=== PATIENT | male | born 1940 | race Hispanic/Latino ===

== ENCOUNTER 2016-12-28 10:52 | Day surgery (SDC) | payer MEDICARE ==
[2016-12-28 10:52] VITALS: BMI 27.6
[2016-12-28] MEDS ORDERED: Sodium Chloride 0.45% 1,000 ML IV ONE (11:17)
--- NOTE | 2016-12-28 11:21 | ED PDOC ---
Arrival/HPI - General Chief Complaint: Lower Extremity Problem/Injury Time Seen by Provider: 12/28/16 11:07 Historian: Patient - History of Present Illness Narrative History of Present Illness (Text): 12/28/16 11:17 76 year old male with healing right lower extremity ulcer sent by PMD to admit for procedure. Patient states he has no acute complaints. Past Medical History - Provider Review Nursing Documentation Reviewed: Yes - Infectious Disease Hx of Infectious Diseases: None - Tetanus Immunization Tetanus Immunization: Unknown - Cardiac Hx Cardiac Disorders: Yes Hx Hypertension: Yes - Pulmonary Hx Respiratory Disorders: No (SMOKED CIGARETTES 3 PPD QUIT) - Neurological Hx Neurological Disorder: No - HEENT Hx HEENT Disorder: No - Renal Hx Renal Disorder: No - Endocrine/Metabolic Hx Diabetes Mellitus Type 1: No (pt denies) Hx Diabetes Mellitus Type 2: No (pt denies) - Hematological/Oncological Hx Blood Transfusions: No Hx Blood Transfusion Reaction: No - Integumentary Hx Dermatological Disorder: Yes Other/Comment: left great toe ischemic ulcer, unable to assess at present dressing was done by dr aguirre today, xray done 3 weeks ago as per pt and small piece of metal found in left great toe,pt can't feel anything due to neuropathy denies stepping on anything, hx of hyperbaric treatments to r 4th toe above from prior admission, 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, dsd intact left foot osteomylitis left great toe pt does not want dressing removed at present time - Musculoskeletal/Rheumatological Hx Arthritis: Yes (hands and feet) - Gastrointestinal Hx Gastrointestinal Disorders: No - Genitourinary/Gynecological Hx Genitourinary Disorders: No - Psychiatric Hx Psychophysiologic Disorder: No (SMOKED CIGARETTES H/O 3 PPD.QUIT) Hx Emotional Abuse: No Hx Physical Abuse: No Hx Substance Use: No - Surgical History Hx Appendectomy: Yes Hx Coronary Stent: (denies) Other/Comment: right arm midline cath in and out - Anesthesia Hx Anesthesia Reactions: No Hx Malignant Hyperthermia: No - Suicidal Assessment Feels Threatened In Home Enviroment: No Family/Social History - Physician Review Nursing Documentation Reviewed: Yes Family/Social History: Unknown Family HX Smoking Status: Former Smoker Hx Alcohol Use: No Hx Substance Use: No Hx Substance Use Treatment: No Allergies/Home Meds Allergies/Adverse Reactions: Allergies No Known Allergies Allergy (Verified 10/19/16 12:01) Home Medications: Home Meds Medication Instructions Recorded Confirmed Lisinopril/Hydrochlorothiazide 1 tab PO DAILY 01/19/14 12/28/16 [Lisinopril-Hctz 10-12.5 mg Tab] Diclofenac Sodium [Voltaren] 75 mg PO BID 01/05/16 12/28/16 Cephalexin [Keflex] 500 mg PO TID 10/19/16 12/28/16 Review of Systems - Physician Review All systems were reviewed & negative as marked: Yes Physical Exam - Physical Exam Narrative Physical Exam (Text): - Review of Systems Constitutional: Normal. absent: Fatigue, Weight Change, Fevers Eyes: Normal ENT: Normal Respiratory: Normal absent: SOB, Cough, Sputum Cardiovascular: Normal absent: Chest pain, Palpitations, Syncope Gastrointestinal: Normal absent: Abdominal pain, Diarrhea, Nausea, Vomiting Genitourinary: Normal. absent: Dysuria, Frequency, Hematuria Musculoskeletal: Normal. absent: Arthralgias, Back Pain, Neck Pain Skin: Healing RLE ulcer Neurological: Normal absent: Focal Weakness Endocrine: Normal Hemo/Lymphatic: Normal Psychiatric: Normal - Physical exam Patient appears age appropriate, speaking full sentences without difficulty - Systems Exam Head: Present: Atraumatic, Normocephalic Pupils: Present: PERRL Extraocular Muscles: Present: EOMI Conjunctiva: Present: Normal Mouth: Present: Moist Mucous Membranes Neck: Present: Normal Range of Motion. No: MIDLINE TENDERNESS, Paraspinal Tenderness Respiratory/Chest: Present: Clear to Auscultation, Good Air Exchange. No: Respiratory Distress, Accessory Muscle Use, Tachypneic Cardiovascular: Present: Regular Rate and Rhythm, Normal S1, S2, Peripheral Pulses Present. No: Murmurs Abdomen: Present: Normal Bowel Sounds, No: Tenderness, Peritoneal Signs, Rebound, Guarding, Distention Back: Present: Normal Inspection. No: Midline Tenderness, Paraspinal Tenderness Upper Extremity: Present: Normal Inspection. No: Cyanosis, Edema Lower Extremity: Present: Clean dressing on right lower extremity, prefers not to be examined. Neurological: Present: GCS=15, Speech Normal, cranial nerves II through XII fully intact with no cerebellar abnormality, neuro-sensory fully intact. No focal neurological deficits. Skin: Present: Warm, Dry, Normal Color. No: Rashes Lymphatic: Present: OX3, NI, NC Psychiatric: Present: Alert, Oriented x 3, Normal Insight, Normal Concentration. Vital Signs Reviewed: Yes Vital Signs Temp Pulse Resp BP Pulse Ox 12/28/16 12:21 98.5 F 65 18 149/75 98 12/28/16 11:02 98.5 F 65 16 149/75 98 Temperature: Afebrile Blood Pressure: Normal Pulse: Regular Respiratory Rate: Normal Appearance: Positive for: Well-Appearing, Non-Toxic, Comfortable Pain Distress: None Mental Status: Positive for: Alert and Oriented X 3 Medical Decision Making ED Course and Treatment: Impression: 76 year old male with healing right lower extremity ulcer sent by PMD for procedure. On physical exam, patient has clean dressing on right lower extremity, prefers not to be examined. Plan: -- Labs -- IV fluids -- Admission Progress Notes: 12/28/16 11:[address] Schwartz who states to admit to his service for procedure. states to start 1/2NS @100, preop labs pt in no distress, aware of and agrees with plan - Lab Interpretations Lab Results: 12/28/16 11:25 12/28/16 11:25 Lab Results 12/28/16 11:30: Blood Type Pending, Antibody Screen Pending, BBK History Checked Patient has bt 12/28/16 11:25: Sodium 137, Potassium 4.3, Chloride 104, Carbon Dioxide 22, Anion Gap 15, BUN 39 H, Creatinine 1.3, Est GFR ( Amer) > 60, Est GFR ( Non-Af Amer) 54, Random Glucose 93, Calcium 9.4, Total Bilirubin 1.5 H, AST 33, ALT 46, Alkaline Phosphatase 80, Total Protein 8.1, Albumin 4.3, Globulin 3.7, Albumin/Globulin Ratio 1.2 12/28/16 11:25: PT 10.7, INR 0.99, APTT 27.6 12/28/16 11:25: WBC 10.0, RBC 4.97, Hgb 16.0, Hct 45.2, MCV 90.9, MCH 32.2, MCHC 35.4, RDW 13.2, Plt Count 247, MPV 9.5, Gran % 69.6 H, Lymph % (Auto) 17.7 L, King % (Auto) 9.2 H, Eos % (Auto) 3.0, Baso % (Auto) 0.5, Gran # 6.95 H, Lymph # 1.8, King # 0.9 H, Eos # 0.3, Baso # 0.05 - RAD Interpretation Radiology Orders: 12/28/16 12:10 CAR PERIPHERAL VASCULAR ORDER [VASCULAR] Stat - Medication Orders Current Medication Orders: Sodium Chloride (Sodium Chloride 0.45%) 1,000 mls @ 100 mls/hr IV .Q10H ONE Stop: 12/28/16 21:16 Discontinued Medications Fentanyl (Fentanyl) Confirm Administered Dose 100 mcg .ROUTE .STK-MED ONE Stop: 12/28/16 12:13 Fentanyl (Fentanyl) Confirm Administered Dose 100 mcg .ROUTE .STK-MED ONE Stop: 12/28/16 13:22 Fentanyl (Fentanyl) Confirm Administered Dose 100 mcg .ROUTE .STK-MED ONE Stop: 12/28/16 14:35 Heparin Sodium (Porcine) (Heparin) Confirm Administered Dose 10,000 units .ROUTE .STK-MED ONE Stop: 12/28/16 12:12 Heparin Sodium (Porcine) (Heparin 1000 Units/500 Ml Ns) Confirm Administered Dose 1,500 mls @ ud IV .STK-MED ONE Stop: 12/28/16 12:13 Nitroglycerin/Dextrose (Nitroglycerin 50 Mg/250 Ml D5w) Confirm Administered Dose 50 mg in 250 mls @ ud IV .STK-MED ONE Stop: 12/28/16 12:14 Heparin Sodium (Porcine) (Heparin 1000 Units/500 Ml Ns) Confirm Administered Dose 500 mls @ ud IV .STK-MED ONE Stop: 12/28/16 14:08 Iodixanol (Visipaque 320 Mg/Ml 100 Ml) Confirm Administered Dose 100 ml IV .STK- MED ONE Stop: 12/28/16 12:13 Iodixanol (Visipaque 320 Mg/Ml 200 Ml) Confirm Administered Dose 200 ml IV .STK- MED ONE Stop: 12/28/16 12:13 Iodixanol (Visipaque 320 Mg/Ml 100 Ml) Confirm Administered Dose 100 ml IV .STK- MED ONE Stop: 12/28/16 14:33 Iohexol (Omnipaque 350mg/Ml 50 Ml) Confirm Administered Dose 50 ml .ROUTE .STK- MED ONE Stop: 12/28/16 12:13 Lidocaine HCl (Lidocaine 2% 20ml Vial) Confirm Administered Dose 20 ml .ROUTE .STK-MED ONE Stop: 12/28/16 12:12 Lidocaine HCl (Lidocaine 2% 20ml Vial) Confirm Administered Dose 20 ml .ROUTE .STK-MED ONE Stop: 12/28/16 14:04 Midazolam HCl (Versed Inj) Confirm Administered Dose 2 mg .ROUTE .STK-MED ONE Stop: 12/28/16 12:13 Midazolam HCl (Versed Inj) Confirm Administered Dose 2 mg .ROUTE .STK-MED ONE Stop: 12/28/16 13:22 Midazolam HCl (Versed Inj) Confirm Administered Dose 2 mg .ROUTE .STK-MED ONE Stop: 12/28/16 14:35 Verapamil HCl (Verapamil Inj) Confirm Administered Dose 5 mg IVP .STK-MED ONE Stop: 12/28/16 13:29 Verapamil HCl (Verapamil Inj) Confirm Administered Dose 5 mg IVP .STK-MED ONE Stop: 12/28/16 14:41 - Scribe Statement The provider has reviewed the documentation as recorded by the Chirag Brooks Provider Scribe Attestation: All medical record entries made by the Chirag were at my direction and personally dictated by me. I have reviewed the chart and agree that the record accurately reflects my personal performance of the history, physical exam, medical decision making, and the department course for this patient. I have also personally directed, reviewed, and agree with the discharge instructions and disposition. Disposition/Present on Arrival - Present on Arrival Any Indicators Present on Arrival: No History of DVT/PE: No History of Uncontrolled Diabetes: No Urinary Catheter: No History of Decub. Ulcer: No History Surgical Site Infection Following: None - Disposition Have Diagnosis and Disposition been Completed?: Yes Diagnosis: Foot pain Disposition: HOSPITALIZED Disposition Time: :17 Patient Plan: Admission Patient Problems: Current Active Problems Problem Status Onset Foot pain Acute Condition: STABLE
[2016-12-28 11:40] LABS: ADD MANUAL DIFF? NO
[2016-12-28 11:42] LABS: BASO # 0.05 K/mm3 (0.0-2.0); BASO % 0.5 % (0.0-3.0); EOS # 0.3 (0.0-0.7); GRAN # 6.95 (1.4-6.5); GRAN % 69.6 % (50.0-68.0); HEMATOCRIT 45.2 % (42.0-52.0); LYMPH # 1.8 (1.2-3.4); LYMPH % 17.7 % (22.0-35.0); MEAN CELL VOLUME 90.9 fL (80.0-105.0); MEAN CORPUSCULAR HEMOGLOBIN 32.2 pg (25.0-35.0); MEAN CORPUSCULAR HGB CONC 35.4 g/dl (31.0-37.0); MEAN PLATELET VOLUME 9.5 fl (7.0-11.0); MONO # 0.9 (0.1-0.6); MONO % 9.2 % (1.0-6.0); PLATELET COUNT 247 10^3/uL (120.0-450.0); RED CELL DISTRIBUTION WIDTH 13.2 % (11.5-14.5)
[2016-12-28 11:53] LABS: ALB/GLOB RATIO 1.2 (1.1-1.8); ALKALINE PHOSPHATASE 80 U/L (38-133); ALT/SGPT 46 U/L (7-56); AST/SGOT 33 U/L (15-59); BILIRUBIN,TOTAL 1.5 mg/dL (0.2-1.3); BLOOD UREA NITROGEN 39 mg/dL (7-21); CALCIUM 9.4 mg/dL (8.4-10.5); CARBON DIOXIDE 22 mmol/L (21-33); CHLORIDE 104 mmol/L (98-107); GFR AFRICAN-AMERICAN > 60; GLUCOSE,RANDOM 93 mg/dL (70-110); POTASSIUM 4.3 mmol/L (3.6-5.0); SODIUM 137 mmol/L (132-148); TOTAL PROTEIN 8.1 g/dL (5.8-8.3)
[2016-12-28 11:57] LABS: INR 0.99 (0.93-1.08); PARTIAL THROMBOPLASTIN TIME 27.6 Seconds (23.7-30.8)
[2016-12-28] MEDS ORDERED: Lidocaine 2% Inj (20ml) ONE ×2 (12:11→14:03)
[2016-12-28] MEDS ORDERED: Iohexol 350mgl/ml 50 ML ONE (12:12)
[2016-12-28] MEDS ORDERED: Iodixanol 320 MG/ML 100 ML BOTTLE IV ONE ×2 (12:12→14:32)
[2016-12-28] MEDS ORDERED: Midazolam 2 MG/2 ML VIAL ONE ×3 (12:12→14:34)
[2016-12-28] MEDS ORDERED: Iodixanol 320 MG/ML 200 ML BOTTLE IV ONE (12:12)
[2016-12-28] MEDS ORDERED: Nitroglycerin 50mg in D5W 50 MG/250 ML BOTTLE IV ONE (12:13)
[2016-12-28] MEDS ORDERED: Oxycodone/Acetaminophen 5/325 mg Tab PO PRN (15:02)
[2016-12-28 16:19] VITALS: TEMP 97.8
[2016-12-28 17:39] VITALS: O2SAT 96
[2016-12-28 17:40] VITALS: BP 123/64; PULSE 58; RESP 18
--- NOTE | 2016-12-28 19:20 | VASCULAR ---
PROCEDURE: Abdominal aortogram and bilateral lower extremity runoff with bilateral punctures HISTORY: Peripheral vascular disease. Previous right femoral - popliteal bypass. Ischemic ulceration right 2nd toe. PHYSICIAN(S): Lang Schwartz MD. TECHNIQUE: The relative risks and indications of the procedure were explained to the patient and consent obtained. The patient was hydrated prior to the procedure and the appropriate labs drawn. The patient was placed supine on the arteriogram table and the left groin prepped and draped in the usual sterile fashion. Conscious sedation and monitoring were provided throughout the procedure by a nurse. Via a left common femoral artery approach, a 5 Nauruan sheath was placed in the left groin. Through the sheath and over a guidewire, a 5 Nauruan flush catheter was placed in the abdominal aorta at the level of the renal arteries and a PA DSA abdominal aortogram performed. The catheter was pulled down to the aortic bifurcation and bilateral oblique DSA pelvic arteriograms performed. Overlapping bilateral lower extremity DSA arteriograms were obtained from the inguinal ligaments to the ankles. A 6 Nauruan 90 cm sheath was placed in the right popliteal artery. Attempts at cannulating the occluded right anterior tibial artery origin or right peroneal artery were unsuccessful despite numerous 0.014 and 0.035 guidewires. Subsequently the right ankle was prepped and draped usual sterile fashion. Under ultrasound guidance the distal right anterior tibial artery was punctured with a micropuncture set in a retrograde direction. Various 4 and 5 Nauruan catheters were advanced to the occluded stent in the proximal right anterior tibial artery. The occluded stent could not be crossed in a retrograde direction. The sheath and catheter were removed and hemostasis obtained. The patient tolerated the procedure well. FINDINGS: There are single renal arteries bilaterally which are widely patent and normal in appearance. The nephrograms are symmetric in appearance. The infrarenal abdominal aorta is tortuous and widely patent.. The aortic bifurcation is widely patent. The common and external iliac arteries are normal in appearance without a significant stenosis. The internal iliac arteries are patent bilaterally. Right lower extremity: The right common femoral artery is patent. The right profunda femoral artery is patent. The patient's right femoral- above knee popliteal graft is patent. The stent in the proximal graft is patent. The distal anastomosis is patent. The right popliteal artery is patent. There is severe right trifurcation and tibial occlusive disease. All 3 tibial vessels are occluded proximally. There is a a occluded stent in the proximal right anterior tibial artery. The right tibioperoneal trunk is occluded. There is reconstitution of the proximal right anterior tibial artery below the stent. There is reconstitution of the mid right peroneal artery. The right posterior tibial artery is occluded proximally. Left lower extremity: Left common femoral artery is patent. The left profunda femoral artery is patent. The left superficial femoral artery is patent and continuous with diffuse calcified disease. Are radiographically significant stenosis is not appreciated. The left popliteal artery is patent and continuous. The left trifurcation demonstrates an occluded left posterior tibial artery. The left anterior tibial artery is atretic. The predominant supply left foot is the left peroneal artery.. IMPRESSION: 1. Severe right trifurcation and tibial occlusive disease. The occluded proximal right anterior tibial artery stent could not be crossed in an antegrade or retrograde direction. If the patient's ischemic lesion progresses, he can be evaluated for right popliteal - anterior tibial bypass. 2. Patent right femoral bypass graft. 3. Severe left tibial occlusive disease. There is 1 vessel runoff via the left peroneal artery
== END 2016-12-28 19:00 | disposition home or self-care (01) ==
LOC: ED 10:52 → SDSVAS 13:06
PROVIDERS: ATTEND Radiology Vascular & Interventional Radiology
DX: I70.235 Atherosclerosis of native arteries of right leg with ulceration of other part of foot (principal); L97.919 Non-pressure chronic ulcer of unspecified part of right lower leg with unspecified severity
CPT/HCPCS: 36140; 36247; 75625; 75716; 80053; 85025; 85610; 85730; 86850; 86900; 99152; 99153; 99283; C1725 ×4; C1760 ×2; C1769 ×4; C1887 ×2; C1894; J1644 ×2; J2250; J2405; J3010; Q9967

== ENCOUNTER 2017-02-02 07:06 | Day surgery (SDC) | payer MEDICARE ==
[2017-01-31 08:53] VITALS: BMI 26.6
[2017-02-02 07:34] LABS: ADD MANUAL DIFF? NO
[2017-02-02 07:37] LABS: BASO # 0.06 K/mm3 (0.0-2.0); BASO % 0.9 % (0.0-3.0); EOS # 0.4 (0.0-0.7); GRAN % 61.1 % (50.0-68.0); HEMATOCRIT 44.3 % (42.0-52.0); LYMPH # 1.4 (1.2-3.4); LYMPH % 21.3 % (22.0-35.0); MEAN CELL VOLUME 91.9 fL (80.0-105.0); MEAN CORPUSCULAR HEMOGLOBIN 31.7 pg (25.0-35.0); MEAN CORPUSCULAR HGB CONC 34.5 g/dl (31.0-37.0); MEAN PLATELET VOLUME 9.6 fl (7.0-11.0); MONO # 0.7 (0.1-0.6); MONO % 10.7 % (1.0-6.0); PLATELET COUNT 190 10^3/uL (120.0-450.0); RED CELL DISTRIBUTION WIDTH 12.8 % (11.5-14.5); WHITE BLOOD COUNT 6.4 10^3/ul (4.5-11.0)
[2017-02-02 07:44] LABS: CALCIUM 9.3 mg/dL (8.4-10.5); CARBON DIOXIDE 25 mmol/L (21-33); CHLORIDE 105 mmol/L (95-110); GFR AFRICAN-AMERICAN > 60; GLUCOSE,RANDOM 93 mg/dL (70-110); POTASSIUM 4.3 mmol/L (3.6-5.0); SODIUM 138 mmol/L (132-148)
[2017-02-02 07:50] LABS: INR 0.97 (0.93-1.08); PARTIAL THROMBOPLASTIN TIME 27.5 Seconds (23.7-30.8)
[2017-02-02 08:10] LABS: BLOOD UREA NITROGEN 29 mg/dL (7-21)
[2017-02-02] MEDS ORDERED: Lidocaine 2% Inj (20ml) ONE (08:11)
[2017-02-02] MEDS ORDERED: Iodixanol 320 MG/ML 200 ML BOTTLE IV ONE (08:12)
[2017-02-02] MEDS ORDERED: Midazolam 2 MG/2 ML VIAL ONE ×2 (08:36→09:16)
[2017-02-02] MEDS ORDERED: Adenosine 90 mg/30mL IV ONE (09:32)
[2017-02-02] MEDS ORDERED: Sodium Chloride 0.9% 1,000 ML IV SCH (10:30)
--- NOTE | 2017-02-02 11:47 | CARDCATH ---
PROCEDURE DATE: 02/02/2017 HISTORY OF PRESENT ILLNESS: The patient is a 76-year-old male who presented with an abnormal stress test as part of preop testing for peripheral vascular surgery. The patient's risk factors include a history of COPD, a long history of smoking, hypertension, and do cumented peripheral vascular disease. Because of this, cardiac catheterization was recommended. PROCEDURE: Left heart catheterization with coronary angiography, left ventriculogram, FFR, PTCA and stent of an LAD and circumflex artery. The left femoral artery was cannulated with a 6-Danish sheath which was then exchanged for a 7-Danish sheath. There were no complications. The findings on catheterization revealed a left ventricle that contracted normally. Estimated ejecti on fraction is 60%. His coronary anatomy revealed diffuse calcification and diffuse atherosclerosis. The RCA was a codominant vessel and found to have a long 80% stenosis in the ostium to the mid portio n of the RCA followed by a 95% stenosis in the mid portion. The left main artery revealed diffuse atherosclerosis without critical lesions. The LAD revealed a 60% stenosis in the proximal portion of the LAD with diffuse atherosclerosis throu ghout its course. The circumflex artery was a tortuous vessel and found to have an 80-90% stenosis in its proximal port ion. An FFR was performed in the LAD in which, after 45 seconds, the FFR was 0.82. The patient was started on intravenous Angiomax. Under fluoroscopic guide, the guiding catheter was placed in the ostium of the left main artery. A 3 .5 x 15 mm drug-eluting stent was placed and deployed in the proximal LAD at 14 atmospheres of pressu re. Repeat coronary angiography revealed an excellent result with no residual stenosis and FROY 3 fl ow. The wire was then brought back into the circumflex artery. A second wire was placed in the circumfle x artery for better support. Balloon angioplasty was done with a 2.5 followed by a 3.0 balloon. A 3.0 x 15 mm drug-eluting stent was placed and deployed in the proximal circumflex artery at 14 atmo spheres of pressure. Repeat coronary angiography revealed an excellent result with no residual steno sis and FROY 3 flow. The patient tolerated the procedure well. Angio-Seal was used to close the femoral artery site. SUMMARY: 1. The procedure was successful percutaneous transluminal coronary angioplasty and stent of a proxim al left anterior descending with a drug-eluting stent. 2. Percutaneous transluminal coronary angioplasty and stent of a proximal circumflex with a drug-elu ting stent. 3. Triple-vessel coronary artery disease. 4. Normal left ventricular function . 5. Severe peripheral vascular disease. Given these findings, the patient will need to remain on aspirin indefinitely and Plavix for at least 1 year. We will bring him back in 1 week for PTCA and stent of a complex RCA vessel. Lang Birmingham MD cc: [phone] TT: 02/02/2017 11:47:40 tn
--- NOTE | 2017-02-02 13:55 | CARD ---
APPROVED REPORT EKG Measurement Heart [id number] <Conclusion> Sinus rhythm with 1st degree AV block STTW changes c/w ischemia
--- NOTE | 2017-02-02 15:10 | CARD ---
APPROVED REPORT EKG Measurement Heart [id number] <Conclusion> Marked sinus bradycardia with 1st degree AV block STW changes c/w ischemia
[2017-02-03 05:51] VITALS: TEMP 97.6
[2017-02-03 05:52] VITALS: BP 126/75; PULSE 57; RESP 19; O2SAT 99
[2017-02-03 08:21] LABS: ADD MANUAL DIFF? NO
[2017-02-03 08:24] LABS: BASO # 0.03 K/mm3 (0.0-2.0); BASO % 0.3 % (0.0-3.0); EOS # 0.4 (0.0-0.7); EOS % 5.1 % (1.5-5.0); GRAN % 67.4 % (50.0-68.0); HEMATOCRIT 46.2 % (42.0-52.0); LYMPH # 1.5 (1.2-3.4); LYMPH % 17.7 % (22.0-35.0); MEAN CELL VOLUME 92.2 fL (80.0-105.0); MEAN CORPUSCULAR HEMOGLOBIN 31.9 pg (25.0-35.0); MEAN CORPUSCULAR HGB CONC 34.6 g/dl (31.0-37.0); MEAN PLATELET VOLUME 9.6 fl (7.0-11.0); MONO # 0.8 (0.1-0.6); MONO % 9.5 % (1.0-6.0); PLATELET COUNT 190 10^3/uL (120.0-450.0); RED CELL DISTRIBUTION WIDTH 12.9 % (11.5-14.5); WHITE BLOOD COUNT 8.6 10^3/ul (4.5-11.0)
[2017-02-03 08:55] LABS: BLOOD UREA NITROGEN 23 mg/dL (7-21); CALCIUM 9.1 mg/dL (8.4-10.5); CARBON DIOXIDE 26 mmol/L (21-33); CHLORIDE 102 mmol/L (95-110); GFR AFRICAN-AMERICAN > 60; GLUCOSE,RANDOM 91 mg/dL (70-110); POTASSIUM 4.6 mmol/L (3.6-5.0); SODIUM 137 mmol/L (132-148)
--- NOTE | 2017-02-03 10:16 | PN ---
DATE: 02/03/2017 SUBJECTIVE: The patient is asymptomatic, chest pain free. PHYSICAL EXAMINATION: VITAL SIGNS: Blood pressure 126/75, heart rate is in the 60s, normal sinus rhythm. NECK: Negative JVD. LUNGS: Without rales. HEART: With S1, S2. EXTREMITIES: Without edema. LABORATORIES: Reveal hemoglobin of 16. Chemistries: BUN and creatinine are unremarkable. EKG is unremarkable. IMPRESSION: 1. Stable post percutaneous transluminal coronary angioplasty and stent of 2 vessels. 2. Cardiac catheterization revealed triple vessel coronary artery disease. 3. Normal left ventricular function. 4. Hypercholesterolemia. 5. Hypertension. PLAN: Given these findings, the patient is stable for discharge. Instructions and follow up have be en discussed with the patient in detail. His medications have been ordered. The patient will return in 1 week for PTCA and stent of a diffusely diseased RCA. Lang Birmingham MD cc: [phone] TT: 02/03/2017 10:15:21 Confirmation # [id number] Dictation # [id number]
--- NOTE | 2017-02-03 10:19 | HP ---
HISTORY OF PRESENT ILLNESS: The patient is a 76-year-old man with a past medical history of hyperten mary, peripheral vascular disease, status post IR revascularization of the proximal left anterior tib ial artery with chronic nonhealing ulceration to his left toe who is followed closely by Dr. Nunez of podiatry and with prior admissions for cellulitis and abscess with MSSA bacteremia who has pending vascular surgery with Dr. Ge and as part of his preoperative workup underwent a nuclear stress lucas t which was abnormal and as such was admitted for an elective cardiac catheterization. The patient w as taken successfully to the cardiac catheterization lab with Dr. Birmingham with findings demonstrating tr iple vessel CAD. The patient underwent successful PCI with drug-eluting stent placement to the proxi mal circumflex artery and placement of drug-eluting stent to the proximal left anterior descending ar sukhjinder. The patient tolerated the procedure well and no post-procedure complications were noted. Arra ngements will be made for the patient to return to attempt to revascularize the remaining lesions to the RCA vessel. This morning, the patient states he feels well and offers no complaints. PAST MEDICAL HISTORY: As per HPI. Also, a history of osteoarthritis and neuropathy. PAST SURGICAL HISTORY: As per HPI. Also, appendectomy, right lower extremity bypass vascular surger y and amputation of the right foot 4th digit. MEDICATIONS: Zestoretic 10/12.5 mg p.o. daily, aspirin 81 mg p.o. daily. ALLERGIES: No known drug allergies. FAMILY HISTORY: Significant for hypertension, diabetes and coronary artery disease. SOCIAL HISTORY: The patient reports a former [id number] smoking history, but quit approximately 14 years ago. He reports social alcohol use and denies illicit drug abuse. REVIEW OF SYSTEMS: Negative for fevers, chills, rigors, malaise, lower extremity edema, chest pain, palpitations, orthopnea or exertional dyspnea. PHYSICAL EXAMINATION: VITAL SIGNS: Temperature 97.6, pulse 57, blood pressure 126/75, respiratory rate 20, oxygen saturati on 99% on room air. GENERAL: No apparent distress. HEENT: PERRL, EOMI, no scleral icterus, no conjunctival pallor. NECK: Supple with full range of motion, no JVD, no bruits. LUNGS: Clear to auscultation. CARDIOVASCULAR: Regular rate and rhythm, normal S1 and S2, no murmurs. ABDOMEN: Normoactive bowel sounds, soft, nontender, nondistended. EXTREMITIES: No edema. NEUROLOGIC: Awake, alert and oriented x 3. No focal motor deficits. LABORATORY DATA: CBC reviewed and unremarkable. CMP reviewed and unremarkable. ASSESSMENT: The patient is a 76-year-old man with multiple medical comorbidities including hypertens ion and peripheral vascular disease with chronic nonhealing left foot wound, who presented for cardia c catheterization after undergoing an abnormal nuclear stress test as part of his preoperative workup for planned vascular surgery. PLAN: 1. Triple vessel CAD status post PCI with drug-eluting stent placement to the proximal LAD and proxi mal circumflex lesions. Continue with post-cardiac catheterization care as per Dr. Birmingham. The patien t will need to be on aspirin indefinitely and Plavix for at least 1 year. The patient to return for attempted revascularization of his complex RCA vessel. Continue with Lipitor 40 mg p.o. daily. 2. Hypertension. Blood pressure controlled. Continue with lisinopril 10 mg p.o. daily. 3. Peripheral vascular disease status post IR vascularization. Continue with aspirin 81 mg p.o. sima ly. The patient has been restarted on Lipitor 40 mg p.o. daily, although in the past he did have iss ues with myopathy. However, given his new findings of triple vessel CAD, he was strongly encouraged to continue statin therapy. 4. Prophylaxis. GI prophylaxis not indicated as the patient is eating. DVT prophylaxis not indicat ed as patient is ambulatory. 5. Disposition. The patient for discharge to home today. CODE STATUS: Full code. Amari Gonzalez MD cc: [phone] TT: 02/03/2017 10:18:51 emil
== END 2017-02-03 09:58 | disposition home or self-care (01) ==
LOC: CATH 07:06 → 2RSO 10:36 → CATH 02-03 09:58
PROVIDERS: ATTEND Student in an Organized Health Care Education/Training Program
DX: I25.10 Atherosclerotic heart disease of native coronary artery without angina pectoris (principal); I10 Essential (primary) hypertension; I73.9 Peripheral vascular disease, unspecified; G72.9 Myopathy, unspecified; J44.9 Chronic obstructive pulmonary disease, unspecified; E78.00 Pure hypercholesterolemia, unspecified; Z87.891 Personal history of nicotine dependence
CPT/HCPCS: 36415 ×2; 80048 ×2; 85025 ×2; 85610; 85730; 86850; 86900; 93005; 93458; 93571; 99152; 99153; C1725 ×2; C1760; C1769 ×3; C1874 ×2; C1887; C1894; C2629; C9600; C9601; J0153; J0583; J1644; J2250; J3010; J7030; J7040

== ENCOUNTER 2017-02-07 07:49 | Day surgery (SDC) | payer MEDICARE ==
[2017-02-06 07:57] VITALS: BMI 27.0
[2017-02-07 08:38] LABS: ADD MANUAL DIFF? NO
[2017-02-07 08:51] LABS: BASO # 0.04 K/mm3 (0.0-2.0); BASO % 0.5 % (0.0-3.0); EOS # 0.4 (0.0-0.7); EOS % 5.7 % (1.5-5.0); GRAN # 5.09 (1.4-6.5); GRAN % 65.6 % (50.0-68.0); LYMPH # 1.4 (1.2-3.4); LYMPH % 18.3 % (22.0-35.0); MEAN CELL VOLUME 92.2 fL (80.0-105.0); MEAN CORPUSCULAR HEMOGLOBIN 32.1 pg (25.0-35.0); MEAN CORPUSCULAR HGB CONC 34.8 g/dl (31.0-37.0); MEAN PLATELET VOLUME 9.8 fl (7.0-11.0); MONO # 0.8 (0.1-0.6); MONO % 9.9 % (1.0-6.0); PLATELET COUNT 193 10^3/uL (120.0-450.0); RED CELL DISTRIBUTION WIDTH 12.7 % (11.5-14.5); WHITE BLOOD COUNT 7.8 10^3/ul (4.5-11.0)
[2017-02-07 08:56] LABS: CALCIUM 9.4 mg/dL (8.4-10.5); POTASSIUM 4.6 mmol/L (3.6-5.0)
[2017-02-07] MEDS ORDERED: Lidocaine 2% Inj (20ml) ONE (08:57)
[2017-02-07] MEDS ORDERED: Iohexol 350mgl/ml 50 ML ONE (08:58)
[2017-02-07] MEDS ORDERED: Iodixanol 320 MG/ML 200 ML BOTTLE IV ONE (08:58)
[2017-02-07 09:01] LABS: INR 0.97 (0.93-1.08); PARTIAL THROMBOPLASTIN TIME 28.9 Seconds (23.7-30.8)
[2017-02-07] MEDS ORDERED: Midazolam 2 MG/2 ML VIAL ONE ×2 (09:35→10:16)
[2017-02-07] MEDS ORDERED: Sodium Chloride 0.9% 1,000 ML IV SCH (11:30)
--- NOTE | 2017-02-07 11:32 | CARDCATH ---
PROCEDURE DATE: 02/07/2017 HISTORY: The patient is a 76-year-old male who presents with unstable angina. 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 The patient underwent successful PTCA and stent of an LAD and circumflex artery last week and present s for PTCA and stent of the diffusely diseased RCA. PROCEDURE: Coronary angiography followed by PTCA and stent of an RCA. The right femoral artery was cannulated with a 6-Djiboutian sheath. There were no complications. Findings on catheterization revealed patent stents in the left anterior descending and circumflex art kedar placed last week. The patient has a right dominant circulation. The RCA revealed an 80% stenosis in the proximal portion and 90% stenosis in the mid portion as well as 80% stenosis in the distal RCA with a diffusely diseased RCA. The patient was started on intravenous Angiomax. Under fluoroscopic guide, the guiding catheter was placed in the ostium of the RCA. An 0.014 ATW wire was used to cross the multiple lesions. 2.0 ball oon was utilized to predilate the lesion followed by a 2.5 balloon that was utilized to dilate the le sions. A 2.25 x 12 mm drug-eluting stent was placed and deployed in the distal lesion. A 26 mm x 2.5 drug-e luting stent was placed and deployed in the mid lesion extending into the proximal RCA lesion followe d by a 2.75 mm x 12 mm drug-eluting stent that was placed in the proximal RCA. Repeat coronary angiography revealed an excellent result with no residual stenosis and FROY 3 flow. Angio-Seal was used to close the femoral artery site. The patient tolerated the procedure well. In addition, a PRU was measured and found that the patient was therapeutic on Plavix. SUMMARY: The procedure was successful for PTCA and stent of the diffusely diseased RCA with 3 drug-e luting stents. Coronary angiography revealed a patent stent in the left anterior descending and circumflex artery. Given these findings, the patient will need to remain on aspirin indefinitely and Plavix for at least 1 year and undergo a strict cardiac risk reduction program. Lang Birmingham MD cc: [id number] TT: 02/07/2017 11:31:15 rn
--- NOTE | 2017-02-07 19:12 | HP ---
HISTORY OF PRESENT ILLNESS: The patient is a 76-year-old man with past medical history of hypertensi on, peripheral vascular disease, status post IR revascularization of the proximal left anterior tibia l artery with chronic nonhealing ulceration to his left toe and triple vessel CAD status post percuta neous coronary intervention with drug-eluting stent placement to the proximal LAD and proximal circum flex artery, who returned to [facility] for electively scheduled cardiac catheterization which was the result of an abnormal nuclear stress test which was performed as part of the patient's preoperative workup prior to vascular surgery. The patient was successfully taken to the cardiac cat heterization lab with Dr. Birmingham and underwent successful PCI with placement of 3 drug-eluting stents t o the diffusely diseased RCA. The patient tolerated the procedure well and no post-procedure complic ations were immediately noted and he was subsequently transferred to the telemetry claudio for continued post-catheterization care. PAST MEDICAL HISTORY: As per HPI. Also, history of MSSA bacteremia, osteoarthritis, and neuropathy. PAST SURGICAL HISTORY: As per HPI. Also, appendectomy, right lower extremity bypass vascular surger y and amputation of the right foot fourth digit. ALLERGIES: No known drug allergies. MEDICATIONS: Zestoretic 10/12.5 mg p.o. daily, aspirin 81 mg p.o. daily, Plavix 75 mg p.o. daily and Lipitor 40 mg p.o. daily. FAMILY HISTORY: Significant for hypertension, diabetes and coronary artery disease. SOCIAL HISTORY: The patient reports a former [id number] smoking history, but quit approximately 14 years ago. He reports social alcohol use and denies illicit drug abuse. REVIEW OF SYSTEMS: Negative for fevers, chills, rigors, malaise, lower extremity edema, chest pain, palpitations, orthopnea or exertional dyspnea. PHYSICAL EXAMINATION: VITAL SIGNS: Temperature 98.2, pulse 59, blood pressure 124/74, respiratory rate 17, oxygen saturati on 98% on room air. GENERAL: No apparent distress. HEENT: PERRL. EOMI. No scleral icterus, no conjunctival pallor. NECK: Supple, full range of motion, no JVD, no bruits. LUNGS: Clear to auscultation. CARDIOVASCULAR: Regular rate and rhythm. Normal S1 and S2. ABDOMEN: Normoactive bowel sounds, soft, nontender, nondistended. EXTREMITIES: No edema. Cardiac catheterization site appears clean, dry and intact with no bruit or hematoma. NEUROLOGIC: Awake, alert and oriented x 3. No focal motor deficits. LABORATORY DATA: CBC reviewed and unremarkable. Sodium 139, potassium 4.6, chloride 104, bicarb 24, BUN 41, creatinine 1.5, glucose 89. ASSESSMENT: The patient is a 76-year-old man with multiple medical comorbidities including hypertens ion and peripheral vascular disease with chronic nonhealing left foot wound, who returned to [facility] for electively scheduled cardiac catheterization due to an abnormal nuclear stress lucas t which was performed as part of his preoperative workup for planned vascular surgery. PLAN: 1. Triple vessel CAD status post percutaneous coronary intervention with drug-eluting stent placemen t to proximal LAD and proximal circumflex lesions, now status post placement of 3 drug-eluting stents to the diffusely diseased RCA. Continue with post-catheterization care as per Dr. Birmingham and the card iology team. Continue with aspirin 81 mg p.o. daily, Plavix 75 mg p.o. daily and Lipitor 40 mg p.o. daily. 2. Hypertension. Blood pressure controlled. We will continue to monitor hemodynamics and resume Ze storetic 10/12.5 mg p.o. daily as needed. 3. Peripheral vascular disease, status post IR revascularization. Continue with aspirin 81 mg p.o. daily and Lipitor 40 mg p.o. daily. The patient is pending vascular surgery with Dr. Ge. 4. Prophylaxis. GI prophylaxis not indicated as the patient is eating. DVT prophylaxis not indicat ed as the patient is ambulatory. CODE STATUS: Full code. Amari Gonzaelz MD cc: [id number] TT: 02/07/2017 19:11:04 melonie
[2017-02-08 06:55] VITALS: BP 147/74; RESP 18; TEMP 97.5; O2SAT 99
[2017-02-08 07:30] LABS: ADD MANUAL DIFF? NO
[2017-02-08 07:36] LABS: BASO # 0.03 K/mm3 (0.0-2.0); BASO % 0.5 % (0.0-3.0); EOS # 0.5 (0.0-0.7); GRAN # 4.26 (1.4-6.5); GRAN % 65.1 % (50.0-68.0); HEMATOCRIT 43.4 % (42.0-52.0); LYMPH # 1.2 (1.2-3.4); LYMPH % 18.5 % (22.0-35.0); MEAN CELL VOLUME 91.9 fL (80.0-105.0); MEAN CORPUSCULAR HEMOGLOBIN 31.6 pg (25.0-35.0); MEAN CORPUSCULAR HGB CONC 34.3 g/dl (31.0-37.0); MEAN PLATELET VOLUME 9.4 fl (7.0-11.0); MONO # 0.6 (0.1-0.6); MONO % 8.9 % (1.0-6.0); PLATELET COUNT 187 10^3/uL (120.0-450.0); RED CELL DISTRIBUTION WIDTH 12.7 % (11.5-14.5); WHITE BLOOD COUNT 6.5 10^3/ul (4.5-11.0)
[2017-02-08 07:48] LABS: BLOOD UREA NITROGEN 36 mg/dL (7-21); CARBON DIOXIDE 25 mmol/L (21-33); CHLORIDE 104 mmol/L (98-107); GFR AFRICAN-AMERICAN > 60; GLUCOSE,RANDOM 92 mg/dL (70-110); POTASSIUM 4.9 mmol/L (3.6-5.0); SODIUM 138 mmol/L (132-148)
--- NOTE | 2017-02-08 09:38 | PN ---
DATE: 02/08/2017 SUBJECTIVE: The patient is seen and examined at bedside on the telemetry claudio. No acute events over night. He remains afebrile, hemodynamically stable, and chest pain free, status post his cardiac cat heterization. This morning, he states he feels great and is looking forward to going home. OBJECTIVE: VITAL SIGNS: Temperature 97.5, pulse 52, blood pressure 147/74, respiratory rate 18, oxygen saturati on 99% on room air. GENERAL: No apparent distress. HEENT: PERRL. EOMI. No scleral icterus. No conjunctival pallor. NECK: Supple with full range of motion. No JVD, no bruits. LUNGS: Clear to auscultation. CARDIOVASCULAR: Regular rate and rhythm. Normal S1 and S2. ABDOMEN: Normoactive bowel sounds, soft, nontender, nondistended. EXTREMITIES: No edema, no femoral hematoma, no bruit. NEUROLOGIC: Awake, alert, and oriented x 3. No focal motor deficits. LABORATORY DATA: CBC reviewed and unremarkable. BMP reviewed and unremarkable. ASSESSMENT: The patient is a 76-year-old man with multiple medical comorbidities including hypertens ion and peripheral vascular disease with chronic nonhealing left foot wound, who returned to [facility] for electively scheduled cardiac catheterization due to abnormal nuclear stress test, which was performed as part of his preoperative workup for planned vascular surgery. PLAN: 1. Triple-vessel CAD status post PCI with drug-eluting stent placement x 3 to the diffusely diseased RCA. Continue with aspirin 81 mg p.o. daily, Plavix 75 mg p.o. daily and Lipitor 40 mg p.o. daily. Continue with post-catheterization care, as per Dr. Birmingham. 2. Hypertension. Blood pressure controlled. Continue with current medications. 3. Peripheral vascular disease status post IR revascularization. Continue with aspirin 81 mg p.o. d aily and Lipitor 40 mg p.o. daily. 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 4. Prophylaxis. GI prophylaxis is not indicated, as the patient is eating. DVT prophylaxis is not indicated, as the patient is ambulatory. 5. Disposition: The patient is for discharge to home today. CODE STATUS: Full code. Amari Gonzalez MD cc: [id number] TT: 02/08/2017 09:37:45 Confirmation # [id number] Dictation # [id number] jn
--- NOTE | 2017-02-08 10:24 | PN ---
DATE: 02/08/2017 The patient is asymptomatic. PHYSICAL EXAMINATION: VITAL SIGNS: Blood pressure is 147/74. The heart rate is in the 50s, normal sinus rhythm. NECK: Negative JVD. LUNGS: Without rales. HEART: S1, S2. EXTREMITIES: Without edema. LABORATORIES: Includes a creatinine that is improved from ____ to 1.2 today. Hemoglobin is 14.9. IMPRESSION: 1. Status post percutaneous transluminal coronary angioplasty and stent of 3 vessels with drug-eluti ng stents. 2. Coronary artery disease. 3. Status post unstable angina. 4. History of hypercholesterolemia. Given these findings, the patient is stable post PTCA and stent. Followup and instructions have been given to the patient. We will refer him to cardiac rehab. Lang Birmingham MD cc: [id number] TT: 02/08/2017 09:52:18 Confirmation # [id number] Dictation # [id number] mn
[2017-02-08 10:56] VITALS: PULSE 51
== END 2017-02-08 11:27 | disposition home or self-care (01) ==
LOC: CATH 07:49 → 2RSO 11:07 → CATH 02-08 11:27
PROVIDERS: ATTEND Student in an Organized Health Care Education/Training Program
DX: I25.110 Atherosclerotic heart disease of native coronary artery with unstable angina pectoris (principal); I10 Essential (primary) hypertension; I73.9 Peripheral vascular disease, unspecified; L97.529 Non-pressure chronic ulcer of other part of left foot with unspecified severity; M19.90 Unspecified osteoarthritis, unspecified site; G62.9 Polyneuropathy, unspecified; Z86.19 Personal history of other infectious and parasitic diseases; Z90.49 Acquired absence of other specified parts of digestive tract; Z98.62 Peripheral vascular angioplasty status; Z89.421 Acquired absence of other right toe(s); Z87.891 Personal history of nicotine dependence; E78.00 Pure hypercholesterolemia, unspecified
CPT/HCPCS: 36415 ×2; 80048 ×2; 85025 ×2; 85576; 85610; 85730; 86850; 86900; 93454; 99152; 99153; C1725 ×2; C1760; C1769 ×2; C1874 ×3; C1887; C2629; C9600; J0583; J1644; J2250; J3010; J7030; J7040; Q9967

== ENCOUNTER 2017-04-05 06:02 | Day surgery (SDC) | payer MEDICARE ==
[2017-04-05 06:56] VITALS: BMI 27.0
[2017-04-05] MEDS ORDERED: Lidocaine 2% Inj (20ml) ONE (07:27)
[2017-04-05] MEDS ORDERED: Propofol 10 mg/ml Inj (20 ML) ONE (07:48)
[2017-04-05] MEDS ORDERED: Midazolam 2 MG/2 ML VIAL ONE (07:48)
[2017-04-05] MEDS ORDERED: Lactated Ringer's 1,000 ML IV SCH (08:09)
[2017-04-05] MEDS ORDERED: Bupivacaine 0.5% Inj(30mL) ONE (08:11)
--- NOTE | 2017-04-05 08:35 | PCM.SURG1 ---
Surgeon's Initial Post Op Note - Surgeon's Notes Surgeon: Dr. Rosie Nunez, DPM Operating Room Nurse: Dr. Kishore Sharp, PGY1 Type of Anesthesia: IV Sedation, Local Anesthesia Administered By: Dr. 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 I- 13 cc 1% lidocaine plain, 5 cc 0.5% marcaine plain. M- 3-0 vicryl, 3-0 nylon Post-Operative Diagnosis: same Operation Performed: Right second digit amputation Specimen/Specimens Removed: Right second digit Estimated Blood Loss: EBL {In ML}: 5 Blood Products Given: N/A Drains Used: No Drains Post-Op Condition: Good Date of Surgery/Procedure: 04/05/17 Time of Surgery/Procedure: 08:36
[2017-04-05 09:31] VITALS: TEMP 98
[2017-04-05 10:02] VITALS: BP 120/64; PULSE 67; RESP 18; O2SAT 96
--- NOTE | 2017-04-06 01:55 | OP ---
PROCEDURE DATE: 04/05/2017 SURGEON: Rosie Nunez DPM YOGA COORDINATOR: Kishore Sharp DPM, PGY1 ANESTHESIOLOGIST: Dr. Kolb ANESTHESIA: IV sedation with local. PREOPERATIVE DIAGNOSIS: Chronic nonhealing ulcer of right second digit with underlying osteomyelitis. POSTOPERATIVE DIAGNOSIS: Chronic nonhealing ulcer of right second digit with underlying osteomyelitis. NAME OF PROCEDURE: Partial right second digit amputation. INDICATION: The patient is a 76-year-old male with the above diagnosis. The patient has exhausted all conservative treatment at this time and now requires surgical intervention. The patient signed the consent after careful explanation of risks, benefits, complications, and alternatives for surgical procedure. No guarantees were given nor implied and n.p.o. status was confirmed prior to taking the patient to the OR. PREPARATION: The patient was brought into the operating room and placed on the operating room table in a supine position. Time-out was performed for identification of the correct patient and procedure. After induction of IV sedation, the patient received a total of 13 mL of 1% lidocaine plain in a local block type fashion to the right foot. The right foot was then prepped and draped in normal sterile manner and the procedure began. No tourniquet was used during the procedure. DESCRIPTION OF PROCEDURE: Our attention was then drawn to the dorsal aspect of the right second digit where a circumferential incision was made at the level of the proximal interphalangeal joint using a #15 blade. The incision was then extended through the subcutaneous layers down to the level of the bone. Using a bone clamp to stabilize the toe, the second digit was then disarticulated from the foot at the level of the proximal interphalangeal joint. Using a bone cutter, the head of the proximal phalanx was then resected and passed from the operative field. Using a fresh #15 blade, all necrotic and nonviable tissue was then excisionally debrided from the surgical site. The wound was then copiously flushed with sterile saline using a bulb syringe and 5 mL of Marcaine plain was injected into the soft tissue directly surrounding the surgical site. The surgical site was then sutured closed using 3-0 Vicryl deep sutures and 3-0 nylon superficial sutures. The wound was then dressed with Xeroform, 4 x 4 gauze, and Kerlix. POSTOPERATIVE CONDITION: The patient tolerated the anesthesia and procedure well and was escorted to the recovery room with vital signs stable and neurovascular status intact to the right foot. The patient is to remain partial weightbearing to right lower extremity as tolerated using a surgical shoe. The patient is to be discharged home with prescriptions for Augmentin 875 mg and Percocet 5/325 and will follow up with Dr. Nunez in her clinic. Kishore Sharp DPM ROSS
== END 2017-04-05 10:45 | disposition home or self-care (01) ==
LOC: SDS 06:02
PROVIDERS: ATTEND Podiatrist
DX: M86.171 Other acute osteomyelitis, right ankle and foot (principal); L97.519 Non-pressure chronic ulcer of other part of right foot with unspecified severity; A49.01 Methicillin susceptible Staphylococcus aureus infection, unspecified site
CPT/HCPCS: 28825; 87070; 87075; 87181; 88305; 88311; J0690; J2001; J2250; J2704; J3010; J7120 ×2

== ENCOUNTER 2017-05-23 11:14 | Inpatient (IN) | payer MEDICARE ==
--- NOTE | 2017-05-23 12:17 | ED PDOC ---
Arrival/HPI - General Historian: Patient - History of Present Illness Time/Duration: < week Symptom Onset: Gradual Symptom Course: Intermittent Quality: Aching, Cramping Severity Level: 4 Activities at Onset: Rest Context: Walking <LEANN QUINTANA - Last Filed: 05/23/17 12:01> <Chela Mcclain - Last Filed: 05/23/17 13:56> - General Chief Complaint: Lower Extremity Problem/Injury Time Seen by Provider: 05/23/17 11:17 - History of Present Illness Narrative History of Present Illness (Text): 05/23/17 12:01 Mr. Quigley is a 76 year old male with a past medical history of CAD s/p 5 stents placed in 04/12, PAD with stents in both LE's and RLE osteomyelitis who presents to the [facility] ED per Dr. Lang Schwartz and Dr. Ge to have imaging of his right lower and upper extremities with a possible procedure, per patient. Patient reports that he was seen by Dr. Nunez in her office on Sunday for continuing treatment of RLE osteomyelitis. Patient reports that, based on his complaints of RLE pain in her office, she then called Dr. Schwartz. Dr. Schwartz called patient on Sunday to follow up complaints of RLE pain and recommended that he come to [facility] today at 1100 for "imaging and a possible procedure". Patient was told that Dr. Schwartz and Dr. Ge called ahead to the ED to inform the ED staff of his arrival. Patient currently complains of only chronic RLE extremity numbness and tingling. He denies fever, chills, headache, changes in his vision, chest pain, palpitations, SOB, cough, abdominal pain, N/V, diarrhea , burning with urination or any new rashes. (LEANN QUINTANA) Past Medical History - Provider Review Nursing Documentation Reviewed: Yes - Travel History Have you recently traveled outside [place] w/in the past 3 mons?: No - Infectious Disease Hx of Infectious Diseases: None - Tetanus Immunization Tetanus Immunization: Unknown - Cardiac Hx Cardiac Disorders: Yes Hx Hypertension: Yes Hx Pacemaker: No Other/Comment: stents in heart - Pulmonary Hx Respiratory Disorders: No (SMOKED CIGARETTES 3 PPD QUIT) - Neurological Hx Neurological Disorder: No Hx Paralysis: No - HEENT Hx HEENT Disorder: No - Renal Hx Renal Disorder: No - Endocrine/Metabolic Hx Endocrine Disorders: No Hx Diabetes Mellitus Type 1: No (pt denies) Hx Diabetes Mellitus Type 2: No (pt denies) - Hematological/Oncological Hx Blood Disorders: No Hx Blood Transfusions: No - Integumentary Hx Dermatological Disorder: Yes Other/Comment: Pt has open wound on R second toe, being treated my MD Nunez ( 04/2017) - Musculoskeletal/Rheumatological Hx Musculoskeletal Disorders: Yes - Gastrointestinal Hx Gastrointestinal Disorders: No - Genitourinary/Gynecological Hx Genitourinary Disorders: No - Psychiatric Hx Emotional Abuse: No Hx Physical Abuse: No Hx Substance Use: No - Surgical History Hx Cardiac Catheterization: Yes Hx Coronary Stent: Yes (x5) Other/Comment: stent in L leg and 2 in R leg. Bypass hx - Anesthesia Hx Anesthesia: Yes Hx Anesthesia Reactions: No Hx Malignant Hyperthermia: No - Suicidal Assessment Feels Threatened In Home Enviroment: No <LEANN QUINTANA - Last Filed: 05/23/17 12:01> Family/Social History - Physician Review Nursing Documentation Reviewed: Yes Family/Social History: Unknown Family HX Smoking Status: Former Smoker Hx Alcohol Use: No Hx Substance Use: No Hx Substance Use Treatment: No <LEANN QUINTANA - Last Filed: 05/23/17 12:01> Allergies/Home Meds <LEANN QUINTANA - Last Filed: 05/23/17 12:01> <Chela Mcclain - Last Filed: 05/23/17 13:56> Allergies/Adverse Reactions: Allergies No Known Allergies Allergy (Verified 05/23/17 11:22) Home Medications: Home Meds Medication Instructions Recorded Confirmed Lisinopril/Hydrochlorothiazide 1 tab PO DAILY 01/19/14 05/23/17 [Lisinopril-Hctz 10-12.5 mg Tab] Clopidogrel [Plavix] 75 mg PO DAILY 02/06/17 05/23/17 Review of Systems - Review of Systems Constitutional: Normal. absent: Fevers, Night Sweats Eyes: Normal. absent: Vision Changes ENT: Normal. absent: Sore Throat Respiratory: Normal. absent: SOB, Cough, Wheezing Cardiovascular: Normal. absent: Chest Pain, Palpitations, Calf Pain Gastrointestinal: Normal. absent: Abdominal Pain, Diarrhea, Nausea, Vomiting Musculoskeletal: Myalgias. absent: Normal Neurological: Other (Parasthesia of RLE) Psychiatric: Normal <LEANN QUINTANA - Last Filed: 05/23/17 12:01> Physical Exam Temperature: Afebrile Blood Pressure: Normal Pulse: Regular Respiratory Rate: Normal Appearance: Positive for: Well-Appearing, Non-Toxic, Comfortable Pain Distress: None Mental Status: Positive for: Alert and Oriented X 3 - Systems Exam Head: Present: Atraumatic, Normocephalic Pupils: Present: PERRL Extroacular Muscles: Present: EOMI Conjunctiva: Present: Normal Mouth: Present: Moist Mucous Membranes Neck: Present: Normal Range of Motion Respiratory/Chest: Present: Clear to Auscultation, Good Air Exchange. No: Respiratory Distress, Accessory Muscle Use, Wheezes, Rales, Rhonchi, Tachypneic Cardiovascular: Present: Regular Rate and Rhythm, Normal S1, S2. No: Murmurs, Tachycardic Abdomen: Present: Normal Bowel Sounds. No: Tenderness, Distention, Peritoneal Signs Upper Extremity: Present: Normal Inspection, Capillary Refill < 2s. No: Cyanosis, Edema Lower Extremity: Present: Capillary Refill < 2 s, Other (amputated second digit of RLE with wound dressing clean, dry and intact). No: Edema, CALF TENDERNESS, NORMAL PULSES Neurological: Present: GCS=15, Speech Normal Skin: Present: Warm, Dry Psychiatric: Present: Alert, Oriented x 3, Normal Insight, Normal Concentration <LEANN QUINTANA - Last Filed: 05/23/17 12:01> Vital Signs Temp Pulse Resp BP Pulse Ox 05/23/17 11:27 97.9 F 54 L 17 153/81 H 98 Medical Decision Making - Lab Interpretations I have reviewed the lab results: Yes <LEANN QUINTANA - Last Filed: 05/23/17 12:01> <Chela Mcclain - Last Filed: 05/23/17 13:56> ED Course and Treatment: 05/23/17 12:21 Impression: 76 year old male with a past medical history of CAD s/p 5 stents placed in 04/12, PAD with stents in both LE's and RLE osteomyelitis who presents to the [facility] ED per Dr. Lang Schwartz and Dr. Ge to have imaging of his right lower and upper extremities with a possible procedure Plan: -Contact Dr. Schwartz -CBC, CMP, Coagulation Studies -EKG --Reassess Prior Visits: Notes and results from previous visits were reviewed. (LEANN QUINTANA) 05/23/17 13:53 Patient seen and examined with PVD and foot infection. Spoke with Dr. Schwartz - he will be getting an angio today and plan for a fem-pop bypass tomorrow. Will start hydration - case discussed with Dr. Gonzalez for admission on his service. (Chela Mcclain) - Lab Interpretations Lab Results: 05/23/17 12:23 05/23/17 12:23 Lab Results 05/23/17 12:23: Sodium 141, Potassium 5.0, Chloride 104, Carbon Dioxide 24, Anion Gap 18, BUN 34 H, Creatinine 1.4, Est GFR ( Amer) 59, Est GFR (Non- Af Amer) 49, Random Glucose 89, Calcium 8.9, Total Bilirubin 1.2, AST 33, ALT 39 , Alkaline Phosphatase 85, Total Protein 7.0, Albumin 3.9, Globulin 3.1, Albumin /Globulin Ratio 1.3 05/23/17 12:23: PT 10.3, INR 0.95, APTT 24.7 05/23/17 12:23: WBC 8.4, RBC 4.46, Hgb 14.5, Hct 40.7 L, MCV 91.3, MCH 32.5, MCHC 35.6, RDW 13.0, Plt Count 220, MPV 9.2, Gran % 66.1, Lymph % (Auto) 19.1 L , Ida % (Auto) 9.0 H, Eos % (Auto) 5.3 H, Baso % (Auto) 0.5, Gran # 5.53, Lymph # 1.6, Ida # 0.8 H, Eos # 0.4, Baso # 0.04 - RAD Interpretation Radiology Orders: 05/23/17 12:19 CAR PERIPHERAL VASCULAR ORDER [VASCULAR] Stat - Medication Orders Current Medication Orders: Atorvastatin Calcium (Lipitor) 40 mg PO DAILY AKIKO Hydrochlorothiazide (Microzide) 12.5 mg PO DAILY AKIKO Sodium Chloride (Sodium Chloride 0.9%) 1,000 mls @ 100 mls/hr IV .Q10H STA Stop: 05/23/17 23:30 Lisinopril (Zestril) 10 mg PO DAILY AKIKO - 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 /DO has examined the patient and agrees with the treatment plan. <Chela Mcclain - Last Filed: 05/23/17 13:56> Disposition/Present on Arrival - Present on Arrival History of DVT/PE: No History of Uncontrolled Diabetes: No Urinary Catheter: No History of Decub. Ulcer: No History Surgical Site Infection Following: None <LEANN QUINTANA - Last Filed: 05/23/17 12:01> - Present on Arrival Any Indicators Present on Arrival: No - Disposition Have Diagnosis and Disposition been Completed?: Yes Disposition Time: 13:30 Patient Plan: Admission <Chela Mcclain - Last Filed: 05/23/17 13:56> - Disposition Diagnosis: Peripheral vascular disease Disposition: HOSPITALIZED Condition: FAIR
[2017-05-23] MEDS ORDERED: Lidocaine 2% Inj (20ml) ONE (12:27)
[2017-05-23] MEDS ORDERED: Iodixanol 320 MG/ML 100 ML BOTTLE IV ONE (12:28)
[2017-05-23] MEDS ORDERED: Midazolam 2 MG/2 ML VIAL ONE ×2 (12:28→14:20)
[2017-05-23] MEDS ORDERED: Iodixanol 320 MG/ML 200 ML BOTTLE IV ONE (12:29)
[2017-05-23] MEDS ORDERED: Nitroglycerin 50mg in D5W 50 MG/250 ML BOTTLE IV ONE (12:29)
[2017-05-23 12:32] LABS: BASO # 0.04 K/mm3 (0.0-2.0); BASO % 0.5 % (0.0-3.0); EOS # 0.4 (0.0-0.7); EOS % 5.3 % (1.5-5.0); GRAN # 5.53 (1.4-6.5); GRAN % 66.1 % (50.0-68.0); HEMATOCRIT 40.7 % (42.0-52.0); LYMPH # 1.6 (1.2-3.4); LYMPH % 19.1 % (22.0-35.0); MEAN CELL VOLUME 91.3 fl (80.0-105.0); MEAN CORPUSCULAR HEMOGLOBIN 32.5 pg (25.0-35.0); MEAN CORPUSCULAR HGB CONC 35.6 g/dl (31.0-37.0); MEAN PLATELET VOLUME 9.2 fl (7.0-11.0); MONO # 0.8 (0.1-0.6); WHITE BLOOD COUNT 8.4 10^3/ul (4.5-11.0)
[2017-05-23 12:39] LABS: ALB/GLOB RATIO 1.3 (1.1-1.8); BILIRUBIN,TOTAL 1.2 mg/dL (0.2-1.3); CALCIUM 8.9 mg/dL (8.4-10.5)
[2017-05-23 12:45] LABS: INR 0.95 (0.93-1.08); PARTIAL THROMBOPLASTIN TIME 24.7 Seconds (23.7-30.8)
[2017-05-23] MEDS ORDERED: Sodium Chloride 0.9% 1,000 ML IV STA (13:31)
[2017-05-23] MEDS: Sodium Chloride 0.45% 1,000 ML IV SCH (17:05)
--- NOTE | 2017-05-23 18:46 | VASCULAR ---
PROCEDURE: 1. Abdominal aortogram and bilateral lower extremity runoff with right selective views. HISTORY: Severe peripheral vascular disease. Gangrene and osteomyelitis right foot. Preop anatomy for right popliteal - anterior tibial bypass. PHYSICIAN(S): Lang Schwartz M.D. TECHNIQUE: The relative risks and indications of the procedure were explained to the patient and consent obtained. The patient was hydrated prior to the procedure and the appropriate labs drawn. The patient was placed supine on the arteriogram table and the left groin prepped and draped in the usual sterile fashion. Conscious sedation and monitoring were provided throughout the procedure by a nurse. Via a left common femoral artery approach, a 5 Indian sheath was placed in the left groin. Through the sheath and over a guidewire, a 5 Indian flush catheter was placed in the abdominal aorta at the level of the renal arteries and a PA DSA abdominal aortogram performed. The catheter was pulled down to the aortic bifurcation and bilateral oblique DSA pelvic arteriograms performed. Overlapping bilateral lower extremity DSA arteriograms were obtained from the inguinal ligaments to the ankles 0.035 glidewire was advanced over the bifurcation and placed in the right femoral- prosthetic graft. Magnification images of the tibial runoff and lateral foot were obtained. The sheath was removed and hemostasis obtained with a Mynx device. The patient tolerated the procedure well. FINDINGS: There are single renal arteries bilaterally which are widely patent and normal in appearance. The nephrograms are symmetric in appearance. The infrarenal abdominal aorta is widely patent without a radiographically significant stenosis. The aortic bifurcation is widely patent. The common and external iliac arteries are normal in appearance without a significant stenosis. The internal iliac arteries are patent bilaterally renal arteries are patent. The nephrograms are symmetric. The infrarenal abdominal aorta is smoothly calcified and tortuous. The aortic bifurcation is patent. The common and external iliac arteries are tortuous and patent. The internal iliac arteries are patent bilaterally. . Right lower extremity: The right common femoral artery is patent. The right profunda femoral artery is hypertrophied.. The right superficial femoral artery is occluded. There is a patent right femoral - above knee popliteal prosthetic graft. A stent is noted in the proximal graft. The graft is patent. The distal anastomosis is patent. The right popliteal artery is patent. The right trifurcation is occluded. There is reconstitution of the right anterior tibial artery proximally. Reconstitution of the right peroneal and right posterior tibial artery are noted in the mid segments. All 3 distal tibial arteries are patent. There is severe pedal occlusive disease. The dorsalis pedis artery and plantar arch are severely diseased and atretic.. Left lower extremity: Left common femoral artery is patent. The left profunda femoral artery is patent. The left superficial femoral artery is patent and continuous without a radiographically significant stenosis. The left popliteal artery is patent and continuous. There is severe left trifurcation and tibial occlusive disease. There is 2 vessel runoff via the left peroneal artery and atretic left anterior tibial artery. Posterior tibial artery is occluded IMPRESSION: 1.Severe bilateral tibial and pedal occlusive disease. On the right, the proximal right anterior tibial artery reconstitutes along with the mid right peroneal and posterior tibial arteries. 2. Severe right pedal occlusive disease. 3. Patent right femoral - Popliteal prosthetic graft
[2017-05-23 19:49] VITALS: BMI 26.4
[2017-05-23] MEDS ORDERED: Pneumococcal 23-Valent Vaccine IM ONE (19:50)
[2017-05-24 06:25] LABS: HEMATOCRIT 40.9 % (42.0-52.0); MEAN CELL VOLUME 91.3 fl (80.0-105.0); MEAN CORPUSCULAR HEMOGLOBIN 31.5 pg (25.0-35.0); MEAN CORPUSCULAR HGB CONC 34.5 g/dl (31.0-37.0); MEAN PLATELET VOLUME 9.4 fl (7.0-11.0); RED CELL DISTRIBUTION WIDTH 13.2 % (11.5-14.5); WHITE BLOOD COUNT 7.3 10^3/ul (4.5-11.0)
[2017-05-24 08:06] LABS: BASO # 0.04 K/mm3 (0.0-2.0); BASO % 0.5 % (0.0-3.0); EOS # 0.5 (0.0-0.7); EOS % 5.7 % (1.5-5.0); GRAN # 5.71 (1.4-6.5); GRAN % 69.2 % (50.0-68.0); HEMATOCRIT 42.9 % (42.0-52.0); LYMPH # 1.4 (1.2-3.4); LYMPH % 16.4 % (22.0-35.0); MEAN CELL VOLUME 91.3 fl (80.0-105.0); MEAN CORPUSCULAR HEMOGLOBIN 31.9 pg (25.0-35.0); MEAN PLATELET VOLUME 9.3 fl (7.0-11.0); MONO # 0.7 (0.1-0.6); MONO % 8.2 % (1.0-6.0); WHITE BLOOD COUNT 8.3 10^3/ul (4.5-11.0)
[2017-05-24 08:14] LABS: ALB/GLOB RATIO 1.4 (1.1-1.8); ALKALINE PHOSPHATASE 86 U/L (38-126); ALT/SGPT 30 U/L (7-56); AST/SGOT 34 U/L (17-59); BILIRUBIN,TOTAL 1.4 mg/dL (0.2-1.3); BLOOD UREA NITROGEN 27 mg/dL (7-21); CALCIUM 9.1 mg/dL (8.4-10.5); CARBON DIOXIDE 24 mmol/L (21-33); CHLORIDE 105 mmol/L (98-107); GFR AFRICAN-AMERICAN > 60; GLUCOSE,RANDOM 92 mg/dL (70-110); POTASSIUM 5.1 mmol/L (3.6-5.0); SODIUM 139 mmol/L (132-148); TOTAL PROTEIN 7.1 g/dL (5.8-8.3)
--- NOTE | 2017-05-24 08:21 | CARD ---
APPROVED REPORT EKG Measurement Heart [id number] <Conclusion> Sinus bradycardia with 1st degree AV block LVH by voltage No change
--- NOTE | 2017-05-24 08:48 | RAD ---
PROCEDURE: CHEST RADIOGRAPH, 1 VIEW HISTORY: phemoral bypass clearance COMPARISON: 10/19/2016 FINDINGS: LUNGS: Clear. PLEURA: No pneumothorax or pleural fluid seen. CARDIOVASCULAR: Normal. OSSEOUS STRUCTURES: Os ossific densities overlying right upper scapula, uncertain significance. These are evident on multiple prior examinations. Significance uncertain. Possible loose intracapsular osseous bodies. VISUALIZED UPPER ABDOMEN: Normal. OTHER FINDINGS: None. IMPRESSION: No active disease.
[2017-05-24] MEDS ORDERED: Protamine 50mg/5mL Inj IV ONE ×2 (10:02→17:27)
[2017-05-24] MEDS ORDERED: Heparin 10,000 Units/ml ONE (10:03)
[2017-05-24] MEDS ORDERED: Propofol 10 mg/ml Inj (20 ML) ONE ×3 (10:27→18:44)
[2017-05-24] MEDS ORDERED: Midazolam 2 MG/2 ML VIAL ONE (10:27)
[2017-05-24] MEDS ORDERED: Rocuronium 10 mg/ml (5 ml) ONE ×4 (10:28→15:22)
[2017-05-24] MEDS ORDERED: Phenylephrine 10 mg/ml Inj ONE (10:30)
[2017-05-24] MEDS ORDERED: ePHEDrine 50 mg/ml Inj ONE (10:30)
--- NOTE | 2017-05-24 12:46 | PN ---
DATE: 05/24/2017 SUBJECTIVE: This is a 76-year-old male well known to me seen for osteomyelitis of the third toe on his right foot. The patient was evaluated yesterday by Dr. Ge. The patient needs bypass surgery. He has failed amputation of the third toe. He has an osteomyelitis in the toe also. He has finished course of 4 weeks of Levaquin. Awaiting for bypass treatment. He had to have cardiac catheterization before any bypass could be done. The patient is seen at bedside. He is alert and oriented. He denies any fever or chills. He has dressing to his foot. It is clean, dry and intact. PHYSICAL EXAMINATION: VITAL SIGNS: His vital signs were reviewed. His temperature is 97.6, blood pressure is 131/76 and respirations are 18. LABORATORY DATA: Show white blood cell count of 8.3 with CBC was grossly within normal. He had a slightly elevated granulocytes and low lymphocytes. The patient's chemistry was also reviewed. His potassium was 5.1, BUN 27, creatinine is 1.2 and his glucose is 92. The patient's microbiology, last culture was done on 05/14. At that time, he was found to have E. coli in the wound and he was then placed on Augmentin for that bacteria. The patient's wound is relatively stable. There is no ascending cellulitis; however, the proximal phalanx is exposed in the wound bed.. ASSESSMENT: Severe peripheral vascular disease with critical limb ischemia to the right lower extremity,osteomyelitis to the third toe on the right foot. PLAN OF TREATMENT: Once the patient is revascularized, we will take the patient to the OR and remove the remnants of that third toe, and hopefully the patient should go onto heal from there. The patient will be seen in followup. Rosie Nunez DPM
[2017-05-24] MEDS: Iohexol 240 (50 ml) ONE ×2 (13:00→16:00)
[2017-05-24] MEDS ORDERED: HYDROmorphone 0.5 mg/0.5 ml ISec IVP PRN (14:13)
[2017-05-24] MEDS ORDERED: Lactated Ringer's 1,000 ML IV SCH (14:15)
--- NOTE | 2017-05-24 15:05 | US ---
PROCEDURE: Left upper extremity venous ultrasound HISTORY: Evaluate superficial venous system for lower extremity bypass. PHYSICIAN(S): Lang Schwartz MD. FINDINGS: The left cephalic vein near the wrist is small, measuring 1-2 mm. The left cephalic vein in the proximal forearm measures 3-4 millimeters. There is a large and patent left median antecubital vein. The left basilic vein above the elbow is duplicated measuring 3 mm each. In the mid upper arm the left basilic vein is patent and large, measuring 5 mm. IMPRESSION: 1. Patent left cephalic vein in the proximal forearm with a large median antecubital vein supplying large duplicated basilic veins above the elbow 2. No evidence of thrombus.
[2017-05-24] MEDS ORDERED: Morphine 1 mg/ml preservative-free Inj(Duramorph) ONE (17:00)
[2017-05-24] MEDS ORDERED: Glycopyrrolate 0.2 mg/ml (2ml vial) ONE (17:04)
[2017-05-24] MEDS ORDERED: Neostigmine Methylsulfate 3mg/3ml Syringe IV ONE (17:31)
[2017-05-24] MEDS: Sodium Chloride 0.45% 1,000 ML IV SCH (17:37)
[2017-05-24] MEDS ORDERED: Iohexol 240 (50 ml) ONE (18:29)
[2017-05-24] MEDS ORDERED: HYDROmorphone 0.5 mg/0.5 ml ISec ONE ×2 (20:15→20:41)
--- NOTE | 2017-05-24 20:17 | HP ---
HISTORY OF PRESENT ILLNESS: The patient is a 76-year-old man with a past medical history of triple vessel CAD s/p PCI with ANAMIKA placement x 3, PVD s/p IR revascularization of the proximal left anterior tibial artery with chronic non- healing ulceration to his left toe who presented to [facility] for evaluation by Dr. Ge of vascular surgery for a fem-pop bypass due to chronic non-healing lower extremity ulceration to his foot. PAST MEDICAL HISTORY: As per HPI. Also history of MSSA bacteremia and osteoarthritis. PAST SURGICAL HISTORY: As per HPI. Also appendectomy, right lower extremity bypass vascular surgery and amputation of the right fourth digit. ALLERGIES: NO KNOWN DRUG ALLERGIES. MEDICATIONS: Zestoretic 10/12.5 mg p.o. daily, aspirin 81 mg p.o. daily, Plavix 75 mg p.o. daily and Lipitor 40 mg p.o. daily. FAMILY HISTORY: Significant for hypertension, diabetes, and coronary artery disease. SOCIAL HISTORY: The patient reports a former 70-pack year smoking history, but quit approximately 15 years ago. He reports social alcohol use and denies illicit drug abuse. REVIEW OF SYSTEMS: Negative for fevers, chills, rigors, malaise, lower extremity edema, chest pain, palpitations, orthopnea, exertional dyspnea, or paroxysmal nocturnal dyspnea. PHYSICAL EXAMINATION: VITAL SIGNS: Temperature 97.6, pulse 57, blood pressure 131/76, respiratory rate 18 and oxygen saturation 96% on room air. GENERAL: No apparent distress. HEENT: PERRL. EOMI. No scleral icterus. No conjunctival pallor. NECK: Supple with full range of motion. No JVD. No bruits. LUNGS: Clear to auscultation. CARDIOVASCULAR: Regular rate and rhythm. Normal S1 and S2. ABDOMEN: Normoactive bowel sounds. Soft, nontender and nondistended. EXTREMITIES: No edema. NEUROLOGIC: Awake, alert, and oriented x3. No focal motor deficits. LABORATORY DATA: CBC reviewed and unremarkable. CMP reviewed and largely unremarkable. ASSESSMENT: The patient is a 76-year-old man with multiple medical comorbidities including hypertension, triple vessel coronary artery disease, status post percutaneous coronary intervention with stent placement and peripheral vascular disease with chronic non-healing ulcerations to the lower extremities who presents to the [facility] to undergo fem-pop bypass with Dr. Ge of vascular surgery. PLAN: 1. Severe peripheral vascular disease. The patient is status post abdominal aortogram with Dr. Lang Schwartz with findings as demonstrated above. The patient is scheduled for fem-pop bypass with Dr. Ge of vascular surgery. 2. Triple vessel CAD status post PCI with drug-eluting stent placement to the proximal LAD and proximal circumflex lesions. The patient is on aspirin 81 mg p.o. daily, Plavix 75 mg p.o. daily, and Lipitor 40 mg p.o. daily at home. The patient's aspirin and Plavix has been held in anticipation of vascular surgery. We will resume antiplatelet therapy when okay as per vascular surgery. Continue Lipitor 40 mg p.o. daily. 3. Hypertension. Blood pressure controlled. Continue with lisinopril 10 mg p.o. daily and hydrochlorothiazide 12.5 mg p.o. daily. 4. Prophylaxis. GI prophylaxis not indicated as the patient is eating. DVT prophylaxis is not indicated as the patient is ambulatory. CODE STATUS: Full code. Amari Gonzalez MD MTDD
--- NOTE | 2017-05-24 20:28 | PCM.SURG1 ---
Surgeon's Initial Post Op Note - Surgeon's Notes Surgeon: MD Joo Air Brush Operator: MD Nick. Bright, PGY2. [place], MS1. Pre-Operative Diagnosis: Right leg PAD, right Osteomyelitis Operative Findings: basillic vein, left arm. anterior tibial artery, right. poptileal artery, right. Post-Operative Diagnosis: same Operation Performed: Popliteal - anterior tibial bypassed by using reserved left arm basillic vein Specimen/Specimens Removed: n/a Estimated Blood Loss: EBL {In ML}: 500 Date of Surgery/Procedure: 05/24/17 Time of Surgery/Procedure: 11:00
[2017-05-24 20:58] LABS: BASO # 0.02 K/mm3 (0.0-2.0); BASO % 0.1 % (0.0-3.0); EOS % 0.1 % (1.5-5.0); GRAN # 14.7 (1.4-6.5); GRAN % 83.1 % (50.0-68.0); HEMATOCRIT 35.5 % (42.0-52.0); LYMPH # 0.9 (1.2-3.4); LYMPH % 5.1 % (22.0-35.0); MEAN CORPUSCULAR HEMOGLOBIN 31.8 pg (25.0-35.0); MEAN CORPUSCULAR HGB CONC 34.9 g/dl (31.0-37.0); MONO # 2.1 (0.1-0.6); MONO % 11.6 % (1.0-6.0); RED CELL DISTRIBUTION WIDTH 13.4 % (11.5-14.5); WHITE BLOOD COUNT 17.7 10^3/ul (4.5-11.0)
[2017-05-24] MEDS ORDERED: Sodium Chloride 0.9% 1,000 ML IV SCH (21:45)
[2017-05-24] MEDS: Sodium Chloride 0.9% 1,000 ML IV SCH (22:14)
--- NOTE | 2017-05-25 00:21 | CP.PCM.CON ---
<Laith Charels - Last Filed: 05/25/17 00:21> History of Present Illness - History of Present Illness History of Present Illness: HPI Patient Is a 76 year year old male with a past medical history of triple vessel CAD s/p PCI with drug-eluting stent placement x3, HTN, PVD s/p IR revascularization of proximal left anterior tibial artery with non-healing osteomyelitis of right phalanx. Patient was evaluated for possible right popliteal-anterior tibial bypass by IR where abdominal aortogram and bilateral lower extremity runoff was performed. Patient was found to have severe bilateral tibial and pedal occlusive disease with patent right femoral- popliteal prosthetic graft. Revascularization of right third phalanx was performed 05/24 by vascular surgery with intention of later removal of remnants of right third phalanx by podiatry. Patient was seen at bedside in post-op room and examined. Patient is alert and oriented x1 in no acute distress with stable vitals. Patient is admitted to ICU for careful monitoring s/p revascularization procedure. Review of Systems - Review of Systems Systems not reviewed;Unavailable: Acuity of Condition Review of Systems: Not obtained due to patient's ability to communicate being compromised due to post anesthesia and pain medication Past Patient History - Infectious Disease Hx of Infectious Diseases: None - Tetanus Immunizations Tetanus Immunization: Unknown - Past Social History Smoking Status: Former Smoker - CARDIAC Hx Pacemaker: No - PULMONARY Hx Respiratory Disorders: No (SMOKED CIGARETTES 3 PPD QUIT) - NEUROLOGICAL Hx Paralysis: No - HEENT Hx HEENT Problems: No - RENAL Hx Chronic Kidney Disease: No - ENDOCRINE/METABOLIC Hx Endocrine Disorders: No Hx Diabetes Mellitus Type 1: No (pt denies) Hx Diabetes Mellitus Type 2: No (pt denies) - HEMATOLOGICAL/ONCOLOGICAL Hx Blood Transfusions: No Hx Blood Transfusion Reaction: No - INTEGUMENTARY Hx Dermatological Problems: Yes Other/Comment: Pt has open wound on R second toe, being treated my MD Nunez ( 04/2017) , toenail fell off left ft 2nd toe, 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 - MUSCULOSKELETAL/RHEUMATOLOGICAL Hx Musculoskeletal Disorders: Yes - GASTROINTESTINAL Hx Gastrointestinal Disorders: No - GENITOURINARY/GYNECOLOGICAL Hx Genitourinary Disorders: No - PSYCHIATRIC Hx Emotional Abuse: No Hx Physical Abuse: No Hx Substance Use: No - SURGICAL HISTORY Hx Surgeries: Yes - ANESTHESIA Hx Anesthesia Reactions: Yes Hx Malignant Hyperthermia: No Meds Allergies/Adverse Reactions: Allergies Allergy/AdvReac Type Severity Reaction Status Date / Time No Known Allergies Allergy Verified 05/23/17 11:22 - Medications Medications: Current Medications Acetaminophen (Tylenol 325mg Tab) 325 mg PO Q4H PRN PRN Reason: Pain, Mild (1-3) Atorvastatin Calcium (Lipitor) 40 mg PO DAILY [facility] Last Admin: 05/24/17 17:36 Dose: Not Given Clopidogrel Bisulfate (Plavix) 75 mg PO 0600 [facility] Hydrochlorothiazide (Microzide) 12.5 mg PO DAILY [facility] Last Admin: 05/24/17 17:36 Dose: Not Given Sodium Chloride (Sodium Chloride 0.9%) 1,000 mls @ 100 mls/hr IV .Q10H [facility] Last Admin: 05/24/17 22:14 Dose: 100 mls/hr Lisinopril (Zestril) 10 mg PO DAILY [facility] Last Admin: 05/24/17 08:05 Dose: 10 mg Ondansetron HCl (Zofran Inj) 4 mg IVP ONCE PRN PRN Reason: Nausea/Vomiting Oxycodone/Acetaminophen (Percocet 5/325 Mg Tab) 1 tab PO Q6H PRN PRN Reason: Pain, moderate (4-7) Stop: 05/26/17 14:47 Zolpidem Tartrate (Ambien) 5 mg PO HS PRN; Protocol PRN Reason: Sleep Physical Exam - Constitutional Appears: No Acute Distress - Head Exam Head Exam: ATRAUMATIC, NORMAL INSPECTION, NORMOCEPHALIC - Eye Exam Eye Exam: Normal appearance - ENT Exam ENT Exam: Mucous Membranes Dry - Neck Exam Neck exam: Positive for: Normal Inspection - Respiratory Exam Respiratory Exam: Clear to Auscultation Bilateral, NORMAL BREATHING PATTERN - Cardiovascular Exam Cardiovascular Exam: REGULAR RHYTHM, RRR, +S1, +S2. absent: Diastolic murmur, Gallop, Irregular Rhythm - GI/Abdominal Exam GI & Abdominal Exam: Hypoactive Bowel Sounds. absent: Distended, Rebound - Extremities Exam Additional comments: Left hallux amputation, Right foot bandaded due to revascularization of third phalanx - Neurological Exam Neurological exam: Alert (and oriented x 1 due to anesthesia and pain medication s/p procedure) Results - Vital Signs Recent Vital Signs: Last Vital Signs Temp 98.3 F 05/24/17 21:12 Pulse 96 H 05/24/17 21:12 Resp 14 05/24/17 21:12 BP 113/53 L 05/24/17 21:12 Pulse Ox 97 05/24/17 21:12 - Labs Result Diagrams: 05/24/17 20:56 05/24/17 07:45 Labs: Laboratory Results - last 24 hr 05/23/17 05/24/17 05/24/17 21:06 06:00 07:45 WBC 7.3 8.3 RBC 4.48 4.70 Hgb 14.1 15.0 Hct 40.9 L 42.9 MCV 91.3 91.3 MCH 31.5 31.9 MCHC 34.5 35.0 RDW 13.2 13.0 Plt Count 213 229 MPV 9.4 9.3 Gran % 69.2 H Lymph % (Auto) 16.4 L [place] % (Auto) 8.2 H Eos % (Auto) 5.7 H Baso % (Auto) 0.5 Gran # 5.71 Lymph # 1.4 [place] # 0.7 H Eos # 0.5 Baso # 0.04 Sodium Potassium Chloride Carbon Dioxide Anion Gap BUN Creatinine Est GFR ( Amer) Est GFR (Non-Af Amer) Random Glucose Hemoglobin A1c Calcium Total Bilirubin AST ALT Alkaline Phosphatase Total Protein Albumin Globulin Albumin/Globulin Ratio Blood Type A POSITIVE Antibody Screen Negative Crossmatch See Detail BBK History Checked Patient has bt 05/24/17 05/24/17 05/24/17 07:45 07:45 20:56 WBC 17.7 H D RBC 3.90 Hgb 12.4 L D Hct 35.5 L MCV 91.0 MCH 31.8 MCHC 34.9 RDW 13.4 Plt Count 190 MPV 9.0 Gran % 83.1 H Lymph % (Auto) 5.1 L [place] % (Auto) 11.6 H Eos % (Auto) 0.1 L Baso % (Auto) 0.1 Gran # 14.70 H Lymph # 0.9 L [place] # 2.1 H Eos # 0.0 Baso # 0.02 Sodium 139 Potassium 5.1 H Chloride 105 Carbon Dioxide 24 Anion Gap 15 BUN 27 H Creatinine 1.2 Est GFR ( Amer) > 60 Est GFR (Non-Af Amer) 59 Random Glucose 92 Hemoglobin A1c 5.7 Calcium 9.1 Total Bilirubin 1.4 H AST 34 ALT 30 Alkaline Phosphatase 86 Total Protein 7.1 Albumin 4.2 Globulin 2.9 Albumin/Globulin Ratio 1.4 Blood Type Antibody Screen Crossmatch BBK History Checked Assessment & Plan - Assessment and Plan (Free Text) Assessment: Assessment 76 year old male for close monitoring s/p revascularization of right third phalanx Plan: Plan Neurologic Patient was seen post revascularization alert and oriented x1. Patient is on Dilaudid for pain control. Cardiovascular S1 and S2 present, RRR, no murmurs or gallops appreciated. Pedal pulses +4 bilaterally, skin normal color and temp. HR 96, BP 113/53. Continue to monitor Respiratory CTA B/L, no wheezing or rhonchi appreciated. RR 14, 98% room air on NC 3 L. Continue to monitor Renal Urine output 150 cc, NS@100 mls/hr, BUN 27, Cr 1.2, Sodium 139, Potassium 5.1, Chloride 105, bicarb 24, calcium 9.1, continue to monitor renal function and I& Os. GI Normal bowel sounds present, non tender, non distended. AST 34, ALT 30, AP 86, Albumin 4.2, continue to monitor values Endocrine Glucose 92, calcium 9.1, sodium 139, potassium 5.1, continue to monitor lab values Hematologic H&H 12.4&35.5, Plt ct 190, WBC 17.7, PT 10.3, PTT 24.7, continue to monitor lab values. <Ania CARABALLO,[facility] - Last Filed: 05/25/17 12:33> Meds - Medications Medications: Current Medications Acetaminophen (Tylenol 325mg Tab) 325 mg PO Q4H PRN PRN Reason: Pain, Mild (1-3) Atorvastatin Calcium (Lipitor) 40 mg PO DAILY [facility] Last Admin: 05/25/17 10:46 Dose: Not Given Clopidogrel Bisulfate (Plavix) 75 mg PO 0600 [facility] Last Admin: 05/25/17 11:39 Dose: 75 mg Hydrochlorothiazide (Microzide) 12.5 mg PO DAILY [facility] Last Admin: 05/25/17 09:39 Dose: 12.5 mg Sodium Chloride (Sodium Chloride 0.9%) 1,000 mls @ 100 mls/hr IV .Q10H [facility] Last Admin: 05/25/17 09:28 Dose: 100 mls/hr Lisinopril (Zestril) 10 mg PO DAILY [facility] Last Admin: 05/25/17 09:37 Dose: 10 mg Ondansetron HCl (Zofran Inj) 4 mg IVP ONCE PRN PRN Reason: Nausea/Vomiting Oxycodone/Acetaminophen (Percocet 5/325 Mg Tab) 1 tab PO Q6H PRN PRN Reason: Pain, moderate (4-7) Stop: 05/26/17 14:47 Last Admin: 05/25/17 08:41 Dose: 1 tab Pantoprazole Sodium (Protonix Ec Tab) 40 mg PO 0600 [facility] Zolpidem Tartrate (Ambien) 5 mg PO HS PRN; Protocol PRN Reason: Sleep Results - Vital Signs Recent Vital Signs: Last Vital Signs Temp 97.9 F 05/25/17 12:00 Pulse 109 H 05/25/17 12:10 Resp 26 H 05/25/17 12:10 BP 112/48 L 05/25/17 12:00 Pulse Ox 95 05/25/17 12:10 - Labs Result Diagrams: 05/25/17 06:10 05/25/17 05:00 Labs: Laboratory Results - last 24 hr 05/23/17 05/24/17 05/25/17 21:06 20:56 00:45 WBC 17.7 H D 13.3 H D RBC 3.90 3.63 Hgb 12.4 L D 11.2 L Hct 35.5 L 33.3 L MCV 91.0 91.7 MCH 31.8 30.9 MCHC 34.9 33.6 RDW 13.4 13.6 Plt Count 190 176 MPV 9.0 9.1 Gran % 83.1 H Lymph % (Auto) 5.1 L [place] % (Auto) 11.6 H Eos % (Auto) 0.1 L Baso % (Auto) 0.1 Gran # 14.70 H Lymph # 0.9 L [place] # 2.1 H Eos # 0.0 Baso # 0.02 Sodium Potassium Chloride Carbon Dioxide Anion Gap BUN Creatinine Est GFR ( Amer) Est GFR (Non-Af Amer) Random Glucose Calcium Total Bilirubin AST ALT Alkaline Phosphatase Total Protein Albumin Globulin Albumin/Globulin Ratio Blood Type A POSITIVE Antibody Screen Negative Crossmatch See Detail BBK History Checked Patient has bt 05/25/17 05/25/17 05:00 06:10 WBC 9.4 D RBC 3.92 Hgb 12.1 L Hct 36.1 L MCV 92.1 MCH 30.9 MCHC 33.5 RDW 14.0 Plt Count 200 MPV 8.9 Gran % Lymph % (Auto) [place] % (Auto) Eos % (Auto) Baso % (Auto) Gran # Lymph # [place] # Eos # Baso # Sodium 136 Potassium 5.3 H Chloride 105 Carbon Dioxide 21 Anion Gap 15 BUN 27 H Creatinine 1.6 H Est GFR ( Amer) 51 Est GFR (Non-Af Amer) 42 Random Glucose 132 H Calcium 7.3 L Total Bilirubin 1.1 AST 48 ALT 32 Alkaline Phosphatase 46 Total Protein 5.2 L Albumin 2.7 L Globulin 2.5 Albumin/Globulin Ratio 1.1 Blood Type Antibody Screen Crossmatch BBK History Checked Attending/Attestation - Attestation I have personally seen and examined this patient.: Yes I have fully participated in the care of the patient.: Yes I have reviewed all pertinent clinical information: Yes Notes (Text): -I agree with the above ICU consult note completed by the resident physician with the following additions and/or changes: The patient is a 76 year old man with a history of CAD (s/p ANAMIKA x 3), HTN, PVD ( s/p IR revascularization of proximal left anterior tibial artery with non- healing osteomyelitis of right phalanx). He is s/p popliteal-anterior tibial bypass (with LUE basilic vein), POD#0 and will be monitored in the ICU overnight. The procedure did not have any complications (per report from surgeon ). Patient is currently stable and will be placed on maintenance NS IV @100cc/ hr. We will closely monitor UOP overnight. He will be continued on most all of his home meds.
[2017-05-25 01:16] LABS: HEMATOCRIT 33.3 % (42.0-52.0); MEAN CELL VOLUME 91.7 fl (80.0-105.0); MEAN CORPUSCULAR HEMOGLOBIN 30.9 pg (25.0-35.0); MEAN CORPUSCULAR HGB CONC 33.6 g/dl (31.0-37.0); MEAN PLATELET VOLUME 9.1 fl (7.0-11.0); RED CELL DISTRIBUTION WIDTH 13.6 % (11.5-14.5); WHITE BLOOD COUNT 13.3 10^3/ul (4.5-11.0)
[2017-05-25] MEDS: Oxycodone/Acetaminophen 5/325 mg Tab PO PRN ×3 (03:08→15:06)
[2017-05-25 06:41] LABS: HEMATOCRIT 36.1 % (42.0-52.0); MEAN CELL VOLUME 92.1 fl (80.0-105.0); MEAN CORPUSCULAR HEMOGLOBIN 30.9 pg (25.0-35.0); MEAN CORPUSCULAR HGB CONC 33.5 g/dl (31.0-37.0); MEAN PLATELET VOLUME 8.9 fl (7.0-11.0); WHITE BLOOD COUNT 9.4 10^3/ul (4.5-11.0)
[2017-05-25 09:28] LABS: ALB/GLOB RATIO 1.1 (1.1-1.8); BILIRUBIN,TOTAL 1.1 mg/dL (0.2-1.3); CALCIUM 7.3 mg/dL (8.4-10.5); POTASSIUM 5.3 mmol/L (3.6-5.0); TOTAL PROTEIN 5.2 g/dL (5.8-8.3)
[2017-05-25] MEDS: Sodium Chloride 0.9% 1,000 ML IV SCH ×2 (09:28→20:30)
[2017-05-25] MEDS ORDERED: Sod Polystyrene Sulf 15 gm/60 ml Oral Susp PO ONE (09:32)
--- NOTE | 2017-05-25 10:01 | PN ---
SUBJECTIVE: The patient was seen and examined at bedside in the ICU. He is doing well status post his right popliteal anterior tibial artery bypass using reserved left arm basilic vein secondary to chronic nonhealing right lower extremity ulceration. This morning he is lying comfortably in bed, appears to be in good spirits and offers no complaints. OBJECTIVE: VITAL SIGNS: Temperature 98.2, pulse 89, blood pressure 122/76, respiratory rate 20 and oxygen saturation 98% on room air. GENERAL: No apparent distress. HEENT: PERRL. EOMI. No scleral icterus. No conjunctival pallor. NECK: Supple with full range of motion. No JVD. No bruits. LUNGS: Clear to auscultation. CARDIOVASCULAR: Regular rate and rhythm. Normal S1 and S2. ABDOMEN: Normoactive bowel sounds. Soft, nontender and nondistended. EXTREMITIES: No edema. Right foot is warm with good capillary refill. Surgical dressing remains in place. NEUROLOGIC: Awake, alert, and oriented x3. No focal motor deficits. LABORATORY DATA: WBC is 9.4, hemiglobin 12, hematocrit 36, platelets 200, chemistry pending. ASSESSMENT: The patient is a 76-year-old man with multiple medical comorbidities including hypertension, triple-vessel coronary artery disease, status post percutaneous coronary intervention with stent placement and peripheral vascular disease s/p IR revascularization with chronic nonhealing ulcerations who presented to [facility] to undergo right lower extremity vascular bypass surgery secondary to chronic nonhealing ulcerations. PLAN: 1. Severe PVD, status post right lower extremity popliteal/anterior tibial bypass with reserved left arm basilic vein. Continue with postoperative care as per Dr. Ge in the vascular surgery team. 2. Triple-vessel CAD, status post PCI with drug-eluting stent placement to the proximal LAD and proximal circumflex regions. Continue with Lipitor 40 mg p.o. daily and Plavix 75 mg p.o. daily. We will resume aspirin 81 mg p.o. daily when okay as per vascular surgery. 3. Hypertension, continue with lisinopril 10 mg p.o. daily and hydrochlorothiazide 12.5 mg p.o. daily. 4. Prophylaxis: GI prophylaxis not indicated as the patient is eating. We will defer DVT prophylaxis to vascular surgery team. CODE STATUS: Full code. Amari Gonzalez MD ROSS
--- NOTE | 2017-05-25 10:32 | CP.PCM.PN ---
<Arden Novoa - Last Filed: 05/25/17 10:33> Subjective - Date & Time of Evaluation Date of Evaluation: 05/25/17 Time of Evaluation: 10:28 - Subjective Subjective: SURGERY NOTE FOR DR. NEGRO 76M seen and examined at bedside. Nothing acute overnight. Patient states states pain only incisional. Denies numbness and tingling of the lower extremities. Denies pain in the left arm. Objective - Vital Signs/Intake and Output Vital Signs (last 24 hours): Temp Pulse Resp BP Pulse Ox 98.1 F 87 17 117/44 L 94 L 05/25/17 08:00 05/25/17 10:00 05/25/17 10:00 05/25/17 09:37 05/25/17 10:00 Intake and Output: 05/25/17 05/25/17 06:59 18:59 Intake Total 75 Balance 75 - Medications Medications: Current Medications Acetaminophen (Tylenol 325mg Tab) 325 mg PO Q4H PRN PRN Reason: Pain, Mild (1-3) Atorvastatin Calcium (Lipitor) 40 mg PO DAILY COUNTS INCLUDE 234 BEDS AT THE [facility] Last Admin: 05/25/17 09:37 Dose: 40 mg Clopidogrel Bisulfate (Plavix) 75 mg PO 0600 COUNTS INCLUDE 234 BEDS AT THE [facility] Hydrochlorothiazide (Microzide) 12.5 mg PO DAILY COUNTS INCLUDE 234 BEDS AT THE [facility] Last Admin: 05/25/17 09:39 Dose: 12.5 mg Sodium Chloride (Sodium Chloride 0.9%) 1,000 mls @ 100 mls/hr IV .Q10H COUNTS INCLUDE 234 BEDS AT THE [facility] Last Admin: 05/25/17 09:28 Dose: 100 mls/hr Lisinopril (Zestril) 10 mg PO DAILY COUNTS INCLUDE 234 BEDS AT THE [facility] Last Admin: 05/25/17 09:37 Dose: 10 mg Ondansetron HCl (Zofran Inj) 4 mg IVP ONCE PRN PRN Reason: Nausea/Vomiting Oxycodone/Acetaminophen (Percocet 5/325 Mg Tab) 1 tab PO Q6H PRN PRN Reason: Pain, moderate (4-7) Stop: 05/26/17 14:47 Last Admin: 05/25/17 08:41 Dose: 1 tab Zolpidem Tartrate (Ambien) 5 mg PO HS PRN; Protocol PRN Reason: Sleep - Labs Labs: 05/25/17 06:10 05/25/17 05:00 PT 10.3 Seconds (9.9-11.8) 05/23/17 12:23 INR 0.95 (0.93-1.08) 05/23/17 12:23 APTT 24.7 Seconds (23.7-30.8) 05/23/17 12:23 - Constitutional Appears: Non-toxic, No Acute Distress - Respiratory Exam Respiratory Exam: Clear to Ausculation Bilateral, NORMAL BREATHING PATTERN - Cardiovascular Exam Cardiovascular Exam: REGULAR RHYTHM, +S1, +S2 - Extremities Exam Extremities Exam: absent: Pedal Edema, Tenderness Additional comments: Palpable DP on both legs. Palpable PT on the left leg. Dopper-able PT on right leg. No edema in left hand. dressing in right leg and left arm clean dry intact. - Neurological Exam Neurological Exam: Alert, Awake Assessment and Plan - Assessment and Plan (Free Text) Assessment: 76M s/p popliteal-anterior tibial POD#1 Plan: - monitor vitals - Maintain BP below 150 - continue Plavix, CBC q6 for 24hrs after operation - Monitor lower extremity pulses - Monitor dressings lower extremity/left arm Further recs discuss with Dr. Joo Novoa, PGY2 <Elisa Negro - Last Filed: 05/25/17 13:50> Objective - Vital Signs/Intake and Output Vital Signs (last 24 hours): Temp Pulse Resp BP Pulse Ox 97.9 F 109 H 26 H 112/48 L 95 05/25/17 12:00 05/25/17 12:10 05/25/17 12:10 05/25/17 12:00 05/25/17 12:10 Intake and Output: 05/25/17 05/25/17 06:59 18:59 Intake Total 75 Balance 75 - Medications Medications: Current Medications Acetaminophen (Tylenol 325mg Tab) 325 mg PO Q4H PRN PRN Reason: Pain, Mild (1-3) Aspirin (Aspirin Chewable) 81 mg PO DAILY COUNTS INCLUDE 234 BEDS AT THE [facility] Last Admin: 05/25/17 13:24 Dose: 81 mg Atorvastatin Calcium (Lipitor) 40 mg PO DAILY COUNTS INCLUDE 234 BEDS AT THE [facility] Last Admin: 05/25/17 10:46 Dose: Not Given Clopidogrel Bisulfate (Plavix) 75 mg PO 0600 COUNTS INCLUDE 234 BEDS AT THE [facility] Last Admin: 05/25/17 11:39 Dose: 75 mg Hydrochlorothiazide (Microzide) 12.5 mg PO DAILY COUNTS INCLUDE 234 BEDS AT THE [facility] Last Admin: 05/25/17 09:39 Dose: 12.5 mg Sodium Chloride (Sodium Chloride 0.9%) 1,000 mls @ 100 mls/hr IV .Q10H COUNTS INCLUDE 234 BEDS AT THE [facility] Last Admin: 05/25/17 09:28 Dose: 100 mls/hr Lisinopril (Zestril) 10 mg PO DAILY COUNTS INCLUDE 234 BEDS AT THE [facility] Last Admin: 05/25/17 09:37 Dose: 10 mg Ondansetron HCl (Zofran Inj) 4 mg IVP ONCE PRN PRN Reason: Nausea/Vomiting Oxycodone/Acetaminophen (Percocet 5/325 Mg Tab) 1 tab PO Q6H PRN PRN Reason: Pain, moderate (4-7) Stop: 05/26/17 14:47 Last Admin: 05/25/17 08:41 Dose: 1 tab Pantoprazole Sodium (Protonix Ec Tab) 40 mg PO 0600 COUNTS INCLUDE 234 BEDS AT THE [facility] Zolpidem Tartrate (Ambien) 5 mg PO HS PRN; Protocol PRN Reason: Sleep - Labs Labs: 05/25/17 12:44 05/25/17 05:00 PT 10.3 Seconds (9.9-11.8) 05/23/17 12:23 INR 0.95 (0.93-1.08) 05/23/17 12:23 APTT 24.7 Seconds (23.7-30.8) 05/23/17 12:23
[2017-05-25] MEDS ORDERED: Pantoprazole 40 mg EC Tab PO ONE (11:27)
--- NOTE | 2017-05-25 11:30 | CP.CCUPN ---
<Carmen Conklin - Last Filed: 05/25/17 11:31> CCU Subjective - Physician Review Events Since Last Encounter (Free Text): 05/25/17 11:28 stable overnight Subjective (Free Text): 05/25/17 11:31 Critical care progress note for Dr. Renata Conklin, PGY-1 Pt S & E at bedside. Pt reports not remembering anything since surgery, assumes he slept overnight, pain well controlled, only required 1 percocet overnight, no other complaints. Denies N/V/F/C, ab pain, CP, extremity pain. Critical Care Time Spent (in minutes): 35 CCU Objective - Vital Signs / Intake & Output Vital Signs (Last 4 hours): Vital Signs Temp Pulse Resp BP Pulse Ox 05/25/17 10:00 87 17 94 L 05/25/17 09:50 89 12 92 L 05/25/17 09:40 88 18 95 05/25/17 09:37 97 H 117/44 L 05/25/17 09:30 90 13 94 L 05/25/17 09:20 96 H 12 93 L 05/25/17 09:10 98 H 18 91 L 05/25/17 09:00 108 H 31 H 95 05/25/17 08:56 99 H 24 05/25/17 08:50 107 H 20 94 L 05/25/17 08:40 116 H 18 91 L 05/25/17 08:37 112 H 21 05/25/17 08:30 110 H 91 L 05/25/17 08:20 100 H 10 L 98 05/25/17 08:10 91 H 16 98 05/25/17 08:00 98.1 F 90 13 96 05/25/17 07:50 94 H 12 97 05/25/17 07:40 99 H 31 H 96 05/25/17 07:30 94 H 19 97 Intake and Output (Last 8hrs): Intake & Output 05/24/17 05/25/17 05/25/17 22:59 06:59 14:59 Intake Total 75 Balance 75 Weight 95.889 kg Intake: IV 75 - Physical Exam Head: Positive for: Atraumatic, Normocephalic Pupils: Positive for: PERRL Extroacular Muscles: Positive for: EOMI Conjunctiva: Positive for: Normal Mouth: Positive for: Moist Mucous Membranes Nose (External): Positive for: Atraumatic Neck: Positive for: Other (Left EJ in place- positional, so pt keeps head turned to right) Respiratory/Chest: Positive for: Clear to Auscultation, Good Air Exchange. Negative for: Respiratory Distress, Accessory Muscle Use, Wheezes, Rales, Rhonchi, Tachypneic Cardiovascular: Positive for: Regular Rate and Rhythm, Normal S1, S2. Negative for: Murmurs, Tachycardic Abdomen: Positive for: Normal Bowel Sounds. Negative for: Tenderness, Distention, Peritoneal Signs Upper Extremity: Positive for: Capillary Refill < 2s. 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 Audible PT and DP B/L w/dopplers). Negative for: Normal Inspection (Right LE with dressing in place- C/D/I, non tender), Edema, CALF TENDERNESS Neurological: Positive for: GCS=15, CN II-XII Intact, Speech Normal Skin: Positive for: Warm, Dry, Normal Color. Negative for: Rashes Psychiatric: Positive for: Alert, Oriented x 3, Normal Insight, Normal Concentration - Medications Active Medications: Active Medications Generic Name Dose Route Start Last Admin Trade Name Freq PRN Reason Stop Dose Admin Acetaminophen 325 mg 05/23/17 14:45 Tylenol 325mg Tab PO Q4H PRN Pain, Mild (1-3) Atorvastatin Calcium 40 mg 05/24/17 10:00 05/25/17 10:46 Lipitor PO Not Given DAILY AKIKO Clopidogrel Bisulfate 75 mg 05/24/17 06:00 Plavix PO 0600 AKIKO Hydrochlorothiazide 12.5 mg 05/24/17 10:00 05/25/17 09:39 Microzide PO 12.5 mg DAILY AKIKO Administration Sodium Chloride 1,000 mls @ 100 mls/hr 05/24/17 22:00 05/25/17 09:28 Sodium Chloride 0.9% IV 100 mls/hr .Q10H AKIKO Administration Lisinopril 10 mg 05/24/17 10:00 05/25/17 09:37 Zestril PO 10 mg DAILY AKIKO Administration Ondansetron HCl 4 mg 05/24/17 14:13 Zofran Inj IVP ONCE PRN Nausea/Vomiting Oxycodone/Acetaminophen 1 tab 05/23/17 14:46 05/25/17 08:41 Percocet 5/325 Mg Tab PO 05/26/17 14:47 1 tab Q6H PRN Administration Pain, moderate (4-7) Pantoprazole Sodium 40 mg 05/26/17 06:00 Protonix Ec Tab PO 0600 AKIKO Pantoprazole Sodium 40 mg 05/25/17 11:27 Protonix Ec Tab PO 05/25/17 11:28 ONCE ONE Zolpidem Tartrate 5 mg 05/23/17 15:13 Ambien PO HS PRN Sleep Protocol - Patient Studies Lab Studies: Lab Studies 05/25/17 05/25/17 05/25/17 Range/Units 06:10 05:00 00:45 WBC 9.4 D 13.3 H D (4.5-11.0) 10^3/ul RBC 3.92 3.63 (3.5-6.1) 10^6/uL Hgb 12.1 L 11.2 L (14.0-18.0) g/dL Hct 36.1 L 33.3 L (42.0-52.0) % MCV 92.1 91.7 (80.0-105.0) fl MCH 30.9 30.9 (25.0-35.0) pg MCHC 33.5 33.6 (31.0-37.0) g/dl RDW 14.0 13.6 (11.5-14.5) % Plt Count 200 176 (120.0-450.0) 10^3/uL MPV 8.9 9.1 (7.0-11.0) fl Gran % (50.0-68.0) % Lymph % (Auto) (22.0-35.0) % [place] % (Auto) (1.0-6.0) % Eos % (Auto) (1.5-5.0) % Baso % (Auto) (0.0-3.0) % Gran # (1.4-6.5) Lymph # (1.2-3.4) [place] # (0.1-0.6) Eos # (0.0-0.7) Baso # (0.0-2.0) K/mm3 Sodium 136 (132-148) mmol/L Potassium 5.3 H (3.6-5.0) mmol/L Chloride 105 (98-107) mmol/L Carbon Dioxide 21 (21-33) mmol/L Anion Gap 15 (10-20) BUN 27 H (7-21) mg/dL Creatinine 1.6 H (0.5-1.4) mg/dL Est GFR ( Amer) 51 Est GFR (Non-Af Amer) 42 Random Glucose 132 H (70-110) mg/dL Hemoglobin A1c (4.2-6.5) % Calcium 7.3 L (8.4-10.5) mg/dL Total Bilirubin 1.1 (0.2-1.3) mg/dL AST 48 (17-59) U/L ALT 32 (7-56) U/L Alkaline Phosphatase 46 (38-126) U/L Total Protein 5.2 L (5.8-8.3) g/dL Albumin 2.7 L (3.0-4.8) g/dL Globulin 2.5 gm/dL Albumin/Globulin Ratio 1.1 (1.1-1.8) Blood Type Antibody Screen Crossmatch BBK History Checked 05/24/17 05/24/17 05/23/17 Range/Units 20:56 07:45 21:06 WBC 17.7 H D (4.5-11.0) 10^3/ul RBC 3.90 (3.5-6.1) 10^6/uL Hgb 12.4 L D (14.0-18.0) g/dL Hct 35.5 L (42.0-52.0) % MCV 91.0 (80.0-105.0) fl MCH 31.8 (25.0-35.0) pg MCHC 34.9 (31.0-37.0) g/dl RDW 13.4 (11.5-14.5) % Plt Count 190 (120.0-450.0) 10^3/uL MPV 9.0 (7.0-11.0) fl Gran % 83.1 H (50.0-68.0) % Lymph % (Auto) 5.1 L (22.0-35.0) % [place] % (Auto) 11.6 H (1.0-6.0) % Eos % (Auto) 0.1 L (1.5-5.0) % Baso % (Auto) 0.1 (0.0-3.0) % Gran # 14.70 H (1.4-6.5) Lymph # 0.9 L (1.2-3.4) [place] # 2.1 H (0.1-0.6) Eos # 0.0 (0.0-0.7) Baso # 0.02 (0.0-2.0) K/mm3 Sodium (132-148) mmol/L Potassium (3.6-5.0) mmol/L Chloride (98-107) mmol/L Carbon Dioxide (21-33) mmol/L Anion Gap (10-20) BUN (7-21) mg/dL Creatinine (0.5-1.4) mg/dL Est GFR ( Amer) Est GFR (Non-Af Amer) Random Glucose (70-110) mg/dL Hemoglobin A1c 5.7 (4.2-6.5) % Calcium (8.4-10.5) mg/dL Total Bilirubin (0.2-1.3) mg/dL AST (17-59) U/L ALT (7-56) U/L Alkaline Phosphatase (38-126) U/L Total Protein (5.8-8.3) g/dL Albumin (3.0-4.8) g/dL Globulin gm/dL Albumin/Globulin Ratio (1.1-1.8) Blood Type A POSITIVE Antibody Screen Negative Crossmatch See Detail BBK History Checked Patient has bt Laboratory Results - last 24 hr 05/23/17 05/24/17 05/24/17 21:06 07:45 20:56 WBC 17.7 H D RBC 3.90 Hgb 12.4 L D Hct 35.5 L MCV 91.0 MCH 31.8 MCHC 34.9 RDW 13.4 Plt Count 190 MPV 9.0 Gran % 83.1 H Lymph % (Auto) 5.1 L [place] % (Auto) 11.6 H Eos % (Auto) 0.1 L Baso % (Auto) 0.1 Gran # 14.70 H Lymph # 0.9 L [place] # 2.1 H Eos # 0.0 Baso # 0.02 Sodium Potassium Chloride Carbon Dioxide Anion Gap BUN Creatinine Est GFR ( Amer) Est GFR (Non-Af Amer) Random Glucose Hemoglobin A1c 5.7 Calcium Total Bilirubin AST ALT Alkaline Phosphatase Total Protein Albumin Globulin Albumin/Globulin Ratio Blood Type A POSITIVE Antibody Screen Negative Crossmatch See Detail BBK History Checked Patient has bt 05/25/17 05/25/17 05/25/17 00:45 05:00 06:10 WBC 13.3 H D 9.4 D RBC 3.63 3.92 Hgb 11.2 L 12.1 L Hct 33.3 L 36.1 L MCV 91.7 92.1 MCH 30.9 30.9 MCHC 33.6 33.5 RDW 13.6 14.0 Plt Count 176 200 MPV 9.1 8.9 Gran % Lymph % (Auto) [place] % (Auto) Eos % (Auto) Baso % (Auto) Gran # Lymph # [place] # Eos # Baso # Sodium 136 Potassium 5.3 H Chloride 105 Carbon Dioxide 21 Anion Gap 15 BUN 27 H Creatinine 1.6 H Est GFR ( Amer) 51 Est GFR (Non-Af Amer) 42 Random Glucose 132 H Hemoglobin A1c Calcium 7.3 L Total Bilirubin 1.1 AST 48 ALT 32 Alkaline Phosphatase 46 Total Protein 5.2 L Albumin 2.7 L Globulin 2.5 Albumin/Globulin Ratio 1.1 Blood Type Antibody Screen Crossmatch BBK History Checked EKG/Cardiology Studies: Cardiology / EKG Studies 05/25/17 ELECTROCARDIOGRAM Urgent Comment: Reason For Exam: hyperkalemia Review of Systems - Review of Systems All systems: reviewed and no additional remarkable complaints except - Constitutional Constitutional: absent: Fever, Chills - EENT Eyes: UNREMARKABLE - Cardiovascular Cardiovascular: UNREMARKABLE. absent: Chest Pain - Respiratory Respiratory: UNREMARKABLE. absent: Cough - Gastrointestinal Gastrointestinal: UNREMARKABLE. absent: Nausea, Vomiting - Musculoskeletal Musculoskeletal: absent: Numbness, Tingling - Integumentary Integumentary: Non-Healing Lesions (chronic) - Neurological Neurological: UNREMARKABLE. absent: Headaches Critical Care Progress Note - Extremities/Vascular Does the Patient have a Central Venous Catheter?: No Does the Patient need a Central Venous Catheter?: No Does the Patient have a Stephen Catheter?: Yes Does the Patient need a Stephen Catheter?: Yes Catheter Insertion Criteria: Need for accurate measurement of output in critically ill patient - Prophylaxis GI Prophylaxis GI: PPI - Prophylaxis DVT Prophylaxis DVT: Not Indicated - Nutrition Nutrition: Nutrition Category Date Time Status Heart Healthy Diet [DIET] Diets 05/23/17 Lunch Ordered Assessment/Plan - Assessment and Plan (Free Text) Assessment: 76M admitted to ICU s/p popliteal-anterior tibial bypass w/LUE basilic vein POD# 1, stable overnight, pain well controlled. Plan: Neuro AOx3 Ambien HS Stable CVS CAD s/p CABG, s/p stents Some tachycardia Some hypotension-resolved Plavix Lipitor Monitor Pulm IS Sao2 98% on Target SaO2>94% Stable Nephro JAQUELIN BUN 27 from 27 Cr 1.6 from 1.2 Holding Lisinopril, HTCZ NS@100 Hyperkalemia K 5.3 EKG w/o peaked T waves Kayexelate 15 gm x 1 Monitor GI HHD Zofran PRN Stephen in place UOP 2000cc/12H Now with 125cc Clear UOP in stephen Heme Hgb 12.1 from 11.2 Hct 36.1 from 33.36 Stable, no signs of bleeding MSK/vascular s/p popliteal-anterior tibial bypass POD#1 Tylenol PRN Percocet OOBTC PT FU Duplex U/S of B/L LE Podiatory following Vascular surgery following ID Afebrile Leukocytosis resolved Monitor GI/DVT ppx Protonix Contraindication to VTE therapy- post op Dispo Cont ICU care for now DW attending Katerin, PGY-1 - Date & Time Date: 05/25/17 Time: 07:45 <Kennedi CARABALLO,Marcelaconstantine H - Last Filed: 05/25/17 13:21> CCU Objective - Vital Signs / Intake & Output Vital Signs (Last 4 hours): Vital Signs Temp Pulse Resp BP Pulse Ox 05/25/17 12:10 109 H 26 H 95 05/25/17 12:00 97.9 F 120 H 22 112/48 L 96 05/25/17 11:55 122/54 L 05/25/17 11:50 90 17 95 05/25/17 11:40 96 H 18 85 L 05/25/17 11:30 81 13 93 L 05/25/17 11:20 84 11 L 93 L 05/25/17 11:10 85 13 93 L 05/25/17 11:00 86 14 92 L 05/25/17 10:50 85 16 93 L 05/25/17 10:40 85 12 94 L 05/25/17 10:30 85 14 94 L 05/25/17 10:20 86 13 93 L 05/25/17 10:10 86 13 92 L 05/25/17 10:00 87 17 94 L 05/25/17 09:50 89 12 92 L 05/25/17 09:40 88 18 95 05/25/17 09:37 97 H 117/44 L 05/25/17 09:30 90 13 94 L 05/25/17 09:20 96 H 12 93 L Intake and Output (Last 8hrs): Intake & Output 05/24/17 05/25/17 05/25/17 22:59 06:59 14:59 Intake Total 75 Balance 75 Weight 211 lb 6.4 oz Intake: IV 75 - Medications Active Medications: Active Medications Generic Name Dose Route Start Last Admin Trade Name Freq PRN Reason Stop Dose Admin Acetaminophen 325 mg 05/23/17 14:45 Tylenol 325mg Tab PO Q4H PRN Pain, Mild (1-3) Aspirin 81 mg 05/25/17 12:45 Aspirin Chewable PO DAILY [facility] Atorvastatin Calcium 40 mg 05/24/17 10:00 05/25/17 10:46 Lipitor PO Not Given DAILY AKIKO Clopidogrel Bisulfate 75 mg 05/24/17 06:00 05/25/17 11:39 Plavix PO 75 mg 0600 AKIKO Administration Hydrochlorothiazide 12.5 mg 05/24/17 10:00 05/25/17 09:39 Microzide PO 12.5 mg DAILY AKIKO Administration Sodium Chloride 1,000 mls @ 100 mls/hr 05/24/17 22:00 05/25/17 09:28 Sodium Chloride 0.9% IV 100 mls/hr .Q10H AKIKO Administration Lisinopril 10 mg 05/24/17 10:00 05/25/17 09:37 Zestril PO 10 mg DAILY AKIKO Administration Ondansetron HCl 4 mg 05/24/17 14:13 Zofran Inj IVP ONCE PRN Nausea/Vomiting Oxycodone/Acetaminophen 1 tab 05/23/17 14:46 09/29/17 08:41 Percocet 5/325 Mg Tab PO 05/26/17 14:47 1 tab Q6H PRN Administration Pain, moderate (4-7) Pantoprazole Sodium 40 mg 05/26/17 06:00 Protonix Ec Tab PO 0600 AKIKO Zolpidem Tartrate 5 mg 05/23/17 15:13 Ambien PO HS PRN Sleep Protocol - Patient Studies Lab Studies: Lab Studies 05/25/17 05/25/17 05/25/17 Range/Units 12:44 06:10 05:00 WBC 10.3 9.4 D (4.5-11.0) 10^3/ul RBC 3.76 3.92 (3.5-6.1) 10^6/uL Hgb 12.0 L 12.1 L (14.0-18.0) g/dL Hct 35.3 L 36.1 L (42.0-52.0) % MCV 93.9 92.1 (80.0-105.0) fl MCH 31.9 30.9 (25.0-35.0) pg MCHC 34.0 33.5 (31.0-37.0) g/dl RDW 14.1 14.0 (11.5-14.5) % Plt Count 206 200 (120.0-450.0) 10^3/uL MPV 9.4 8.9 (7.0-11.0) fl Gran % (50.0-68.0) % Lymph % (Auto) (22.0-35.0) % [place] % (Auto) (1.0-6.0) % Eos % (Auto) (1.5-5.0) % Baso % (Auto) (0.0-3.0) % Gran # (1.4-6.5) Lymph # (1.2-3.4) [place] # (0.1-0.6) Eos # (0.0-0.7) Baso # (0.0-2.0) K/mm3 Sodium 136 (132-148) mmol/L Potassium 5.3 H (3.6-5.0) mmol/L Chloride 105 (98-107) mmol/L Carbon Dioxide 21 (21-33) mmol/L Anion Gap 15 (10-20) BUN 27 H (7-21) mg/dL Creatinine 1.6 H (0.5-1.4) mg/dL Est GFR ( Amer) 51 Est GFR (Non-Af Amer) 42 Random Glucose 132 H (70-110) mg/dL Calcium 7.3 L (8.4-10.5) mg/dL Total Bilirubin 1.1 (0.2-1.3) mg/dL AST 48 (17-59) U/L ALT 32 (7-56) U/L Alkaline Phosphatase 46 (38-126) U/L Total Protein 5.2 L (5.8-8.3) g/dL Albumin 2.7 L (3.0-4.8) g/dL Globulin 2.5 gm/dL Albumin/Globulin Ratio 1.1 (1.1-1.8) Blood Type Antibody Screen Crossmatch BBK History Checked 05/25/17 05/24/17 05/23/17 Range/Units 00:45 20:56 21:06 WBC 13.3 H D 17.7 H D (4.5-11.0) 10^3/ul RBC 3.63 3.90 (3.5-6.1) 10^6/uL Hgb 11.2 L 12.4 L D (14.0-18.0) g/dL Hct 33.3 L 35.5 L (42.0-52.0) % MCV 91.7 91.0 (80.0-105.0) fl MCH 30.9 31.8 (25.0-35.0) pg MCHC 33.6 34.9 (31.0-37.0) g/dl RDW 13.6 13.4 (11.5-14.5) % Plt Count 176 190 (120.0-450.0) 10^3/uL MPV 9.1 9.0 (7.0-11.0) fl Gran % 83.1 H (50.0-68.0) % Lymph % (Auto) 5.1 L (22.0-35.0) % [place] % (Auto) 11.6 H (1.0-6.0) % Eos % (Auto) 0.1 L (1.5-5.0) % Baso % (Auto) 0.1 (0.0-3.0) % Gran # 14.70 H (1.4-6.5) Lymph # 0.9 L (1.2-3.4) [place] # 2.1 H (0.1-0.6) Eos # 0.0 (0.0-0.7) Baso # 0.02 (0.0-2.0) K/mm3 Sodium (132-148) mmol/L Potassium (3.6-5.0) mmol/L Chloride (98-107) mmol/L Carbon Dioxide (21-33) mmol/L Anion Gap (10-20) BUN (7-21) mg/dL Creatinine (0.5-1.4) mg/dL Est GFR ( Amer) Est GFR (Non-Af Amer) Random Glucose (70-110) mg/dL Calcium (8.4-10.5) mg/dL Total Bilirubin (0.2-1.3) mg/dL AST (17-59) U/L ALT (7-56) U/L Alkaline Phosphatase (38-126) U/L Total Protein (5.8-8.3) g/dL Albumin (3.0-4.8) g/dL Globulin gm/dL Albumin/Globulin Ratio (1.1-1.8) Blood Type A POSITIVE Antibody Screen Negative Crossmatch See Detail BBK History Checked Patient has bt Laboratory Results - last 24 hr 05/23/17 05/24/17 05/25/17 21:06 20:56 00:45 WBC 17.7 H D 13.3 H D RBC 3.90 3.63 Hgb 12.4 L D 11.2 L Hct 35.5 L 33.3 L MCV 91.0 91.7 MCH 31.8 30.9 MCHC 34.9 33.6 RDW 13.4 13.6 Plt Count 190 176 MPV 9.0 9.1 Gran % 83.1 H Lymph % (Auto) 5.1 L [place] % (Auto) 11.6 H Eos % (Auto) 0.1 L Baso % (Auto) 0.1 Gran # 14.70 H Lymph # 0.9 L [place] # 2.1 H Eos # 0.0 Baso # 0.02 Sodium Potassium Chloride Carbon Dioxide Anion Gap BUN Creatinine Est GFR ( Amer) Est GFR (Non-Af Amer) Random Glucose Calcium Total Bilirubin AST ALT Alkaline Phosphatase Total Protein Albumin Globulin Albumin/Globulin Ratio Blood Type A POSITIVE Antibody Screen Negative Crossmatch See Detail BBK History Checked Patient has bt 05/25/17 05/25/17 05/25/17 05:00 06:10 12:44 WBC 9.4 D 10.3 RBC 3.92 3.76 Hgb 12.1 L 12.0 L Hct 36.1 L 35.3 L MCV 92.1 93.9 MCH 30.9 31.9 MCHC 33.5 34.0 RDW 14.0 14.1 Plt Count 200 206 MPV 8.9 9.4 Gran % Lymph % (Auto) [place] % (Auto) Eos % (Auto) Baso % (Auto) Gran # Lymph # [place] # Eos # Baso # Sodium 136 Potassium 5.3 H Chloride 105 Carbon Dioxide 21 Anion Gap 15 BUN 27 H Creatinine 1.6 H Est GFR ( Amer) 51 Est GFR (Non-Af Amer) 42 Random Glucose 132 H Calcium 7.3 L Total Bilirubin 1.1 AST 48 ALT 32 Alkaline Phosphatase 46 Total Protein 5.2 L Albumin 2.7 L Globulin 2.5 Albumin/Globulin Ratio 1.1 Blood Type Antibody Screen Crossmatch BBK History Checked EKG/Cardiology Studies: Cardiology / EKG Studies 05/25/17 ELECTROCARDIOGRAM Urgent Comment: Reason For Exam: hyperkalemia Critical Care Progress Note - Nutrition Nutrition: Nutrition Category Date Time Status Heart Healthy Diet [DIET] Diets 05/23/17 Lunch Ordered Attending/Attestation - Attestation I have personally seen and examined this patient.: Yes I have fully participated in the care of the patient.: Yes I have reviewed all pertinent clinical information: Yes Notes (Text): 05/25/17 13:19 76 y/o M s/p Fem-pop Bypass No complications noted. No complaints overnight. Vitals are WNL. Pain controlled. Pulses and wound check by RN and surgical staff. JAQUELIN noted post cath/ dye. Hydration w/ NS. Repeat BMP this afternoon. PT/OT needed. Awaiting surgical disposition . Recent CAD w/ Stent placement. PVD/ CAD on Asprin and Plavix. dvt p cc time 55 min
[2017-05-25 12:47] LABS: HEMATOCRIT 35.3 % (42.0-52.0); MEAN CELL VOLUME 93.9 fl (80.0-105.0); MEAN CORPUSCULAR HEMOGLOBIN 31.9 pg (25.0-35.0); WHITE BLOOD COUNT 10.3 10^3/ul (4.5-11.0)
[2017-05-25 12:48] LABS: MEAN PLATELET VOLUME 9.4 fl (7.0-11.0); RED CELL DISTRIBUTION WIDTH 14.1 % (11.5-14.5)
[2017-05-25] MEDS ORDERED: Morphine 4 mg/ml ISec IVP ONE (17:05)
--- NOTE | 2017-05-25 17:20 | OP ---
PROCEDURE DATE: 05/25/2017 PREOPERATIVE DIAGNOSES: Right toe osteomyelitis due to severe peripheral vascular disease status post right femoropopliteal bypass with [place], right distal popliteal occlusion with reconstitution of the anterior tibial artery. POSTOPERATIVE DIAGNOSIS: PROCEDURE: Right popliteal to anterior tibial bypass using multiple pieces of left forearm and arm vein, on-table angiogram. SURGEON: Elisa Ge MD BRAND AMBASSADOR: . TYPE OF ANESTHESIA: General. DESCRIPTION OF PROCEDURE: The patient was brought to the OR and placed supine on the OR table. After adequate general anesthesia had been accomplished, the entire left upper extremity and right lower extremity were prepped with ChloraPrep and draped out as a sterile field. The patient had prior unsuccessful femoropopliteal bypass with vein, so his greater saphenous vein was gone. A medial incision was made distal to the knee. The incision was extended down to the subcutaneous tissue and fascia. The gastrocnemius muscle was identified and retracted posteriorly. The popliteal artery was dissected out. The distal portion of that was thick with atherosclerosis and does not seem to have a lumen. The dissection was extended proximally to the knee level and that area was relatively soft and appeared to have a lumen, 1 inch segment of that was dissected out and loop out using vasaloops. Next, an incision was made on the lateral side of that leg over the anterior compartment. The incision was extended down through subcutaneous tissue and fascia. The muscle was identified. The tibialis anterior and the extensor hallucis longus muscles were retracted and the anterior tibial artery at mid calf was identified with minimal atherosclerosis and 1 inch segment of that was exposed. A trans-intraosseous tunnel was created connecting the popliteal artery to the anterior tibial artery that were dissected out. Attention was then turned to the left arm. The cephalic vein was dissected out in its entirety up to the antecubital fossa with crossover to the basilic vein. So the cephalic and basilic veins were both dissected out. Its branches ligated with 3-0 silk. The vein was reversed and gently dilated with heparinized saline. It is very thin wall, but has good caliber, measured at least 4 mm in diameter. The patient was then systemically heparinized. Using the pneumatic tourniquet, he popliteal artery was occluded at the level of the thigh, popliteal arteriotomy was made. The reverse cephalic, basilic vein was then anastomosed in end-to-side fashion to the popliteal artery. Next, the vein was passed through the previously created trans-intraosseous tunnel through the anterior tibia artery. The end-to-side anterior tibial vein to anterior tibial artery anastomosis was performed using 6-0 Prolene, continuous suture. After that, the pneumatic tourniquet was let down. A palpable pulse was noted in the graft, but not the artery. On-table angiogram showed no flow to the foot. So we elected and took an additional piece of basilic vein, jumped from the vein graft to more a distal portion of the anterior tibial artery. That was performed in end-to-side fashion using 6-0 Prolene continuous suture. At this time, completion angiogram showed flow to the anterior tibial artery all the way to the foot and there is a palpable dorsalis pedis pulse in the right foot. The left arm and forearm vein harvest incision was closed in 2 layers using 3-0 Prolene interrupted suture to approximate the skin flaps and subcuticular suture for skin. The lateral calf incision was closed in one layer using skin chrissy. The medial calf incision was closed in multiple layers. The gastrocnemius muscle was approximated to the fascia using interrupted 2-0 Monocryl suture to provide muscle coverage for the bypass. The subcutaneous tissue was approximated using the 3-0 nylon interrupted sutures and the skin was closed with skin chrissy. The patient tolerated the procedure. Sterile dressing was applied. The patient tolerated the procedure. Prior to leaving the operating room, he was extubated. He had a palpable right foot pulse. The estimated blood loss is around 1200 mL. He was replaced with 2 units of packed cells. Elisa Ge MD ROSS
[2017-05-25 18:24] LABS: CALCIUM 7.2 mg/dL (8.4-10.5)
[2017-05-25 18:56] LABS: POTASSIUM 4.6 mmol/L (3.6-5.0)
--- NOTE | 2017-05-25 20:25 | CP.PCM.PN ---
<Mary Chung - Last Filed: 05/25/17 20:21> Subjective - Date & Time of Evaluation Date of Evaluation: 05/25/17 Time of Evaluation: 15:35 - Subjective Subjective: Podiatry Progress Note - Dr. Alcantar 76 year old male patient seen at bedside in ICU for right 3rd digit failed amputation + osteomyelitis. Patient seen resting comfortably, AAOx3 and NAD. Patient states he had his bypass yesterday, admits to mild pain in right leg. Patient denies any pain in his right foot. Patient aware he is scheduled to have his right 3rd digit amputated. Patient denies N/V/F/D/C/SOB. Offers no other pedal complaints at this time. Objective - Vital Signs/Intake and Output Vital Signs (last 24 hours): Temp Pulse Resp BP Pulse Ox 97.9 F 109 H 26 H 115/59 L 98 05/25/17 12:00 05/25/17 18:10 05/25/17 18:10 05/25/17 16:35 05/25/17 18:10 Intake and Output: 05/25/17 05/26/17 18:59 06:59 Intake Total 1800 Output Total 300 Balance 1500 - Medications Medications: Current Medications Acetaminophen (Tylenol 325mg Tab) 325 mg PO Q4H PRN PRN Reason: Pain, Mild (1-3) Aspirin (Aspirin Chewable) 81 mg PO DAILY [facility] Last Admin: 05/25/17 13:24 Dose: 81 mg Atorvastatin Calcium (Lipitor) 40 mg PO DAILY [facility] Last Admin: 05/25/17 10:46 Dose: Not Given Clopidogrel Bisulfate (Plavix) 75 mg PO 0600 [facility] Last Admin: 05/25/17 11:39 Dose: 75 mg Hydrochlorothiazide (Microzide) 12.5 mg PO DAILY [facility] Last Admin: 05/25/17 09:39 Dose: 12.5 mg Sodium Chloride (Sodium Chloride 0.9%) 1,000 mls @ 100 mls/hr IV .Q10H [facility] Last Admin: 05/25/17 09:28 Dose: 100 mls/hr Lisinopril (Zestril) 10 mg PO DAILY [facility] Last Admin: 05/25/17 09:37 Dose: 10 mg Ondansetron HCl (Zofran Inj) 4 mg IVP ONCE PRN PRN Reason: Nausea/Vomiting Oxycodone/Acetaminophen (Percocet 5/325 Mg Tab) 1 tab PO Q6H PRN PRN Reason: Pain, moderate (4-7) Stop: 05/26/17 14:47 Last Admin: 05/25/17 15:06 Dose: 1 tab Pantoprazole Sodium (Protonix Ec Tab) 40 mg PO 0600 [facility] Zolpidem Tartrate (Ambien) 5 mg PO HS PRN; Protocol PRN Reason: Sleep - Labs Labs: 05/25/17 12:44 05/25/17 18:12 PT 10.3 Seconds (9.9-11.8) 05/23/17 12:23 INR 0.95 (0.93-1.08) 05/23/17 12:23 APTT 24.7 Seconds (23.7-30.8) 05/23/17 12:23 - Constitutional Appears: Well, Non-toxic, No Acute Distress - Extremities Exam Additional comments: Dressing to right foot appears clean/dry/intact with no strikethrough noted. VASC: DP and PT pulses nonpalpable b/l. TG RLE obscured with right leg dressing from bypass. No pedal edema noted. CFT wnl b/l. NEURO: Gross sensation diminished bilaterally. DERM: Exposed proximal phalanx of right 3rd digit with no ascending cellulitis noted. ORTHO: Previous amputation sites b/l. - Neurological Exam Neurological Exam: Alert, Awake, Oriented x3 - Psychiatric Exam Psychiatric exam: Normal Affect, Normal Mood Assessment and Plan - Assessment and Plan (Free Text) Assessment: 76 year old male patient with severe PVD with critical limb ischemia to RLE and osteomyelitis of right 3rd digit Plan: Patient seen and evaluated at bedside in ICU Discussed with attending Dr. Alcantar Chart, vitals, labs reviewed = WBC wnl 10.3 Continue local wound care: xeroform, DSD S/p bypass sx, plan to take patient to OR for right 3rd digit amputation Podiatry will continue to follow patient while in house <Chauncey Alcantar - Last Filed: 05/26/17 07:31> Objective - Vital Signs/Intake and Output Vital Signs (last 24 hours): Temp Pulse Resp BP Pulse Ox 98.3 F 120 H 22 159/88 H 98 05/26/17 04:00 05/26/17 06:40 05/26/17 06:40 05/26/17 06:00 05/26/17 06:40 Intake and Output: 05/26/17 05/26/17 06:59 18:59 Intake Total 1320 Output Total 925 Balance 395 - Medications Medications: Current Medications Acetaminophen (Tylenol 325mg Tab) 325 mg PO Q4H PRN PRN Reason: Pain, Mild (1-3) Aspirin (Aspirin Chewable) 81 mg PO DAILY [facility] Last Admin: 05/25/17 13:24 Dose: 81 mg Atorvastatin Calcium (Lipitor) 40 mg PO DAILY [facility] Last Admin: 05/25/17 10:46 Dose: Not Given Clopidogrel Bisulfate (Plavix) 75 mg PO 0600 [facility] Last Admin: 05/26/17 05:50 Dose: 75 mg Hydrochlorothiazide (Microzide) 12.5 mg PO DAILY [facility] Last Admin: 05/25/17 09:39 Dose: 12.5 mg Sodium Chloride (Sodium Chloride 0.9%) 1,000 mls @ 100 mls/hr IV .Q10H [facility] Last Admin: 05/25/17 20:30 Dose: 100 mls/hr Lisinopril (Zestril) 10 mg PO DAILY [facility] Last Admin: 05/25/17 09:37 Dose: 10 mg Morphine Sulfate (Morphine) 2 mg IVP Q4H PRN PRN Reason: moderate pain Last Admin: 05/25/17 23:05 Dose: 2 mg Ondansetron HCl (Zofran Inj) 4 mg IVP ONCE PRN PRN Reason: Nausea/Vomiting Oxycodone/Acetaminophen (Percocet 5/325 Mg Tab) 1 tab PO Q6H PRN PRN Reason: Pain, moderate (4-7) Stop: 05/26/17 14:47 Last Admin: 05/25/17 15:06 Dose: 1 tab Pantoprazole Sodium (Protonix Ec Tab) 40 mg PO 0600 [facility] Last Admin: 05/26/17 05:50 Dose: 40 mg Zolpidem Tartrate (Ambien) 5 mg PO HS PRN; Protocol PRN Reason: Sleep - Labs Labs: 05/26/17 00:15 05/25/17 18:12 PT 10.3 Seconds (9.9-11.8) 05/23/17 12:23 INR 0.95 (0.93-1.08) 05/23/17 12:23 APTT 24.7 Seconds (23.7-30.8) 05/23/17 12:23 Attending/Attestation - Attestation I have personally seen and examined this patient.: Yes I have fully participated in the care of the patient.: Yes I have reviewed all pertinent clinical information, including history, physical exam and plan: Yes
[2017-05-25] MEDS ORDERED: Morphine 2 mg/ml ISec IVP PRN (22:51)
[2017-05-26 01:10] LABS: HEMATOCRIT 32.1 % (42.0-52.0); MEAN CELL VOLUME 92.2 fl (80.0-105.0); MEAN CORPUSCULAR HGB CONC 33.6 g/dl (31.0-37.0); MEAN PLATELET VOLUME 9.3 fl (7.0-11.0); RED CELL DISTRIBUTION WIDTH 13.9 % (11.5-14.5); WHITE BLOOD COUNT 10.4 10^3/ul (4.5-11.0)
[2017-05-26] MEDS: Pantoprazole 40 mg EC Tab PO SCH (05:50)
--- NOTE | 2017-05-26 08:26 | CARD ---
APPROVED REPORT EKG Measurement Heart [id number] <Conclusion> Normal sinus rhythm Nonspecific T wave abnormality
--- NOTE | 2017-05-26 08:36 | CP.PCM.PN ---
Subjective - Date & Time of Evaluation Date of Evaluation: 05/26/17 Time of Evaluation: 08:15 - Subjective Subjective: Surgery Note for Dr. Ge 76M seen and examined at bedside. Patient complains of pain in the right lower extremity on the medial and lateral incision. Complains of right lower extremity swelling and left upper arm swelling. Denies numbness and tingling in the foot. Objective - Vital Signs/Intake and Output Vital Signs (last 24 hours): Temp Pulse Resp BP Pulse Ox 98.3 F 120 H 22 159/88 H 98 05/26/17 04:00 05/26/17 06:40 05/26/17 06:40 05/26/17 06:00 05/26/17 06:40 Intake and Output: 05/26/17 05/26/17 06:59 18:59 Intake Total 1320 Output Total 925 Balance 395 - Medications Medications: Current Medications Acetaminophen (Tylenol 325mg Tab) 325 mg PO Q4H PRN PRN Reason: Pain, Mild (1-3) Aspirin (Aspirin Chewable) 81 mg PO DAILY [facility] Last Admin: 05/25/17 13:24 Dose: 81 mg Atorvastatin Calcium (Lipitor) 40 mg PO DAILY [facility] Last Admin: 05/25/17 10:46 Dose: Not Given Clopidogrel Bisulfate (Plavix) 75 mg PO 0600 [facility] Last Admin: 05/26/17 05:50 Dose: 75 mg Hydrochlorothiazide (Microzide) 12.5 mg PO DAILY [facility] Last Admin: 05/25/17 09:39 Dose: 12.5 mg Sodium Chloride (Sodium Chloride 0.9%) 1,000 mls @ 100 mls/hr IV .Q10H [facility] Last Admin: 05/25/17 20:30 Dose: 100 mls/hr Lisinopril (Zestril) 10 mg PO DAILY [facility] Last Admin: 05/25/17 09:37 Dose: 10 mg Morphine Sulfate (Morphine) 2 mg IVP Q4H PRN PRN Reason: moderate pain Last Admin: 05/25/17 23:05 Dose: 2 mg Ondansetron HCl (Zofran Inj) 4 mg IVP ONCE PRN PRN Reason: Nausea/Vomiting Oxycodone/Acetaminophen (Percocet 5/325 Mg Tab) 1 tab PO Q6H PRN PRN Reason: Pain, moderate (4-7) Stop: 05/26/17 14:47 Last Admin: 05/25/17 15:06 Dose: 1 tab Pantoprazole Sodium (Protonix Ec Tab) 40 mg PO 0600 [facility] Last Admin: 05/26/17 05:50 Dose: 40 mg Zolpidem Tartrate (Ambien) 5 mg PO HS PRN; Protocol PRN Reason: Sleep - Labs Labs: 05/26/17 00:15 05/25/17 18:12 PT 10.3 Seconds (9.9-11.8) 05/23/17 12:23 INR 0.95 (0.93-1.08) 05/23/17 12:23 APTT 24.7 Seconds (23.7-30.8) 05/23/17 12:23 - Constitutional Appears: Non-toxic, No Acute Distress - Respiratory Exam Respiratory Exam: Clear to Ausculation Bilateral, NORMAL BREATHING PATTERN - Cardiovascular Exam Cardiovascular Exam: REGULAR RHYTHM, +S1, +S2 - GI/Abdominal Exam GI & Abdominal Exam: Soft. absent: Distended, Firm, Guarding, Rigid, Tenderness , Rebound - Extremities Exam Additional comments: Palpable DP on both legs. Palpable PT on the left leg. Dopper-able PT on right leg. Left arm swelling, incision CDI. Right leg swelling, incision CDI All dressings changed. - Neurological Exam Neurological Exam: Alert, Awake - Skin Skin Exam: Dry, Intact, Normal Color, Warm Assessment and Plan - Assessment and Plan (Free Text) Assessment: 76M s/p popliteal-anterior tibial with left basillic vein reservation POD#2 Plan: - monitor vitals - Maintain BP below 150 - continue Plavix, f/u morning labs - Monitor lower extremity pulses - Monitor dressings lower extremity/left arm - Elevation of right leg and left arm - Encourage Ambulation - DVT ppx Further recs discuss with Dr. Joo Novoa, PGY2
[2017-05-26 10:12] LABS: BASO # 0.01 K/mm3 (0.0-2.0); BASO % 0.1 % (0.0-3.0); EOS % 0.4 % (1.5-5.0); GRAN # 8.95 (1.4-6.5); GRAN % 78.8 % (50.0-68.0); HEMATOCRIT 32.3 % (42.0-52.0); LYMPH % 8.5 % (22.0-35.0); MEAN CORPUSCULAR HEMOGLOBIN 31.3 pg (25.0-35.0); MEAN CORPUSCULAR HGB CONC 34.1 g/dl (31.0-37.0); MONO # 1.4 (0.1-0.6); MONO % 12.2 % (1.0-6.0); RED CELL DISTRIBUTION WIDTH 13.8 % (11.5-14.5); WHITE BLOOD COUNT 11.4 10^3/ul (4.5-11.0)
[2017-05-26 10:37] LABS: ALB/GLOB RATIO 1.2 (1.1-1.8); BILIRUBIN,TOTAL 1.3 mg/dL (0.2-1.3); CALCIUM 8.1 mg/dL (8.4-10.5); POTASSIUM 4.2 mmol/L (3.6-5.0); TOTAL PROTEIN 5.8 g/dL (5.8-8.3)
--- NOTE | 2017-05-26 10:42 | PN ---
DAILY PROGRESS NOTE DATE: SUBJECTIVE: The patient seen and examined at bedside in the ICU. No acute events overnight. He remains afebrile and hemodynamically stable. Status post his right lower extremity popliteal anterior tibial bypass, this morning states he feels okay and denies any complaints. OBJECTIVE: VITAL SIGNS: Temperature 98.7, pulse 120, blood pressure 159/88, respiratory rate 20 and oxygen saturation 98% on room air. GENERAL: No apparent distress. HEENT: PERRL. EOMI. No scleral icterus. No conjunctival pallor. NECK: Supple with full range of motion. No JVD. No bruits. LUNGS: Clear to auscultation. CARDIOVASCULAR: Regular rate and rhythm. Normal S1 and S2. ABDOMEN: Normoactive bowel sounds. Soft, nontender and nondistended. EXTREMITIES: No edema. Right foot was surgical dressing in place. NEUROLOGIC: Awake, alert, and oriented x3. No focal motor deficits. LABORATORY DATA: WBC is 10.4, hemiglobin 11, hematocrit 32, and platelets 180. Chemistry pending. ASSESSMENT: The patient is a 76-year-old man with multiple medical comorbidities including hypertension, triple-vessel coronary artery disease status post percutaneous coronary intervention with stent placement and peripheral vascular disease, status post IR revascularization with chronic nonhealing ulcerations, who presented to [facility] to undergo right lower extremity vascular bypass surgery secondary to chronic nonhealing ulcers who is now status post right lower extremity popliteal anterior tibial bypass with reserved left arm basilic vein postop day number 2. PLAN: 1. Severe PVD, status post right lower extremity popliteal/anterior tibial bypass with reserved left arm basilic vein. Continue with postoperative care as per Dr. Ge in the vascular surgery team. 2. Chronic nonhealing right lower extremity ulcerations. Input from Dr. Alcantar of podiatry noted and appreciated. Continue care as per the podiatric team. 3. Triple-vessel CAD, status post PCI with drug-eluting stent placement. Continue with Lipitor 40 mg p.o. daily, Plavix 75 mg p.o. daily and aspirin 81 mg p.o. daily. 4. Acute kidney injury, etiology likely secondary to IV contrast. Morning labs are pending. However, the patient is noted to have good urinary output. We will continue to monitor renal function daily. Continue with IV fluid hydration. The patient's antihypertensives has been put on hold given his worsening renal dysfunction. 5. Hypertension. Blood pressure slightly elevated. We will continue to hold lisinopril 10 mg p.o. daily and hydrochlorothiazide 12.5 mg p.o. daily and monitor hemodynamics and add antihypertensives as needed. 6. Prophylaxis. GI prophylaxis not indicated as the patient is eating. DVT prophylaxis as per the vascular surgery team. CODE STATUS: Full code. Amari Gonzalez MD
--- NOTE | 2017-05-26 14:19 | PN ---
DATE: SUBJECTIVE: A 76-year-old male seen at bedside with his present for continued evaluation and management of osteomyelitis of his right third digit with accompanying osteomyelitis. The patient status post two days right popliteal to anterior tibial bypass. The patient states that his arm and leg are sore, but he is feeling much better. The patient denies nausea, fever, chills, shortness of breath. PHYSICAL EXAMINATION: VITAL SIGNS: Reveal temperature of 98.6, pulse rate of 122, blood pressure of 159/88, respiratory rate of 20. EXTREMITIES: There is noted to be +1 nonpitting lower extremity edema. There are no palpable pedal pulses bilaterally. The right lower leg extremity is obscured due to surgical dressing from his bypass surgery. There is noted to be minimal pedal edema. The tactile sensation is grossly diminished bilaterally. Right third digit presents partially amputated with exposed proximal foot phalangeal bone. There is a full thickness ulceration at that location. There is no purulence. There is no abscess formation noted. The area is avoided any cellulolytic activity. LABORATORY FINDINGS: Reveal white count of 10.4, hemoglobin of 10.8, hematocrit of 32.1, platelet count of 180. ASSESSMENT: A 76-year-old male with severe peripheral vascular disease, status post right popliteal anterior tibial bypass, seen for osteomyelitis of the right third digit. PLAN: The patient was seen, wound was cleansed with normal sterile saline and application of Xeroform and dry sterile dressing was applied. I spoke with the patient and his at length under need for amputation of his right third digit. I will speak to the Dr. Ge as to whether she feels there is adequate blood flow to the lower extremity to attempt digital amputation. We will plan on digital amputation in the coming week, pending vascular clearance. The patient will be seen and follow daily. Chauncey Alcantar DPM
[2017-05-26] MEDS: Sodium Chloride 0.9% 1,000 ML IV SCH (21:16)
[2017-05-27] MEDS: Sodium Chloride 0.9% 1,000 ML IV SCH ×2 (04:58→07:30)
[2017-05-27] MEDS: Pantoprazole 40 mg EC Tab PO SCH (05:10)
[2017-05-27 06:41] LABS: BASO # 0.02 K/mm3 (0.0-2.0); BASO % 0.2 % (0.0-3.0); EOS # 0.2 (0.0-0.7); EOS % 2.7 % (1.5-5.0); GRAN # 6.22 (1.4-6.5); GRAN % 72.5 % (50.0-68.0); HEMATOCRIT 27.3 % (42.0-52.0); LYMPH % 11.3 % (22.0-35.0); MEAN CORPUSCULAR HEMOGLOBIN 31.3 pg (25.0-35.0); MEAN CORPUSCULAR HGB CONC 34.4 g/dl (31.0-37.0); MEAN PLATELET VOLUME 9.2 fl (7.0-11.0); MONO # 1.1 (0.1-0.6); MONO % 13.3 % (1.0-6.0); RED CELL DISTRIBUTION WIDTH 13.7 % (11.5-14.5); WHITE BLOOD COUNT 8.6 10^3/ul (4.5-11.0)
[2017-05-27 06:44] LABS: ALKALINE PHOSPHATASE 53 U/L (38-126); ALT/SGPT 38 U/L (7-56); AST/SGOT 49 U/L (17-59); BLOOD UREA NITROGEN 20 mg/dL (7-21); CARBON DIOXIDE 23 mmol/L (21-33); CHLORIDE 105 mmol/L (98-107); GFR AFRICAN-AMERICAN > 60; GLUCOSE,RANDOM 98 mg/dL (70-110); POTASSIUM 3.6 mmol/L (3.6-5.0); SODIUM 136 mmol/L (132-148); TOTAL PROTEIN 5.5 g/dL (5.8-8.3)
--- NOTE | 2017-05-27 10:12 | PN ---
DATE: DAILY PROGRESS NOTE SUBJECTIVE: The patient seen and examined at bedside on the telemetry claudio. He is status post transfer out of the ICU after undergoing right lower extremity popliteal/anterior tibial bypass. The patient is doing well postoperatively and offers no complaints. PHYSICAL EXAMINATION VITAL SIGNS: Temperature 97.8, pulse 80, blood pressure 169/89, respiratory rate 20, and oxygen saturation 97% on room air. GENERAL: No apparent distress. HEENT: PERRL. EOMI. No scleral icterus. No conjunctival pallor. NECK: No JVD. No bruits. LUNGS: Clear to auscultation. CARDIOVASCULAR: Regular rate and rhythm. Normal S1 and S2. ABDOMEN: Normoactive bowel sounds. Soft, nontender. Nondistended. EXTREMITIES: No edema. Right foot with surgical dressing in place. NEUROLOGIC: Awake, alert and oriented x3. No focal motor deficits. LABORATORY DATA: WBC 8.6 with 73% neutrophils, hemoglobin 9.4, hematocrit 27, and platelets 170. Chemistry reviewed and unremarkable. BUN 20, creatinine 1.3. ASSESSMENT: The patient is a [id number]-male with multiple medical comorbidities including hypertension, triple vessel coronary artery disease, status post percutaneous coronary intervention with stent placement and peripheral vascular disease, status post IR re-vascularization with chronic nonhealing ulceration to the right foot, who is now status post right lower extremity popliteal/anterior tibial bypass with reserved right arm basilic vein, postoperative day #3. PLAN: 1. Severe PVD, status post right lower extremity popliteal/anterior tibial bypass with reserved left arm basilic vein, postop day #3. Continue with postoperative care as per Dr. Ge in the vascular surgery team. 2. Chronic, nonhealing, right foot ulceration. Input from Dr. Alcantar of podiatry noted and appreciated. Continue with cares as per the podiatric team. 3. Triple vessel CAD, status post PCI with drug-eluding stent placement. Continue Lipitor 40 mg p.o. daily, Plavix 75 mg p.o. daily, and aspirin 81 mg p.o. daily. 4. Acute kidney injury, etiology likely secondary to IV contrast, resolving. The patient's lab demonstrates creatinine of 1.3 down from 1.7. We will discontinue IV fluids today. We will encourage p.o. intake. 5. Hypertension. Blood pressure is slightly elevated and this may be secondary to IV fluids. We will discontinue IV fluids as above. Continue with lisinopril 10 mg p.o. daily and hydrochlorothiazide 12.5 mg p.o. daily, both of which are on hold secondary to acute kidney injury. 6. Prophylaxis. GI prophylaxis is not indicated, this patient is eating. Continue with heparin for DVT prophylaxis. Code status is full code. Amari Gonzalez MD
--- NOTE | 2017-05-27 12:28 | CP.PCM.PN ---
<Ramiro Acosta - Last Filed: 05/27/17 12:22> Subjective - Date & Time of Evaluation Date of Evaluation: 05/27/17 Time of Evaluation: 11:00 - Subjective Subjective: Podiatry Progress Note - Dr. Alcantar 76 year old male patient seen at bedside with his present for right 3rd digit digit amputation and + osteomyelitis. Patient seen resting comfortably, AAOx3 and NAD. Patient reports decreased pain at the surgical site to his right leg. Patient denies any pain in his right foot and reports being able to move the foot more easily today. Patient is aware he is scheduled to have his right 3rd digit amputated pending vascular clearance next week and is agreeable. Patient denies N/V/F/D/C/SOB. Patient reports right heel pain today from resting in bed. Objective - Vital Signs/Intake and Output Vital Signs (last 24 hours): Temp Pulse Resp BP Pulse Ox 97.8 F 91 H 20 145/85 97 05/27/17 06:00 05/27/17 10:00 05/27/17 06:00 05/27/17 09:57 05/27/17 06:00 Intake and Output: 05/27/17 05/27/17 06:59 18:59 Intake Total 1720 Output Total 1600 Balance 120 - Medications Medications: Current Medications Acetaminophen (Tylenol 325mg Tab) 325 mg PO Q4H PRN PRN Reason: Pain, Mild (1-3) Aspirin (Aspirin Chewable) 81 mg PO DAILY [facility] Last Admin: 05/27/17 09:58 Dose: 81 mg Atorvastatin Calcium (Lipitor) 40 mg PO DAILY [facility] Last Admin: 05/27/17 10:02 Dose: Not Given Clopidogrel Bisulfate (Plavix) 75 mg PO 0600 [facility] Last Admin: 05/27/17 05:10 Dose: 75 mg Heparin Sodium (Porcine) (Heparin) 5,000 units SC Q12 [facility] PRN Reason: Protocol Last Admin: 05/27/17 09:58 Dose: Not Given Hydrochlorothiazide (Microzide) 12.5 mg PO DAILY [facility] Last Admin: 05/27/17 09:58 Dose: 12.5 mg Lisinopril (Zestril) 10 mg PO DAILY [facility] Last Admin: 05/27/17 09:57 Dose: 10 mg Morphine Sulfate (Morphine) 2 mg IVP Q4H PRN PRN Reason: moderate pain Last Admin: 05/25/17 23:05 Dose: 2 mg Ondansetron HCl (Zofran Inj) 4 mg IVP ONCE PRN PRN Reason: Nausea/Vomiting Pantoprazole Sodium (Protonix Ec Tab) 40 mg PO 0600 [facility] Last Admin: 05/27/17 05:10 Dose: 40 mg Zolpidem Tartrate (Ambien) 5 mg PO HS PRN; Protocol PRN Reason: Sleep - Labs Labs: 05/27/17 06:00 05/27/17 06:00 PT 10.3 Seconds (9.9-11.8) 05/23/17 12:23 INR 0.95 (0.93-1.08) 05/23/17 12:23 APTT 24.7 Seconds (23.7-30.8) 05/23/17 12:23 - Constitutional Appears: Well, Non-toxic, No Acute Distress - Extremities Exam Additional comments: Dressing to right foot appears clean/dry/intact with no strikethrough noted. VASC: DP and PT pulses nonpalpable b/l. TG RLE obscured with right leg dressing from bypass. No pedal edema noted. CFT wnl b/l. NEURO: Gross sensation diminished bilaterally. DERM: Full thickness ulceration with exposed proximal phalanx of right 3rd digit with no ascending cellulitis noted. No purulence, no drainage, no streaking, no increase warmth, no abscess noted. Right heel no lesions noted, no erythema, skin WNL, no deep tissue injury noted ORTHO: Previous amputation sites b/l. - Neurological Exam Neurological Exam: Alert, Awake, Oriented x3 - Psychiatric Exam Psychiatric exam: Normal Affect, Normal Mood Assessment and Plan - Assessment and Plan (Free Text) Assessment: 76 y.o male with severe PVD and critical limb ischemia to RLE s/p right popliteal anterior tibial bypass seen for osteomyelitis of right 3rd digit Plan: Patient seen and evaluated at bedside Discussed with attending Dr. Alcantar Chart, vitals, labs reviewed = WBC 8.6 WNL Continue local wound care: xeroform, DSD, and kerlix S/p bypass sx, plan to take patient to OR for right 3rd digit amputation in the next few days following vascular clearance Applied optifoam to right heel today, ordered multipodus boots, to be worn at all times while in bed to offload heels bilaterally Podiatry will continue to follow patient while in house <Chauncey Alcantar - Last Filed: 05/28/17 08:17> Objective - Vital Signs/Intake and Output Vital Signs (last 24 hours): Temp Pulse Resp BP Pulse Ox 98.1 F 70 20 143/74 95 05/28/17 05:35 05/28/17 05:35 05/28/17 05:35 05/28/17 05:35 05/28/17 05:35 Intake and Output: 05/28/17 05/28/17 06:59 18:59 Intake Total 200 Output Total 1000 Balance -800 - Medications Medications: Current Medications Acetaminophen (Tylenol 325mg Tab) 325 mg PO Q4H PRN PRN Reason: Pain, Mild (1-3) Aspirin (Aspirin Chewable) 81 mg PO DAILY [facility] Last Admin: 05/27/17 09:58 Dose: 81 mg Atorvastatin Calcium (Lipitor) 40 mg PO DAILY [facility] Last Admin: 05/27/17 10:02 Dose: Not Given Clopidogrel Bisulfate (Plavix) 75 mg PO 0600 [facility] Last Admin: 05/28/17 05:24 Dose: 75 mg Heparin Sodium (Porcine) (Heparin) 5,000 units SC Q12 [facility] PRN Reason: Protocol Last Admin: 05/27/17 21:58 Dose: 5,000 units Hydrochlorothiazide (Microzide) 12.5 mg PO DAILY [facility] Last Admin: 05/27/17 09:58 Dose: 12.5 mg Lisinopril (Zestril) 10 mg PO DAILY [facility] Last Admin: 05/27/17 09:57 Dose: 10 mg Morphine Sulfate (Morphine) 2 mg IVP Q4H PRN PRN Reason: moderate pain Last Admin: 05/25/17 23:05 Dose: 2 mg Ondansetron HCl (Zofran Inj) 4 mg IVP ONCE PRN PRN Reason: Nausea/Vomiting Pantoprazole Sodium (Protonix Ec Tab) 40 mg PO 0600 [facility] Last Admin: 05/28/17 05:24 Dose: 40 mg Zolpidem Tartrate (Ambien) 5 mg PO HS PRN; Protocol PRN Reason: Sleep - Labs Labs: 05/28/17 06:40 05/28/17 06:40 PT 10.3 Seconds (9.9-11.8) 05/23/17 12:23 INR 0.95 (0.93-1.08) 05/23/17 12:23 APTT 24.7 Seconds (23.7-30.8) 05/23/17 12:23 Attending/Attestation - Attestation I have personally seen and examined this patient.: Yes I have fully participated in the care of the patient.: Yes I have reviewed all pertinent clinical information, including history, physical exam and plan: Yes
[2017-05-28] MEDS: Pantoprazole 40 mg EC Tab PO SCH (05:24)
[2017-05-28 06:50] LABS: BASO # 0.03 K/mm3 (0.0-2.0); BASO % 0.4 % (0.0-3.0); EOS # 0.5 (0.0-0.7); EOS % 5.7 % (1.5-5.0); GRAN # 5.91 (1.4-6.5); HEMATOCRIT 27.9 % (42.0-52.0); LYMPH # 1.1 (1.2-3.4); MEAN CELL VOLUME 91.8 fl (80.0-105.0); MEAN CORPUSCULAR HEMOGLOBIN 30.9 pg (25.0-35.0); MEAN CORPUSCULAR HGB CONC 33.7 g/dl (31.0-37.0); MEAN PLATELET VOLUME 9.3 fl (7.0-11.0); MONO % 11.9 % (1.0-6.0); RED CELL DISTRIBUTION WIDTH 13.5 % (11.5-14.5); WHITE BLOOD COUNT 8.6 10^3/ul (4.5-11.0)
[2017-05-28 07:08] LABS: ALB/GLOB RATIO 1.1 (1.1-1.8); ALKALINE PHOSPHATASE 54 U/L (38-126); ALT/SGPT 34 U/L (7-56); AST/SGOT 43 U/L (17-59); BILIRUBIN,TOTAL 0.8 mg/dL (0.2-1.3); BLOOD UREA NITROGEN 23 mg/dL (7-21); CALCIUM 8.4 mg/dL (8.4-10.5); CARBON DIOXIDE 26 mmol/L (21-33); CHLORIDE 103 mmol/L (98-107); GFR AFRICAN-AMERICAN > 60; GLUCOSE,RANDOM 98 mg/dL (70-110); SODIUM 139 mmol/L (132-148); TOTAL PROTEIN 5.7 g/dL (5.8-8.3)
--- NOTE | 2017-05-28 08:20 | CP.PCM.PN ---
Subjective - Date & Time of Evaluation Date of Evaluation: 05/28/17 Time of Evaluation: 07:15 - Subjective Subjective: Surgery note for Dr Ge 76M seen and examined at bedside. Patient has minimal pain on incision site. Denies numbness tingling of foot. No hand pain. Objective - Vital Signs/Intake and Output Vital Signs (last 24 hours): Temp Pulse Resp BP Pulse Ox 98.1 F 70 20 143/74 95 05/28/17 05:35 05/28/17 05:35 05/28/17 05:35 05/28/17 05:35 05/28/17 05:35 Intake and Output: 05/28/17 05/28/17 06:59 18:59 Intake Total 200 Output Total 1000 Balance -800 - Medications Medications: Current Medications Acetaminophen (Tylenol 325mg Tab) 325 mg PO Q4H PRN PRN Reason: Pain, Mild (1-3) Aspirin (Aspirin Chewable) 81 mg PO DAILY [facility] Last Admin: 05/27/17 09:58 Dose: 81 mg Atorvastatin Calcium (Lipitor) 40 mg PO DAILY [facility] Last Admin: 05/27/17 10:02 Dose: Not Given Clopidogrel Bisulfate (Plavix) 75 mg PO 0600 [facility] Last Admin: 05/28/17 05:24 Dose: 75 mg Heparin Sodium (Porcine) (Heparin) 5,000 units SC Q12 [facility] PRN Reason: Protocol Last Admin: 05/27/17 21:58 Dose: 5,000 units Hydrochlorothiazide (Microzide) 12.5 mg PO DAILY [facility] Last Admin: 05/27/17 09:58 Dose: 12.5 mg Lisinopril (Zestril) 10 mg PO DAILY [facility] Last Admin: 05/27/17 09:57 Dose: 10 mg Morphine Sulfate (Morphine) 2 mg IVP Q4H PRN PRN Reason: moderate pain Last Admin: 05/25/17 23:05 Dose: 2 mg Ondansetron HCl (Zofran Inj) 4 mg IVP ONCE PRN PRN Reason: Nausea/Vomiting Pantoprazole Sodium (Protonix Ec Tab) 40 mg PO 0600 [facility] Last Admin: 05/28/17 05:24 Dose: 40 mg Zolpidem Tartrate (Ambien) 5 mg PO HS PRN; Protocol PRN Reason: Sleep - Labs Labs: 05/28/17 06:40 05/28/17 06:40 PT 10.3 Seconds (9.9-11.8) 05/23/17 12:23 INR 0.95 (0.93-1.08) 05/23/17 12:23 APTT 24.7 Seconds (23.7-30.8) 05/23/17 12:23 - Constitutional Appears: Non-toxic, No Acute Distress - Respiratory Exam Respiratory Exam: Clear to Ausculation Bilateral, NORMAL BREATHING PATTERN - Cardiovascular Exam Cardiovascular Exam: REGULAR RHYTHM, +S1, +S2 - GI/Abdominal Exam GI & Abdominal Exam: Soft. absent: Distended, Firm, Guarding, Rigid, Tenderness , Rebound - Extremities Exam Additional comments: Dopperable signals in DP/PT on both legs. Left arm swelling significantly decreased, incision CDI. Right leg swelling significantly decreased, incision CDI All dressings changed. All dressings changed - Neurological Exam Neurological Exam: Alert, Awake - Skin Skin Exam: Dry, Intact, Normal Color, Warm Assessment and Plan - Assessment and Plan (Free Text) Assessment: 76M s/p popliteal-anterior tibial with reversed left basillic vein POD#3 Plan: - monitor vitals - Monitor lower extremity pulses - Monitor dressings lower extremity/left arm - Elevation of right leg and left arm - Encourage Ambulation - Incentive spirometer - DVT ppx Further recs discuss with Dr. Joo Novoa, PGY2
--- NOTE | 2017-05-28 11:00 | RAD ---
PROCEDURE: Intraoperative fluoroscopy HISTORY: Ischemic ulceration right foot. Right tibial bypass P PHYSICIAN(S): Lang Schwartz MD. TECHNIQUE: FINDINGS: The distal anastomosis of a vein graft is seen with the mid anterior tibial artery. The distal anastomosis is widely patent. There is mild spasm of the right anterior tibial artery 4 cm from the anastomosis. The distal right anterior tibial artery and dorsalis pedis artery patent with collateral filling of the plantar arch IMPRESSION: Widely patent distal anastomosis- right tibial bypass.
--- NOTE | 2017-05-28 11:03 | PN ---
SUBJECTIVE: The patient was seen and examined at bedside on telemetry claudio. No acute events overnight. He remains afebrile and hemodynamically stable. This morning he feels well and his sole concern is that of being able to get out of bed and to begin ambulating. Otherwise he feels well and offers no complaints. OBJECTIVE: VITAL SIGNS: Temperature 98.1, pulse 69, blood pressure 143/74, respiratory rate 20, oxygen saturation 95% on room air. GENERAL: No apparent distress. HEENT: PERRL. EOMI. No scleral icterus. No conjunctival pallor. NECK: No JVD. No bruits. LUNGS: Clear to auscultation. CARDIOVASCULAR: Regular rate and rhythm. Normal S1 and S2. ABDOMEN: Normoactive bowel sounds. Soft, nontender, nondistended. EXTREMITIES: No edema. Right foot with surgical dressing in place. NEUROLOGIC: Awake, alert and oriented x3. No focal motor deficits. LABORATORY DATA: WBC 8.6 with 69% neutrophils, hemoglobin 9.4, hematocrit 28, platelets 209. Chemistry reviewed and unremarkable. ASSESSMENT: The patient is a 76-year-old man with multiple medical comorbidities including hypertension, triple vessel CAD s/p PCI with stent placement and PVD s/p IR revascularization with chronic nonhealing ulcerations to the right foot who is now s/p RLE popliteal/anterior tibial bypass with reserved left arm basilic vein POD #4. PLAN: 1. Severe PVD s/p RLE popliteal/anterior tibial bypass with reserved left arm basilic vein POD #4. Continue postoperative care as per Dr. Ge and the vascular surgery team. We will consult physical therapy for evaluation. Out of bed to chair as tolerated. 2. Chronic nonhealing right foot ulceration. Input from Dr. Alcantar of podiatry noted and appreciated. Continue care as per the podiatric team. 3. Triple vessel CAD s/p PCI with ANAMIKA. Continue Lipitor 40 mg p.o. daily, Plavix 75 mg p.o. daily and Aspirin 81 mg p.o. daily. 4. JAQUELIN, etiology likely secondary to IV contrast, resolving. Continue to encourage p.o. intake. 5. Hypertension, blood pressure controlled. Continue with Lisinopril 10 mg p.o. daily and Hydrochlorothiazide 12.5 mg p.o. daily. 6. Prophylaxis. GI prophylaxis not indicated, this patient is eating. Continue with heparin for DVT prophylaxis. CODE STATUS: FULL CODE. Amari Gonzalez MD MTDC[facility]
--- NOTE | 2017-05-28 12:10 | PN ---
DATE: SUBJECTIVE: A 76-year-old male well known to the [facility]. Wound care team seen at bedside for continued evaluation and management of a right foot ulceration with osteomyelitis. The patient is resting comfortably, however, he feels that he is very tired. He had scheduled him to have his right third toe amputated Sunday, however, the patient states politely and adamantly that he is tired and does not want any surgical intervention on his toe for at least for the next two weeks. I explained to him that he is in the hospital now and his vesicles have been opened from his vascular surgery and it is the most optimal time to have the surgery, however, the patient is still refusing. I had stopped his heparin and aspirin in preparation for his surgery, which we will resume today. We will plan on discharging the patient and he will followup in the wound care center with plans to amputate his toe within the next few weeks. PHYSICAL EXAMINATION: VITAL SIGNS: Revealed temperature of 98.1, pulse rate of 70, blood pressure 143/74, and respiratory rate of 20. EXTREMITIES: Nonpalpable pedal pulses noted bilaterally, however, the foot is quite warm. There is still noted to be lower extremity edema on his right leg and foot secondary to vascular intervention. Right third digit is partially amputated and presents with a full thickness ulceration that probes to proximal phalangeal bone. There is no purulence that suggest underlying abscess formation and the area is not edematous and erythematous to suggest cellulolytic activity. LABORATORY FINDINGS: Reveal white count of 8.6, hemoglobin of 9.4, hematocrit of 27.9, and platelet count of 209. ASSESSMENT: Right third toe ulceration with osteomyelitis and exposed phalangeal bone. PLAN: Once again, explained to Mr. Quigley that since he was revascularized now it is the optimal time to have his toe removed as his blood is flowing and this increases the likelihood of healing. However, the patient states he is tired and does not want anymore surgery for another week or so. In the meantime, I stopped his heparin and aspirin in preparation for his scheduled surgery for Sunday, which will now be canceled. I told him that he will follow-up at the wound center and we will monitor his wound and plan for surgical amputation of the right third digit as the same day surgery within the next few weeks. We will cleanse the wound daily with normal sterile saline apply and dry sterile dressing. The patient will be seen and follow while he is in-house. Chauncey Alcantar DPM ROSS
[2017-05-29 05:49] LABS: BASO # 0.05 K/mm3 (0.0-2.0); BASO % 0.5 % (0.0-3.0); EOS # 0.7 (0.0-0.7); EOS % 7.2 % (1.5-5.0); GRAN # 6.13 (1.4-6.5); GRAN % 61.7 % (50.0-68.0); HEMATOCRIT 30.4 % (42.0-52.0); LYMPH # 1.7 (1.2-3.4); LYMPH % 17.5 % (22.0-35.0); MEAN CELL VOLUME 91.8 fl (80.0-105.0); MEAN CORPUSCULAR HEMOGLOBIN 30.8 pg (25.0-35.0); MEAN CORPUSCULAR HGB CONC 33.6 g/dl (31.0-37.0); MEAN PLATELET VOLUME 8.9 fl (7.0-11.0); MONO # 1.3 (0.1-0.6); MONO % 13.1 % (1.0-6.0); RED CELL DISTRIBUTION WIDTH 13.3 % (11.5-14.5); WHITE BLOOD COUNT 9.9 10^3/ul (4.5-11.0)
[2017-05-29] MEDS: Pantoprazole 40 mg EC Tab PO SCH (05:49)
[2017-05-29 07:58] LABS: ALB/GLOB RATIO 1.1 (1.1-1.8); ALKALINE PHOSPHATASE 62 U/L (38-126); ALT/SGPT 30 U/L (7-56); AST/SGOT 50 U/L (17-59); BILIRUBIN,TOTAL 1.1 mg/dL (0.2-1.3); BLOOD UREA NITROGEN 26 mg/dL (7-21); CALCIUM 8.9 mg/dL (8.4-10.5); CARBON DIOXIDE 26 mmol/L (21-33); CHLORIDE 102 mmol/L (98-107); GFR AFRICAN-AMERICAN > 60; GLUCOSE,RANDOM 105 mg/dL (70-110); POTASSIUM 4.1 mmol/L (3.6-5.0); SODIUM 138 mmol/L (132-148); TOTAL PROTEIN 6.5 g/dL (5.8-8.3)
--- NOTE | 2017-05-29 08:00 | CP.PCM.PN ---
Subjective - Date & Time of Evaluation Date of Evaluation: 05/29/17 Time of Evaluation: 07:15 - Subjective Subjective: SURGERY NOTE FOR DR. NEGRO 76M seen and examined at bedside. Patient doing well, denies pain. Denies tingling in the feet. Patient seen ambulating. Objective - Vital Signs/Intake and Output Vital Signs (last 24 hours): Temp Pulse Resp BP Pulse Ox 97.9 F 71 20 145/75 99 05/29/17 06:00 05/29/17 06:00 05/29/17 06:00 05/29/17 06:00 05/29/17 06:00 Intake and Output: 05/29/17 05/29/17 06:59 18:59 Intake Total 100 Output Total 800 Balance -700 - Medications Medications: Current Medications Atorvastatin Calcium (Lipitor) 40 mg PO DAILY [facility] Last Admin: 05/28/17 09:00 Dose: 40 mg Clopidogrel Bisulfate (Plavix) 75 mg PO 0600 [facility] Last Admin: 05/29/17 05:49 Dose: 75 mg Hydrochlorothiazide (Microzide) 12.5 mg PO DAILY [facility] Last Admin: 05/28/17 09:01 Dose: 12.5 mg Lisinopril (Zestril) 10 mg PO DAILY [facility] Last Admin: 05/28/17 09:00 Dose: 10 mg Morphine Sulfate (Morphine) 2 mg IVP Q4H PRN PRN Reason: moderate pain Last Admin: 05/25/17 23:05 Dose: 2 mg Ondansetron HCl (Zofran Inj) 4 mg IVP ONCE PRN PRN Reason: Nausea/Vomiting Pantoprazole Sodium (Protonix Ec Tab) 40 mg PO 0600 [facility] Last Admin: 05/29/17 05:49 Dose: 40 mg Zolpidem Tartrate (Ambien) 5 mg PO HS PRN; Protocol PRN Reason: Sleep - Labs Labs: 05/29/17 05:10 05/28/17 06:40 PT 10.3 Seconds (9.9-11.8) 05/23/17 12:23 INR 0.95 (0.93-1.08) 05/23/17 12:23 APTT 24.7 Seconds (23.7-30.8) 05/23/17 12:23 - Constitutional Appears: Non-toxic, No Acute Distress - Respiratory Exam Respiratory Exam: Clear to Ausculation Bilateral, NORMAL BREATHING PATTERN - Cardiovascular Exam Cardiovascular Exam: REGULAR RHYTHM, +S1, +S2 - GI/Abdominal Exam GI & Abdominal Exam: Soft. absent: Distended, Firm, Guarding, Rigid, Tenderness , Rebound - Extremities Exam Additional comments: Dopperable signals in DP/PT on both legs. Left arm swelling significantly decreased, incision CDI. Right leg swelling significantly decreased, incision CDI All dressings changed. All dressings changed - Neurological Exam Neurological Exam: Alert, Awake Assessment and Plan - Assessment and Plan (Free Text) Assessment: 76M s/p popliteal-anterior tibial with reversed left basillic vein POD#4 Plan: - Monitor lower extremity pulses - Monitor dressings lower extremity/left arm - Elevation of right leg and left arm - Encourage Ambulation - Incentive spirometer - DVT ppx - Scheduled for operation with podiatry this week Further recs discuss with Dr. Joo Novoa, PGY2
--- NOTE | 2017-05-29 11:31 | PN ---
SUBJECTIVE: The patient was seen and examined at bedside on the telemetry claudio. No acute events overnight. He remains afebrile and hemodynamically stable and is doing well postoperatively after undergoing a RLE popliteal/ anterior tibial bypass secondary to severe PVD with chronic nonhealing ulceration of the right toe. The patient is pending podiatric surgery with possible amputation of the RLE first digit and is tentatively scheduled for the operating room tomorrow (05/30/2017). OBJECTIVE: VITAL SIGNS: Temperature 97.9, pulse 71, blood pressure 145/75, respiratory rate 20, oxygen saturation 99% on room air. GENERAL: No apparent distress. HEENT: PERRL. EOMI. No scleral icterus. No conjunctival pallor. NECK: No JVD. No bruits. LUNGS: Clear to auscultation. CARDIOVASCULAR: Regular rate and rhythm. Normal S1 and S2. ABDOMEN: Normoactive bowel sounds, soft, nontender, nondistended. EXTREMITIES: No edema. Right toe with surgical dressing in place. Left upper extremity with surgical dressing in place. NEUROLOGIC: Awake, alert, and oriented x3. No focal motor deficits. LABORATORY DATA: CBC reviewed and largely unremarkable. CMP reviewed and largely unremarkable. ASSESSMENT: The patient is a 76-year-old man with multiple medical comorbidities including hypertension, triple vessel coronary artery disease s/p PCI with ANAMIKA placement, and PVD s/p IR revascularization with chronic nonhealing ulcerations to the right foot who is now s/p RLE popliteal/anterior tibial bypass with reserved left arm basilic vein POD #5, who is pending podiatric surgery with possible amputation of the right foot first digit. PLAN: 1. Severe PVD s/p RLE popliteal/anterior tibial bypass with reserved left arm basilic vein POD #5. Continue with postoperative care as per Dr. Ge in the vascular surgery team. Continue with physical therapy. 2. Chronic nonhealing right foot ulceration. Input from Dr. Alcantar of podiatry noted and appreciated. The patient is scheduled for OR tomorrow. 3. Triple-vessel CAD, status post PCI with ANAMIKA. Continue Lipitor 40 mg p.o. daily, Plavix 75 mg p.o. daily and aspirin 81 mg p.o. daily. 4. Hypertension, blood pressure controlled. Continue lisinopril 10 mg p.o. daily and hydrochlorothiazide 12.5 mg p.o. daily. 5. JAQUELIN, etiology likely secondary to IV contrast, resolving. Continue to encourage p.o. intake. 6. Prophylaxis. GI prophylaxis not indicated as the patient is eating. Continue with heparin for DVT prophylaxis. CODE STATUS: FULL CODE. Amari Gonzalez MD MTDD
--- NOTE | 2017-05-29 11:36 | CP.PCM.PN ---
<Ramiro Acosta - Last Filed: 05/29/17 11:32> Subjective - Date & Time of Evaluation Date of Evaluation: 05/29/17 Time of Evaluation: 11:33 - Subjective Subjective: Podiatry Progress Note - Dr. Alcantar 76 year old male patient seen at bedside with friend present for right 3rd digit amputation and + osteomyelitis. Patient seen resting comfortably out of bed in a chair, AAOx3 and NAD. Patient's dressing is c/d/i with some sangious strikethrough noted. Patient reports understanding that surgery is tomorrow and reports understanding nothing to eat or drink after midnight. Patient denies N/V /F/D/C/SOB. Objective - Vital Signs/Intake and Output Vital Signs (last 24 hours): Temp Pulse Resp BP Pulse Ox 97.9 F 71 20 132/71 99 05/29/17 06:00 05/29/17 10:00 05/29/17 06:00 05/29/17 09:21 05/29/17 06:00 Intake and Output: 05/29/17 05/29/17 06:59 18:59 Intake Total 100 Output Total 800 Balance -700 - Medications Medications: Current Medications Atorvastatin Calcium (Lipitor) 40 mg PO DAILY [facility] Last Admin: 05/29/17 09:29 Dose: 40 mg Clopidogrel Bisulfate (Plavix) 75 mg PO 0600 [facility] Last Admin: 05/29/17 05:49 Dose: 75 mg Hydrochlorothiazide (Microzide) 12.5 mg PO DAILY [facility] Last Admin: 05/29/17 09:29 Dose: 12.5 mg Lisinopril (Zestril) 10 mg PO DAILY [facility] Last Admin: 05/29/17 09:21 Dose: 10 mg Morphine Sulfate (Morphine) 2 mg IVP Q4H PRN PRN Reason: moderate pain Last Admin: 05/25/17 23:05 Dose: 2 mg Ondansetron HCl (Zofran Inj) 4 mg IVP ONCE PRN PRN Reason: Nausea/Vomiting Pantoprazole Sodium (Protonix Ec Tab) 40 mg PO 0600 [facility] Last Admin: 05/29/17 05:49 Dose: 40 mg Zolpidem Tartrate (Ambien) 5 mg PO HS PRN; Protocol PRN Reason: Sleep - Labs Labs: 05/29/17 05:10 05/29/17 05:10 PT 10.3 Seconds (9.9-11.8) 05/23/17 12:23 INR 0.95 (0.93-1.08) 05/23/17 12:23 APTT 24.7 Seconds (23.7-30.8) 05/23/17 12:23 - Constitutional Appears: Well, Non-toxic, No Acute Distress - Extremities Exam Additional comments: Dressing is clean, dry, and intact with mild sangious strikethrough noted. - Neurological Exam Neurological Exam: Alert, Awake, Oriented x3 - Psychiatric Exam Psychiatric exam: Normal Affect, Normal Mood Assessment and Plan - Assessment and Plan (Free Text) Assessment: 76 y.o male with severe PVD and critical limb ischemia to RLE s/p right popliteal anterior tibial bypass seen for osteomyelitis of right 3rd digit Plan: Patient seen and evaluated at bedside with attending Dr. Alcantar Chart, vitals, labs reviewed = afebrile, absent leukocytosis Patient will go to OR in the AM for right digit amputation. Discussed with patient the benefits, risks, complications, and alternatives. Pt opts for surgical intervention. Pt understands and is aware he will go to the OR in the AM for right digit amputation. Patient will be NPO after midnight today. Aspirin and lovenox stopped. Podiatry will continue to follow patient while in house <Chauncey Alcantar - Last Filed: 05/30/17 07:37> Objective - Vital Signs/Intake and Output Vital Signs (last 24 hours): Temp Pulse Resp BP Pulse Ox 99.6 F 67 20 132/60 99 05/30/17 06:00 05/30/17 06:00 05/30/17 06:00 05/30/17 06:00 05/30/17 06:00 Intake and Output: 05/30/17 05/30/17 06:59 18:59 Intake Total 140 Output Total 1100 Balance -960 - Medications Medications: Current Medications Atorvastatin Calcium (Lipitor) 40 mg PO DAILY [facility] Last Admin: 05/29/17 09:29 Dose: 40 mg Clopidogrel Bisulfate (Plavix) 75 mg PO 0600 [facility] Last Admin: 05/30/17 05:12 Dose: Not Given Hydrochlorothiazide (Microzide) 12.5 mg PO DAILY [facility] Last Admin: 05/29/17 09:29 Dose: 12.5 mg Lisinopril (Zestril) 10 mg PO DAILY [facility] Last Admin: 05/29/17 09:21 Dose: 10 mg Ondansetron HCl (Zofran Inj) 4 mg IVP ONCE PRN PRN Reason: Nausea/Vomiting Pantoprazole Sodium (Protonix Ec Tab) 40 mg PO 0600 [facility] Last Admin: 05/30/17 05:13 Dose: Not Given Zolpidem Tartrate (Ambien) 5 mg PO HS PRN; Protocol PRN Reason: Sleep - Labs Labs: 05/30/17 06:15 05/30/17 06:15 PT 10.3 Seconds (9.9-11.8) 05/23/17 12:23 INR 0.95 (0.93-1.08) 05/23/17 12:23 APTT 24.7 Seconds (23.7-30.8) 05/23/17 12:23 Attending/Attestation - Attestation I have personally seen and examined this patient.: Yes I have fully participated in the care of the patient.: Yes I have reviewed all pertinent clinical information, including history, physical exam and plan: Yes
[2017-05-30] MEDS: Pantoprazole 40 mg EC Tab PO SCH (05:13)
[2017-05-30 06:41] LABS: ALB/GLOB RATIO 1.1 (1.1-1.8); ALKALINE PHOSPHATASE 51 U/L (38-126); ALT/SGPT 45 U/L (7-56); AST/SGOT 44 U/L (17-59); BASO # 0.03 K/mm3 (0.0-2.0); BASO % 0.4 % (0.0-3.0); BILIRUBIN,TOTAL 1.2 mg/dL (0.2-1.3); BLOOD UREA NITROGEN 30 mg/dL (7-21); CALCIUM 8.8 mg/dL (8.4-10.5); CARBON DIOXIDE 26 mmol/L (21-33); CHLORIDE 102 mmol/L (95-110); EOS # 0.5 (0.0-0.7); EOS % 6.8 % (1.5-5.0); GFR AFRICAN-AMERICAN > 60; GLUCOSE,RANDOM 100 mg/dL (70-110); GRAN # 5.09 (1.4-6.5); GRAN % 64.5 % (50.0-68.0); HEMATOCRIT 28.2 % (42.0-52.0); LYMPH # 1.4 (1.2-3.4); LYMPH % 17.1 % (22.0-35.0); MEAN CELL VOLUME 91.6 fl (80.0-105.0); MEAN CORPUSCULAR HEMOGLOBIN 30.8 pg (25.0-35.0); MEAN CORPUSCULAR HGB CONC 33.7 g/dl (31.0-37.0); MEAN PLATELET VOLUME 9.1 fl (7.0-11.0); MONO # 0.9 (0.1-0.6); MONO % 11.2 % (1.0-6.0); POTASSIUM 3.9 mmol/L (3.6-5.0); RED CELL DISTRIBUTION WIDTH 13.2 % (11.5-14.5); SODIUM 138 mmol/L (132-148); WHITE BLOOD COUNT 7.9 10^3/ul (4.5-11.0)
--- NOTE | 2017-05-30 07:13 | CP.PCM.PN ---
<Ramiro Acosta - Last Filed: 05/30/17 10:24> Subjective - Date & Time of Evaluation Date of Evaluation: 05/30/17 Time of Evaluation: 07:10 - Subjective Subjective: Podiatry Progress Note - Dr. Alcantar 76 year old male patient seen this morning for 2nd digit amputation and + osteomyelitis. Patient seen resting comfortably in bed, AAOx3 and NAD. Patient' s dressing is c/d/i with some sangious strikethrough noted. Patient reports nothing to eat or drink since 8pm yesterday. Patient reports understanding that he will be going to the OR today for amputation of the 2nd digit secondary to osteomyelitis this morning. Patient denies N/V/F/D/C/SOB. Denies any other pedal complaints at this time. Objective - Vital Signs/Intake and Output Vital Signs (last 24 hours): Temp Pulse Resp BP Pulse Ox 99.6 F 67 20 132/60 99 05/30/17 06:00 05/30/17 06:00 05/30/17 06:00 05/30/17 06:00 05/30/17 06:00 Intake and Output: 05/30/17 05/30/17 06:59 18:59 Intake Total 140 Output Total 1100 Balance -960 - Medications Medications: Current Medications Atorvastatin Calcium (Lipitor) 40 mg PO DAILY [facility] Last Admin: 05/29/17 09:29 Dose: 40 mg Clopidogrel Bisulfate (Plavix) 75 mg PO 0600 [facility] Last Admin: 05/30/17 05:12 Dose: Not Given Hydrochlorothiazide (Microzide) 12.5 mg PO DAILY [facility] Last Admin: 05/29/17 09:29 Dose: 12.5 mg Lisinopril (Zestril) 10 mg PO DAILY [facility] Last Admin: 05/29/17 09:21 Dose: 10 mg Ondansetron HCl (Zofran Inj) 4 mg IVP ONCE PRN PRN Reason: Nausea/Vomiting Pantoprazole Sodium (Protonix Ec Tab) 40 mg PO 0600 [facility] Last Admin: 05/30/17 05:13 Dose: Not Given Zolpidem Tartrate (Ambien) 5 mg PO HS PRN; Protocol PRN Reason: Sleep - Labs Labs: 05/30/17 06:15 05/29/17 05:10 PT 10.3 Seconds (9.9-11.8) 05/23/17 12:23 INR 0.95 (0.93-1.08) 05/23/17 12:23 APTT 24.7 Seconds (23.7-30.8) 05/23/17 12:23 - Constitutional Appears: Well, Non-toxic, No Acute Distress - Extremities Exam Additional comments: Dressing to right foot appears clean/dry/intact with no strikethrough noted. VASC: DP and PT pulses faintly palpable. TG RLE obscured with right leg dressing from bypass. No pedal edema noted. CFT wnl b/l. NEURO: Gross sensation diminished bilaterally. DERM: Exposed proximal phalanx of right 2nd digit with no ascending cellulitis noted, fibrotic in nature, hyperkeratotic rim, serous sangious drainage, no odor to the right. Left distal 2nd digit with eschar noted; no drainage, no odor , no erythema, no cellulitis noted ORTHO: Previous amputation sites b/l. - Neurological Exam Neurological Exam: Alert, Awake, Oriented x3 - Psychiatric Exam Psychiatric exam: Normal Affect, Normal Mood Assessment and Plan - Assessment and Plan (Free Text) Assessment: 76 y.o male with severe PVD and critical limb ischemia to RLE s/p right popliteal anterior tibial bypass seen for osteomyelitis of right 2nd digit Plan: Pt was seen and examined in Holding Pt NPO status was confirmed All Pre-op testing and clearance was in the chart Pt has exhausted all conservative treatment at this time and is opting for surgical intervention Pt was explained procedure and post-operative course All pt's questions were answered to satisfaction No guarantees were made Pt understands all risks, benefits and complications of procedure Pt will follow-up with Dr. Alcantar. <Chauncey Alcantar - Last Filed: 05/31/17 08:39> Objective - Vital Signs/Intake and Output Vital Signs (last 24 hours): Temp Pulse Resp BP Pulse Ox 97.8 F 66 20 143/53 L 96 05/31/17 06:00 05/31/17 06:00 05/31/17 06:00 05/31/17 06:00 05/31/17 06:00 Intake and Output: 05/31/17 05/31/17 06:59 18:59 Intake Total 120 Output Total 800 Balance -680 - Medications Medications: Current Medications Acetaminophen (Tylenol 325mg Tab) 650 mg PO Q4 PRN PRN Reason: Fever >100.4 F Aspirin (Aspirin Chewable) 81 mg PO DAILY [facility] Atorvastatin Calcium (Lipitor) 40 mg PO DAILY [facility] Last Admin: 05/30/17 10:47 Dose: 40 mg Clopidogrel Bisulfate (Plavix) 75 mg PO 0600 [facility] Last Admin: 05/31/17 05:17 Dose: 75 mg Heparin Sodium (Porcine) (Heparin) 5,000 units SC Q12 [facility] PRN Reason: Protocol Hydrochlorothiazide (Microzide) 12.5 mg PO DAILY [facility] Last Admin: 05/30/17 10:47 Dose: 12.5 mg Lisinopril (Zestril) 10 mg PO DAILY [facility] Last Admin: 05/30/17 10:46 Dose: 10 mg Mupirocin (Bactroban Ointment) 1 gm TOP BID [facility] Last Admin: 05/30/17 17:49 Dose: Not Given Ondansetron HCl (Zofran Inj) 4 mg IVP ONCE PRN PRN Reason: Nausea/Vomiting Ondansetron HCl (Zofran Inj) 4 mg IVP ONCE PRN PRN Reason: Nausea/Vomiting Oxycodone/Acetaminophen (Percocet 5/325 Mg Tab) 2 tab PO Q4H PRN PRN Reason: Pain, severe (8-10) Stop: 06/02/17 08:54 Oxycodone/Acetaminophen (Percocet 5/325 Mg Tab) 1 tab PO Q4H PRN PRN Reason: Pain, moderate (4-7) Stop: 06/02/17 08:54 Pantoprazole Sodium (Protonix Ec Tab) 40 mg PO 0600 [facility] Last Admin: 05/31/17 05:17 Dose: 40 mg Zolpidem Tartrate (Ambien) 5 mg PO HS PRN; Protocol PRN Reason: Sleep - Labs Labs: 05/31/17 06:00 05/31/17 06:00 PT 10.3 Seconds (9.9-11.8) 05/23/17 12:23 INR 0.95 (0.93-1.08) 05/23/17 12:23 APTT 24.7 Seconds (23.7-30.8) 05/23/17 12:23 Attending/Attestation - Attestation I have personally seen and examined this patient.: Yes I have fully participated in the care of the patient.: Yes I have reviewed all pertinent clinical information, including history, physical exam and plan: Yes
[2017-05-30] MEDS ORDERED: Bupivacaine 0.5% Inj(30mL) ONE (07:20)
[2017-05-30] MEDS ORDERED: Lidocaine 2% Inj (20ml) ONE (07:20)
[2017-05-30] MEDS ORDERED: Propofol 10 mg/ml Inj (20 ML) ONE (07:57)
[2017-05-30] MEDS ORDERED: Midazolam 2 MG/2 ML VIAL ONE (07:57)
[2017-05-30] MEDS ORDERED: Lidocaine 1% Inj (20ml) ONE (08:00)
[2017-05-30] MEDS ORDERED: Oxycodone/Acetaminophen 5/325 mg Tab PO PRN ×2 (08:53)
--- NOTE | 2017-05-30 09:00 | PCM.SURG1 ---
<DaveRamiroa - Last Filed: 05/30/17 08:57> Surgeon's Initial Post Op Note - Surgeon's Notes Surgeon: Dr. Alcantar DPM Net Developer Contract: Dr. Acosta DPJeff PGY-[id number] Type of Anesthesia: IV Sedation, Local Anesthesia Administered By: Dr. Spencer Pre-Operative Diagnosis: right 2nd digit osteomyelitis Operative Findings: see dication. Materials: 3-0 vicryl, 4-0 nylon, 15 cc of 1: 1 mixture 2% lidocaine and .5% marcaine plain mixture, 5 cc of .5% marcaine plain intraoperative, chrissy Post-Operative Diagnosis: same Operation Performed: right 2nd digit amputation secondary to osteomyelitis Specimen/Specimens Removed: bone Estimated Blood Loss: EBL {In ML}: 10 Blood Products Given: N/A Drains Used: No Drains Post-Op Condition: Good Date of Surgery/Procedure: 05/30/17 Time of Surgery/Procedure: 07:30 <Chauncey Alcantar - Last Filed: 05/30/17 09:05> Attending/Attestation - Attestation I have personally seen and examined this patient.: Yes I have fully participated in the care of the patient.: Yes I have reviewed all pertinent clinical information: Yes
--- NOTE | 2017-05-30 09:12 | PN ---
SUBJECTIVE: The patient was seen and examined at bedside on the telemetry claudio. No acute events overnight. He has pending podiatric surgery this morning with possible amputation of his RLE first digit secondary to chronic nonhealing ulceration. Overall he feels well and denies any complaints. OBJECTIVE: VITAL SIGNS: Temperature 99.6, pulse 67, blood pressure 132/60, respiratory rate 20, oxygen saturation 99% on room air. GENERAL: No apparent distress. HEENT: PERRL. EOMI. No scleral icterus. No conjunctival pallor. NECK: No JVD. No bruits. LUNGS: Clear to auscultation. CARDIOVASCULAR: Regular rate and rhythm. Normal S1 and S2. ABDOMEN: Normoactive bowel sounds, soft, nontender, nondistended. EXTREMITIES: No edema. RLE with surgical dressing in place. LUE with surgical dressing in place. NEUROLOGIC: Awake, alert, and oriented x3. No focal motor deficits. LABORATORY DATA: WBC is 7.9 with 65% neutrophils; hemoglobin 9.5, hematocrit 28, platelets 280. Chemistry reviewed and unremarkable. ASSESSMENT: The patient is a 76-year-old man with multiple medical comorbidities including hypertension, triple vessel CAD s/p PCI with ANAMIKA placement and PVD s/p IR revascularization with chronic nonhealing ulcerations to the right foot who is now s/p RLE popliteal/anterior tibial bypass with reserved left arm basilic vein POD #6 and presently being taken to the OR for podiatric surgery with possible amputation of the RLE first digit. PLAN: 1. Severe PVD s/p RLE popliteal/anterior tibial bypass with reserved left arm basilic vein POD #6. Continue with postoperative care as per Dr. Ge of the vascular surgery team. 2. Chronic nonhealing right foot ulceration. Input from Dr. Alcantar of podiatry noted and appreciated and he is scheduled for podiatric surgery this morning. 3. Triple-vessel CAD s/p PCI with ANAMIKA. Continue Lipitor 40 mg p.o. daily, Plavix 75 mg p.o. daily and aspirin 81 mg p.o. daily. 4. Hypertension, blood pressure controlled. Continue lisinopril 10 mg p.o. daily and HCTZ 12.5 mg p.o. daily. 5. JAQUELIN, however, resolving. Continue to encourage p.o. intake. The patient may required gentle IV fluid hydration postoperatively. 6. Prophylaxis. GI prophylaxis not indicated as the patient is eating. Continue with heparin for DVT prophylaxis. CODE STATUS: Full code. Amari Gonzalez MD MTDD
[2017-05-30] MEDS ORDERED: Lactated Ringer's 1,000 ML IV SCH (09:15)
[2017-05-30] MEDS ORDERED: Oxycodone/Acetaminophen 5/325 mg Tab ONE (09:58)
--- NOTE | 2017-05-30 11:20 | CP.PCM.PN ---
Subjective - Date & Time of Evaluation Date of Evaluation: 05/30/17 Time of Evaluation: 10:15 - Subjective Subjective: Surgery note for Objective - Vital Signs/Intake and Output Vital Signs (last 24 hours): Temp Pulse Resp BP Pulse Ox 99.7 F H 61 14 150/68 99 05/30/17 10:10 05/30/17 10:46 05/30/17 10:10 05/30/17 10:46 05/30/17 10:10 Intake and Output: 05/30/17 05/30/17 06:59 18:59 Intake Total 140 Output Total 1100 Balance -960 - Medications Medications: Current Medications Acetaminophen (Tylenol 325mg Tab) 650 mg PO Q4 PRN PRN Reason: Fever >100.4 F Atorvastatin Calcium (Lipitor) 40 mg PO DAILY [facility] Last Admin: 05/30/17 10:47 Dose: 40 mg Clopidogrel Bisulfate (Plavix) 75 mg PO 0600 [facility] Last Admin: 05/30/17 05:12 Dose: Not Given Hydrochlorothiazide (Microzide) 12.5 mg PO DAILY [facility] Last Admin: 05/30/17 10:47 Dose: 12.5 mg Lisinopril (Zestril) 10 mg PO DAILY [facility] Last Admin: 05/30/17 10:46 Dose: 10 mg Mupirocin (Bactroban Ointment) 1 gm TOP BID [facility] Ondansetron HCl (Zofran Inj) 4 mg IVP ONCE PRN PRN Reason: Nausea/Vomiting Ondansetron HCl (Zofran Inj) 4 mg IVP ONCE PRN PRN Reason: Nausea/Vomiting Oxycodone/Acetaminophen (Percocet 5/325 Mg Tab) 2 tab PO Q4H PRN PRN Reason: Pain, severe (8-10) Stop: 06/02/17 08:54 Oxycodone/Acetaminophen (Percocet 5/325 Mg Tab) 1 tab PO Q4H PRN PRN Reason: Pain, moderate (4-7) Stop: 06/02/17 08:54 Pantoprazole Sodium (Protonix Ec Tab) 40 mg PO 0600 [facility] Last Admin: 05/30/17 05:13 Dose: Not Given Zolpidem Tartrate (Ambien) 5 mg PO HS PRN; Protocol PRN Reason: Sleep - Labs Labs: 05/30/17 06:15 05/30/17 06:15 PT 10.3 Seconds (9.9-11.8) 05/23/17 12:23 INR 0.95 (0.93-1.08) 05/23/17 12:23 APTT 24.7 Seconds (23.7-30.8) 05/23/17 12:23
--- NOTE | 2017-05-30 11:42 | CP.PCM.PN ---
Subjective - Date & Time of Evaluation Date of Evaluation: 05/30/17 Time of Evaluation: 11:39 - Subjective Subjective: Surgery note for Dr. Ge 76M seen and examined at bedside. Patient doing well, back in his room from Toe amputation. States minimal pain. Denies numbness/tingling. Objective - Vital Signs/Intake and Output Vital Signs (last 24 hours): Temp Pulse Resp BP Pulse Ox 99.7 F H 61 14 150/68 99 05/30/17 10:10 05/30/17 10:46 05/30/17 10:10 05/30/17 10:46 05/30/17 10:10 Intake and Output: 05/30/17 05/30/17 06:59 18:59 Intake Total 140 Output Total 1100 Balance -960 - Medications Medications: Current Medications Acetaminophen (Tylenol 325mg Tab) 650 mg PO Q4 PRN PRN Reason: Fever >100.4 F Atorvastatin Calcium (Lipitor) 40 mg PO DAILY [facility] Last Admin: 05/30/17 10:47 Dose: 40 mg Clopidogrel Bisulfate (Plavix) 75 mg PO 0600 [facility] Last Admin: 05/30/17 05:12 Dose: Not Given Hydrochlorothiazide (Microzide) 12.5 mg PO DAILY [facility] Last Admin: 05/30/17 10:47 Dose: 12.5 mg Lisinopril (Zestril) 10 mg PO DAILY [facility] Last Admin: 05/30/17 10:46 Dose: 10 mg Mupirocin (Bactroban Ointment) 1 gm TOP BID [facility] Ondansetron HCl (Zofran Inj) 4 mg IVP ONCE PRN PRN Reason: Nausea/Vomiting Ondansetron HCl (Zofran Inj) 4 mg IVP ONCE PRN PRN Reason: Nausea/Vomiting Oxycodone/Acetaminophen (Percocet 5/325 Mg Tab) 2 tab PO Q4H PRN PRN Reason: Pain, severe (8-10) Stop: 06/02/17 08:54 Oxycodone/Acetaminophen (Percocet 5/325 Mg Tab) 1 tab PO Q4H PRN PRN Reason: Pain, moderate (4-7) Stop: 06/02/17 08:54 Pantoprazole Sodium (Protonix Ec Tab) 40 mg PO 0600 [facility] Last Admin: 05/30/17 05:13 Dose: Not Given Zolpidem Tartrate (Ambien) 5 mg PO HS PRN; Protocol PRN Reason: Sleep - Labs Labs: 05/30/17 06:15 05/30/17 06:15 PT 10.3 Seconds (9.9-11.8) 05/23/17 12:23 INR 0.95 (0.93-1.08) 05/23/17 12:23 APTT 24.7 Seconds (23.7-30.8) 05/23/17 12:23 - Constitutional Appears: Non-toxic, No Acute Distress - Respiratory Exam Respiratory Exam: Clear to Ausculation Bilateral, NORMAL BREATHING PATTERN - Cardiovascular Exam Cardiovascular Exam: REGULAR RHYTHM, +S1, +S2 - GI/Abdominal Exam GI & Abdominal Exam: Soft. absent: Distended, Firm, Guarding, Rigid, Tenderness , Rebound - Extremities Exam Additional comments: Dopperable signals in DP/PT on both legs. Left arm, incision CDI. Right leg, incision CDI Right foot dressing CDI, s/p right 2nd toe amp All dressings changed. All dressings changed Patient able to ambulate. - Neurological Exam Neurological Exam: Alert, Awake - Skin Skin Exam: Dry, Intact, Normal Color, Warm Assessment and Plan - Assessment and Plan (Free Text) Assessment: 76M s/p popliteal-anterior tibial with reversed left basillic vein POD#5 s/p 2nd toe amp by Podiatry POD0 Plan: - Monitor lower extremity pulses - Monitor dressings lower extremity/left arm - Continue elevation of right leg and left arm - Encourage Ambulation - Incentive spirometer - DVT ppx Further recs discuss with Dr. Joo Novoa, PGY2
--- NOTE | 2017-05-30 15:35 | RAD ---
PROCEDURE: Right Foot Radiographs. HISTORY: s/p right foot surgery COMPARISON: None. FINDINGS: BONES: Recent amputation of the 2nd toe. Previous amputation deformity of the 4th digit. No complicating factor JOINTS: Normal. SOFT TISSUES: Normal. OTHER FINDINGS: None. IMPRESSION: Recent amputation of the 2nd toe. Previous amputation deformity of the 4th digit. No complicating factor
[2017-05-31] MEDS: Pantoprazole 40 mg EC Tab PO SCH (05:17)
--- NOTE | 2017-05-31 06:39 | OP ---
PROCEDURE DATE: 05/30/2017 PREOPERATIVE DIAGNOSIS: Right second digit osteomyelitis. POSTOPERATIVE DIAGNOSIS: Right second digit osteomyelitis. PROCEDURE: Right second digit amputation. SURGEON: Chauncey Alcantar DPM DAYCARE PROVIDER: Ramiro Acosta PGY1 ANESTHESIOLOGIST: Dr. Spencer. TYPE OF ANESTHESIA: IV sedation with local. INDICATIONS: The patient is a 76-year-old male with the above diagnosis. The patient has exhausted all conservative treatment at this time and now required surgical intervention. The patient signed the consent after careful explanation of risks, benefits, complications and alternatives for surgical procedure. No guarantees were given nor implied. N.p.o. status was confirmed prior to taking the patient to the OR. PREPARATION: The patient was brought in to the operating room and placed on the operating room table in a supine position. Time-out was performed for identification of the correct patient and procedure. After induction of IV sedation, the patient received a total of 15 mL of 1:1 mixture of 0.5% Marcaine plain and 2% lidocaine plain in the local block fashion around the right second digit. The right foot was then prepped and draped in a normal sterile manner and the procedure began. No tourniquet was used during the procedure. DESCRIPTION OF PROCEDURE: Attention was directed to the dorsum aspect of the right second digit where racquet type incision was made circumferentially at the level of the PIPJ using a #15 blade. The incision was then extended down to the subcutaneous layers, down to the level of the bone using a bone clamp to stabilize the bone. The second digit was then disarticulated from the foot at the level of the PIPJ using a #15 blade and [employer] scissor. The proximal phalanx was then resected and passed from the operating field and sent to the pathology lab. During this time, addition of 5 mL of 0.5% Marcaine plain was given in the local block fashion through the right second digit. Using a fresh #15 blade, all necrotic and non-viable tissue was then excisionally divided from the surgical site. The wound was copiously flushed with sterile saline. At this time, the subcutaneous tissue was reapproximate using a 3-0 Vicryl and skin edges were re-approximated and coapted using a 4-0 nylon in a horizontal mattress in simple suture technique. The skin layers were reinforced using chrissy along the surgical excision. The right foot was then dressed with Adaptic, 4x4 gauze, Kerlix, and Coban . POSTOPERATIVE CONDITION: The patient tolerated the anesthesia and procedure well and was escorted to the recovery room with the vital signs stable and neurovascular status intact to the right foot. Podiatry will continue to follow the patient while in hospital. The patient will follow up with Dr. Alcantar upon discharge. Ramiro Acosta DPM Chauncey Alcantar DPM [email or web address]
[2017-05-31 06:48] LABS: ALKALINE PHOSPHATASE 49 U/L (38-126); ALT/SGPT 40 U/L (7-56); AST/SGOT 54 U/L (17-59); BLOOD UREA NITROGEN 28 mg/dL (7-21); CALCIUM 8.3 mg/dL (8.4-10.5); CARBON DIOXIDE 28 mmol/L (21-33); CHLORIDE 101 mmol/L (98-107); GFR AFRICAN-AMERICAN > 60; GLUCOSE,RANDOM 103 mg/dL (70-110); POTASSIUM 4.1 mmol/L (3.6-5.0); SODIUM 137 mmol/L (132-148); TOTAL PROTEIN 5.7 g/dL (5.8-8.3)
[2017-05-31 07:55] LABS: BASO # 0.04 K/mm3 (0.0-2.0); BASO % 0.4 % (0.0-3.0); EOS # 0.5 (0.0-0.7); EOS % 5.1 % (1.5-5.0); GRAN # 6.15 (1.4-6.5); GRAN % 65.2 % (50.0-68.0); HEMATOCRIT 26.6 % (42.0-52.0); LYMPH # 1.7 (1.2-3.4); LYMPH % 17.8 % (22.0-35.0); MEAN CELL VOLUME 92.7 fl (80.0-105.0); MEAN CORPUSCULAR HGB CONC 33.5 g/dl (31.0-37.0); MEAN PLATELET VOLUME 9.2 fl (7.0-11.0); MONO # 1.1 (0.1-0.6); MONO % 11.5 % (1.0-6.0); RED CELL DISTRIBUTION WIDTH 13.1 % (11.5-14.5); WHITE BLOOD COUNT 9.4 10^3/ul (4.5-11.0)
--- NOTE | 2017-05-31 09:00 | PN ---
SUBJECTIVE: The patient is seen and examined at bedside on the telemetry claudio. No acute events overnight. He remains afebrile and hemodynamically stable, status post podiatric surgery with amputation of the right foot second digit. This morning, he states he was doing well postoperatively. He denies fevers, chills or pain. OBJECTIVE: VITAL SIGNS: Temperature 97.8, pulse 66, blood pressure 143/53, respiratory rate 20, oxygen saturation 96% on room air. GENERAL: No apparent distress. HEENT: PERRL. EOMI. No scleral icterus. No conjunctival pallor. NECK: No JVD. No bruits. LUNGS: Clear to auscultation. CARDIOVASCULAR: Regular rate and rhythm. Normal S1 and S2. ABDOMEN: Normoactive bowel sounds. Soft, nontender and nondistended. EXTREMITIES: No edema. Right lower extremity with surgical dressing in place. Left upper extremity with surgical dressing in place. NEUROLOGIC: Awake, alert and oriented x3. No focal motor deficits. LABORATORY DATA: WBC 9.4 with 65% neutrophils, hemoglobin 8.9, hematocrit 27, platelets 303. Chemistry reviewed and unremarkable. ASSESSMENT: The patient is a 76-year-old man with multiple medical comorbidities including hypertension; triple-vessel coronary artery disease, status post percutaneous coronary intervention with drug-eluting stent placement and peripheral vascular disease, status post IR revascularization with chronic nonhealing ulcerations to the right foot, who is now status post right lower extremity popliteal/anterior tibial bypass with reserved left arm basilic vein POD #7 and status post podiatric surgery with amputation of the right lower extremity second digit. PLAN: 1. Severe PVD, status post right lower extremity popliteal/anterior tibial bypass with reserved left arm basilic vein, POD #7. Continue postoperative care as per Dr. Ge in the vascular surgery team. 2. Chronic, nonhealing right foot ulceration, status post amputation of the right foot second digit. Continue with postoperative care as per Dr. Alcantar and the podiatric team. 3. Triple-vessel CAD, status post PCI with ANAMIKA placement. Continue Lipitor 40 mg p.o. daily, Plavix 75 mg p.o. daily and aspirin 81 mg p.o. daily. 4. Hypertension. Blood pressure controlled. Continue lisinopril 10 mg p.o. daily and HCTZ 12.5 mg p.o. daily. 5. JAQUELIN, resolved. Continue to encourage p.o. intake. 6. Prophylaxis: GI prophylaxis not indicated as the patient is eating. Continue with heparin for DVT prophylaxis. CODE STATUS: Full code. Amari Gonzalez MD
--- NOTE | 2017-05-31 11:20 | CP.PCM.PN ---
Subjective - Date & Time of Evaluation Date of Evaluation: 05/31/17 Time of Evaluation: 11:16 - Subjective Subjective: Surgery Pt s&e. Pt had toe amputation yesterday and tolerated it well. Pain controlled. Dressing changed this AM. Objective - Vital Signs/Intake and Output Vital Signs (last 24 hours): Temp Pulse Resp BP Pulse Ox 97.8 F 68 20 138/56 L 96 05/31/17 06:00 05/31/17 10:02 05/31/17 06:00 05/31/17 10:02 05/31/17 06:00 Intake and Output: 05/31/17 05/31/17 06:59 18:59 Intake Total 120 Output Total 800 Balance -680 - Medications Medications: Current Medications Acetaminophen (Tylenol 325mg Tab) 650 mg PO Q4 PRN PRN Reason: Fever >100.4 F Aspirin (Aspirin Chewable) 81 mg PO DAILY [facility] Last Admin: 05/31/17 10:01 Dose: 81 mg Atorvastatin Calcium (Lipitor) 40 mg PO DAILY [facility] Last Admin: 05/31/17 10:02 Dose: 40 mg Clopidogrel Bisulfate (Plavix) 75 mg PO 0600 [facility] Last Admin: 05/31/17 05:17 Dose: 75 mg Heparin Sodium (Porcine) (Heparin) 5,000 units SC Q12 [facility] PRN Reason: Protocol Last Admin: 05/31/17 10:01 Dose: 5,000 units Hydrochlorothiazide (Microzide) 12.5 mg PO DAILY [facility] Last Admin: 05/31/17 10:02 Dose: 12.5 mg Lisinopril (Zestril) 10 mg PO DAILY [facility] Last Admin: 05/31/17 10:02 Dose: 10 mg Mupirocin (Bactroban Ointment) 1 gm TOP BID [facility] Last Admin: 05/31/17 09:58 Dose: Not Given Ondansetron HCl (Zofran Inj) 4 mg IVP ONCE PRN PRN Reason: Nausea/Vomiting Ondansetron HCl (Zofran Inj) 4 mg IVP ONCE PRN PRN Reason: Nausea/Vomiting Oxycodone/Acetaminophen (Percocet 5/325 Mg Tab) 2 tab PO Q4H PRN PRN Reason: Pain, severe (8-10) Stop: 06/02/17 08:54 Oxycodone/Acetaminophen (Percocet 5/325 Mg Tab) 1 tab PO Q4H PRN PRN Reason: Pain, moderate (4-7) Stop: 06/02/17 08:54 Pantoprazole Sodium (Protonix Ec Tab) 40 mg PO 0600 [facility] Last Admin: 05/31/17 05:17 Dose: 40 mg Zolpidem Tartrate (Ambien) 5 mg PO HS PRN; Protocol PRN Reason: Sleep - Labs Labs: 05/31/17 06:00 05/31/17 06:00 PT 10.3 Seconds (9.9-11.8) 05/23/17 12:23 INR 0.95 (0.93-1.08) 05/23/17 12:23 APTT 24.7 Seconds (23.7-30.8) 05/23/17 12:23 - Constitutional Appears: No Acute Distress - Head Exam Head Exam: ATRAUMATIC, NORMAL INSPECTION, NORMOCEPHALIC - Eye Exam Eye Exam: EOMI, Normal appearance, PERRL Pupil Exam: NORMAL ACCOMODATION, PERRL - ENT Exam ENT Exam: Mucous Membranes Moist, Normal Exam - Neck Exam Neck Exam: Full ROM, Normal Inspection. absent: Lymphadenopathy - Respiratory Exam Respiratory Exam: Clear to Ausculation Bilateral, NORMAL BREATHING PATTERN - Cardiovascular Exam Cardiovascular Exam: REGULAR RHYTHM, +S1, +S2. absent: Murmur - GI/Abdominal Exam GI & Abdominal Exam: Soft, Normal Bowel Sounds. absent: Distended, Firm, Guarding, Rigid, Tenderness - Extremities Exam Extremities Exam: Tenderness. absent: Full ROM, Normal Inspection Additional comments: L arm dressing C/D/I. R leg dressing C/D/I dopplerable distal pulses and graft. - Back Exam Back Exam: NORMAL INSPECTION - Neurological Exam Neurological Exam: Alert, Awake, CN II-XII Intact, Normal Gait, Oriented x3 - Psychiatric Exam Psychiatric exam: Normal Affect, Normal Mood - Skin Skin Exam: Dry, Erythema, Intact, Warm Assessment and Plan - Assessment and Plan (Free Text) Assessment: 76M s/p popliteal-anterior tibial with reversed left basillic vein POD#6 s/p 2nd toe amp by Podiatry POD1 Plan: - Monitor lower extremity pulses - Monitor dressings lower extremity/left arm - Continue elevation of right leg and left arm - Encourage Ambulation - Incentive spirometer - DVT ppx -OK to DC for surgical standpoint. Educated on Dressing change. -Follow up with Dr. Ge in 1-2 weeks for suture/chrissy removal. -Keep the wound dry. Change dressing as needed. Keep leg and arm elevated. Discussed with Dr. Ge
--- NOTE | 2017-05-31 11:51 | PN ---
DATE: SUBJECTIVE: A 76-year-old male seen at bedside, postop day #1, right second digit amputation. The patient has been afebrile and is reporting no pain in the operative site. He has been compliant with non-ambulation. OBJECTIVE: VITAL SIGNS: Reveal temperature 97.8, pulse rate of 66, blood pressure 143/53, respiratory rate of 20. EXTREMITIES: Nonpalpable pedal pulses noted bilaterally. Right lower extremity did present with decreasing edema of the lower leg. The operative site at the dorsal aspect of the right second metatarsophalangeal area presents with incision site well coapted. No drainage. No dehiscence. No signs of acute cellulitis. LABORATORY DATA: Findings revealed white count of 9.4, hemoglobin of 8.9, hematocrit of 26.6, platelet count of 303. Microbiology report taken in the operative room yesterday shows no organisms and no polymorphonuclear white blood cells preliminarily. ASSESSMENT: Status post day #1 right second digit amputation. PLAN: The patient's wound was inspected and a new dry sterile dressing was applied. The patient was told to remain off of his feet. The patient was told that he can ambulate as tolerated, but keep it to a minimum as we do need him up and walking. He is to wear the surgical shoe at all times during ambulation. He was told that . Given the patient's extensive surgical procedures during the past week, would recommend keeping the patient over the weekend and discharge on Sunday. The patient will be seen in followup daily. Chauncey Alcantar DPM
[2017-06-01 06:22] LABS: BASO # 0.03 K/mm3 (0.0-2.0); BASO % 0.3 % (0.0-3.0); EOS # 0.5 (0.0-0.7); EOS % 5.1 % (1.5-5.0); GRAN # 6.06 (1.4-6.5); GRAN % 64.4 % (50.0-68.0); HEMATOCRIT 26.9 % (42.0-52.0); LYMPH # 1.8 (1.2-3.4); LYMPH % 18.8 % (22.0-35.0); MEAN CELL VOLUME 92.8 fl (80.0-105.0); MEAN CORPUSCULAR HEMOGLOBIN 31.4 pg (25.0-35.0); MEAN CORPUSCULAR HGB CONC 33.8 g/dl (31.0-37.0); MEAN PLATELET VOLUME 8.8 fl (7.0-11.0); MONO # 1.1 (0.1-0.6); MONO % 11.4 % (1.0-6.0); RED CELL DISTRIBUTION WIDTH 13.1 % (11.5-14.5); WHITE BLOOD COUNT 9.4 10^3/ul (4.5-11.0)
[2017-06-01] MEDS: Pantoprazole 40 mg EC Tab PO SCH (06:42)
[2017-06-01 06:46] LABS: ALB/GLOB RATIO 1.1 (1.1-1.8); CALCIUM 8.6 mg/dL (8.4-10.5); TOTAL PROTEIN 5.8 g/dL (5.8-8.3)
--- NOTE | 2017-06-01 08:36 | CP.PCM.PN ---
Subjective - Date & Time of Evaluation Date of Evaluation: 06/01/17 Time of Evaluation: 07:05 - Subjective Subjective: Surgery note for Dr. Ge 76M seen and examined at bedside. Patient is doing well, denies pain. He works with physical therapy and is able to ambulate. No acute events overnight. Objective - Vital Signs/Intake and Output Vital Signs (last 24 hours): Temp Pulse Resp BP Pulse Ox 98.4 F 64 20 119/67 98 06/01/17 06:00 06/01/17 06:00 06/01/17 06:00 06/01/17 06:00 06/01/17 06:00 - Medications Medications: Current Medications Acetaminophen (Tylenol 325mg Tab) 650 mg PO Q4 PRN PRN Reason: Fever >100.4 F Aspirin (Aspirin Chewable) 81 mg PO DAILY [facility] Last Admin: 05/31/17 10:01 Dose: 81 mg Atorvastatin Calcium (Lipitor) 40 mg PO DAILY [facility] Last Admin: 05/31/17 10:02 Dose: 40 mg Clopidogrel Bisulfate (Plavix) 75 mg PO 0600 [facility] Last Admin: 06/01/17 06:42 Dose: 75 mg Heparin Sodium (Porcine) (Heparin) 5,000 units SC Q12 [facility] PRN Reason: Protocol Last Admin: 05/31/17 21:44 Dose: Not Given Hydrochlorothiazide (Microzide) 12.5 mg PO DAILY [facility] Last Admin: 05/31/17 10:02 Dose: 12.5 mg Lisinopril (Zestril) 10 mg PO DAILY [facility] Last Admin: 05/31/17 10:02 Dose: 10 mg Mupirocin (Bactroban Ointment) 1 gm TOP BID [facility] Last Admin: 05/31/17 18:16 Dose: Not Given Ondansetron HCl (Zofran Inj) 4 mg IVP ONCE PRN PRN Reason: Nausea/Vomiting Ondansetron HCl (Zofran Inj) 4 mg IVP ONCE PRN PRN Reason: Nausea/Vomiting Oxycodone/Acetaminophen (Percocet 5/325 Mg Tab) 2 tab PO Q4H PRN PRN Reason: Pain, severe (8-10) Stop: 06/02/17 08:54 Oxycodone/Acetaminophen (Percocet 5/325 Mg Tab) 1 tab PO Q4H PRN PRN Reason: Pain, moderate (4-7) Stop: 06/02/17 08:54 Pantoprazole Sodium (Protonix Ec Tab) 40 mg PO 0600 [facility] Last Admin: 06/01/17 06:42 Dose: 40 mg Zolpidem Tartrate (Ambien) 5 mg PO HS PRN; Protocol PRN Reason: Sleep - Labs Labs: 06/01/17 06:15 06/01/17 06:15 PT 10.3 Seconds (9.9-11.8) 05/23/17 12:23 INR 0.95 (0.93-1.08) 05/23/17 12:23 APTT 24.7 Seconds (23.7-30.8) 05/23/17 12:23 - Constitutional Appears: Non-toxic, No Acute Distress - Respiratory Exam Respiratory Exam: Clear to Ausculation Bilateral, NORMAL BREATHING PATTERN - Cardiovascular Exam Cardiovascular Exam: REGULAR RHYTHM, +S1, +S2 - Extremities Exam Additional comments: left arm incision CDI Right leg lateral and medial incisions CDI Dopplerable signals Assessment and Plan - Assessment and Plan (Free Text) Assessment: 76M s/p popliteal-anterior tibial with reversed left basillic vein POD#8 s/p 2nd toe amp by Podiatry POD2 Plan: - Monitor lower extremity pulses - Monitor dressings lower extremity/left arm - Encourage Ambulation - Incentive spirometer - DVT ppx Further recs discuss with Dr. Joo Novoa, PGY2
[2017-06-01] MEDS ORDERED: Oxycodone/Acetaminophen 5/325 mg Tab PO PRN (10:11)
--- NOTE | 2017-06-01 10:49 | CP.PCM.PN ---
<Ramiro Acosta - Last Filed: 06/01/17 10:45> Subjective - Date & Time of Evaluation Date of Evaluation: 06/01/17 Time of Evaluation: 10:45 - Subjective Subjective: Podiatry Progress Note - Dr. Alcantar 76 year old male patient 2 days s/p right second digit amputation. Patient seen resting comfortably in bed, AAOx3 and NAD. Patient's dressing is c/d/i with no strikethrough noted. Patient reports ambulating in surgical shoe bilaterally and working with physical therapy. He reports feeling stiff to the left ankle when ambulating but reports no pain. Patient denies N/V/F/D/C/SOB. Denies any other pedal complaints at this time. Objective - Vital Signs/Intake and Output Vital Signs (last 24 hours): Temp Pulse Resp BP Pulse Ox 98.4 F 86 20 121/68 98 06/01/17 06:00 06/01/17 10:00 06/01/17 06:00 06/01/17 10:00 06/01/17 06:00 - Medications Medications: Current Medications Acetaminophen (Tylenol 325mg Tab) 650 mg PO Q4 PRN PRN Reason: Fever >100.4 F Aspirin (Aspirin Chewable) 81 mg PO DAILY [facility] Last Admin: 06/01/17 10:03 Dose: Not Given Atorvastatin Calcium (Lipitor) 40 mg PO DAILY [facility] Last Admin: 06/01/17 09:59 Dose: 40 mg Clopidogrel Bisulfate (Plavix) 75 mg PO 0600 [facility] Last Admin: 06/01/17 06:42 Dose: 75 mg Heparin Sodium (Porcine) (Heparin) 5,000 units SC Q12 [facility] PRN Reason: Protocol Last Admin: 06/01/17 10:03 Dose: Not Given Hydrochlorothiazide (Microzide) 12.5 mg PO DAILY [facility] Last Admin: 06/01/17 10:00 Dose: 12.5 mg Lisinopril (Zestril) 10 mg PO DAILY [facility] Last Admin: 06/01/17 10:00 Dose: 10 mg Mupirocin (Bactroban Ointment) 1 gm TOP BID [facility] Last Admin: 06/01/17 09:55 Dose: Not Given Ondansetron HCl (Zofran Inj) 4 mg IVP ONCE PRN PRN Reason: Nausea/Vomiting Ondansetron HCl (Zofran Inj) 4 mg IVP ONCE PRN PRN Reason: Nausea/Vomiting Oxycodone/Acetaminophen (Percocet 5/325 Mg Tab) 2 tab PO Q4H PRN PRN Reason: Pain, severe (8-10) Stop: 06/02/17 08:54 Oxycodone/Acetaminophen (Percocet 5/325 Mg Tab) 1 tab PO Q4H PRN PRN Reason: Pain, moderate (4-7) Stop: 06/02/17 08:54 Oxycodone/Acetaminophen (Percocet 5/325 Mg Tab) 2 tab PO Q4H PRN PRN Reason: Pain, moderate (4-7) Stop: 06/04/17 10:12 Pantoprazole Sodium (Protonix Ec Tab) 40 mg PO 0600 [facility] Last Admin: 06/01/17 06:42 Dose: 40 mg Zolpidem Tartrate (Ambien) 5 mg PO HS PRN; Protocol PRN Reason: Sleep - Labs Labs: 06/01/17 06:15 06/01/17 06:15 PT 10.3 Seconds (9.9-11.8) 05/23/17 12:23 INR 0.95 (0.93-1.08) 05/23/17 12:23 APTT 24.7 Seconds (23.7-30.8) 05/23/17 12:23 - Constitutional Appears: Non-toxic, No Acute Distress - Extremities Exam Additional comments: Dressing to right foot appears clean/dry/intact with no strikethrough noted. LEFT LE focused exam: VASC: DP and PT pulses faintly palpable. Temperature . No pedal edema noted. CFT wnl b/l. NEURO: Gross sensation diminished bilaterally. DERM: Left distal 2nd digit ulceration measuring approximately .5cm x .5 cm, no maceration noted, no active drainage, no odor, no erythema, no cellulitis noted, no tunneling, no undermining noted. ORTHO: Previous amputation sites b/l. - Neurological Exam Neurological Exam: Alert, Awake, Oriented x3 - Psychiatric Exam Psychiatric exam: Normal Affect, Normal Mood Assessment and Plan - Assessment and Plan (Free Text) Assessment: 76 y.o male with 2 days s/p right 2nd digit amputation 2/2 OM and s/p right popliteal anterior tibial bypass 2/2 severe PVD and critical limb ischemia to RLE Plan: Patient seen and evaluated at bedside Chart, vitals, labs reviewed = afebrile, absent leukocytosis Discussed plan in detail with attending Dr. Alcantar Right surgical dressing is c/d/i. No dressing change needed today. Left 2nd digit ulceration cleansed with saline and dressed with mupricin, 4x4, dsd, and kerlix Patient is to WBAT to the heels in surgical shoe at all times when ambulating Continue to work with PT Recommend patient remain in hospital until Sunday Podiatry will continue to follow patient while in house <Chauncey Alcantar - Last Filed: 06/03/17 11:26> Objective - Vital Signs/Intake and Output Vital Signs (last 24 hours): Temp Pulse Resp BP Pulse Ox 98.1 F 75 20 122/66 95 06/03/17 06:00 06/03/17 10:03 06/03/17 06:00 06/03/17 10:03 06/03/17 06:00 Intake and Output: 06/03/17 06/03/17 06:59 18:59 Intake Total 580 Output Total 600 Balance -20 - Medications Medications: Current Medications Acetaminophen (Tylenol 325mg Tab) 650 mg PO Q4 PRN PRN Reason: Fever >100.4 F Aspirin (Aspirin Chewable) 81 mg PO DAILY [facility] Last Admin: 06/03/17 10:04 Dose: 81 mg Atorvastatin Calcium (Lipitor) 40 mg PO DAILY [facility] Last Admin: 06/03/17 10:05 Dose: Not Given Clopidogrel Bisulfate (Plavix) 75 mg PO 0600 [facility] Last Admin: 06/03/17 05:12 Dose: 75 mg Heparin Sodium (Porcine) (Heparin) 5,000 units SC Q12 [facility] PRN Reason: Protocol Last Admin: 06/03/17 10:03 Dose: Not Given Hydrochlorothiazide (Microzide) 12.5 mg PO DAILY [facility] Last Admin: 06/03/17 10:02 Dose: 12.5 mg Lisinopril (Zestril) 10 mg PO DAILY [facility] Last Admin: 06/03/17 10:03 Dose: 10 mg Mupirocin (Bactroban Ointment) 1 gm TOP BID [facility] Last Admin: 06/03/17 10:04 Dose: Not Given Ondansetron HCl (Zofran Inj) 4 mg IVP ONCE PRN PRN Reason: Nausea/Vomiting Ondansetron HCl (Zofran Inj) 4 mg IVP ONCE PRN PRN Reason: Nausea/Vomiting Oxycodone/Acetaminophen (Percocet 5/325 Mg Tab) 2 tab PO Q4H PRN PRN Reason: Pain, moderate (4-7) Stop: 06/04/17 10:12 Pantoprazole Sodium (Protonix Ec Tab) 40 mg PO 0600 [facility] Last Admin: 06/03/17 05:13 Dose: 40 mg Zolpidem Tartrate (Ambien) 5 mg PO HS PRN; Protocol PRN Reason: Sleep - Labs Labs: 06/02/17 05:00 06/02/17 07:28 PT 10.3 Seconds (9.9-11.8) 05/23/17 12:23 INR 0.95 (0.93-1.08) 05/23/17 12:23 APTT 24.7 Seconds (23.7-30.8) 05/23/17 12:23 Attending/Attestation - Attestation I have personally seen and examined this patient.: Yes I have fully participated in the care of the patient.: Yes I have reviewed all pertinent clinical information, including history, physical exam and plan: Yes
--- NOTE | 2017-06-01 12:26 | PN ---
SUBJECTIVE: The patient seen and examined at bedside on the telemetry claudio. No acute events overnight. He remains afebrile and hemodynamically stable. This morning, he feels well and offers no complaints. OBJECTIVE: VITAL SIGNS: Temperature 98.4, pulse 64, blood pressure 119/67, respiratory rate 20, oxygen saturation 98% on room air. GENERAL: No apparent distress. HEENT: PERRL. EOMI. No scleral icterus. No conjunctival pallor. NECK: No JVD. No bruits. LUNGS: Clear to auscultation. CARDIOVASCULAR: Regular rate and rhythm. Normal S1 and S2. ABDOMEN: Normoactive bowel sounds. Soft, nontender and nondistended. EXTREMITIES: No edema. Right lower extremity with surgical dressing in place. Left upper extremity with surgical dressing in place. NEUROLOGIC: Awake, alert and oriented x3. No focal motor deficits. LABORATORY DATA: WBC 9.4 with 64% neutrophils, hemoglobin 9, hematocrit 27, platelets 329. Chemistry reviewed and unremarkable. ASSESSMENT: The patient is a 76-year-old man with multiple medical comorbidities including hypertension; triple-vessel coronary artery disease, status post percutaneous coronary intervention with drug-eluting stent placement and peripheral vascular disease, status post IR revascularization with chronic nonhealing ulcerations to the right foot, who is now status post right lower extremity popliteal/anterior tibial bypass with reserved left arm basilic vein, postop day #8 and status post podiatric surgery with amputation of the right lower extremity second digit. PLAN: 1. Severe PVD, status post right lower extremity popliteal/anterior tibial bypass with reserved left arm basilic vein, postop day #8. Continue with postoperative care as per Dr. Ge in the vascular surgery team. 2. Chronic nonhealing right foot ulceration, status post amputation of the right foot second digit. Continue with postoperative care as per Dr. Alcantar and the podiatric team. Dr. Alcantar's note is reviewed and given the patient's extensive underlying peripheral vascular disease and multiple recent surgeries, the podiatry team is recommending keeping the patient hospitalized over the weekend for continued observation and wound care. 3. Triple-vessel CAD, status post PCI with ANAMIKA placement. Continue Lipitor 40 mg p.o. daily, Plavix 75 mg p.o. daily and aspirin 81 mg p.o. daily. 4. Hypertension. Blood pressure controlled. Continue lisinopril 10 mg p.o. daily and HCTZ 12.5 mg p.o. daily. 5. Prophylaxis: GI prophylaxis not indicated as the patient is eating. Continue with heparin for DVT prophylaxis. CODE STATUS: Full code Amari Gonzalez MD MTDD
[2017-06-02] MEDS: Pantoprazole 40 mg EC Tab PO SCH (05:08)
[2017-06-02 07:35] LABS: BASO # 0.03 K/mm3 (0.0-2.0); BASO % 0.3 % (0.0-3.0); EOS # 0.6 (0.0-0.7); EOS % 5.5 % (1.5-5.0); GRAN # 6.95 (1.4-6.5); GRAN % 68.1 % (50.0-68.0); HEMATOCRIT 30.2 % (42.0-52.0); LYMPH # 1.7 (1.2-3.4); MEAN CELL VOLUME 93.5 fl (80.0-105.0); MEAN CORPUSCULAR HEMOGLOBIN 30.7 pg (25.0-35.0); MEAN CORPUSCULAR HGB CONC 32.8 g/dl (31.0-37.0); MEAN PLATELET VOLUME 8.8 fl (7.0-11.0); MONO # 0.9 (0.1-0.6); MONO % 9.1 % (1.0-6.0); WHITE BLOOD COUNT 10.2 10^3/ul (4.5-11.0)
[2017-06-02 08:03] LABS: ALB/GLOB RATIO 1.1 (1.1-1.8); ALKALINE PHOSPHATASE 62 U/L (38-126); ALT/SGPT 38 U/L (7-56); AST/SGOT 46 U/L (17-59); BLOOD UREA NITROGEN 31 mg/dL (7-21); CALCIUM 8.8 mg/dL (8.4-10.5); CARBON DIOXIDE 30 mmol/L (21-33); CHLORIDE 101 mmol/L (98-107); GFR AFRICAN-AMERICAN > 60; GLUCOSE,RANDOM 102 mg/dL (70-110); POTASSIUM 3.9 mmol/L (3.6-5.0); SODIUM 141 mmol/L (132-148); TOTAL PROTEIN 6.4 g/dL (5.8-8.3)
--- NOTE | 2017-06-02 08:16 | CP.PCM.PN ---
<Jim Callaway - Last Filed: 06/03/17 18:41> Subjective - Date & Time of Evaluation Date of Evaluation: 06/02/17 Time of Evaluation: 08:15 - Subjective Subjective: Podiatry Progress Note - Dr. Alcantar 76 year old male patient 3 days s/p right second digit amputation. Patient seen resting comfortably in bed, AAOx3 and NAD. Patient's dressing is c/d/i with no strikethrough noted. Patient reports ambulating in surgical shoe bilaterally and working with physical therapy. He reports feeling stiff to the left ankle when ambulating but reports no pain. Patient denies N/V/F/D/C/SOB. Denies any other pedal complaints at this time. Objective - Vital Signs/Intake and Output Vital Signs (last 24 hours): Temp Pulse Resp BP Pulse Ox 97.7 F 52 L 18 124/73 98 06/02/17 06:00 06/02/17 06:00 06/02/17 06:00 06/02/17 06:00 06/01/17 06:00 Intake and Output: 06/02/17 06/02/17 06:59 18:59 Intake Total 240 Output Total 300 Balance -60 - Medications Medications: Current Medications Acetaminophen (Tylenol 325mg Tab) 650 mg PO Q4 PRN PRN Reason: Fever >100.4 F Aspirin (Aspirin Chewable) 81 mg PO DAILY [facility] Last Admin: 06/01/17 10:03 Dose: Not Given Atorvastatin Calcium (Lipitor) 40 mg PO DAILY [facility] Last Admin: 06/01/17 09:59 Dose: 40 mg Clopidogrel Bisulfate (Plavix) 75 mg PO 0600 [facility] Last Admin: 06/02/17 05:09 Dose: 75 mg Heparin Sodium (Porcine) (Heparin) 5,000 units SC Q12 [facility] PRN Reason: Protocol Last Admin: 06/01/17 21:36 Dose: Not Given Hydrochlorothiazide (Microzide) 12.5 mg PO DAILY [facility] Last Admin: 06/01/17 10:00 Dose: 12.5 mg Lisinopril (Zestril) 10 mg PO DAILY [facility] Last Admin: 06/01/17 10:00 Dose: 10 mg Mupirocin (Bactroban Ointment) 1 gm TOP BID [facility] Last Admin: 06/01/17 17:21 Dose: Not Given Ondansetron HCl (Zofran Inj) 4 mg IVP ONCE PRN PRN Reason: Nausea/Vomiting Ondansetron HCl (Zofran Inj) 4 mg IVP ONCE PRN PRN Reason: Nausea/Vomiting Oxycodone/Acetaminophen (Percocet 5/325 Mg Tab) 2 tab PO Q4H PRN PRN Reason: Pain, severe (8-10) Stop: 06/02/17 08:54 Oxycodone/Acetaminophen (Percocet 5/325 Mg Tab) 1 tab PO Q4H PRN PRN Reason: Pain, moderate (4-7) Stop: 06/02/17 08:54 Oxycodone/Acetaminophen (Percocet 5/325 Mg Tab) 2 tab PO Q4H PRN PRN Reason: Pain, moderate (4-7) Stop: 06/04/17 10:12 Pantoprazole Sodium (Protonix Ec Tab) 40 mg PO 0600 [facility] Last Admin: 06/02/17 05:08 Dose: 40 mg Zolpidem Tartrate (Ambien) 5 mg PO HS PRN; Protocol PRN Reason: Sleep - Labs Labs: 06/02/17 05:00 06/02/17 07:28 PT 10.3 Seconds (9.9-11.8) 05/23/17 12:23 INR 0.95 (0.93-1.08) 05/23/17 12:23 APTT 24.7 Seconds (23.7-30.8) 05/23/17 12:23 - Constitutional Appears: Well, Non-toxic, No Acute Distress - Extremities Exam Additional comments: Dressing to right foot appears clean/dry/intact with no strikethrough noted. LEFT LE focused exam: VASC: DP and PT pulses faintly palpable. Temperature . No pedal edema noted. CFT wnl b/l. NEURO: Gross sensation diminished bilaterally. DERM: Left distal 2nd digit ulceration measuring approximately .5cm x .5 cm, no maceration noted, no active drainage, no odor, no erythema, no cellulitis noted, no tunneling, no undermining noted. ORTHO: Previous amputation sites b/l. Assessment and Plan - Assessment and Plan (Free Text) Assessment: 76 y.o male with 3 days s/p right 2nd digit amputation 2/2 OM and s/p right popliteal anterior tibial bypass 2/2 severe PVD and critical limb ischemia to RLE Plan: Patient seen and evaluated at bedside Chart, vitals, labs reviewed = afebrile, absent leukocytosis Discussed plan in detail with attending Dr. Alcantar Right surgical dressing is c/d/i. No dressing change needed today. Left 2nd digit ulceration cleansed with saline and dressed with mupricin, 4x4, dsd, and kerlix Patient is to WBAT to the heels in surgical shoe at all times when ambulating Continue to work with PT Recommend patient remain in hospital until Sunday Podiatry will continue to follow patient while in house <Chauncey Alcantar - Last Filed: 06/04/17 09:34> Objective - Vital Signs/Intake and Output Vital Signs (last 24 hours): Temp Pulse Resp BP Pulse Ox 97.8 F 70 21 137/73 100 06/04/17 06:00 06/04/17 06:00 06/04/17 06:00 06/04/17 06:00 06/04/17 06:00 Intake and Output: 06/04/17 06/04/17 06:59 18:59 Intake Total 360 Output Total 1001 Balance -641 - Medications Medications: Current Medications Acetaminophen (Tylenol 325mg Tab) 650 mg PO Q4 PRN PRN Reason: Fever >100.4 F Aspirin (Aspirin Chewable) 81 mg PO DAILY [facility] Last Admin: 06/03/17 10:04 Dose: 81 mg Atorvastatin Calcium (Lipitor) 40 mg PO DAILY [facility] Last Admin: 06/03/17 10:05 Dose: Not Given Clopidogrel Bisulfate (Plavix) 75 mg PO 0600 [facility] Last Admin: 06/04/17 06:58 Dose: 75 mg Heparin Sodium (Porcine) (Heparin) 5,000 units SC Q12 [facility] PRN Reason: Protocol Last Admin: 06/03/17 22:09 Dose: Not Given Hydrochlorothiazide (Microzide) 12.5 mg PO DAILY [facility] Last Admin: 06/03/17 10:02 Dose: 12.5 mg Lisinopril (Zestril) 10 mg PO DAILY [facility] Last Admin: 06/03/17 10:03 Dose: 10 mg Mupirocin (Bactroban Ointment) 1 gm TOP BID [facility] Last Admin: 06/03/17 17:42 Dose: Not Given Ondansetron HCl (Zofran Inj) 4 mg IVP ONCE PRN PRN Reason: Nausea/Vomiting Ondansetron HCl (Zofran Inj) 4 mg IVP ONCE PRN PRN Reason: Nausea/Vomiting Oxycodone/Acetaminophen (Percocet 5/325 Mg Tab) 2 tab PO Q4H PRN PRN Reason: Pain, moderate (4-7) Stop: 06/04/17 10:12 Pantoprazole Sodium (Protonix Ec Tab) 40 mg PO 0600 [facility] Last Admin: 06/04/17 06:58 Dose: Not Given Zolpidem Tartrate (Ambien) 5 mg PO HS PRN; Protocol PRN Reason: Sleep - Labs Labs: 06/02/17 05:00 06/02/17 07:28 PT 10.3 Seconds (9.9-11.8) 05/23/17 12:23 INR 0.95 (0.93-1.08) 05/23/17 12:23 APTT 24.7 Seconds (23.7-30.8) 05/23/17 12:23 Attending/Attestation - Attestation I have personally seen and examined this patient.: Yes I have fully participated in the care of the patient.: Yes I have reviewed all pertinent clinical information, including history, physical exam and plan: Yes
--- NOTE | 2017-06-02 09:05 | PN ---
DAILY PROGRESS NOTE DATE: SUBJECTIVE: The patient seen and examined at bedside on the telemetry claudio. No acute events overnight. He remains afebrile and hemodynamically stable. This morning he feels well and offers no complaints. He is undergoing continued daily wound care to his right foot status post amputation of his right foot second digit secondary to chronic nonhealing ulcerations as well as right lower extremity vascular surgery. OBJECTIVE: VITAL SIGNS: Temperature 97.7, pulse 52, blood pressure 124/73, respiratory rate 18, and oxygen saturation 96% on room air. GENERAL: No apparent distress. HEENT: PERRL. EOMI. No scleral icterus. No conjunctival pallor. NECK: No JVD. No bruits. LUNGS: Clear to auscultation. CARDIOVASCULAR: Regular rate and rhythm. Normal S1 and S2. ABDOMEN: Normoactive bowel sounds. Soft, nontender, and nondistended. EXTREMITIES: No edema. Right lower extremity with surgical dressing in place. Left upper extremity with surgical dressing in place. NEUROLOGIC: Awake, alert, and oriented x3. No focal motor deficits. LABORATORY DATA: WBC 10.2 with 68% neutrophils, hemoglobin 9.9, hematocrit 30, and platelets 406. Chemistry reviewed and unremarkable. ASSESSMENT: The patient is a 76-year-old man with multiple medical comorbidities including hypertension; triple-vessel coronary artery disease, status post percutaneous coronary intervention with drug-eluting stent placement and peripheral vascular disease, status post incomplete revascularization with chronic nonhealing ulcerations to the right foot, who is now status post right lower extremity popliteal/anterior tibial bypass with reserved left arm basilic vein, postoperative day #9 and status post podiatric surgery with amputation of the right lower extremity second digit. PLAN: 1. Severe PVD, status post right lower extremity popliteal/anterior tibial bypass with reserved left arm basilic vein. POD #9. Continue with postoperative care as per Dr. Ge and the vascular surgery team. 2. Chronic nonhealing right foot ulceration, status post amputation of the right foot second digit. Continue with postoperative care as per Dr. Alcantar and the podiatric team. 3. Triple-vessel CAD, status post PCI with drug-eluting stent placement. Continue with Lipitor 40 mg p.o. daily, Plavix 75 mg p.o. daily, and aspirin 81 mg p.o. daily. 4. Hypertension,blood pressure controlled. Continue lisinopril 10 mg p.o. daily and hydrochlorothiazide 12.5 mg p.o. daily. 5. Prophylaxis: GI prophylaxis not indicated as the patient is eating. Continue with heparin 5000 units subcutaneous q. 12 hours for DVT prophylaxis. CODE STATUS: Full code. Amari Gonzalez MD
--- NOTE | 2017-06-02 10:19 | CP.PCM.PN ---
Subjective - Date & Time of Evaluation Date of Evaluation: 06/02/17 Time of Evaluation: 10:15 - Subjective Subjective: Surgery progress note for Dr. Ge Patient seen and examined at bedside. Patient resting comfortably in bed with no new complaints at this time. No acute events overnight. Patient says he has been ambulating with physical therapy and is tolerating his diet. He denies fever, chills, CP/SOB, AP/N/V/D/C. Objective - Vital Signs/Intake and Output Vital Signs (last 24 hours): Temp Pulse Resp BP Pulse Ox 97.7 F 85 18 148/69 98 06/02/17 06:00 06/02/17 09:30 06/02/17 06:00 06/02/17 09:30 06/01/17 06:00 Intake and Output: 06/02/17 06/02/17 06:59 18:59 Intake Total 240 Output Total 300 Balance -60 - Medications Medications: Current Medications Acetaminophen (Tylenol 325mg Tab) 650 mg PO Q4 PRN PRN Reason: Fever >100.4 F Aspirin (Aspirin Chewable) 81 mg PO DAILY [facility] Last Admin: 06/02/17 09:30 Dose: 81 mg Atorvastatin Calcium (Lipitor) 40 mg PO DAILY [facility] Last Admin: 06/02/17 09:30 Dose: 40 mg Clopidogrel Bisulfate (Plavix) 75 mg PO 0600 [facility] Last Admin: 06/02/17 05:09 Dose: 75 mg Heparin Sodium (Porcine) (Heparin) 5,000 units SC Q12 [facility] PRN Reason: Protocol Last Admin: 06/02/17 09:25 Dose: Not Given Hydrochlorothiazide (Microzide) 12.5 mg PO DAILY [facility] Last Admin: 06/02/17 09:30 Dose: 12.5 mg Lisinopril (Zestril) 10 mg PO DAILY [facility] Last Admin: 06/02/17 09:30 Dose: 10 mg Mupirocin (Bactroban Ointment) 1 gm TOP BID [facility] Last Admin: 06/02/17 09:31 Dose: Not Given Ondansetron HCl (Zofran Inj) 4 mg IVP ONCE PRN PRN Reason: Nausea/Vomiting Ondansetron HCl (Zofran Inj) 4 mg IVP ONCE PRN PRN Reason: Nausea/Vomiting Oxycodone/Acetaminophen (Percocet 5/325 Mg Tab) 2 tab PO Q4H PRN PRN Reason: Pain, moderate (4-7) Stop: 06/04/17 10:12 Pantoprazole Sodium (Protonix Ec Tab) 40 mg PO 0600 [facility] Last Admin: 06/02/17 05:08 Dose: 40 mg Zolpidem Tartrate (Ambien) 5 mg PO HS PRN; Protocol PRN Reason: Sleep - Labs Labs: 06/02/17 05:00 06/02/17 07:28 PT 10.3 Seconds (9.9-11.8) 05/23/17 12:23 INR 0.95 (0.93-1.08) 05/23/17 12:23 APTT 24.7 Seconds (23.7-30.8) 05/23/17 12:23 - Constitutional Appears: Non-toxic, No Acute Distress - Head Exam Head Exam: NORMAL INSPECTION - Eye Exam Eye Exam: EOMI - ENT Exam ENT Exam: Mucous Membranes Moist - Respiratory Exam Respiratory Exam: NORMAL BREATHING PATTERN. absent: Accessory Muscle Use, Respiratory Distress - Cardiovascular Exam Cardiovascular Exam: REGULAR RHYTHM. absent: Bradycardia, Tachycardia - Extremities Exam Additional comments: Incision of left medial arm clean, dry, and intact with sutures in place. Dressings changed. Incision of medial and lateral RLE clean, dry and intact with chrissy in place. Dressings changed. Bandages on b/l feet C/D/I. - Neurological Exam Neurological Exam: Alert, Awake - Psychiatric Exam Psychiatric exam: Normal Affect, Normal Mood - Skin Skin Exam: Dry, Normal Color, Warm Assessment and Plan - Assessment and Plan (Free Text) Assessment: 76M s/p popliteal-anterior tibial with reversed left basillic vein POD#9; s/p 2nd toe amp by Podiatry POD#3 Plan: - Monitor lower extremity pulses - Daily dressing changes of right lower extremity & left arm - Encouraged Ambulation and use of incentive spirometer - DVT ppx - Further recs per Dr. Joo Calvin, PGY1
[2017-06-03] MEDS: Pantoprazole 40 mg EC Tab PO SCH (05:13)
--- NOTE | 2017-06-03 08:53 | CP.PCM.PN ---
Subjective - Date & Time of Evaluation Date of Evaluation: 06/03/17 Time of Evaluation: 07:50 - Subjective Subjective: Surgery Note For Dr. Ge 76M seen and examined at bedside. Patient doing well, working with physical therapy. No complaints. Objective - Vital Signs/Intake and Output Vital Signs (last 24 hours): Temp Pulse Resp BP Pulse Ox 98.1 F 66 20 132/72 95 06/03/17 06:00 06/03/17 06:00 06/03/17 06:00 06/03/17 06:00 06/03/17 06:00 Intake and Output: 06/03/17 06/03/17 06:59 18:59 Intake Total 580 Output Total 600 Balance -20 - Medications Medications: Current Medications Acetaminophen (Tylenol 325mg Tab) 650 mg PO Q4 PRN PRN Reason: Fever >100.4 F Aspirin (Aspirin Chewable) 81 mg PO DAILY [facility] Last Admin: 06/02/17 09:30 Dose: 81 mg Atorvastatin Calcium (Lipitor) 40 mg PO DAILY [facility] Last Admin: 06/02/17 09:30 Dose: 40 mg Clopidogrel Bisulfate (Plavix) 75 mg PO 0600 [facility] Last Admin: 06/03/17 05:12 Dose: 75 mg Heparin Sodium (Porcine) (Heparin) 5,000 units SC Q12 [facility] PRN Reason: Protocol Last Admin: 06/02/17 21:27 Dose: Not Given Hydrochlorothiazide (Microzide) 12.5 mg PO DAILY [facility] Last Admin: 06/02/17 09:30 Dose: 12.5 mg Lisinopril (Zestril) 10 mg PO DAILY [facility] Last Admin: 06/02/17 09:30 Dose: 10 mg Mupirocin (Bactroban Ointment) 1 gm TOP BID [facility] Last Admin: 06/02/17 17:50 Dose: Not Given Ondansetron HCl (Zofran Inj) 4 mg IVP ONCE PRN PRN Reason: Nausea/Vomiting Ondansetron HCl (Zofran Inj) 4 mg IVP ONCE PRN PRN Reason: Nausea/Vomiting Oxycodone/Acetaminophen (Percocet 5/325 Mg Tab) 2 tab PO Q4H PRN PRN Reason: Pain, moderate (4-7) Stop: 06/04/17 10:12 Pantoprazole Sodium (Protonix Ec Tab) 40 mg PO 0600 [facility] Last Admin: 06/03/17 05:13 Dose: 40 mg Zolpidem Tartrate (Ambien) 5 mg PO HS PRN; Protocol PRN Reason: Sleep - Labs Labs: 06/02/17 05:00 06/02/17 07:28 PT 10.3 Seconds (9.9-11.8) 05/23/17 12:23 INR 0.95 (0.93-1.08) 05/23/17 12:23 APTT 24.7 Seconds (23.7-30.8) 05/23/17 12:23 - Constitutional Appears: Non-toxic, No Acute Distress - Respiratory Exam Respiratory Exam: Clear to Ausculation Bilateral, NORMAL BREATHING PATTERN - Cardiovascular Exam Cardiovascular Exam: REGULAR RHYTHM, +S1, +S2 - GI/Abdominal Exam GI & Abdominal Exam: Soft. absent: Distended, Firm, Guarding, Rigid, Tenderness , Rebound - Extremities Exam Additional comments: left arm incision CDI Right leg lateral and medial incisions CDI Dopplerable signals Dressing changed - Neurological Exam Neurological Exam: Alert, Awake - Skin Skin Exam: Dry, Intact, Normal Color, Warm Assessment and Plan - Assessment and Plan (Free Text) Assessment: 76M s/p popliteal-anterior tibial with reversed left basillic vein POD#10 s/p 2nd toe amp by Podiatry POD#4 Plan: - Monitor lower extremity pulses - Monitor dressings lower extremity/left arm - Encourage Ambulation - Incentive spirometer - DVT ppx Further recs discuss with Dr. Joo Novoa, PGY2
--- NOTE | 2017-06-03 18:48 | CP.PCM.PN ---
<Jim Callaway - Last Filed: 06/03/17 18:43> Subjective - Date & Time of Evaluation Date of Evaluation: 06/03/17 Time of Evaluation: 10:40 - Subjective Subjective: Podiatry Progress Note - Dr. Alcantar 76 year old male patient 4 days s/p right second digit amputation. Patient seen resting comfortably in bed, AAOx3 and NAD. Patient's dressing is c/d/i with no strikethrough noted. Patient reports ambulating in surgical shoe bilaterally and working with physical therapy. He reports he has no major restrictions while ambuating in post-op shoes. He reprts some pain in the right lower leg at the site of the vascular procedure, whiich he says is well controlled by pain medications. Patient denies N/V/F/D/C/SOB. Denies any other pedal complaints at this time. Objective - Vital Signs/Intake and Output Vital Signs (last 24 hours): Temp Pulse Resp BP Pulse Ox 98.6 F 76 20 142/57 L 95 06/03/17 16:41 06/03/17 18:00 06/03/17 16:41 06/03/17 16:41 06/03/17 06:00 Intake and Output: 06/03/17 06/03/17 06:59 18:59 Intake Total 580 Output Total 600 Balance -20 - Medications Medications: Current Medications Acetaminophen (Tylenol 325mg Tab) 650 mg PO Q4 PRN PRN Reason: Fever >100.4 F Aspirin (Aspirin Chewable) 81 mg PO DAILY [facility] Last Admin: 06/03/17 10:04 Dose: 81 mg Atorvastatin Calcium (Lipitor) 40 mg PO DAILY [facility] Last Admin: 06/03/17 10:05 Dose: Not Given Clopidogrel Bisulfate (Plavix) 75 mg PO 0600 [facility] Last Admin: 06/03/17 05:12 Dose: 75 mg Heparin Sodium (Porcine) (Heparin) 5,000 units SC Q12 [facility] PRN Reason: Protocol Last Admin: 06/03/17 10:03 Dose: Not Given Hydrochlorothiazide (Microzide) 12.5 mg PO DAILY [facility] Last Admin: 06/03/17 10:02 Dose: 12.5 mg Lisinopril (Zestril) 10 mg PO DAILY [facility] Last Admin: 06/03/17 10:03 Dose: 10 mg Mupirocin (Bactroban Ointment) 1 gm TOP BID [facility] Last Admin: 06/03/17 17:42 Dose: Not Given Ondansetron HCl (Zofran Inj) 4 mg IVP ONCE PRN PRN Reason: Nausea/Vomiting Ondansetron HCl (Zofran Inj) 4 mg IVP ONCE PRN PRN Reason: Nausea/Vomiting Oxycodone/Acetaminophen (Percocet 5/325 Mg Tab) 2 tab PO Q4H PRN PRN Reason: Pain, moderate (4-7) Stop: 06/04/17 10:12 Pantoprazole Sodium (Protonix Ec Tab) 40 mg PO 0600 [facility] Last Admin: 06/03/17 05:13 Dose: 40 mg Zolpidem Tartrate (Ambien) 5 mg PO HS PRN; Protocol PRN Reason: Sleep - Labs Labs: 06/02/17 05:00 06/02/17 07:28 PT 10.3 Seconds (9.9-11.8) 05/23/17 12:23 INR 0.95 (0.93-1.08) 05/23/17 12:23 APTT 24.7 Seconds (23.7-30.8) 05/23/17 12:23 - Constitutional Appears: Well, Non-toxic, No Acute Distress - Extremities Exam Additional comments: Dressing to right foot appears clean/dry/intact with no strikethrough noted. LEFT LE focused exam: VASC: DP and PT pulses faintly palpable. Temperature . No pedal edema noted. CFT wnl b/l. NEURO: Gross sensation diminished bilaterally. DERM: Left distal 2nd digit ulceration measuring approximately .5cm x .5 cm, no maceration noted, no active drainage, no odor, no erythema, no cellulitis noted, no tunneling, no undermining noted. Amputation site is warm to touch, absent vascular compromise not cyanosis. ORTHO: Previous amputation sites b/l. Assessment and Plan - Assessment and Plan (Free Text) Assessment: 76 y.o male with 2 days s/p right 2nd digit amputation 2/2 OM and s/p right popliteal anterior tibial bypass 2/2 severe PVD and critical limb ischemia to RLE Plan: Patient seen and evaluated at bedside with attending, Dr. Alcantar, present Chart, vitals, labs reviewed = afebrile, absent leukocytosis Cleansed surgical site with saline. Redressed with betadine, adaptic, and DSD> Left 2nd digit ulceration cleansed with saline and dressed with mupricin, 4x4, dsd, and kerlix Patient is to WBAT to the heels in surgical shoe at all times when ambulating Continue to work with PT Recommend patient remain in hospital until tomorrow, upon discharge, patient can follow up in [facility] with Dr. Alcantar. . Podiatry will continue to follow patient while in house <Chauncey Alcantar - Last Filed: 06/04/17 09:34> Objective - Vital Signs/Intake and Output Vital Signs (last 24 hours): Temp Pulse Resp BP Pulse Ox 97.8 F 70 21 137/73 100 06/04/17 06:00 06/04/17 06:00 06/04/17 06:00 06/04/17 06:00 06/04/17 06:00 Intake and Output: 06/04/17 06/04/17 06:59 18:59 Intake Total 360 Output Total 1001 Balance -641 - Medications Medications: Current Medications Acetaminophen (Tylenol 325mg Tab) 650 mg PO Q4 PRN PRN Reason: Fever >100.4 F Aspirin (Aspirin Chewable) 81 mg PO DAILY [facility] Last Admin: 06/03/17 10:04 Dose: 81 mg Atorvastatin Calcium (Lipitor) 40 mg PO DAILY [facility] Last Admin: 06/03/17 10:05 Dose: Not Given Clopidogrel Bisulfate (Plavix) 75 mg PO 0600 [facility] Last Admin: 06/04/17 06:58 Dose: 75 mg Heparin Sodium (Porcine) (Heparin) 5,000 units SC Q12 [facility] PRN Reason: Protocol Last Admin: 06/03/17 22:09 Dose: Not Given Hydrochlorothiazide (Microzide) 12.5 mg PO DAILY [facility] Last Admin: 06/03/17 10:02 Dose: 12.5 mg Lisinopril (Zestril) 10 mg PO DAILY [facility] Last Admin: 06/03/17 10:03 Dose: 10 mg Mupirocin (Bactroban Ointment) 1 gm TOP BID [facility] Last Admin: 06/03/17 17:42 Dose: Not Given Ondansetron HCl (Zofran Inj) 4 mg IVP ONCE PRN PRN Reason: Nausea/Vomiting Ondansetron HCl (Zofran Inj) 4 mg IVP ONCE PRN PRN Reason: Nausea/Vomiting Oxycodone/Acetaminophen (Percocet 5/325 Mg Tab) 2 tab PO Q4H PRN PRN Reason: Pain, moderate (4-7) Stop: 06/04/17 10:12 Pantoprazole Sodium (Protonix Ec Tab) 40 mg PO 0600 [facility] Last Admin: 06/04/17 06:58 Dose: Not Given Zolpidem Tartrate (Ambien) 5 mg PO HS PRN; Protocol PRN Reason: Sleep - Labs Labs: 06/02/17 05:00 06/02/17 07:28 PT 10.3 Seconds (9.9-11.8) 05/23/17 12:23 INR 0.95 (0.93-1.08) 05/23/17 12:23 APTT 24.7 Seconds (23.7-30.8) 05/23/17 12:23 Attending/Attestation - Attestation I have personally seen and examined this patient.: Yes I have fully participated in the care of the patient.: Yes I have reviewed all pertinent clinical information, including history, physical exam and plan: Yes
[2017-06-04] MEDS: Pantoprazole 40 mg EC Tab PO SCH (06:58)
[2017-06-04 07:42] VITALS: BP 137/73; RESP 21; TEMP 97.8; O2SAT 100
--- NOTE | 2017-06-04 09:14 | CP.PCM.PN ---
Subjective - Date & Time of Evaluation Date of Evaluation: 06/04/17 Time of Evaluation: 07:20 - Subjective Subjective: General Surgery Note For Dr. Ge Patient seen and examined at bedside. No acute events overnight. Patient states he is being discharged today by primary team. He continues to work with physical therapy. Patient has no complaints today. He states that he has outpatient follow up with Dr. Ge on 06/06. Objective - Vital Signs/Intake and Output Vital Signs (last 24 hours): Temp Pulse Resp BP Pulse Ox 97.8 F 70 21 137/73 100 06/04/17 06:00 06/04/17 06:00 06/04/17 06:00 06/04/17 06:00 06/04/17 06:00 Intake and Output: 06/04/17 06/04/17 06:59 18:59 Intake Total 360 Output Total 1001 Balance -641 - Medications Medications: Current Medications Acetaminophen (Tylenol 325mg Tab) 650 mg PO Q4 PRN PRN Reason: Fever >100.4 F Aspirin (Aspirin Chewable) 81 mg PO DAILY [facility] Last Admin: 06/03/17 10:04 Dose: 81 mg Atorvastatin Calcium (Lipitor) 40 mg PO DAILY [facility] Last Admin: 06/03/17 10:05 Dose: Not Given Clopidogrel Bisulfate (Plavix) 75 mg PO 0600 [facility] Last Admin: 06/04/17 06:58 Dose: 75 mg Heparin Sodium (Porcine) (Heparin) 5,000 units SC Q12 [facility] PRN Reason: Protocol Last Admin: 06/03/17 22:09 Dose: Not Given Hydrochlorothiazide (Microzide) 12.5 mg PO DAILY [facility] Last Admin: 06/03/17 10:02 Dose: 12.5 mg Lisinopril (Zestril) 10 mg PO DAILY [facility] Last Admin: 06/03/17 10:03 Dose: 10 mg Mupirocin (Bactroban Ointment) 1 gm TOP BID [facility] Last Admin: 06/03/17 17:42 Dose: Not Given Ondansetron HCl (Zofran Inj) 4 mg IVP ONCE PRN PRN Reason: Nausea/Vomiting Ondansetron HCl (Zofran Inj) 4 mg IVP ONCE PRN PRN Reason: Nausea/Vomiting Oxycodone/Acetaminophen (Percocet 5/325 Mg Tab) 2 tab PO Q4H PRN PRN Reason: Pain, moderate (4-7) Stop: 06/04/17 10:12 Pantoprazole Sodium (Protonix Ec Tab) 40 mg PO 0600 [facility] Last Admin: 06/04/17 06:58 Dose: Not Given Zolpidem Tartrate (Ambien) 5 mg PO HS PRN; Protocol PRN Reason: Sleep - Labs Labs: 06/02/17 05:00 06/02/17 07:28 PT 10.3 Seconds (9.9-11.8) 05/23/17 12:23 INR 0.95 (0.93-1.08) 05/23/17 12:23 APTT 24.7 Seconds (23.7-30.8) 05/23/17 12:23 - Constitutional Appears: Non-toxic, No Acute Distress - Head Exam Head Exam: ATRAUMATIC, NORMOCEPHALIC - Eye Exam Eye Exam: Normal appearance - ENT Exam ENT Exam: Mucous Membranes Moist - Respiratory Exam Respiratory Exam: NORMAL BREATHING PATTERN - Cardiovascular Exam Cardiovascular Exam: REGULAR RHYTHM - GI/Abdominal Exam GI & Abdominal Exam: Soft. absent: Tenderness - Extremities Exam Extremities Exam: absent: Calf Tenderness, Tenderness Additional comments: LUE incision clean, dry and intact RLE lateral and medial incisions are clean, dry and intact Dopplerable pulses present Dressing changed today - Neurological Exam Neurological Exam: Alert, Awake, Oriented x3 - Psychiatric Exam Psychiatric exam: Normal Affect, Normal Mood - Skin Skin Exam: Dry, Intact, Normal Color, Warm Assessment and Plan - Assessment and Plan (Free Text) Plan: 76 M s/p popliteal-anterior tibial with reversed left basillic vein POD#11 s/p 2nd toe amp by Podiatry POD#5 - Continue Physical therapy - Encourage Ambulation - Incentive spirometer - DVT ppx - Clear for DC from surgical standpoint - Follow up with Dr. Ge as outpatient - [facility] PGY1
--- NOTE | 2017-06-04 09:58 | CP.PCM.PN ---
<Ramiro Acosta - Last Filed: 06/04/17 09:53> Subjective - Date & Time of Evaluation Date of Evaluation: 06/04/17 Time of Evaluation: 09:53 - Subjective Subjective: Podiatry Progress Note - Dr. Alcantar 76 year old male patient 5 days s/p right second digit amputation. Patient seen resting comfortably in bed, AAOx3 and NAD. Patient's dressing is c/d/i with no strikethrough noted. Patient reports ambulating in surgical shoe bilaterally and working with physical therapy. He reports doing well with physical therapy. He reports some pain in the right lower leg at the site of the vascular procedure, which has improved. Patient denies N/V/F/D/C/SOB. Denies any other pedal complaints at this time. Objective - Vital Signs/Intake and Output Vital Signs (last 24 hours): Temp Pulse Resp BP Pulse Ox 97.8 F 70 21 137/73 100 06/04/17 06:00 06/04/17 06:00 06/04/17 06:00 06/04/17 06:00 06/04/17 06:00 Intake and Output: 06/04/17 06/04/17 06:59 18:59 Intake Total 360 Output Total 1001 Balance -641 - Medications Medications: Current Medications Acetaminophen (Tylenol 325mg Tab) 650 mg PO Q4 PRN PRN Reason: Fever >100.4 F Aspirin (Aspirin Chewable) 81 mg PO DAILY [facility] Last Admin: 06/03/17 10:04 Dose: 81 mg Atorvastatin Calcium (Lipitor) 40 mg PO DAILY [facility] Last Admin: 06/03/17 10:05 Dose: Not Given Clopidogrel Bisulfate (Plavix) 75 mg PO 0600 [facility] Last Admin: 06/04/17 06:58 Dose: 75 mg Heparin Sodium (Porcine) (Heparin) 5,000 units SC Q12 [facility] PRN Reason: Protocol Last Admin: 06/03/17 22:09 Dose: Not Given Hydrochlorothiazide (Microzide) 12.5 mg PO DAILY [facility] Last Admin: 06/03/17 10:02 Dose: 12.5 mg Lisinopril (Zestril) 10 mg PO DAILY [facility] Last Admin: 06/03/17 10:03 Dose: 10 mg Mupirocin (Bactroban Ointment) 1 gm TOP BID [facility] Last Admin: 10/08/17 17:42 Dose: Not Given Ondansetron HCl (Zofran Inj) 4 mg IVP ONCE PRN PRN Reason: Nausea/Vomiting Ondansetron HCl (Zofran Inj) 4 mg IVP ONCE PRN PRN Reason: Nausea/Vomiting Oxycodone/Acetaminophen (Percocet 5/325 Mg Tab) 2 tab PO Q4H PRN PRN Reason: Pain, moderate (4-7) Stop: 06/04/17 10:12 Pantoprazole Sodium (Protonix Ec Tab) 40 mg PO 0600 [facility] Last Admin: 06/04/17 06:58 Dose: Not Given Zolpidem Tartrate (Ambien) 5 mg PO HS PRN; Protocol PRN Reason: Sleep - Labs Labs: 06/02/17 05:00 06/02/17 07:28 PT 10.3 Seconds (9.9-11.8) 05/23/17 12:23 INR 0.95 (0.93-1.08) 05/23/17 12:23 APTT 24.7 Seconds (23.7-30.8) 05/23/17 12:23 - Constitutional Appears: Well, Non-toxic, No Acute Distress - Extremities Exam Additional comments: Dressing to right foot appears clean/dry/intact with no strikethrough noted. LEFT LE focused exam: VASC: DP and PT pulses faintly palpable. Temperature WNL. No pedal edema noted. CFT wnl b/l. NEURO: Gross sensation diminished bilaterally. DERM: Left distal 2nd digit ulceration measuring approximately .4cm x .4 cm, no maceration noted, no active drainage, no odor, no erythema, no cellulitis noted, no tunneling, no undermining noted. Amputation site is warm to touch, absent vascular compromise not cyanosis. No clinical signs of infection; the surgical site with skin coapted and no dehiscence, sutures intact and chrissy intact with no backing out. ORTHO: Previous amputation sites b/l. - Neurological Exam Neurological Exam: Alert, Awake, Oriented x3 - Psychiatric Exam Psychiatric exam: Normal Affect, Normal Mood Assessment and Plan - Assessment and Plan (Free Text) Assessment: 76 y.o male with 5 days s/p right 2nd digit amputation 2/2 OM and s/p right popliteal anterior tibial bypass 2/2 severe PVD and critical limb ischemia to RLE Plan: Patient seen and evaluated at bedside with attending, Dr. Alcantar, present Chart, vitals, labs reviewed = afebrile, absent leukocytosis Cleansed surgical site with saline. Redressed with betadine, adaptic, and DSD Left 2nd digit ulceration cleansed with saline and dressed with mupricin, 4x4, dsd, and kerlix Patient is to WBAT to the heels in surgical shoe at all times when ambulating Patient is stable from podiatry standpoint to be discharged. Upon discharged, patient will followup in [facility] [place] with Dr. Alcantar. . <Chauncey Alcantar - Last Filed: 06/05/17 09:18> Objective - Vital Signs/Intake and Output Vital Signs (last 24 hours): Temp Pulse Resp BP Pulse Ox 97.8 F 76 21 137/73 100 06/04/17 06:00 06/04/17 10:00 06/04/17 06:00 06/04/17 06:00 06/04/17 06:00 - Labs Labs: 06/02/17 05:00 06/02/17 07:28 PT 10.3 Seconds (9.9-11.8) 05/23/17 12:23 INR 0.95 (0.93-1.08) 05/23/17 12:23 APTT 24.7 Seconds (23.7-30.8) 05/23/17 12:23 Attending/Attestation - Attestation I have personally seen and examined this patient.: Yes I have fully participated in the care of the patient.: Yes I have reviewed all pertinent clinical information, including history, physical exam and plan: Yes
--- NOTE | 2017-06-04 10:38 | PN ---
SUBJECTIVE: The patient was seen and examined at bedside on the telemetry claudio. No acute events overnight. He remains afebrile and hemodynamically stable and is doing well status post right lower extremity vascular surgery and right podiatric surgery. This morning, he states he feels well and is anticipating discharge to home. PHYSICAL EXAMINATION VITAL SIGNS: Temperature is 97.8, pulse is 60, blood pressure is 137/73, respiratory rate is 20, and oxygen saturation is 100% on room air. GENERAL: No apparent distress. HEENT: PERRL. EOMI. No scleral icterus. No conjunctival pallor. NECK: No JVD. No bruits. LUNGS: Clear to auscultation. CARDIOVASCULAR: Regular rate and rhythm. Normal S1 and S2. ABDOMEN: Normoactive bowel sounds, soft, nontender, and nondistended. EXTREMITIES: No edema. Right lower extremity with surgical dressing in place. Left upper extremity with surgical dressing in place. NEUROLOGIC: Awake, alert and oriented x3. No focal motor deficits. LABORATORY DATA: No new labs. 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 PLAN: 1. Severe PVD s/p RLE popliteal/anterior tibial bypass with reserved left arm basilic vein POD #11. Continue with postoperative care per Dr. Ge and the vascular surgery team. 2. Chronic nonhealing right foot ulceration status post amputation of the right foot second digit. Continue with postoperative care as per Dr. Alcantar, and the Podiatric Team. 3. Triple vessel CAD s/p PCI with ANAMIKA placement. Continue Lipitor 40 mg p.o. daily, Plavix 75 mg p.o. daily and aspirin 81 mg p.o. daily. 4. Hypertension, blood pressure controlled. Continue Lisinopril 10 mg p.o. daily, hydrochlorothiazide 12.5 mg p.o. daily. 5. Prophylaxis. GI prophylaxis not indicated as the patient is eating. Continue with heparin for DVT prophylaxis. 6. Disposition. The patient for discharge to home today. CODE STATUS: Full code. Amari Gonzalez MD [facility]
[2017-06-04 15:17] VITALS: PULSE 76
== END 2017-06-04 12:40 | disposition home or self-care (01) | DRG 617 ==
LOC: ED 11:14 → ERH 13:30 → 2RSO 16:11 → 5RNO 05-24 01:11 → CCU 05-24 22:02 → 2RNO 05-26 15:55
PROVIDERS: ADMIT Student in an Organized Health Care Education/Training Program; ATTEND Student in an Organized Health Care Education/Training Program
PROC: B41D1ZZ Fluoroscopy of Aorta and Bilateral Lower Extremity Arteries using Low Osmolar Contrast (ICD-10-PCS; 2017-05-23)
PROC: 05BC0ZZ Excision of Left Basilic Vein, Open Approach (ICD-10-PCS; 2017-05-24)
PROC: 05BF0ZZ Excision of Left Cephalic Vein, Open Approach (ICD-10-PCS; 2017-05-24)
PROC: B41J1ZZ Fluoroscopy of Other Lower Arteries using Low Osmolar Contrast (ICD-10-PCS; 2017-05-24)
PROC: 041M09Q Bypass Right Popliteal Artery to Lower Extremity Artery with Autologous Venous Tissue, Open Approach (ICD-10-PCS; principal; 2017-05-24 10:30)
PROC: 0Y6R0Z0 Detachment at Right 2nd Toe, Complete, Open Approach (ICD-10-PCS; 2017-05-30)
DX: E11.69 Type 2 diabetes mellitus with other specified complication (principal); M86.171 Other acute osteomyelitis, right ankle and foot; N17.9 Acute kidney failure, unspecified; L97.519 Non-pressure chronic ulcer of other part of right foot with unspecified severity; E87.5 Hyperkalemia; E11.621 Type 2 diabetes mellitus with foot ulcer; I10 Essential (primary) hypertension; I25.10 Atherosclerotic heart disease of native coronary artery without angina pectoris; I73.9 Peripheral vascular disease, unspecified; I99.8 Other disorder of circulatory system; T50.8X5A Adverse effect of diagnostic agents, initial encounter; Z79.02 Long term (current) use of antithrombotics/antiplatelets; Z86.19 Personal history of other infectious and parasitic diseases; Z87.891 Personal history of nicotine dependence; Z89.429 Acquired absence of other toe(s), unspecified side; Z95.5 Presence of coronary angioplasty implant and graft; Z79.82 Long term (current) use of aspirin; R40.2412 Glasgow coma scale score 13-15, at arrival to emergency department; Z95.1 Presence of aortocoronary bypass graft; R00.0 Tachycardia, unspecified; D72.829 Elevated white blood cell count, unspecified

== ENCOUNTER 2017-08-16 12:42 | Emergency (ER) | payer MEDICARE ==
[2017-08-16 12:42] VITALS: BMI 26.4
[2017-08-16 13:00] VITALS: BP 154/78; PULSE 60; RESP 19; TEMP 97.6; O2SAT 100
--- NOTE | 2017-08-16 13:14 | ED PDOC ---
Arrival/HPI - General Chief Complaint: Chest Pain Time Seen by Provider: 08/16/17 12:44 Historian: Patient - History of Present Illness Narrative History of Present Illness (Text): 08/16/17 13:12 A 77 year old male, whose past medical history includes CAD s/p 5 stents, was sent to the emergency department from pre-admission testing for "abnormal" EKG. Reports he feels fine. Denies any shortness of breath or chest pain. Patient denies any complaints at this time. PMD: Dr. Gonzalez Symptom Onset: Sudden Symptom Course: Unchanged Activities at Onset: Rest Associated Symptoms (Text): none Past Medical History - Provider Review Nursing Documentation Reviewed: Yes - Infectious Disease Hx of Infectious Diseases: None - Tetanus Immunization Tetanus Immunization: Unknown - Cardiac Hx Hypertension: Yes Hx Peripheral Vascular Disease: Yes - Pulmonary Hx Respiratory Disorders: No (SMOKED CIGARETTES 3 PPD QUIT) - Neurological Hx Paralysis: No - HEENT Hx HEENT Disorder: No - Renal Hx Renal Disorder: No - Endocrine/Metabolic Hx Diabetes Mellitus Type 1: No (pt denies) Hx Diabetes Mellitus Type 2: No (pt denies) - Hematological/Oncological Hx Blood Transfusions: No Hx Blood Transfusion Reaction: No - Integumentary Hx Dermatological Disorder: Yes Other/Comment: Pt has open wound on R second toe, being treated my MD Nunez ( 04/2017) , toenail fell off left ft 2nd toe, 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 - Musculoskeletal/Rheumatological Hx Musculoskeletal Disorders: Yes - Gastrointestinal Hx Gastrointestinal Disorders: No - Genitourinary/Gynecological Hx Genitourinary Disorders: No - Psychiatric Hx Psychophysiologic Disorder: No Hx Substance Use: No - Surgical History Other/Comment: Amputee tip right 4th toe, Left great toe. ABD Aortogram - Anesthesia Hx Anesthesia: Yes Hx Anesthesia Reactions: Yes Hx Malignant Hyperthermia: No - Suicidal Assessment Feels Threatened In Home Enviroment: No Family/Social History - Physician Review Nursing Documentation Reviewed: Yes Family/Social History: No Known Family HX Smoking Status: Former Smoker Hx Alcohol Use: No Hx Substance Use: No Hx Substance Use Treatment: No Allergies/Home Meds Allergies/Adverse Reactions: Allergies No Known Allergies Allergy (Verified 08/16/17 12:50) Home Medications: Home Meds Medication Instructions Recorded Confirmed Lisinopril/Hydrochlorothiazide 1 tab PO DAILY 01/19/14 08/16/17 [Lisinopril-Hctz 10-12.5 mg Tab] Clopidogrel [Plavix] 75 mg PO DAILY 02/06/17 08/16/17 Diclofenac Sodium [Voltaren] 75 mg PO DAILY 08/16/17 08/16/17 Doxycycline Hyclate [Doryx] 100 mg PO BID 08/16/17 08/16/17 Review of Systems - Physician Review All systems were reviewed & negative as marked: Yes - Review of Systems Constitutional: absent: Fevers Respiratory: absent: SOB Cardiovascular: absent: Chest Pain Physical Exam Vital Signs Reviewed: Yes Vital Signs Temp Pulse Resp BP Pulse Ox 08/16/17 12:58 97.6 F 60 19 154/78 H 100 Temperature: Afebrile Blood Pressure: Hypertensive Pulse: Regular Respiratory Rate: Normal Appearance: Positive for: Well-Appearing, Non-Toxic, Comfortable Pain Distress: None Mental Status: Positive for: Alert and Oriented X 3 - Systems Exam Head: Present: Atraumatic, Normocephalic Pupils: Present: PERRL Extroacular Muscles: Present: EOMI Conjunctiva: Present: Normal Mouth: Present: Moist Mucous Membranes Neck: Present: Normal Range of Motion Respiratory/Chest: Present: Clear to Auscultation, Good Air Exchange. No: Respiratory Distress, Accessory Muscle Use Cardiovascular: Present: Regular Rate and Rhythm, Normal S1, S2. No: Murmurs Abdomen: Present: Normal Bowel Sounds. No: Tenderness, Distention, Peritoneal Signs Back: Present: Normal Inspection Upper Extremity: Present: Normal Inspection. No: Cyanosis, Edema Lower Extremity: Present: Normal Inspection. No: Edema Neurological: Present: GCS=15, CN II-XII Intact, Speech Normal Skin: Present: Warm, Dry, Normal Color. No: Rashes Psychiatric: Present: Alert, Oriented x 3, Normal Insight, Normal Concentration Medical Decision Making ED Course and Treatment: 08/16/17 13:10 Impression: A 77 year old male with "abnormal EKG", denies any complaints at this time. Plan: -- EKG -- Reassess and disposition Progress Notes: ekg from preadmission testing shows no st elevations. repeat in ekg shows no st elevation. pt staets " i feel great". no indication for further w/u in er. EKG sent- NSR @ 61 BPM, No ST/T wave changes. Repeat EKG is similar. 08/16/17 13:15 On re-evaluation, patient feels better and is in no acute distress. I have discussed the results and plan with the patient, who expresses understanding. Patient in agreement with plan to be discharged home. Patient is stable for discharge. Patient was instructed to follow up with physician or return if symptoms worsen or new concerning symptoms arise. 08/16/17 15:13 - EKG Interpretation Interpreted by ED Physician: Yes Type: 12 lead EKG - Scribe Statement The provider has reviewed the documentation as recorded by the Chazibandrew Haji Provider Scribe Attestation: All medical record entries made by the Scribe were at my direction and personally dictated by me. I have reviewed the chart and agree that the record accurately reflects my personal performance of the history, physical exam, medical decision making, and the department course for this patient. I have also personally directed, reviewed, and agree with the discharge instructions and disposition. Disposition/Present on Arrival - Present on Arrival Any Indicators Present on Arrival: No History of DVT/PE: No History of Uncontrolled Diabetes: No Urinary Catheter: No History of Decub. Ulcer: No History Surgical Site Infection Following: None - Disposition Have Diagnosis and Disposition been Completed?: Yes Diagnosis: Well adult Disposition: HOME/ ROUTINE Disposition Time: 01:00 Condition: STABLE Discharge Instructions (ExitCare): Chest Pain (ED) Additional Instructions: return to er with any worsening symptoms or concerns. Referrals: Lang Birmingham MD [Staff Provider] - Follow up with primary Forms: [employer] ([employer])
--- NOTE | 2017-08-17 09:40 | CARD ---
APPROVED REPORT EKG Measurement Heart [id number] <Conclusion> Sinus bradycardia with 1st degree AV block No change
== END 2017-08-16 12:59 | disposition home or self-care (01) ==
LOC: ED 12:42
DX: Z00.00 Encounter for general adult medical examination without abnormal findings (principal); I10 Essential (primary) hypertension; Z87.891 Personal history of nicotine dependence

== ENCOUNTER 2017-08-23 06:37 | Day surgery (SDC) | payer MEDICARE ==
[2017-08-23] MEDS ORDERED: Lidocaine 2% Inj (20ml) ONE (08:11)
--- NOTE | 2017-08-23 08:17 | CP.SDSHP ---
Same Day Surgery H & P - History Proposed Procedure: partial amputation of 2nd digit left foot Pre-Op Diagnosis: nonhealing ulceration of left 2nd digit - Allergies Allergies: Allergies No Known Allergies Allergy (Verified 08/16/17 12:50) - Physical Exam Mental Status: Alert & Oriented x3 Neuro: WNL Heart: WNL - Impression Impression: Pt was seen and examined in SDS. Pt NPO status was confirmed. All Pre-op testing and clearance was in the chart. Pt has exhausted all conservative treatment at this time and is opting for surgical intervention. Pt was explained procedure and post-operative course. All pt's questions were answered to satisfaction. No guarantees were made. Pt understands all risks, benefits and complications of procedure. Pt will follow-up with Dr. Nunez - Date & Time Date: 08/23/17 Time: 07:20 Short Stay Discharge - Short Stay Discharge Admitting Diagnosis/Reason for Visit: M86.072 Disposition: HOME/ ROUTINE Referrals: Lisa CARABALLO,Amari Joaquin MD [Primary Care Provider] - Follow-up: --Patient in good/stable condition for discharge home. Pt to resume medications per medical reconciliation. Resume regular diet. Please keep dressing clean, dry, & intact to surgical site, use plastic bag over bandage for showering, wear post op shoe at all times when ambulating, call clinic if you see signs of infection (redness, swelling, malodor), please make an appointment to see Dr. Nunez in office/clinic within 1 week for post-op check. Additional Instructions (Diet, Activity): --Patient in good/stable condition for discharge home. Pt to resume medications per medical reconciliation. Resume regular diet. Please keep dressing clean, dry, & intact to surgical site, use plastic bag over bandage for showering, wear post op shoe at all times when ambulating, call clinic if you see signs of infection (redness, swelling, malodor), please make an appointment to see Dr. Nunez in office/clinic within 1 week for post-op check. May resume Plavix Progress Note/Discharge Note with Instructions: - Patient evaluated bedside in recovery s/p surgical procedure. - After surgical procedure patient in NAD - (+) Void, (+) Appetite - Capillary refill time <3s and NVSI intact. - Patient denies complaints at this time - Post operative instructions and plan of care explained to patient at length. - Pt. acknowledges understanding. - Patient stable for DC per podiatric surgery
[2017-08-23] MEDS ORDERED: Lidocaine 1% Inj (20ml) ONE (08:19)
[2017-08-23] MEDS ORDERED: Midazolam 2 MG/2 ML VIAL ONE ×2 (08:19)
[2017-08-23] MEDS ORDERED: Propofol 10 mg/ml Inj (20 ML) ONE (08:19)
[2017-08-23] MEDS ORDERED: HYDROmorphone 0.5 mg/0.5 ml ISec IVP PRN (09:08)
--- NOTE | 2017-08-23 09:11 | PCM.SURG1 ---
Surgeon's Initial Post Op Note - Surgeon's Notes Surgeon: Rosie Nunez DPM Exhibit Electrician: Ramiro Acosta DPM PGY-1 Type of Anesthesia: IV Sedation, Local Anesthesia Administered By: Dr. Marie Costa Pre-Operative Diagnosis: nonhealing ulceration left 2nd digit Operative Findings: see dictations. materials: 3-0 vicryl, 3-0 nylon Post-Operative Diagnosis: same Operation Performed: parital amputation of 2nd left digit Specimen/Specimens Removed: bone and soft tissue Estimated Blood Loss: EBL {In ML}: 0 Blood Products Given: N/A Drains Used: No Drains Post-Op Condition: Good Date of Surgery/Procedure: 08/23/17 Time of Surgery/Procedure: 08:00
[2017-08-23] MEDS ORDERED: Oxycodone/Acetaminophen 5/325 mg Tab PO PRN ×2 (09:13)
[2017-08-23] MEDS ORDERED: Sodium Chloride 0.9% 1,000 ML IV SCH (09:15)
[2017-08-23 09:30] VITALS: O2SAT 99
--- NOTE | 2017-08-23 10:02 | RAD ---
PROCEDURE: Left Foot Radiographs. HISTORY: s/p left foot surgery COMPARISON: 10/20/2016 FINDINGS: BONES: Status post amputation distal to the 1st metatarsal-phalangeal joint renoted. There is greater cortical definition of the distal 1st metatarsal head compared the prior appearance the subchondral cystic changes here are renoted. No gross interval progressive destruction since the prior exam appreciated here. Interval amputation of the 2nd digit primarily the distal phalanx here is now noted. No periosteal reaction here appreciated The inferior calcaneal spurring an the talar dome subchondral coalescence cystic changes are renoted. A few os peroneum borders the cuboid bone JOINTS: Postop changes as above SOFT TISSUES: Postop changes OTHER FINDINGS: None. IMPRESSION: Interval amputation of the 2nd digit primarily the distal phalanx here is now noted. No periosteal reaction here appreciated Status post amputation distal to the 1st metatarsal-phalangeal joint -interval increased margination to the distal cortex here. The subcortical coalescence cystic changes here are similar. No interval periosteal reaction here noted
[2017-08-23 10:20] VITALS: PULSE 58; RESP 20; TEMP 97.8
[2017-08-23 10:41] VITALS: BP 162/78
--- NOTE | 2017-08-28 08:37 | OP ---
PROCEDURE DATE: 08/23/2017 PREOPERATIVE DIAGNOSIS: Nonhealing ulceration, left second digit. POSTOPERATIVE DIAGNOSIS: Nonhealing ulceration, left second digit. PROCEDURE: Partial amputation of second left digit. SURGEON: Rosie Nunez DPM. DIRECTOR SURGICAL: Ramiro Acosta DPM, PGY1. TYPE OF ANESTHESIA: IV sedation with local. ANESTHESIA ADMINISTERED BY: Dr. Costa. INDICATIONS: The patient is a 77-year-old male with the above diagnosis. The patient presents with nonhealing ulceration to the left second digit at the distal tip. Patient has exhausted all conservative treatments at this time, and now requires surgical intervention. The patient signed the consent after careful explanation of risks, benefits, complications, and alternatives for surgical procedure. No guarantees were given nor implied. N.p.o. status was confirmed prior to taking the patient to the OR. PREPARATION: The patient was brought into the operating room and placed on the operating room table in a supine position. A time-out was performed for identification of the correct patient and procedure. The patient received a total of 5 mL of 2% lidocaine plain in a V-Block fashion to the left second digit. The left foot was then prepped and draped in a normal sterile manner and the procedure began. No tourniquet was used during the entire procedure. DESCRIPTION OF PROCEDURE: Attention was drawn to the left second digit, where an ulceration is present at the distal tip. The ulceration measures approximately 1 cm x 1 cm x 0.2 cm with wound base mainly fibrotic. Using a #15 blade and a pickup, a circular incision was made circumferentially around the entire left second digit at the level of the DIPJ. Next, the incision was extended down through the subcutaneous layer, down to the level of bone using a #15 blade and a towel clamp. Next, using a pickup and a #15 blade, the second digit was then disarticulated from the foot at the level of the second DIPJ and passed off the operative field to be sent for pathology. The periosteum and soft tissue were carefully dissected from the proximal phalanx using a #15 blade and a pickup. The skin margins were debulked to create a suitable flap for closure. The surgical site was then copiously flushed with saline solution with a bulb syringe. Next, deep layers were reapproximated using 3-0 Vicryl. Then the skin layers were reapproximated and coapted using a 3-0 nylon using simple suture technique. The surgical incision was then dressed with Xeroform, 4 x 4 gauze and Gerardo. POSTOPERATIVE CONDITION: The patient tolerated the local anesthesia and the procedure well and was escorted to the recovery room with neurovascular status intact to the left foot. Upon discharge, the patient needs to follow up with Dr. Nunez and Wound Care within a week. Ramiro Acosta DPM Rosie Nuenz DPM [email or web address]
== END 2017-08-23 11:15 | disposition home or self-care (01) ==
LOC: SDS 06:37
PROVIDERS: ATTEND Podiatrist
DX: M86.172 Other acute osteomyelitis, left ankle and foot (principal); L97.529 Non-pressure chronic ulcer of other part of left foot with unspecified severity; B95.62 Methicillin resistant Staphylococcus aureus infection as the cause of diseases classified elsewhere
CPT/HCPCS: 14040; 28825; 73630; 87070; 87181; 88305; 88311; J1170; J2250; J2405; J2704; J2765; J3010; J7040; J7120

== ENCOUNTER 2017-09-03 11:05 | Inpatient (IN) | payer MEDICARE ==
[2017-09-03 11:05] VITALS: BMI 26.4
--- NOTE | 2017-09-03 11:49 | ED PDOC ---
Arrival/HPI - General Chief Complaint: Lower Extremity Problem/Injury Time Seen by Provider: 09/03/17 11:23 Historian: Patient - History of Present Illness Narrative History of Present Illness (Text): 09/03/17 11:46 77yo male with PMHx of hypertension, PAD s/p toe amputation 2weeks ago referred to ED by Dr. Nunez for infection s/p the surgery. Patient report few days history of purulent discharge from the wound. Saw Dr. Nunez and C & S was positive for MRSA. He otherwise denies fever, chills, nausea, vomiting, diarrhea , any other complaint. Past Medical History - Provider Review Nursing Documentation Reviewed: Yes - Infectious Disease Hx of Infectious Diseases: MRSA - Tetanus Immunization Tetanus Immunization: Unknown - Cardiac Hx Pacemaker: No Hx Peripheral Vascular Disease: Yes Other/Comment: cardiac cath x 5 stents in heart. 3 stents on leg - Pulmonary Hx Respiratory Disorders: No (SMOKED CIGARETTES 3 PPD QUIT) - Neurological Hx Paralysis: No - HEENT Hx HEENT Disorder: No - Renal Hx Renal Disorder: No - Endocrine/Metabolic Hx Diabetes Mellitus Type 1: No (pt denies) Hx Diabetes Mellitus Type 2: No (pt denies) - Hematological/Oncological Hx Blood Transfusions: No Hx Blood Transfusion Reaction: No - Integumentary Hx Dermatological Disorder: Yes Other/Comment: Pt has open wound on R second toe, being treated my MD Nunez ( 04/2017) , toenail fell off left ft 2nd toe, 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 - Musculoskeletal/Rheumatological Hx Musculoskeletal Disorders: Yes - Gastrointestinal Hx Gastrointestinal Disorders: No - Genitourinary/Gynecological Hx Genitourinary Disorders: No - Psychiatric Hx Emotional Abuse: No Hx Physical Abuse: No Hx Substance Use: No - Surgical History Other/Comment: Vein was taken out of L arm to R Leg - Anesthesia Hx Anesthesia: Yes Hx Anesthesia Reactions: Yes Hx Malignant Hyperthermia: No - Suicidal Assessment Feels Threatened In Home Enviroment: No Family/Social History - Physician Review Nursing Documentation Reviewed: Yes Family/Social History: Unknown Family HX Smoking Status: Former Smoker Hx Alcohol Use: No Hx Substance Use: No Hx Substance Use Treatment: No Allergies/Home Meds Allergies/Adverse Reactions: Allergies No Known Allergies Allergy (Verified 08/16/17 12:50) Home Medications: Home Meds Medication Instructions Recorded Confirmed Lisinopril/Hydrochlorothiazide 1 tab PO DAILY 05/26/14 01/08/18 [Lisinopril-Hctz 10-12.5 mg Tab] Clopidogrel [Plavix] 75 mg PO DAILY 02/06/17 09/03/17 Diclofenac Sodium [Voltaren] 75 mg PO DAILY 08/16/17 09/03/17 Review of Systems - Physician Review All systems were reviewed & negative as marked: Yes - Review of Systems Constitutional: Normal Eyes: Normal ENT: Normal Respiratory: Normal Cardiovascular: Normal Gastrointestinal: Normal Genitourinary Male: Normal Musculoskeletal: Other (2nd toe infection) Skin: Normal Neurological: Normal Endocrine: Normal Hemo/Lymphatic: Normal Psychiatric: Normal Physical Exam Vital Signs Reviewed: Yes Vital Signs Temp Pulse Resp BP Pulse Ox 09/03/17 19:21 97.9 F 59 L 16 143/70 100 09/03/17 16:08 57 L 18 160/91 H 95 09/03/17 14:01 67 18 169/92 H 98 09/03/17 11:16 97.9 F 69 18 148/82 97 Temperature: Afebrile Blood Pressure: Normal Pulse: Regular Respiratory Rate: Normal Appearance: Positive for: Well-Appearing, Non-Toxic, Comfortable Pain Distress: None Mental Status: Positive for: Alert and Oriented X 3 - Systems Exam Head: Present: Atraumatic, Normocephalic Pupils: Present: PERRL Extroacular Muscles: Present: EOMI Conjunctiva: Present: Normal Mouth: Present: Moist Mucous Membranes Neck: Present: Normal Range of Motion Respiratory/Chest: Present: Clear to Auscultation, Good Air Exchange. No: Respiratory Distress, Accessory Muscle Use Cardiovascular: Present: Regular Rate and Rhythm, Normal S1, S2. No: Murmurs Abdomen: Present: Normal Bowel Sounds. No: Tenderness, Distention, Peritoneal Signs Back: Present: Normal Inspection Upper Extremity: Present: Normal Inspection. No: Cyanosis, Edema Lower Extremity: Present: Other (Dressing noted to left foot.). No: Edema Neurological: Present: GCS=15, CN II-XII Intact, Speech Normal Skin: Present: Warm, Dry, Normal Color. No: Rashes Psychiatric: Present: Alert, Oriented x 3, Normal Insight, Normal Concentration Medical Decision Making ED Course and Treatment: 09/03/17 12:02 PT is s/p toe amputation with infection s/p, Referred to ED for admission. He was hemodynamically stable in ED. Place on Isolation protocol. Case was DW Dr. Gonzalez and pt was admitted Labs ordered and pending. blood culture pending EKG sinus alec with 1st degree AV block @57bpm - Lab Interpretations Lab Results: 09/03/17 11:35 09/03/17 11:35 Lab Results 09/03/17 11:35: PT 11.4, INR 0.99, APTT 30.6 09/03/17 11:35: Sodium 141, Potassium 4.8, Chloride 105, Carbon Dioxide 24, Anion Gap 17, BUN 40 H, Creatinine 1.7 H, Est GFR ( Amer) 47, Est GFR ( Non-Af Amer) 39, Random Glucose 126 H, Calcium 9.5, Total Bilirubin 0.8, AST 27 , ALT 31, Alkaline Phosphatase 94, Total Protein 7.7, Albumin 4.1, Globulin 3.7 , Albumin/Globulin Ratio 1.1 09/03/17 11:35: WBC 13.2 H D, RBC 4.96, Hgb 15.7, Hct 46.0, MCV 92.7, MCH 31.7, MCHC 34.1, RDW 12.9, Plt Count 209, MPV 9.9, Gran % 79.5 H, Lymph % (Auto) 9.4 L , [place] % (Auto) 10.1 H, Eos % (Auto) 0.8 L, Baso % (Auto) 0.2, Gran # 10.53 H, Lymph # 1.2, [place] # 1.3 H, Eos # 0.1, Baso # 0.03 09/03/17 11:34: ESR 4 - RAD Interpretation Radiology Orders: 09/03/17 12:02 CHEST PORTABLE [RAD] Stat - Medication Orders Current Medication Orders: Aspirin (Aspirin Chewable) 81 mg PO DAILY AKIKO Atorvastatin Calcium (Lipitor) 40 mg PO DAILY AKIKO Clopidogrel Bisulfate (Plavix) 75 mg PO DAILY AKIKO Hydrochlorothiazide (Microzide) 12.5 mg PO DAILY AKIKO Ceftaroline Fosamil 400 mg/ (Sodium Chloride) 100 mls @ 100 mls/hr IVPB Q12 AKIKO PRN Reason: Protocol Stop: 09/10/17 14:01 Last Admin: 09/03/17 15:20 Dose: 100 mls/hr eMAR Start Stop Document 09/03/17 15:20 HI (Rec: 09/03/17 15:43 HI [id number]) Intravenous Solution Start Date 09/03/17 Start Time 15:20 Lisinopril (Zestril) 10 mg PO DAILY AKIKO Disposition/Present on Arrival - Present on Arrival Any Indicators Present on Arrival: No History of DVT/PE: No History of Uncontrolled Diabetes: No Urinary Catheter: No History of Decub. Ulcer: No History Surgical Site Infection Following: None - Disposition Have Diagnosis and Disposition been Completed?: Yes Diagnosis: Cellulitis of foot, Toe infection Disposition: HOSPITALIZED Disposition Time: 12:00 Patient Plan: Admission Patient Problems: Current Active Problems Problem Status Onset Cellulitis of foot Acute Toe infection Acute Condition: FAIR
[2017-09-03 12:00] LABS: BASO # 0.03 K/mm3 (0.0-2.0); BASO % 0.2 % (0.0-3.0); EOS # 0.1 (0.0-0.7); EOS % 0.8 % (1.5-5.0); GRAN # 10.53 (1.4-6.5); GRAN % 79.5 % (50.0-68.0); HEMOGLOBIN 15.7 g/dL (14.0-18.0); LYMPH # 1.2 (1.2-3.4); LYMPH % 9.4 % (22.0-35.0); MEAN CELL VOLUME 92.7 fl (80.0-105.0); MEAN CORPUSCULAR HEMOGLOBIN 31.7 pg (25.0-35.0); MEAN CORPUSCULAR HGB CONC 34.1 g/dl (31.0-37.0); MEAN PLATELET VOLUME 9.9 fl (7.0-11.0); MONO # 1.3 (0.1-0.6); MONO % 10.1 % (1.0-6.0); RBC 4.96 10^6/uL (3.5-6.1); RED CELL DISTRIBUTION WIDTH 12.9 % (11.5-14.5); WHITE BLOOD COUNT 13.2 10^3/ul (4.5-11.0)
[2017-09-03 12:12] LABS: INR 0.99 (0.93-1.08); PARTIAL THROMBOPLASTIN TIME 30.6 Seconds (25.1-36.5); PROTHROMBIN TIME 11.4 SECONDS (9.4-12.5)
[2017-09-03 12:13] LABS: ALB/GLOB RATIO 1.1 (1.1-1.8); ALBUMIN 4.1 g/dL (3.0-4.8); CALCIUM 9.5 mg/dL (8.4-10.5)
--- NOTE | 2017-09-03 13:16 | RAD ---
HISTORY: admission COMPARISON: 05/24/2017 FINDINGS: LUNGS: No active pulmonary disease. PLEURA: No significant pleural effusion identified, no pneumothorax apparent. CARDIOVASCULAR: Normal. OSSEOUS STRUCTURES: No significant abnormalities. VISUALIZED UPPER ABDOMEN: Normal. OTHER FINDINGS: None. IMPRESSION: No active disease.
--- NOTE | 2017-09-03 13:59 | CP.PCM.CON ---
History of Present Illness - History of Present Illness History of Present Illness: 77 year old male with PMH of left foot cellulitis with methicillin-sensitive Staph aureus, hypertension, severe peripheral vascular disease, coronary artery disease, chronic renal failure just had amputation of his 2nd left toe for a non -healing ulcer, which grew MRSA. He was doing well and followed regularly at the wound center when he started having purulent discharge from the said surgical site and was seen in the wound center and was sent to the ED for admission. He denies soaking his feet in water, not walking barefoot, no animal contacts, no travel outside of [place] in the past 3 months. He also denies fever or chills, no nausea or vomiting, no headache or dizziness, no cough or colds, no sore throat, no chest pain, no SOB, no abdominal pain, no diarrhea, no dysuria. Infectious Diseases consult is requested to further evaluate and manage. Review of Systems - Review of Systems All systems: reviewed and no additional remarkable complaints except (as per HPI ) Past Patient History - Infectious Disease Hx of Infectious Diseases: MRSA - Tetanus Immunizations Tetanus Immunization: Unknown - Past Social History Smoking Status: Former Smoker - CARDIAC Hx Pacemaker: No Hx Peripheral Vascular Disease: Yes Other/Comment: cardiac cath x 5 stents in heart. 3 stents on leg - PULMONARY Hx Respiratory Disorders: No (SMOKED CIGARETTES 3 PPD QUIT) - NEUROLOGICAL Hx Paralysis: No - HEENT Hx HEENT Problems: No - RENAL Hx Chronic Kidney Disease: No - ENDOCRINE/METABOLIC Hx Diabetes Mellitus Type 1: No (pt denies) Hx Diabetes Mellitus Type 2: No (pt denies) - HEMATOLOGICAL/ONCOLOGICAL Hx Blood Transfusions: No Hx Blood Transfusion Reaction: No - INTEGUMENTARY Hx Dermatological Problems: Yes Other/Comment: Pt has open wound on R second toe, being treated my MD Nunez ( 04/2017) , toenail fell off left ft 2nd toe, 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 - MUSCULOSKELETAL/RHEUMATOLOGICAL Hx Musculoskeletal Disorders: Yes - GASTROINTESTINAL Hx Gastrointestinal Disorders: No - GENITOURINARY/GYNECOLOGICAL Hx Genitourinary Disorders: No - PSYCHIATRIC Hx Emotional Abuse: No Hx Physical Abuse: No Hx Substance Use: No - SURGICAL HISTORY Other/Comment: Vein was taken out of L arm to R Leg - ANESTHESIA Hx Anesthesia: Yes Hx Anesthesia Reactions: Yes Hx Malignant Hyperthermia: No Meds Allergies/Adverse Reactions: Allergies Allergy/AdvReac Type Severity Reaction Status Date / Time No Known Allergies Allergy Verified 08/16/17 12:50 - Medications Medications: Current Medications Aspirin (Aspirin Chewable) 81 mg PO DAILY AKIKO Atorvastatin Calcium (Lipitor) 40 mg PO DAILY AKIKO Clopidogrel Bisulfate (Plavix) 75 mg PO DAILY AIKKO Hydrochlorothiazide (Microzide) 12.5 mg PO DAILY AKIKO Lisinopril (Zestril) 10 mg PO DAILY AKIKO Physical Exam - Constitutional Appears: Non-toxic - Head Exam Head Exam: NORMAL INSPECTION - ENT Exam ENT Exam: Mucous Membranes Moist - Neck Exam Neck exam: Negative for: Lymphadenopathy, Meningismus - Respiratory Exam Respiratory Exam: Decreased Breath Sounds - Cardiovascular Exam Cardiovascular Exam: +S1, +S2 - GI/Abdominal Exam GI & Abdominal Exam: Soft. absent: Tenderness - Extremities Exam Additional comments: left foot with dressings in place Results - Vital Signs Recent Vital Signs: Last Vital Signs Temp 97.9 F 09/03/17 11:16 Pulse 69 09/03/17 11:16 Resp 18 09/03/17 11:16 BP 148/82 09/03/17 11:16 Pulse Ox 97 09/03/17 11:16 - Labs Result Diagrams: 09/03/17 11:35 09/03/17 11:35 Assessment & Plan - Assessment and Plan (Free Text) Plan: Assessment left 2nd toe partial amputation POD #11 with skin and soft tissue infection with MRSA R/O osteomyelitis history of left foot skin and skin structure infection with osteomyelitis of the 5th metatarsal head S/P surgery hypertension severe peripheral vascular disease coronary artery disease chronic renal failure Plan start Teflaro and will follow up further Podiatry recommendations; will check ESR and CRP, and would need imaging such as xrays will monitor clinically; follow up repeat wound cx
--- NOTE | 2017-09-03 20:30 | CARD ---
APPROVED REPORT EKG Measurement Heart [id number] <Conclusion> Sinus bradycardia with 1st degree AV block Possible Left atrial enlargement Borderline ECG
--- NOTE | 2017-09-04 01:46 | HP ---
HISTORY OF PRESENT ILLNESS: The patient is a 77 year old man with a past medical history of hypertension, CAD and PVD s/p IR revascularization of the proximal left anterior tibial artery s/p RLE vascular bypass surgery with chronic nonhealing ulcerations to his feet who recently underwent a partial amputation of the left second toe with cultures growing MRSA who was sent to [facility] ED by his coping machine operator (Dr. Nunez) to rule out osteomyelitis and for continued management of cellulitis. The patient does reports scant purulent discharge since his podiatric surgery but otherwise denies fevers, chills, rigors or other constitutional symptoms. PAST MEDICAL HISTORY: As per HPI. Also history of MSSA bacteremia and osteoarthritis. PAST SURGICAL HISTORY: As per HPI. Also appendectomy, right lower extremity bypass vascular surgery and amputation of the right fourth digit. ALLERGIES: NO KNOWN DRUG ALLERGIES. MEDICATIONS: Aspirin 81 mg p.o. daily, Plavix 75 mg p.o. daily, Lipitor 40 mg p.o. daily and Zestoretic 10/12.5 mg p.o. daily. FAMILY HISTORY: Significant for hypertension, diabetes and coronary artery disease. SOCIAL HISTORY: The patient reports a former [id number] smoking history but quit approximately 16 years ago. He reports social alcohol use and denies illicit drug abuse. REVIEW OF SYSTEMS: A 14-point review of systems is negative except as per HPI. PHYSICAL EXAMINATION: VITAL SIGNS: Temperature 97.9, pulse 67, blood pressure 148/62, respiratory rate 18, oxygen saturation 97% on room air. GENERAL: No apparent distress. HEENT: PERRL. EOMI. No scleral icterus. No conjunctival pallor. NECK: No JVD. No bruits. LUNGS: Clear to auscultation. CARDIOVASCULAR: Regular rate and rhythm. Normal S1 and S2. ABDOMEN: Normoactive bowel sounds. Soft, nontender, nondistended. EXTREMITIES: No edema. Left foot with dressing in place. NEUROLOGIC: Awake, alert, and oriented x3. No focal motor deficits. LABORATORY DATA: WBC 13.2 with 79% neutrophils, hemoglobin 15.7, hematocrit 46, platelets 209. Sodium 141, potassium 4.8, chloride 105, bicarb 24, BUN 40, creatinine 1.7, glucose 126. ASSESSMENT: The patient is a 77 year old man with multiple medical comorbidities including hypertension, CAD s/p PCI with ANAMIKA stent placement and PVD s/p IR revascularization s/p RLE vascular bypass surgery with chronic nonhealing ulcerations to the feet who presented for management of cellulitis of the left foot and to rule out osteomyelitis after undergoing partial amputation of the left second toe. PLAN: 1. Cellulitis of the left foot, rule out osteomyelitis. Continue with care as per Dr. Nunez. Input from Dr. Barrett noted and greatly appreciated. The patient has been started on Teflaro 400 mg IV q. 12 hours. We will continue to monitor ESR and CRP. 2. Severe PVD s/p IR revascularization s/p RLE popliteal/anterior tibial bypass. Continue Aspirin 81 mg p.o. daily and Lipitor 40 mg p.o. daily. 3. CAD s/p PCI with ANAMIKA stent placement. Continue Lipitor 40 mg p.o. daily, Plavix 75 mg p.o. daily and Aspirin 81 mg p.o. daily. 4. Hypertension. Blood pressure controlled. Continue Lisinopril 10 mg p.o. daily and Hydrochlorothiazide 12.5 mg p.o. daily. 5. Disposition: GI prophylaxis is not indicated as the patient is eating. DVT prophylaxis is not indicated as the patient is ambulatory. CODE STATUS: Full code. Amari Gonzalez MD MTDD
[2017-09-04 07:52] LABS: BASO # 0.04 K/mm3 (0.0-2.0); BASO % 0.5 % (0.0-3.0); EOS # 0.4 (0.0-0.7); EOS % 4.8 % (1.5-5.0); GRAN # 6.06 (1.4-6.5); GRAN % 73.7 % (50.0-68.0); HEMOGLOBIN 15.3 g/dL (14.0-18.0); LYMPH # 0.9 (1.2-3.4); MEAN CELL VOLUME 92.2 fl (80.0-105.0); MEAN CORPUSCULAR HEMOGLOBIN 31.4 pg (25.0-35.0); MEAN CORPUSCULAR HGB CONC 34.1 g/dl (31.0-37.0); MEAN PLATELET VOLUME 9.6 fl (7.0-11.0); MONO # 0.8 (0.1-0.6); RBC 4.87 10^6/uL (3.5-6.1); RED CELL DISTRIBUTION WIDTH 13.1 % (11.5-14.5); WHITE BLOOD COUNT 8.2 10^3/ul (4.5-11.0)
[2017-09-04 08:04] LABS: ALB/GLOB RATIO 1.1 (1.1-1.8); CALCIUM 9.8 mg/dL (8.4-10.5)
--- NOTE | 2017-09-04 11:19 | PN ---
SUBJECTIVE: The patient was seen and examined at bedside on the general medical claudio. No acute events overnight. He remains afebrile and hemodynamically stable. This morning he feels well and offers no complaints. OBJECTIVE: VITAL SIGNS: Temperature 97.7, pulse 58, blood pressure 161/78, respiratory rate 18, oxygen saturation 99% on room air. GENERAL: No apparent distress. HEENT: PERRL. EOMI. No scleral icterus. No conjunctival pallor. NECK: No JVD. No bruits. LUNGS: Clear to auscultation. CARDIOVASCULAR: Regular rate and rhythm. Normal S1 and S2. ABDOMEN: Normoactive bowel sounds. Soft, nontender, and nondistended. EXTREMITIES: No edema. NEUROLOGIC: Awake, alert, and oriented x3. No focal motor deficits. LABORATORY DATA: WBC 8.2 with 74% neutrophils, hemoglobin 15, hematocrit 45, platelets 195. Sodium 141, potassium 5.3, chloride 104, bicarb 25, BUN 34, creatinine 1.4, glucose 107. CRP greater than 15. ASSESSMENT: The patient is a 77 year old man with multiple medical comorbidities including hypertension, CAD s/p PCI with ANAMIKA stent placement and PVD s/p IR revascularization s/p RLE popliteal/anterior tibial bypass with chronic nonhealing ulcerations to the feet who presented for management of cellulitis of the left foot and to rule out osteomyelitis after undergoing partial amputation of the left 2nd toe. PLAN: 1. Cellulitis of the left foot, rule out osteomyelitis. Input from Dr. Nunez and Dr. Barrett noted and appreciated. Continue with local wound care as per Dr. Nunez and the Podiatric team. The patient remains on Ceftaroline 400 mg IV q.12 hours. Continue to monitor ESR and CRP. Will order X-ray of the foot to assess for possible osteomyelitis. 2. Severe PVD s/p IR revascularization s/p RLE popliteal/anterior tibial bypass. Continue Aspirin 81 mg p.o. daily and Lipitor 40 mg p.o. daily. 3. CAD s/p PCI with ANAMIKA stent placement. Continue Lipitor 40 mg p.o. daily, Plavix 75 mg p.o. daily and Aspirin 81 mg p.o. daily. 4. Hypertension. BP slightly elevated. We will increase Lisinopril to Lisinopril 20 mg p.o. daily. Continue HCTZ 12.5 mg p.o. daily. 5. Prophylaxis. GI prophylaxis is not indicated as the patient is eating. DVT prophylaxis is not indicated as the patient is ambulatory. CODE STATUS: Full code. Amari Gonzalez MD MTDD
--- NOTE | 2017-09-04 12:39 | RAD ---
PROCEDURE: Left Foot Radiographs. HISTORY: r/o osteo of 2nd toe COMPARISON: 08/23/2017 FINDINGS: BONES: There is bony destruction of the tip of the 2nd middle phalanx. The distal phalanx has been resected previously. There has also been amputation of the big toe. JOINTS: Normal. SOFT TISSUES: Normal. OTHER FINDINGS: None. IMPRESSION: Osteomyelitis tip of the 2nd toe
--- NOTE | 2017-09-04 12:48 | CP.PCM.CON ---
<Kishore Sharp - Last Filed: 09/04/17 12:37> History of Present Illness - History of Present Illness History of Present Illness: 77 year old male with PMH of left foot cellulitis with methicillin-sensitive Staph aureus, hypertension, severe peripheral vascular disease, coronary artery disease, chronic renal failure and multiple lower extremity digit amputations seen at bedside for infected left second digit partial amputation site (DOS: ). Patient was seen yesterday 09/03/17 in wound center by Dr. Nunez where the digit was seen to be erythematous with purulent drainage expressed. Patient was advised to go to the ED to be admitted to hospital so that he could begin IV abx and get preoperative clearance for amputation of the remaining digit. Patient is scheduled for OR tomorrow at 4 pm. During examination patient was AAO x 3 and NAD. He denies any acute overnight events. Denies any recent N/V/F/C /CP/SOB/D. Denies any further pedal complaints Review of Systems - Review of Systems Review of Systems: ROS as per HPI Past Patient History - Infectious Disease Hx of Infectious Diseases: MRSA - Tetanus Immunizations Tetanus Immunization: Unknown - Past Social History Smoking Status: Never Smoked - CARDIAC Hx Pacemaker: No Hx Peripheral Vascular Disease: Yes Other/Comment: cardiac cath x 5 stents in heart. 3 stents on leg - PULMONARY Hx Respiratory Disorders: No (SMOKED CIGARETTES 3 PPD QUIT) - NEUROLOGICAL Hx Neurological Disorder: No - HEENT Hx HEENT Problems: No - RENAL Hx Chronic Kidney Disease: No - ENDOCRINE/METABOLIC Hx Diabetes Mellitus Type 1: No (pt denies) Hx Diabetes Mellitus Type 2: No (pt denies) - HEMATOLOGICAL/ONCOLOGICAL Hx Blood Disorders: No - INTEGUMENTARY Hx Dermatological Problems: Yes Other/Comment: Pt has open wound on R second toe, being treated my MD Nunez ( 04/2017) , toenail fell off left ft 2nd toe, 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 - MUSCULOSKELETAL/RHEUMATOLOGICAL Hx Musculoskeletal Disorders: Yes Hx Falls: No - GASTROINTESTINAL Hx Gastrointestinal Disorders: No - GENITOURINARY/GYNECOLOGICAL Hx Genitourinary Disorders: No - PSYCHIATRIC Hx Emotional Abuse: No Hx Physical Abuse: No - SURGICAL HISTORY Other/Comment: Vein was taken out of L arm to R Leg - ANESTHESIA Hx Anesthesia: Yes Hx Anesthesia Reactions: Yes Hx Malignant Hyperthermia: No Meds Allergies/Adverse Reactions: Allergies Allergy/AdvReac Type Severity Reaction Status Date / Time No Known Allergies Allergy Verified 08/16/17 12:50 - Medications Medications: Current Medications Aspirin (Aspirin Chewable) 81 mg PO DAILY [facility] Last Admin: 09/04/17 11:14 Dose: 81 mg Atorvastatin Calcium (Lipitor) 40 mg PO DAILY [facility] Last Admin: 09/04/17 11:14 Dose: 40 mg Clopidogrel Bisulfate (Plavix) 75 mg PO DAILY [facility] Last Admin: 09/04/17 11:14 Dose: 75 mg Hydrochlorothiazide (Microzide) 12.5 mg PO DAILY [facility] Last Admin: 09/04/17 11:14 Dose: 12.5 mg Ceftaroline Fosamil 400 mg/ (Sodium Chloride) 100 mls @ 100 mls/hr IVPB Q12 [facility] PRN Reason: Protocol Stop: 09/10/17 14:01 Last Admin: 09/04/17 11:14 Dose: 100 mls/hr Lisinopril (Zestril) 20 mg PO DAILY [facility] Last Admin: 09/04/17 11:14 Dose: 20 mg Physical Exam - Constitutional Appears: Well, Non-toxic, No Acute Distress - Extremities Exam Additional comments: Dressing to left foot appears clean/dry/intact with no strikethrough noted. LEFT LE focused exam: VASC: DP and PT pulses faintly palpable. Temperature WNL. No pedal edema noted. CFT wnl b/l. NEURO: Gross sensation diminished bilaterally. DERM: Left distal 2nd digit amputation site noted to be dehised at this time with minimal purulent drainage noted, moderate periwound erythema present and no malodor. Wound probes directly to bone. No other tracking, tunneling, undermining noted. No other abnormal dermatological findings noted at this time. ORTHO: Previous amputation sites b/l. - Neurological Exam Neurological exam: Alert, Oriented x3 - Psychiatric Exam Psychiatric exam: Normal Affect, Normal Mood Results - Vital Signs Recent Vital Signs: Last Vital Signs Temp 97.7 F 09/04/17 07:30 Pulse 65 09/04/17 11:14 Resp 20 09/04/17 07:30 BP 140/86 09/04/17 11:14 Pulse Ox 97 09/04/17 07:30 - Labs Result Diagrams: 09/04/17 07:30 09/04/17 07:30 Labs: Laboratory Results - last 24 hr 09/04/17 09/04/17 07:30 07:30 WBC 8.2 D RBC 4.87 Hgb 15.3 Hct 44.9 MCV 92.2 MCH 31.4 MCHC 34.1 RDW 13.1 Plt Count 195 MPV 9.6 Gran % 73.7 H Lymph % (Auto) 11.0 L Greene % (Auto) 10.0 H Eos % (Auto) 4.8 Baso % (Auto) 0.5 Gran # 6.06 Lymph # 0.9 L Greene # 0.8 H Eos # 0.4 Baso # 0.04 Sodium 141 Potassium 5.3 H Chloride 104 Carbon Dioxide 25 Anion Gap 18 BUN 34 H Creatinine 1.4 Est GFR ( Amer) 59 Est GFR (Non-Af Amer) 49 Random Glucose 107 Calcium 9.8 Total Bilirubin 0.9 AST 36 ALT 25 Alkaline Phosphatase 86 Total Protein 7.6 Albumin 4.0 Globulin 3.6 Albumin/Globulin Ratio 1.1 Assessment & Plan - Assessment and Plan (Free Text) Assessment: 77 year old male seen at bedside for infected left second digit partial amputation site Plan: Patient seen and evaluated at bedside with attending Dr. Alcantar Afebrile, leukocytosis from yesterday normalized today (13.2 -> 8.2) Wound cx pending L foot L foot xray: OM of second toe tip Continue IV abx per ID Wound dressed with xeroform, DSD Pt for OR tomorrow at 4 pm for amputation of remaining left second digit Patient to be NPO after breakfast tomorrow Podiatry will continue to follow while patient in house - Date & Time Date: 09/04/17 Time: 13:13 <Chauncey Alcantar - Last Filed: 09/07/17 11:24> Results - Vital Signs Recent Vital Signs: Last Vital Signs Temp 97.6 F 09/06/17 07:30 Pulse 67 09/06/17 07:30 Resp 20 09/06/17 07:30 BP 142/78 09/06/17 07:30 Pulse Ox 98 09/06/17 07:30 - Labs Result Diagrams: 09/06/17 06:45 09/06/17 06:45 Attending/Attestation - Attestation I have personally seen and examined this patient.: Yes I have fully participated in the care of the patient.: Yes I have reviewed all pertinent clinical information: Yes
--- NOTE | 2017-09-04 15:07 | CP.PCM.PN ---
Subjective - Date & Time of Evaluation Date of Evaluation: 09/04/17 Time of Evaluation: 10:40 - Subjective Subjective: Comfortable in bed, no fevers. Objective - Vital Signs/Intake and Output Vital Signs (last 24 hours): Temp Pulse Resp BP Pulse Ox 97.7 F 58 L 20 161/78 H 97 09/04/17 07:30 09/04/17 07:30 09/04/17 07:30 09/04/17 07:30 09/04/17 07:30 Intake and Output: 09/04/17 09/04/17 06:59 18:59 Intake Total 120 Balance 120 - Medications Medications: Current Medications Aspirin (Aspirin Chewable) 81 mg PO DAILY [facility] Atorvastatin Calcium (Lipitor) 40 mg PO DAILY [facility] Clopidogrel Bisulfate (Plavix) 75 mg PO DAILY [facility] Hydrochlorothiazide (Microzide) 12.5 mg PO DAILY [facility] Ceftaroline Fosamil 400 mg/ (Sodium Chloride) 100 mls @ 100 mls/hr IVPB Q12 [facility] PRN Reason: Protocol Stop: 09/10/17 14:01 Last Admin: 09/03/17 23:28 Dose: 100 mls/hr Lisinopril (Zestril) 20 mg PO DAILY [facility] - Labs Labs: 09/04/17 07:30 09/04/17 07:30 PT 11.4 SECONDS (9.4-12.5) 09/03/17 11:35 INR 0.99 (0.93-1.08) 09/03/17 11:35 APTT 30.6 Seconds (25.1-36.5) 09/03/17 11:35 - Constitutional Appears: Non-toxic - Head Exam Head Exam: NORMAL INSPECTION - Respiratory Exam Respiratory Exam: Decreased Breath Sounds - Cardiovascular Exam Cardiovascular Exam: +S1, +S2 - GI/Abdominal Exam GI & Abdominal Exam: Soft. absent: Tenderness Assessment and Plan - Assessment and Plan (Free Text) Plan: Assessment left 2nd toe partial amputation POD #12 with skin and soft tissue infection with MRSA with probable osteomyelitis history of left foot skin and skin structure infection with osteomyelitis of the 5th metatarsal head S/P surgery hypertension severe peripheral vascular disease coronary artery disease chronic renal failure Plan continue Teflaro and will follow up further Podiatry recommendations; follow up ESR and CRP, reviewed xray of the foot showing probable osteomyelitis on the 2nd toe tip will monitor clinically; follow up repeat wound cx
[2017-09-05 07:40] LABS: ALB/GLOB RATIO 1.2 (1.1-1.8); ALBUMIN 3.8 g/dL (3.0-4.8); CALCIUM 9.5 mg/dL (8.4-10.5)
[2017-09-05 09:01] LABS: BASO # 0.04 K/mm3 (0.0-2.0); BASO % 0.3 % (0.0-3.0); EOS # 0.4 (0.0-0.7); EOS % 2.4 % (1.5-5.0); GRAN # 12.43 (1.4-6.5); GRAN % 84.5 % (50.0-68.0); HEMOGLOBIN 15.5 g/dL (14.0-18.0); LYMPH # 0.8 (1.2-3.4); LYMPH % 5.5 % (22.0-35.0); MEAN CELL VOLUME 93.5 fl (80.0-105.0); MEAN CORPUSCULAR HEMOGLOBIN 31.7 pg (25.0-35.0); MEAN CORPUSCULAR HGB CONC 33.9 g/dl (31.0-37.0); MEAN PLATELET VOLUME 10.4 fl (7.0-11.0); MONO # 1.1 (0.1-0.6); MONO % 7.3 % (1.0-6.0); RBC 4.89 10^6/uL (3.5-6.1); WHITE BLOOD COUNT 14.7 10^3/ul (4.5-11.0)
[2017-09-05] MEDS ORDERED: Lidocaine 2% Inj (20ml) ONE (15:54)
[2017-09-05] MEDS ORDERED: Midazolam 2 MG/2 ML VIAL ONE (16:14)
[2017-09-05] MEDS ORDERED: Etomidate 20 mg/10ml Inj IV ONE (16:33)
[2017-09-05] MEDS ORDERED: Lidocaine 2% Inj (20ml) IJ ONE (16:52)
--- NOTE | 2017-09-05 17:00 | CP.PCM.PN ---
Subjective - Date & Time of Evaluation Date of Evaluation: 09/05/17 Time of Evaluation: 11:30 - Subjective Subjective: For surgery of his left foot, no fevers overnight. Objective - Vital Signs/Intake and Output Vital Signs (last 24 hours): Temp Pulse Resp BP Pulse Ox 98.4 F 84 20 147/86 96 09/05/17 07:56 09/05/17 07:56 09/05/17 07:56 09/05/17 07:56 09/05/17 07:56 Intake and Output: 09/05/17 09/05/17 06:59 18:59 Intake Total 600 Balance 600 - Medications Medications: Current Medications Aspirin (Aspirin Chewable) 81 mg PO DAILY [facility] Last Admin: 09/04/17 11:14 Dose: 81 mg Atorvastatin Calcium (Lipitor) 40 mg PO DAILY [facility] Last Admin: 09/05/17 09:50 Dose: 40 mg Clopidogrel Bisulfate (Plavix) 75 mg PO DAILY [facility] Last Admin: 09/04/17 11:14 Dose: 75 mg Hydrochlorothiazide (Microzide) 12.5 mg PO DAILY [facility] Last Admin: 09/05/17 09:50 Dose: 12.5 mg Ceftaroline Fosamil 400 mg/ (Sodium Chloride) 100 mls @ 100 mls/hr IVPB Q12 [facility] PRN Reason: Protocol Stop: 09/10/17 14:01 Last Admin: 09/05/17 09:49 Dose: 100 mls/hr Lisinopril (Zestril) 20 mg PO DAILY [facility] Last Admin: 09/05/17 09:50 Dose: 20 mg - Labs Labs: 09/05/17 08:50 09/05/17 06:45 PT 11.4 SECONDS (9.4-12.5) 09/03/17 11:35 INR 0.99 (0.93-1.08) 09/03/17 11:35 APTT 30.6 Seconds (25.1-36.5) 09/03/17 11:35 - Constitutional Appears: Non-toxic - Head Exam Head Exam: NORMAL INSPECTION - ENT Exam ENT Exam: Mucous Membranes Moist - Neck Exam Neck Exam: absent: Meningismus - Respiratory Exam Respiratory Exam: Decreased Breath Sounds - Cardiovascular Exam Cardiovascular Exam: +S1, +S2 - GI/Abdominal Exam GI & Abdominal Exam: Soft. absent: Tenderness - Extremities Exam Additional comments: left foot with dressings in place Assessment and Plan - Assessment and Plan (Free Text) Plan: Assessment left 2nd toe partial amputation POD #13 with skin and soft tissue infection with MRSA with probable osteomyelitis history of left foot skin and skin structure infection with osteomyelitis of the 5th metatarsal head S/P surgery hypertension severe peripheral vascular disease coronary artery disease chronic renal failure Plan continue Teflaro day 2 - for surgery today by Podiatry follow up ESR and CRP, reviewed xray of the foot showing probable osteomyelitis on the 2nd toe tip will continue to monitor clinically; follow up repeat wound cx
[2017-09-05] MEDS ORDERED: HYDROmorphone 0.5 mg/0.5 ml ISec IVP PRN (17:27)
--- NOTE | 2017-09-05 17:28 | PCM.SURG1 ---
Surgeon's Initial Post Op Note - Surgeon's Notes Surgeon: Dr. Rosie Nunez, DPM Drop Forger: Kishore Sharp, PGY1 Type of Anesthesia: IV Sedation, Local Anesthesia Administered By: IV sedation wtih local Pre-Operative Diagnosis: Infection of left second toe partial amputation site Operative Findings: See dictation report. M- 3-0 vicryl, 3-0 nylon, adaptic, gauze, kirlix. I- Pre: 4cc 2% lidocaine plain Post-Operative Diagnosis: Same Operation Performed: Amputation of left second digit partial amputation site at proximal interphalangeal joint with removal of proximal phalanx head Specimen/Specimens Removed: Bone left second digit Estimated Blood Loss: EBL {In ML}: 10 Blood Products Given: N/A Drains Used: No Drains Post-Op Condition: Good Date of Surgery/Procedure: 09/05/17 Time of Surgery/Procedure: 17:28
[2017-09-05] MEDS ORDERED: Lactated Ringer's 1,000 ML IV SCH (17:30)
[2017-09-05] MEDS ORDERED: Oxycodone/Acetaminophen 5/325 mg Tab PO PRN ×2 (17:30)
--- NOTE | 2017-09-05 19:32 | PN ---
SUBJECTIVE: Patient is seen and examined at bedside on the general medical claudio. No acute events overnight. He remains afebrile and hemodynamically stable. Patient is pending amputation of his left foot second digit secondary to osteomyelitis. Overall he feels well and offers no complaints. OBJECTIVE: VITAL SIGNS: Temperature 98.4, pulse 84, blood pressure 147/86, respiratory rate 20, oxygen saturation 96% on room air. GENERAL: No apparent distress. HEENT: PERRL. EOMI. No scleral icterus. No conjunctival pallor. NECK: No JVD. No bruits. LUNGS: Clear to auscultation. CARDIOVASCULAR: Regular rate and rhythm. Normal S1 and S2. ABDOMEN: Normoactive bowel sounds. Soft, nontender, and nondistended. EXTREMITIES: No edema. NEUROLOGIC: Awake, alert, and oriented x3. No focal motor deficits. LABORATORY DATA: WBC 14.7 with 84% neutrophils, hemoglobin 15, hematocrit 46, platelets 220. Chemistry reviewed and unremarkable. ASSESSMENT: Patient is a 77-year-old male with multiple medical comorbidities including hypertension, coronary artery disease, status post percutaneous coronary intervention with drug-eluting stent placement, and peripheral vascular disease, status post IR revascularization status post right lower extremity popliteal/anterior tibial bypass with chronic nonhealing ulcerations to the feet, who presented for management of cellulitis of the left foot with subsequent X-rays demonstrating osteomyelitis of the left second toe who has pending amputation of the left second toe with podiatry. PLAN: 1. Osteomyelitis of the left second toe. Input from Dr. Nunez noted and appreciated and patient has pending amputation of the affected digit. Input from Dr. Barrett also noted and greatly appreciated. Patient remains on ceftaroline 400 mg IV q. 12 hours. Continue to monitor ESR and CRP. 2. Severe PVD, status post IR revascularization, status post right lower extremity popliteal/anterior tibial bypass. Continue aspirin 81 mg p.o. daily and Lipitor 40 mg p.o. daily. 3. CAD, status post PCI with ANAMIKA placement. Continue Lipitor 40 mg p.o. daily, Plavix 75 mg p.o. daily, and aspirin 81 mg p.o. daily. 4. Hypertension. Continue lisinopril 20 mg p.o. daily and HCTZ 12.5 mg p.o. daily. 5. Prophylaxis, GI prophylaxis not indicated as patient is eating. DVT prophylaxis is not indicated as patient is ambulatory. 6. Code status is full code. Amari Gonzalez MD
[2017-09-06 07:06] LABS: BASO # 0.05 K/mm3 (0.0-2.0); BASO % 0.6 % (0.0-3.0); EOS # 0.6 (0.0-0.7); EOS % 6.5 % (1.5-5.0); GRAN # 6.31 (1.4-6.5); GRAN % 71.7 % (50.0-68.0); HEMOGLOBIN 14.4 g/dL (14.0-18.0); LYMPH # 0.6 (1.2-3.4); LYMPH % 6.7 % (22.0-35.0); MEAN CELL VOLUME 92.5 fl (80.0-105.0); MEAN CORPUSCULAR HEMOGLOBIN 30.8 pg (25.0-35.0); MEAN CORPUSCULAR HGB CONC 33.3 g/dl (31.0-37.0); MONO # 1.3 (0.1-0.6); MONO % 14.5 % (1.0-6.0); RBC 4.67 10^6/uL (3.5-6.1); WHITE BLOOD COUNT 8.8 10^3/ul (4.5-11.0)
[2017-09-06 07:07] LABS: ALB/GLOB RATIO 1.1 (1.1-1.8); ALBUMIN 3.5 g/dL (3.0-4.8); CALCIUM 8.8 mg/dL (8.4-10.5)
[2017-09-06 08:32] VITALS: BP 142/78; PULSE 67; RESP 20; TEMP 97.6; O2SAT 98
--- NOTE | 2017-09-06 08:45 | RAD ---
PROCEDURE: Left Foot Radiographs. HISTORY: s/p left foot surgery COMPARISON: None. FINDINGS: BONES: Status post amputation at the level of the 2nd proximal phalanx. Previous amputation of the big toe JOINTS: Normal. SOFT TISSUES: Normal. OTHER FINDINGS: None. IMPRESSION: Amputation at the level of 2nd proximal phalanx. No complicating factors
--- NOTE | 2017-09-06 14:09 | PN ---
DATE: 09/06/2017 SUBJECTIVE: This is a 77-year-old male seen status post 15 hours amputation of the remnants of the second toe of his left foot. The patient has severe peripheral vascular disease, he also has cardiac disease and we could not take him off Plavix. He had operation for removal of the distal aspect of the toe DIPJ approximately 2 weeks ago, he came in to the wound care center on Sunday with swelling and a dehiscence of the area which then exposed newly cut bone. The patient was told at that time that even if the films and the testings show that he does not have an osteomyelitis, the fact that bone was exposed, we could just go back now and take the at the PIPJ. Patient is seen at bedside resting. He states he has no pain or discomfort. PHYSICAL EXAMINATION: VITAL SIGNS: His temperature of 97.6, his blood pressure is 142/78, respirations were 20. LABORATORY DATA: His labs were reviewed. His white blood cell count has come down to 8.8 post surgery. His chemistry shows a slightly elevated BUN and creatinine at 33 and 1.7. His C-reactive protein was high at 15. His microbiology form 09/03/2017, which was done at the wound care center was positive for staph aureus and it was MRSA. The patient had previous microbiology for MRSA in that toe. His dressing was changed and there is no cellulitis . The sutures are intact. There is no bloody drainage. He did have some bloody bleeding last night during the surgery, but because of the peripheral vascular disease it was not extensive. No hematoma was seen and there is no pain. There is very mild edema around the toe itself. ASSESSMENT: Status post amputation of the distal aspect of the second toe on the left foot in a male with peripheral vascular disease. PLAN OF TREATMENT: The patient is being discharged home, he has diabetic cam boot which we are going to put him in to protect the toe. I believe that was the cause of the dehiscence from the left toe. I think he hit his toe and he wound up with a small hematoma because of the Plavix. This cam boot is over overkill to the type of surgery ; however, it should protect his foot. I advised him he is to stay home. He should not go out at all and he is to make an appointment at [facility]'s wound care center to see me on Sunday at which time we will check and see his bony pathology. I did speak to Dr. Gonzalez regarding the same. Rosie Nunez DPM
--- NOTE | 2017-09-07 08:55 | DS ---
LOCATION: The patient is in room #561, bed #2. HISTORY OF PRESENT ILLNESS: The patient was initially admitted on 09/03/2017. It was determined that the patient had an infected toe. During the admission, the patient was seen by Podiatry, Dr. Nunez. The patient on 09/05/2017 was taken to the OR by Dr. Nunez. The procedure was amputation of the second toe. The patient had an uneventful night. There were no acute incidences during the night. At this point, he has no complaints. I am seeing the patient along with Dr. Nunez, who is re-bandaging the toe of the left foot. PHYSICAL EXAMINATION: VITAL SIGNS: Temperature of 97.6, pulse rate is 67, blood pressure of 142/78, respiratory rate of 20 with an O2 saturation of 98% on room air. HEENT: Negative. NECK: Supple with a full range of motion. No bruits or adenopathy appreciated. LUNGS: Clear to auscultation and percussion bilaterally. HEART: Regular rate and rhythm with no murmurs, rubs, or gallops. ABDOMEN: Soft, it is nontender. Bowel sounds are normoactive. EXTREMITIES: Show a clean wound at the amputation side of the second toe left foot. NEUROLOGIC: The patient shows no focal neurologic deficits. LABORATORY DATA: WBC of 8.8, it was 14.7 yesterday. Chemistries: Normal with the exception of BUN of 33 and creatinine of 1.7. Wound culture just prior to admission showed a Staphylococcal aureus. I have discussed the case with Dr. Nunez and discharged the patient today. He will be followed up by Dr. Nunez. CURRENT DIAGNOSES: Cellulitis of the left second toe, foot pain, peripheral vascular disease and hypertension. The patient will be discharged home today on previous medication and doxycycline 100 mg twice a day. Antolin Gonzalez MD
--- NOTE | 2017-09-10 09:30 | OP ---
PROCEDURE DATE: 09/05/2017 SURGEON: Rosie Nunez DPM YARD INSPECTOR: Kishore Sharp PYG-1 Kishore Sharp DPM Nathan Aceves (Rosie Nunez DPM)
--- NOTE | 2017-09-10 09:35 | OP ---
PROCEDURE DATE: 09/05/2017 PREOPERATIVE DIAGNOSIS: Infection of left second toe, partial amputation site. POSTOPERATIVE DIAGNOSIS: Infection of left second toe, partial amputation site. NAME OF PROCEDURE: Amputation of left second digit, partial amputation site, proximal interphalangeal joint, with removal of proximal phalanx head. SURGEON: Rosie Nunez DPM [id number] DEVELOPER: Kishore Sharp, PGY-1 ANESTHESIOLOGIST: Dr. Kolb. ANESTHESIA: IV sedation with local. INDICATIONS: The patient is a 77-year-old male with above diagnosis. The patient has exhausted all conservative treatment at this time and now require surgical intervention for an infected left second digit that underwent a previous distal phalanx amputation two weeks prior to this surgery with wound dehiscence and infection of the surgical site. The patient signed the consent after careful explanation of risks, benefits, complications and alternatives for the surgical procedure. No guarantees were given nor implied, n.p.o. status was confirmed prior to taking the patient to the OR. PREPARATION: The patient was brought into the operating room and placed on the operating room table in a supine position. A time-out was performed for identification of the correct patient and procedure. After induction of IV sedation, the patient received a total of 4 mL of 1% lidocaine plain in a local block fashion to the base of the left second digit. The left lower extremity was then prepped and draped in normal sterile manner and the procedure began. No tourniquet was used during the procedure. DESCRIPTION OF PROCEDURE: Attention was then turned to the left second digit, which was noted to have a previous amputation of the distal phalanx with clear signs and indications of infection at the surgical site using a #15 blade, a fish-mouth type incision was made down to bone at the level of the proximal interphalangeal joint and the middle phalanx of the second digit was identified and disarticulated from the proximal interphalangeal joint and from second digit. The middle phalanx was then completely excised from the surgical field and sent to pathology for evaluation. The soft tissue surrounding the proximal phalanx of the left second digit was then excised back using #15 blade again in order to adequately expose the head of the left second proximal phalanx using a manual bone cutter, the head of the left second proximal phalanx was then cut in a transverse fashion and excised from the field, this bone specimen was also sent to the pathology for evaluation. The surgical site was then evaluated to determine if any necrotic or nonviable soft tissue was still present, any that was found was then excised from the field using Iris scissors and pickup. The surgical site was then flushed with copious amount of normal sterile saline using a bulb syringe and was then closed with one 3-0 Vicryl subcutaneous suture and 3-0 nylon simple sutures from superficially until the surgical site was completely closed with skin edges were coapted. The surgical site was then dressed with Adaptic gauze and Kerlix and the surgery was completed. POSTOPERATIVE CONDITIONS: The patient tolerated the anesthesia and procedure well and was escorted to the recovery room with vital signs stable and neurovascular status intact to the left lower extremities. The patient is to remain weightbearing as tolerated to the left foot in a surgical shoe with to his heel and is to keep dressing clean, dry and intact. We will continue to follow the patient while he remains in-house in the hospital and upon discharge from the hospital, the patient will follow up with Dr. Nunez in the Wound Care Center at his next regular scheduled appointment. Kishore Sharp DPM Rosie Nunez DPM
== END 2017-09-06 13:05 | disposition home or self-care (01) | DRG 617 ==
LOC: ED 11:05 → ERH 12:36 → 5RNO 23:38 → ERH 23:40 → 5RNO 09-04 00:53
PROVIDERS: ADMIT Student in an Organized Health Care Education/Training Program; ATTEND Student in an Organized Health Care Education/Training Program
PROC: 0Y6S0Z1 Detachment at Left 2nd Toe, High, Open Approach (ICD-10-PCS; principal; 2017-09-05 16:00)
DX: E11.69 Type 2 diabetes mellitus with other specified complication (principal); L03.116 Cellulitis of left lower limb; E11.22 Type 2 diabetes mellitus with diabetic chronic kidney disease; E11.51 Type 2 diabetes mellitus with diabetic peripheral angiopathy without gangrene; M86.9 Osteomyelitis, unspecified; I25.10 Atherosclerotic heart disease of native coronary artery without angina pectoris; I12.9 Hypertensive chronic kidney disease with stage 1 through stage 4 chronic kidney disease, or unspecified chronic kidney disease; N18.9 Chronic kidney disease, unspecified; Z79.02 Long term (current) use of antithrombotics/antiplatelets; Z86.19 Personal history of other infectious and parasitic diseases; Z87.891 Personal history of nicotine dependence; Z95.5 Presence of coronary angioplasty implant and graft; R40.2412 Glasgow coma scale score 13-15, at arrival to emergency department; I44.0 Atrioventricular block, first degree; Z90.49 Acquired absence of other specified parts of digestive tract

== ENCOUNTER 2017-10-04 10:59 | Day surgery (SDC) | payer MEDICARE ==
[2017-09-03 11:51] VITALS: BMI 26.4
[2017-10-04] MEDS ORDERED: Midazolam 2 MG/2 ML VIAL ONE ×3 (12:00→15:32)
[2017-10-04] MEDS ORDERED: Iodixanol 320 MG/ML 100 ML BOTTLE IV ONE (12:00)
[2017-10-04] MEDS ORDERED: Lidocaine 2% Inj (20ml) ONE (12:00)
[2017-10-04] MEDS ORDERED: HEPARIN SODIUM/NS 2,000 ML IV ONE (12:01)
[2017-10-04] MEDS ORDERED: Nitroglycerin 50mg in D5W 50 MG/250 ML BOTTLE IV ONE (12:01)
[2017-10-04] MEDS ORDERED: Iodixanol 320 MG/ML 200 ML BOTTLE IV ONE (12:01)
[2017-10-04 12:06] LABS: BASO # 0.06 K/mm3 (0.0-2.0); BASO % 0.7 % (0.0-3.0); EOS # 0.9 (0.0-0.7); EOS % 9.4 % (1.5-5.0); GRAN # 5.97 (1.4-6.5); GRAN % 65.1 % (50.0-68.0); HEMOGLOBIN 15.5 g/dL (14.0-18.0); LYMPH # 1.4 (1.2-3.4); LYMPH % 15.3 % (22.0-35.0); MEAN CELL VOLUME 90.4 fl (80.0-105.0); MEAN CORPUSCULAR HEMOGLOBIN 31.1 pg (25.0-35.0); MEAN CORPUSCULAR HGB CONC 34.4 g/dl (31.0-37.0); MEAN PLATELET VOLUME 9.7 fl (7.0-11.0); MONO # 0.9 (0.1-0.6); MONO % 9.5 % (1.0-6.0); RBC 4.98 10^6/uL (3.5-6.1); RED CELL DISTRIBUTION WIDTH 13.3 % (11.5-14.5); WHITE BLOOD COUNT 9.2 10^3/ul (4.5-11.0)
[2017-10-04 12:16] LABS: CALCIUM 9.8 mg/dL (8.4-10.5)
[2017-10-04 12:19] LABS: INR 0.95 (0.93-1.08); PARTIAL THROMBOPLASTIN TIME 31.1 Seconds (25.1-36.5); PROTHROMBIN TIME 10.9 SECONDS (9.4-12.5)
[2017-10-04] MEDS ORDERED: Oxycodone/Acetaminophen 5/325 mg Tab PO PRN (17:19)
[2017-10-04] MEDS ORDERED: Sodium Chloride 0.45% 1,000 ML IV SCH (17:30)
[2017-10-04 17:59] VITALS: RESP 18; TEMP 97.9
[2017-10-04 18:10] VITALS: BP 126/71; PULSE 54; O2SAT 95
--- NOTE | 2017-10-04 20:30 | VASCULAR ---
PROCEDURE: 1. Abdominal aortogram and bilateral lower extremity runoff with bilateral selective views. 2. Left anterior tibial artery angioplasty HISTORY: Severe peripheral vascular disease. Nonhealing left toe amputation site with ulceration. PHYSICIAN(S): Lang Schwartz M.D. TECHNIQUE: The relative risks and indications of the procedure were explained to the patient and consent obtained. The patient was hydrated prior to the procedure and the appropriate labs drawn. The patient was placed supine on the arteriogram table and the right groin prepped and draped in the usual sterile fashion. Conscious sedation and monitoring were provided throughout the procedure by a nurse. Via a right common femoral artery approach, a 5 Bur[place]ian sheath was placed in the right groin. Through the sheath and over a guidewire, a 5 [place]ian flush catheter was placed in the abdominal aorta at the level of the renal arteries and a PA DSA abdominal aortogram performed. The catheter was pulled down to the aortic bifurcation and bilateral oblique DSA pelvic arteriograms performed. Overlapping bilateral lower extremity DSA arteriograms were obtained from the inguinal ligaments to the ankles. A 0.035 angled Glidewire was advanced over the bifurcation and placed in the distal left SFA. A 6 Burundian 65 cm destination sheath was placed in the mid to distal left SFA. Heparin 5000 units IV and nitroglycerin in 250 mcg aliquots were given. The occlusion in the proximal left anterior tibial artery was crossed with a 5 Burundian catheter and angled Glidewire.. Exchange was made for a 0.014 support guidewire. The proximal to mid left SFA was dilated with 3.0 and 3.5 mm balloons.. An excellent angiographic result was obtained. The sheath was pulled back into the right external iliac artery and imaging of the right popliteal-anterior tibial graft obtained. Visualization was limited. The sheath was removed hemostasis obtained. The patient tolerated the procedure well. FINDINGS: There are single renal arteries bilaterally which are widely patent and normal in appearance. The nephrograms are symmetric in appearance. The infrarenal abdominal aorta is tortuous and calcified but widely patent.. The aortic bifurcation is widely patent. The common and external iliac arteries are calcified and widely patent.. The internal iliac arteries are patent bilaterally. Right lower extremity: The right common femoral artery is patent. The right profunda femoral artery is patent. The right femoral- prosthetic graft remains patent. Both anastomoses are well seen and normal in appearance. The right popliteal artery is patent above the knee. There is severe right trifurcation and tibial occlusive disease. There is sub up optimal opacification of the right popliteal- anterior tibial bypass. Very slow flow is present. The proximal anastomosis appears patent. Distal anastomosis is not well seen. Left lower extremity: Left common femoral artery is patent. The left profunda femoral artery is patent. The left superficial femoral artery is patent and continuous without a radiographically significant stenosis. The left popliteal artery and trifurcation are patent.There is severe left tibial disease. There is 2 vessel runoff via a dominant left peroneal artery and a left anterior tibial artery with 4 cm occlusion in its proximal 3rd. There is severe left pedal occlusive disease. The plantar arch is not opacified. IMPRESSION: 1.Successful proximal left anterior tibial artery angioplasty. 2. Severe bilateral tibial and pedal occlusive disease. 3. Patent right popliteal - anterior tibial artery bypass with slow antegrade flow. The proximal anastomosis appears patent. The distal anastomosis is not well seen. 4. Patent right femoral- prosthetic graft.
== END 2017-10-04 17:30 | disposition home or self-care (01) ==
LOC: SDSVAS 10:59
PROVIDERS: ATTEND Radiology Vascular & Interventional Radiology
DX: I70.245 Atherosclerosis of native arteries of left leg with ulceration of other part of foot (principal); I10 Essential (primary) hypertension; I25.10 Atherosclerotic heart disease of native coronary artery without angina pectoris; E11.9 Type 2 diabetes mellitus without complications; T87.89 Other complications of amputation stump; L97.529 Non-pressure chronic ulcer of other part of left foot with unspecified severity; Z89.421 Acquired absence of other right toe(s); Z90.49 Acquired absence of other specified parts of digestive tract
CPT/HCPCS: 36415; 37228; 75625; 75716; 80048; 85025; 85610; 85730; 99152; 99153; C1725 ×3; C1760 ×2; C1769 ×3; C1887 ×2; C1894; J1644 ×2; J2250; J2405; J3010; Q9967

== ENCOUNTER 2017-10-22 10:48 | Emergency (ER) | payer MEDICARE ==
[2017-10-22 10:48] VITALS: BMI 26.4
[2017-10-22 11:11] VITALS: TEMP 97.5
[2017-10-22 11:15] VITALS: RESP 18
--- NOTE | 2017-10-22 11:36 | ED PDOC ---
Arrival/HPI - General Chief Complaint: Shortness Of Breath Time Seen by Provider: 10/22/17 11:03 Historian: Patient - History of Present Illness Narrative History of Present Illness (Text): 10/22/17 11:15 A 77 year old male, whose past medical history includes hypertension, PAD s/p toe amputation, presents to the emergency department complaining of shortness of breath. Patient reports prior to arrival he went to the wound center and after walking, developed shortness of breath with exertion. pt states he has had symptoms x 2 mo Patient denies any chest pain, discomfort, abdominal pain or any other complaints at this time. 10/22/17 15:43 Symptom Onset: Sudden Symptom Course: Unchanged Activities at Onset: Rest Context: Walking Past Medical History - Provider Review Nursing Documentation Reviewed: Yes - Infectious Disease Hx of Infectious Diseases: None - Tetanus Immunization Tetanus Immunization: Unknown - Cardiac Hx Pacemaker: No Other/Comment: cardiac stent - Pulmonary Hx Respiratory Disorders: No (SMOKED CIGARETTES 3 PPD QUIT) - Neurological Hx Paralysis: No - HEENT Hx HEENT Disorder: No - Renal Hx Renal Disorder: No - Endocrine/Metabolic Hx Diabetes Mellitus Type 1: No (pt denies) Hx Diabetes Mellitus Type 2: No (pt denies) - Hematological/Oncological Hx Blood Transfusions: No - Integumentary Hx Dermatological Disorder: Yes Other/Comment: Pt has open wound on R second toe, being treated my MD Nunez ( 04/2017) , toenail fell off left ft 2nd toe, 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 - Musculoskeletal/Rheumatological Hx Musculoskeletal Disorders: Yes - Gastrointestinal Hx Gastrointestinal Disorders: No - Genitourinary/Gynecological Hx Genitourinary Disorders: No - Psychiatric Hx Emotional Abuse: No Hx Physical Abuse: No Hx Substance Use: No - Surgical History Other/Comment: Vein was taken out of L arm to R Leg - Anesthesia Hx Anesthesia Reactions: Yes Hx Malignant Hyperthermia: No - Suicidal Assessment Feels Threatened In Home Enviroment: No Family/Social History - Physician Review Nursing Documentation Reviewed: Yes Family/Social History: No Known Family HX Smoking Status: Never Smoked Hx Alcohol Use: No Hx Substance Use: No Hx Substance Use Treatment: No Allergies/Home Meds Allergies/Adverse Reactions: Allergies No Known Allergies Allergy (Verified 10/22/17 11:11) Home Medications: Home Meds Medication Instructions Recorded Confirmed Lisinopril/Hydrochlorothiazide 1 tab PO DAILY 01/19/14 10/04/17 [Lisinopril-Hctz 10-12.5 mg Tab] Clopidogrel [Plavix] 75 mg PO DAILY 02/06/17 10/04/17 Diclofenac Sodium [Voltaren] 75 mg PO DAILY 08/16/17 10/04/17 Review of Systems - Physician Review All systems were reviewed & negative as marked: Yes - Review of Systems Constitutional: absent: Fevers Respiratory: SOB Cardiovascular: absent: Chest Pain Gastrointestinal: absent: Abdominal Pain Physical Exam Vital Signs Reviewed: Yes Vital Signs Temp Pulse Resp BP Pulse Ox 10/22/17 16:28 65 18 145/64 96 10/22/17 15:45 66 18 148/68 96 10/22/17 12:26 64 18 158/71 H 96 10/22/17 11:45 18 10/22/17 11:12 97.5 F L 68 18 165/88 H 95 10/22/17 10:52 97.5 F L 68 20 165/88 H 95 Temperature: Afebrile Blood Pressure: Hypertensive Pulse: Regular Respiratory Rate: Normal Appearance: Positive for: Well-Appearing, Non-Toxic, Comfortable Pain Distress: None Mental Status: Positive for: Alert and Oriented X 3 - Systems Exam Head: Present: Atraumatic, Normocephalic Pupils: Present: PERRL Extroacular Muscles: Present: EOMI Conjunctiva: Present: Normal Mouth: Present: Moist Mucous Membranes Neck: Present: Normal Range of Motion Respiratory/Chest: Present: Other (mild crackles at bases). No: Respiratory Distress, Accessory Muscle Use Cardiovascular: Present: Regular Rate and Rhythm, Normal S1, S2. No: Murmurs Abdomen: Present: Normal Bowel Sounds. No: Tenderness, Distention, Peritoneal Signs Back: Present: Normal Inspection Upper Extremity: Present: Normal Inspection. No: Cyanosis, Edema Lower Extremity: Present: Normal Inspection. No: Edema Neurological: Present: GCS=15, CN II-XII Intact, Speech Normal Skin: Present: Warm, Dry, Normal Color. No: Rashes Psychiatric: Present: Alert, Oriented x 3, Normal Insight, Normal Concentration Medical Decision Making ED Course and Treatment: 10/22/17 11:33 Impression: A77 year old male with shortness of breath. Plan: -- EKG -- chest xray -- labs -- Urinalysis -- Radiology left foot -- Reassess and disposition Prior Visits: Notes and results from previous visits were reviewed. Patient was last seen in the emergency department on 09/03/17 for evaluation of toe infection s/p toe amputation. Progress Notes: EKG: Ordered, reviewed, and independently interpreted the EKG. Rate : 78 BPM Rhythm : NSR Interpretation : Nonspecific ST/T changes 10/22/17 12:49 Chest xray- Creator : Ata De La Rosa MD IMPRESSION: No active disease. 10/22/17 13:02 Left Foot Radiographs Creator : Ata De La Rosa MD FINDINGS: BONES: There has been amputation of the a 1st toe and the majority of the 2nd toe. No acute findings JOINTS: Normal. SOFT TISSUES: Normal. IMPRESSION: No acute findings 10/22/17 15:44 pt offered observation he declines, stating he wishes to go home. he states he will see his pmd. updated dr nunez. pt numerous times asking for dc. 10/22/17 22:11 - Lab Interpretations Lab Results: 10/22/17 11:40 10/22/17 11:40 Lab Results 10/22/17 11:40: Sodium 138, Potassium 4.3, Chloride 105, Carbon Dioxide 22, Anion Gap 16, BUN 28 H, Creatinine 1.5, Est GFR ( Amer) 55, Est GFR (Non- Af Amer) 45, Random Glucose 207 H, Calcium 9.7, Magnesium 2.0, Total Bilirubin 1.4 H, AST 29, ALT 26, Alkaline Phosphatase 88, Lactate Dehydrogenase 621, Total Creatine Kinase 70, Troponin I < 0.01, NT-Pro-B Natriuret Pep 429, Total Protein 7.3, Albumin 4.0, Globulin 3.3, Albumin/Globulin Ratio 1.2 10/22/17 11:40: PT 10.9, INR 0.95, APTT 33.1, D-Dimer, Quantitative 663 H 10/22/17 11:40: WBC 7.7, RBC 4.72, Hgb 15.0, Hct 42.4, MCV 89.8, MCH 31.8, MCHC 35.4, RDW 13.8, Plt Count 196, MPV 9.7, Gran % 76.1 H, Lymph % (Auto) 12.3 L, Stanley % (Auto) 6.8 H, Eos % (Auto) 4.3, Baso % (Auto) 0.5, Gran # 5.89, Lymph # ( Auto) 1.0 L, Stanley # (Auto) 0.5, Eos # (Auto) 0.3, Baso # (Auto) 0.04 I have reviewed the lab results: Yes - RAD Interpretation Radiology Orders: 10/22/17 11:21 CHEST PORTABLE [RAD] Stat 10/22/17 12:04 FOOT LEFT 3 VIEWS ROUTINE [RAD] Stat 10/22/17 12:14 LUNG PERF & VENT SCAN [NM] Stat - EKG Interpretation Interpreted by ED Physician: Yes Type: 12 lead EKG - Scribe Statement The provider has reviewed the documentation as recorded by the Chazibandrew Haji Provider Scribe Attestation: All medical record entries made by the Scribe were at my direction and personally dictated by me. I have reviewed the chart and agree that the record accurately reflects my personal performance of the history, physical exam, medical decision making, and the department course for this patient. I have also personally directed, reviewed, and agree with the discharge instructions and disposition. Disposition/Present on Arrival - Present on Arrival Any Indicators Present on Arrival: No History of DVT/PE: No History of Uncontrolled Diabetes: No Urinary Catheter: No History of Decub. Ulcer: No History Surgical Site Infection Following: None - Disposition Have Diagnosis and Disposition been Completed?: Yes Diagnosis: Dyspnea Disposition: HOME/ ROUTINE Disposition Time: 15:44 Condition: STABLE Discharge Instructions (ExitCare): Shortness of Breath (Dyspnea) (DC) Additional Instructions: you are declining admission and observation but you are able to return to er with any concern at any time. Referrals: Lisa CARABALLO,Amari Joaquin MD [Primary Care Provider] - Follow up with primary Forms: [employer] (Stateless)
[2017-10-22 11:59] LABS: BASO # 0.04 K/mm3 (0.0-2.0); BASO % 0.5 % (0.0-3.0); EOS # 0.3 (0.0-0.7); EOS % 4.3 % (1.5-5.0); GRAN # 5.89 (1.4-6.5); GRAN % 76.1 % (50.0-68.0); LYMPH % 12.3 % (22.0-35.0); MEAN CELL VOLUME 89.8 fl (80.0-105.0); MEAN CORPUSCULAR HEMOGLOBIN 31.8 pg (25.0-35.0); MEAN CORPUSCULAR HGB CONC 35.4 g/dl (31.0-37.0); MEAN PLATELET VOLUME 9.7 fl (7.0-11.0); MONO # 0.5 (0.1-0.6); MONO % 6.8 % (1.0-6.0); RBC 4.72 10^6/uL (3.5-6.1); RED CELL DISTRIBUTION WIDTH 13.8 % (11.5-14.5); WHITE BLOOD COUNT 7.7 10^3/ul (4.5-11.0)
[2017-10-22 12:02] LABS: ALB/GLOB RATIO 1.2 (1.1-1.8); ALT/SGPT 26 U/L (7-56); AST/SGOT 29 U/L (17-59); BLOOD UREA NITROGEN 28 mg/dL (7-21); CALCIUM 9.7 mg/dL (8.4-10.5); GFR AFRICAN-AMERICAN 55; GFR NON-AFRICAN AMERICAN 45
[2017-10-22 12:10] LABS: INR 0.95 (0.93-1.08); PARTIAL THROMBOPLASTIN TIME 33.1 Seconds (25.1-36.5); PROTHROMBIN TIME 10.9 SECONDS (9.4-12.5)
[2017-10-22 12:14] LABS: B-TYPE NATRIURETIC PEPTIDE 429 pg/mL (0-450); TROPONIN I < 0.01 ng/mL
[2017-10-22 12:27] VITALS: O2SAT 96
--- NOTE | 2017-10-22 12:47 | RAD ---
HISTORY: sob COMPARISON: 09/03/2017 FINDINGS: LUNGS: No active pulmonary disease. PLEURA: No significant pleural effusion identified, no pneumothorax apparent. CARDIOVASCULAR: Normal. OSSEOUS STRUCTURES: No significant abnormalities. VISUALIZED UPPER ABDOMEN: Normal. OTHER FINDINGS: None. IMPRESSION: No active disease.
--- NOTE | 2017-10-22 12:59 | RAD ---
PROCEDURE: Left Foot Radiographs. HISTORY: swelling ho of osteo COMPARISON: None. FINDINGS: BONES: There has been amputation of the a 1st toe and the majority of the 2nd toe. No acute findings JOINTS: Normal. SOFT TISSUES: Normal. OTHER FINDINGS: None. IMPRESSION: No acute findings
--- NOTE | 2017-10-22 14:58 | NM ---
COMPARISON: 10/22/2017 TECHNIQUE: 40.0 mCi technetium 99-m DTPA inhaled 4.3 mCI technetium 99-m MAA administered intravenously. FINDINGS: VENTILATION COMPONENT: Normal. PERFUSION COMPONENT: Normal. IMPRESSION: Lowprobability ventilation perfusion scan for pulmonary embolism.
[2017-10-22 16:28] VITALS: BP 145/64; PULSE 65
--- NOTE | 2017-10-22 16:33 | CARD ---
APPROVED REPORT EKG Measurement Heart [id number] <Conclusion> Sinus rhythm with 1st degree AV block Nonspecific ST and T wave abnormality Abnormal ECG
== END 2017-10-22 17:02 | disposition home or self-care (01) ==
LOC: ED 10:48
DX: R06.00 Dyspnea, unspecified (principal); I10 Essential (primary) hypertension; I73.9 Peripheral vascular disease, unspecified; Z89.421 Acquired absence of other right toe(s)

== ENCOUNTER 2018-01-11 05:59 | Day surgery (SDC) | payer MEDICARE ==
[2018-01-11 06:40] LABS: BASO # 0.03 K/mm3 (0.0-2.0); BASO % 0.4 % (0.0-3.0); EOS # 0.5 (0.0-0.7); EOS % 6.2 % (1.5-5.0); GRAN % 63.6 % (50.0-68.0); HEMOGLOBIN 15.5 g/dL (14.0-18.0); LYMPH # 1.5 (1.2-3.4); LYMPH % 18.4 % (22.0-35.0); MEAN CELL VOLUME 90.8 fl (80.0-105.0); MEAN CORPUSCULAR HEMOGLOBIN 31.7 pg (25.0-35.0); MEAN CORPUSCULAR HGB CONC 34.9 g/dl (31.0-37.0); MEAN PLATELET VOLUME 9.4 fl (7.0-11.0); MONO # 0.9 (0.1-0.6); MONO % 11.4 % (1.0-6.0); RBC 4.89 10^6/uL (3.5-6.1); RED CELL DISTRIBUTION WIDTH 12.9 % (11.5-14.5); WHITE BLOOD COUNT 7.9 10^3/ul (4.5-11.0)
[2018-01-11] MEDS ORDERED: Lidocaine 2% Inj (20ml) ONE (06:40)
[2018-01-11] MEDS ORDERED: Midazolam 2 MG/2 ML VIAL ONE ×3 (06:41→08:31)
[2018-01-11] MEDS ORDERED: Nitroglycerin 50mg in D5W 50 MG/250 ML BOTTLE IV ONE (06:42)
[2018-01-11] MEDS ORDERED: Iodixanol 320 MG/ML 200 ML BOTTLE IV ONE (06:42)
[2018-01-11] MEDS ORDERED: Iodixanol 320 MG/ML 100 ML BOTTLE IV ONE (06:42)
[2018-01-11 06:49] LABS: BLOOD UREA NITROGEN 36 mg/dL (7-21); CALCIUM 9.4 mg/dL (8.4-10.5); GFR AFRICAN-AMERICAN > 60; GFR NON-AFRICAN AMERICAN 53
[2018-01-11 06:54] LABS: INR 0.99 (0.93-1.08); PROTHROMBIN TIME 11.4 SECONDS (9.4-12.5)
[2018-01-11] MEDS ORDERED: Oxycodone/Acetaminophen 5/325 mg Tab PO PRN (09:20)
[2018-01-11] MEDS ORDERED: Sodium Chloride 0.45% 1,000 ML IV SCH (09:30)
[2018-01-11 10:13] VITALS: TEMP 97.8
[2018-01-11 14:47] VITALS: RESP 20; O2SAT 99
[2018-01-11 14:53] VITALS: BP 148/70; PULSE 62
--- NOTE | 2018-01-11 17:56 | VASCULAR ---
PROCEDURE: 1. Abdominal aortogram and bilateral lower extremity runoff with right selective views. 2. Right popliteal- anterior tibial artery graft silver Hawk atherectomy, drug-eluting balloon angioplasty, and focal drug-eluting stent placement HISTORY: Severe peripheral vascular disease. Previous right femoral- popliteal bypass and subsequent right popliteal - anterior tibial artery bypass. Nonhealing ischemic ulcer right foot. Threatened graft. PHYSICIAN(S): Lang Schwartz M.D. TECHNIQUE: The relative risks and indications of the procedure were explained to the patient and consent obtained. The patient was hydrated prior to the procedure and the appropriate labs drawn. The patient was placed supine on the arteriogram table and the left groin prepped and draped in the usual sterile fashion. Conscious sedation and monitoring were provided throughout the procedure by a nurse. Via a left common femoral artery approach, a 5 Afghan sheath was placed in the left groin. Through the sheath and over a guidewire, a 5 Afghan flush catheter was placed in the distal abdominal aorta and RPO DSA abdominal and pelvic arteriogram performed. Overlapping bilateral lower extremity DSA arteriograms were obtained from the inguinal ligaments to the ankles. A 0.035 angled Glidewire was advanced over the bifurcation and placed in the left femoral-popliteal graft. A 6 Afghan 65 cm destination sheath was placed in the femoral graft.. Heparin 6500 units IV and nitroglycerin in 250 mcg aliquots were given. The threatened and atretic right popliteal- anterior tibial graft was crossed with an angled glidewire and 5 Afghan catheter. 0.014 support wire was placed in the right anterior tibial artery. [place] atherectomy of the distal graft and adjacent right anterior tibial artery was performed with an SE catheter. Two passes were performed. Antegrade flow was re-established. The distal graft and proximal right anterior tibial artery were dilated with 3.0 balloon. The proximal and mid right popliteal -ET graft was dilated with 4 mm drug-eluting balloon. Focally regularity in narrowing persisted in the mid graft. Subsequently 3.5 by 39 mm drug-eluting stent was placed in the mid graft. Completion angiograms were obtained. The sheath was removed hemostasis obtained. The patient tolerated the procedure well. A Perclose device was utilized. FINDINGS: The distal abdominal aorta is patent. Aortic bifurcation is patent and calcified. The common and external iliac arteries are patent without radiographically significant stenosis. Right lower extremity: The right common femoral artery is patent. The right profunda femoral artery is patent. A patent right femoral-popliteal graft is present. The proximal distal anastomoses are widely patent. The right popliteal artery is patent above and below the knee. There is occlusion of the right trifurcation and proximal tibial arteries. The right popliteal- AT graft is atretic with very slow flow. There is a 4 cm occlusion of the right AT outflow. The right anterior tibial artery distally is patent and large. There is severe right pedal occlusive disease. The right dorsalis pedis artery is patent. The right plantar arch is occluded. The right metatarsal arteries are severely diseased. Left lower extremity: Left common femoral artery is patent. The left profunda femoral artery is patent. The left superficial femoral artery is calcified and smoothly disease without radiographically significant stenosis.. The left popliteal artery patent and continuous but tapered in appearance distally. There is severe left trifurcation and tibial occlusive disease. There is 1 vessel runoff via the left peroneal artery. The left anterior tibial and posterior tibial arteries are occluded. IMPRESSION: 1.Successful silver Hawk atherectomy, drug-eluting balloon angioplasty and focal drug-eluting stent placement in the patient's right popliteal- anterior tibial bypass. 2. Severe right pedal occlusive disease. 3. Severe bilateral trifurcation and tibial occlusive disease. 4. Patent right femoral- popliteal bypass
== END 2018-01-11 14:20 | disposition home or self-care (01) ==
LOC: SDSVAS 05:59
PROVIDERS: ATTEND Radiology Vascular & Interventional Radiology
DX: I70.235 Atherosclerosis of native arteries of right leg with ulceration of other part of foot (principal); L97.519 Non-pressure chronic ulcer of other part of right foot with unspecified severity; I10 Essential (primary) hypertension; I25.10 Atherosclerotic heart disease of native coronary artery without angina pectoris; E78.5 Hyperlipidemia, unspecified
CPT/HCPCS: 36415; 37231; 75625; 75716; 80048; 85025; 85610; 85730; 99152; 99153; C1725 ×3; C1760 ×2; C1769 ×3; C1874; C1885; C1887 ×2; C1894; J1644 ×2; J2250; J2405; J3010; J7030; Q9966; Q9967

== ENCOUNTER 2018-01-24 12:14 | Inpatient (IN) | payer MEDICARE ==
[2018-01-24 12:55] VITALS: BMI 27.1
--- NOTE | 2018-01-24 13:05 | ED PDOC ---
Arrival/HPI - General Chief Complaint: Lower Extremity Problem/Injury Time Seen by Provider: 01/24/18 13:01 Historian: Patient - History of Present Illness Narrative History of Present Illness (Text): 01/24/18 13:02 Justen Quigley is a 77 year old male, whose past medical history includes hypertension and PAD, who presents to the emergency department for L foot 3rd digit and R foot 5th digit infections. Denies fever, chills, dyspnea, vomiting. PMD: Dr. Stahl Clinical Science Liaison Enrique. Time/Duration: < week Symptom Onset: Gradual Symptom Course: Unchanged Activities at Onset: Light Context: Home Past Medical History - Provider Review Nursing Documentation Reviewed: Yes - Infectious Disease Hx of Infectious Diseases: None - Tetanus Immunization Tetanus Immunization: Unknown - Cardiac Hx Cardiac Disorders: Yes Hx Hypertension: Yes Hx Pacemaker: No Hx Peripheral Vascular Disease: Yes - Pulmonary Hx Respiratory Disorders: No (SMOKED CIGARETTES 3 PPD QUIT) - Neurological Hx Paralysis: No - HEENT Hx HEENT Disorder: No - Renal Hx Renal Disorder: No - Endocrine/Metabolic Hx Diabetes Mellitus Type 1: No (pt denies) Hx Diabetes Mellitus Type 2: No (pt denies) - Hematological/Oncological Hx Blood Transfusions: No - Integumentary Hx Dermatological Disorder: Yes Other/Comment: Pt has open wound on R second toe, being treated my MD Nunez ( 04/2017) , toenail fell off left ft 2nd toe, 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 - Musculoskeletal/Rheumatological Hx Musculoskeletal Disorders: Yes Hx Arthritis: Yes - Gastrointestinal Hx Gastrointestinal Disorders: No - Genitourinary/Gynecological Hx Genitourinary Disorders: No - Psychiatric Hx Emotional Abuse: No Hx Physical Abuse: No Hx Substance Use: No - Surgical History Hx Cardiac Catheterization: Yes Hx Coronary Stent: Yes - Anesthesia Hx Anesthesia Reactions: Yes Hx Malignant Hyperthermia: No - Suicidal Assessment Feels Threatened In Home Enviroment: No Family/Social History - Physician Review Nursing Documentation Reviewed: Yes Family/Social History: No Known Family HX Smoking Status: Former Smoker Hx Alcohol Use: No Hx Substance Use: No Hx Substance Use Treatment: No Allergies/Home Meds Allergies/Adverse Reactions: Allergies No Known Allergies Allergy (Verified 01/24/18 12:53) Home Medications: Home Meds Medication Instructions Recorded Confirmed Lisinopril/Hydrochlorothiazide 1 tab PO DAILY 01/19/14 01/24/18 [Lisinopril-Hctz 10-12.5 mg Tab] Clopidogrel [Plavix] 25 mg PO DAILY 02/06/17 01/24/18 levoFLOXacin [Levaquin] 750 mg PO DAILY 01/09/18 01/24/18 Review of Systems - Physician Review All systems were reviewed & negative as marked: Yes - Review of Systems Constitutional: absent: Fevers, Night Sweats Eyes: absent: Vision Changes ENT: absent: Hearing Changes Respiratory: absent: SOB, Cough Cardiovascular: absent: Chest Pain Gastrointestinal: absent: Abdominal Pain Genitourinary Male: absent: Dysuria Musculoskeletal: Other (Osteomyelitis to left 3rd toe and right 5th toe) Skin: absent: Rash Neurological: absent: Headache Endocrine: absent: Diaphoresis Hemo/Lymphatic: absent: Adenopathy Psychiatric: absent: Anxiety, Depression Physical Exam - Physical Exam Narrative Physical Exam (Text): Constitutional: No acute distress. Head: Normocephalic. Atraumatic. Eyes: PERRL. ENT: Moist mucous membranes. Neck: Supple. Cardiovascular: Regular rate. Chest: No tenderness. Respiratory: Clear to auscultation bilaterally. GI: Soft. Nontender. Nondistended. Back: No CVA tenderness. Musculoskeletal: No tenderness or swelling of extremities. Dressing to bilateral feet clean dry and intact. Skin: No rash. Neurologic: Alert, no focal deficit. Vital Signs Reviewed: Yes Vital Signs Temp Pulse Resp BP Pulse Ox 01/24/18 12:52 97.5 F L 81 18 135/114 H 100 Temperature: Afebrile Blood Pressure: Hypertensive Pulse: Regular Respiratory Rate: Normal Appearance: Positive for: Well-Appearing, Non-Toxic, Comfortable Pain Distress: None Mental Status: Positive for: Alert and Oriented X 3 Medical Decision Making ED Course and Treatment: 01/24/18 13:06 Impression: Outpatient MRI shows osteomyelitis of infected toes. Dr. Nunez will consult on case and perform operative procedure tomorrow. Dr. Gonzalez accepts patient to his service and recommends ID consult with Dr. Hardy. Plan: -- Type and Screen -- EKG -- Labs -- Reassess and disposition Prior Visits: Notes and results from previous visits were reviewed. Patient was last seen in the emergency department on 10/22/17 for shortness of breath. Patient was discharged home. Progress Notes: EKG Sinus rhythm, 60 bpm, no ST elevations. CXR from 12/31/2017 FINDINGS: LUNGS: No active pulmonary disease. PLEURA: No significant pleural effusion identified. No pneumothorax apparent. CARDIOVASCULAR: Normal. OSSEOUS STRUCTURES: No significant abnormalities. VISUALIZED UPPER ABDOMEN: Normal. OTHER FINDINGS: None. IMPRESSION: No active disease. - Lab Interpretations Lab Results: 01/24/18 13:00 01/24/18 13:00 Lab Results 01/24/18 13:00: Sodium 144, Potassium 4.7, Chloride 106, Carbon Dioxide 25, Anion Gap 18, BUN 41 H, Creatinine 1.6 H, Est GFR ( Amer) 51, Est GFR ( Non-Af Amer) 42, Random Glucose 128 H, Calcium 9.3, Total Bilirubin 0.7, AST 28 , ALT 32, Alkaline Phosphatase 81, Total Protein 7.4, Albumin 4.2, Globulin 3.2 , Albumin/Globulin Ratio 1.3 01/24/18 13:00: PT 11.4, INR 1.00, APTT 31.9 01/24/18 13:00: WBC 10.1 D, RBC 4.88, Hgb 15.4, Hct 44.3, MCV 90.8, MCH 31.6, MCHC 34.8, RDW 12.7, Plt Count 251, MPV 9.3, Gran % 74.3 H, Lymph % (Auto) 15.5 L, Sac % (Auto) 6.5 H, Eos % (Auto) 3.5, Baso % (Auto) 0.2, Gran # 7.49 H, Lymph # (Auto) 1.6, Sac # (Auto) 0.7 H, Eos # (Auto) 0.4, Baso # (Auto) 0.02 I have reviewed the lab results: Yes - Scribe Statement The provider has reviewed the documentation as recorded by the Chirag Ayala Provider Scribe Attestation: All medical record entries made by the Scribe were at my direction and personally dictated by me. I have reviewed the chart and agree that the record accurately reflects my personal performance of the history, physical exam, medical decision making, and the department course for this patient. I have also personally directed, reviewed, and agree with the discharge instructions and disposition. Disposition/Present on Arrival - Present on Arrival Any Indicators Present on Arrival: No History of DVT/PE: No History of Uncontrolled Diabetes: No Urinary Catheter: No History of Decub. Ulcer: No History Surgical Site Infection Following: None - Disposition Have Diagnosis and Disposition been Completed?: Yes Diagnosis: Osteomyelitis Disposition: HOSPITALIZED Disposition Time: 14:15 Patient Plan: Admission Condition: GUARDED Forms: [email or web address] (B[place]ian)
[2018-01-24 13:27] LABS: BASO # 0.02 K/mm3 (0.0-2.0); BASO % 0.2 % (0.0-3.0); EOS # 0.4 (0.0-0.7); EOS % 3.5 % (1.5-5.0); GRAN # 7.49 (1.4-6.5); GRAN % 74.3 % (50.0-68.0); HEMOGLOBIN 15.4 g/dL (14.0-18.0); LYMPH # 1.6 (1.2-3.4); LYMPH % 15.5 % (22.0-35.0); MEAN CELL VOLUME 90.8 fl (80.0-105.0); MEAN CORPUSCULAR HEMOGLOBIN 31.6 pg (25.0-35.0); MEAN CORPUSCULAR HGB CONC 34.8 g/dl (31.0-37.0); MEAN PLATELET VOLUME 9.3 fl (7.0-11.0); MONO # 0.7 (0.1-0.6); MONO % 6.5 % (1.0-6.0); RBC 4.88 10^6/uL (3.5-6.1); RED CELL DISTRIBUTION WIDTH 12.7 % (11.5-14.5); WHITE BLOOD COUNT 10.1 10^3/ul (4.5-11.0)
[2018-01-24 13:35] LABS: ALB/GLOB RATIO 1.3 (1.1-1.8); ALBUMIN 4.2 g/dL (3.0-4.8); CALCIUM 9.3 mg/dL (8.4-10.5)
[2018-01-24 13:44] LABS: PARTIAL THROMBOPLASTIN TIME 31.9 Seconds (25.1-36.5); PROTHROMBIN TIME 11.4 SECONDS (9.4-12.5)
[2018-01-24] MEDS: Sodium Chloride 0.9% 1,000 ML IV SCH (15:24)
[2018-01-24 20:27] LABS: URINE BILIRUBIN NEGATIVE (NEGATIVE); URINE BLOOD NEGATIVE (NEGATIVE); URINE GLUCOSE (UA) NEGATIVE (NEGATIVE); URINE LEUKOCYTE ESTERASE NEGATIVE Leu/uL (NEGATIVE); URINE PROTEIN NEGATIVE mg/dL (<30 mg/dL); URINE UROBILINOGEN 0.2 E.U./dL (<1 E.U./dL)
[2018-01-24 20:30] LABS: URINE APPEARANCE CLEAR (CLEAR); URINE COLOR YELLOW (YELLOW)
--- NOTE | 2018-01-24 22:34 | CARD ---
APPROVED REPORT EKG Measurement Heart [id number] <Conclusion> Sinus bradycardia with sinus arrhythmia with 1st degree AV block Otherwise normal ECG
--- NOTE | 2018-01-25 02:17 | HP ---
HISTORY OF PRESENT ILLNESS: The patient is a 77 year old man with a past medical history of hypertension, CAD s/p PCI with stent placement and PVD s/p IR revascularization of the proximal left anterior tibial artery s/p right lower extremity vascular bypass surgery who was sent to the ED by his dealer sales manager for management of lower extremity osteomyelitis and possible surgical intervention. The patient is closely followed by Dr. Nunez on an outpatient basis and was noted to have worsening, nonhealing lower extremity ulcers. He underwent an MRI of the right foot which demonstrated osteomyelitis of the 5th toe and was sent to the ED for continued care. The patient reports pain to both his feet but otherwise denies fevers, chills, rigors or any other constitutional symptoms. PAST MEDICAL HISTORY: As per HPI, also history of MSSA bacteremia and osteoarthritis. PAST SURGICAL HISTORY: As per HPI, also appendectomy and amputation of the right 4th toe. ALLERGIES: NKDA. MEDICATIONS: Aspirin 81 mg p.o. daily, Plavix 75 mg p.o. daily, Lipitor 40 mg p.o. daily, and Zestoretic 10/12.5 mg p.o. daily. FAMILY HISTORY: Significant for hypertension, diabetes and CAD. SOCIAL HISTORY: The patient reports a former 70 pack year smoking history but quit approximately 17 years ago. He reports social alcohol use and denies illicit drug abuse. REVIEW OF SYSTEMS: A 14-point review of systems is negative except as per HPI. PHYSICAL EXAMINATION VITAL SIGNS: Temperature 97.5, pulse 81, blood pressure 135/114, respiratory rate 18, oxygen saturation 100% on room air. GENERAL: No apparent distress. HEENT: PERRL. EOMI. No scleral icterus. No conjunctival pallor. NECK: No JVD. No bruits. LUNGS: Clear to auscultation. CARDIOVASCULAR: Regular rate and rhythm. Normal S1 and S2. ABDOMEN: Normoactive bowel sounds. Soft, nontender, nondistended. EXTREMITIES: No edema. Bilateral feet are slightly cool to touch with diminished distal pulses. NEUROLOGIC: Awake, alert, and oriented x 3. No focal motor deficits. LABORATORY DATA: CBC reviewed and unremarkable. CMP reviewed and largely unremarkable with the exception of BUN 41, creatinine 1.6. ASSESSMENT: The patient is a 77 year old man with a past medical history of CAD s/p PCI with stent placement and severe PVD s/p IR revascularization s/p right lower extremity popliteal/anterior tibial bypass who was sent to the ED by his dealer sales manager for inpatient management of osteomyelitis of the right foot. PLAN: 1. Osteomyelitis of the right 5th toe. Input from Dr. Nunez appreciated and the patient is tentatively scheduled for surgical amputation. Dr. Hardy of [place] has been consulted for antimicrobial recommendations. We will check a baseline ESR and CRP. The patient is medically optimized for OR and is an intermediate risk patient for an intermediate risk procedure and may proceed to the OR without any further cardiopulmonary workup. He is being hydrated with isotonic saline so as to mitigate renal dysfunction secondary to anesthesia. 2. Severe PVD s/p IR revascularization s/p right lower extremity popliteal/ anterior tibial bypass. The patient underwent recent IR revascularization with Dr. Lang Schwartz and had successfully reestablished perfusion in the lower extremities. We will hold Aspirin 81 mg p.o. daily and Plavix 75 mg p.o. daily in anticipation of OR. Continue with Lipitor 40 mg p.o. daily. 3. CAD s/p PCI with ANAMIKA placement. Continue Lipitor 40 mg p.o. daily. As above, we will hold Plavix 75 mg p.o. daily and Aspirin 81 mg p.o. daily in anticipation of podiatric surgery. 4. Hypertension. Resume Lisinopril 10 mg p.o. daily and HCTZ 12.5 mg p.o. daily. We will continue to monitor hemodynamics and adjust antihypertensives as needed. 5. Prophylaxis. GI prophylaxis is not indicated as the patient is eating. DVT prophylaxis is not indicated as the patient is ambulatory. CODE STATUS: Full code. Amari Gonzalez MD [facility]
[2018-01-25] MEDS: Sodium Chloride 0.9% 1,000 ML IV SCH (04:09)
[2018-01-25 07:09] LABS: BASO # 0.02 K/mm3 (0.0-2.0); BASO % 0.2 % (0.0-3.0); EOS # 0.4 (0.0-0.7); GRAN # 5.77 (1.4-6.5); GRAN % 68.4 % (50.0-68.0); HEMOGLOBIN 14.2 g/dL (14.0-18.0); LYMPH # 1.4 (1.2-3.4); LYMPH % 16.1 % (22.0-35.0); MEAN CELL VOLUME 90.4 fl (80.0-105.0); MEAN CORPUSCULAR HEMOGLOBIN 30.9 pg (25.0-35.0); MEAN CORPUSCULAR HGB CONC 34.2 g/dl (31.0-37.0); MEAN PLATELET VOLUME 9.1 fl (7.0-11.0); MONO # 0.9 (0.1-0.6); MONO % 10.3 % (1.0-6.0); RBC 4.59 10^6/uL (3.5-6.1); RED CELL DISTRIBUTION WIDTH 12.7 % (11.5-14.5); WHITE BLOOD COUNT 8.4 10^3/ul (4.5-11.0)
[2018-01-25 07:52] LABS: ALB/GLOB RATIO 1.2 (1.1-1.8); ALBUMIN 3.6 g/dL (3.0-4.8); ALT/SGPT 27 U/L (7-56); AST/SGOT 23 U/L (17-59); BLOOD UREA NITROGEN 32 mg/dL (7-21); CALCIUM 8.7 mg/dL (8.4-10.5); GFR AFRICAN-AMERICAN > 60; GFR NON-AFRICAN AMERICAN 53
--- NOTE | 2018-01-25 09:13 | PN ---
SUBJECTIVE: The patient was seen and examined at bedside on the general medical claudio. No acute events overnight. He remains afebrile, hemodynamically stable and is pending amputation of the right 5th toe secondary to osteomyelitis. Overall he feels well and offers no complaints. OBJECTIVE: VITAL SIGNS: Temperature 97.8, pulse 96, blood pressure 145/80, respiratory rate 20, oxygen saturation 98% on room air. GENERAL: No apparent distress. HEENT: PERRL, EOMI. No scleral icterus. No conjunctival pallor. NECK: No JVD. LUNGS: Clear to auscultation. CARDIOVASCULAR: Regular rate and rhythm. Normal S1 and S2. ABDOMEN: Normoactive bowel sounds. Soft, nontender and nondistended. EXTREMITIES: No edema. NEUROLOGIC: Awake, alert and oriented x 3. No focal motor deficits. LABORATORY DATA: CBC reviewed and unremarkable. CMP reviewed and unremarkable. ASSESSMENT: The patient is a 77 year old man with a past medical history of CAD s/p PCI with stent placement and severe PVD s/p IR revascularization s/p right lower extremity popliteal/anterior tibial bypass who was sent to the ED by his escrow clerk for inpatient management of osteomyelitis of the right foot. PLAN: 1. Osteomyelitis of the right 5th toe. Input from Dr. Nunez appreciated and the patient is scheduled for a surgical amputation today. Input from Dr. Barrett of [place] appreciated and the patient has been started on Ceftaroline 300 mg IV q. 12 hours. 2. Severe PVD s/p IR revascularization s/p right lower extremity popliteal/ anterior tibial bypass. Continue Lipitor 40 mg p.o. daily. We will hold Aspirin 81 mg p.o. daily and Plavix 75 mg p.o. daily in anticipation of OR. 3. CAD s/p PCI with ANAMIKA placement. As above, Plavix and Aspirin are on hold in anticipation of podiatric surgery. Continue Lipitor 40 mg p.o. daily. 4. Hypertension. Continue Lisinopril 10 mg p.o. daily and HCTZ 12.5 mg p.o. daily. 5. Prophylaxis. GI prophylaxis is not indicated as the patient is eating. DVT prophylaxis is not indicated as the patient is ambulatory. CODE STATUS: Full code. Amari Gonzalez MD [facility] # [id number] ROSS
[2018-01-25] MEDS ORDERED: Lidocaine 1% Inj (20ml) ONE (10:07)
[2018-01-25] MEDS ORDERED: Gentamicin 80 mg/2mL Inj. ONE (10:35)
[2018-01-25] MEDS ORDERED: HYDROmorphone 0.5 mg/0.5 ml ISec IVP PRN (12:09)
--- NOTE | 2018-01-25 12:11 | PCM.SURG1 ---
Surgeon's Initial Post Op Note - Surgeon's Notes Surgeon: Dr. Rosie Nunez, DPM Director Of Marketing And Promotions: Kishore Sharp, PGY1 Type of Anesthesia: IV Sedation, Local Anesthesia Administered By: Dr. Leon Pre-Operative Diagnosis: Osteomyelitis of right fifth digit and left third digit Operative Findings: See dictation report. M- 3-0 vicryl, 3-0 nylon. I- Preop: 9 cc 1% lidocaine plain Post-Operative Diagnosis: Same Operation Performed: Partial amputation of left third digit and partial right fifth ray amputation Specimen/Specimens Removed: Bone left third digit. Bone right fifht ray. Wound cx left third digit partial amputation site. Wound cx right partial fifth ray amputation site Estimated Blood Loss: EBL {In ML}: 5 Blood Products Given: N/A Drains Used: No Drains Post-Op Condition: Good Date of Surgery/Procedure: 01/25/18 Time of Surgery/Procedure: 12:11
[2018-01-25 12:44] VITALS: O2SAT 100
--- NOTE | 2018-01-25 13:00 | RAD ---
PROCEDURE: Bilateral Feet Radiographs. HISTORY: partial left third digit amputation COMPARISON: Left foot 10/22/2017. Right foot 12/11/2017 FINDINGS: BONES: Right Foot: There has been amputation of the 5th toe and a portion of the head of the 5th metatarsal. Previous amputation of the 2nd toe and 4th toe Left Foot: There has been partial amputation of the 3rd digit at the level of the middle phalanx. There has been previous amputation of the 1st and 2nd digit JOINTS: Right Foot: Normal. No osteoarthritis. Left Foot: Normal. No osteoarthritis. SOFT TISSUES: Right Foot: Normal. Left Foot: Normal. OTHER FINDINGS: None. IMPRESSION: As above
--- NOTE | 2018-01-25 13:58 | CP.PCM.CON ---
History of Present Illness - History of Present Illness History of Present Illness: 77 year old male with PMH of left foot cellulitis with methicillin-sensitive Staph aureus, hypertension, severe peripheral vascular disease, coronary artery disease, chronic renal failure was sent in by Dr. Nunez for partial amputation of the right 5th digit and left 3rd digit which was done this morning. He has been following with Dr. Nunez regularly and the digits have become somewhat necrotic. He denies having discharge from the digits. He denies animal contacts, no soaking of feet in water, no fever or chills, no nausea or vomiting, no chest pain, no SOB, no headache or dizziness, no abdominal pain, no diarrhea, no dysuria, no leg pain. Infectious Diseases consult is requested to further evaluate and manage. Review of Systems - Review of Systems All systems: reviewed and no additional remarkable complaints except (as per HPI ) Past Patient History - Infectious Disease Hx of Infectious Diseases: None - Tetanus Immunizations Tetanus Immunization: Unknown - Past Social History Smoking Status: Former Smoker - CARDIAC Hx Cardiac Disorders: Yes Hx Hypertension: Yes Hx Peripheral Vascular Disease: Yes (PAD w/ Sx Hx) - PULMONARY Hx Respiratory Disorders: No - NEUROLOGICAL Hx Neurological Disorder: No - HEENT Hx HEENT Problems: No - RENAL Hx Chronic Kidney Disease: No - ENDOCRINE/METABOLIC Hx Endocrine Disorders: No - HEMATOLOGICAL/ONCOLOGICAL Hx Blood Transfusions: No - INTEGUMENTARY Hx Dermatological Problems: No - MUSCULOSKELETAL/RHEUMATOLOGICAL Hx Musculoskeletal Disorders: No Hx Falls: No - GASTROINTESTINAL Hx Gastrointestinal Disorders: No - GENITOURINARY/GYNECOLOGICAL Hx Genitourinary Disorders: No - PSYCHIATRIC Hx Psychophysiologic Disorder: No Hx Substance Use: No - SURGICAL HISTORY Hx Surgeries: Yes - ANESTHESIA Hx Anesthesia Reactions: Yes Hx Malignant Hyperthermia: No Meds Allergies/Adverse Reactions: Allergies Allergy/AdvReac Type Severity Reaction Status Date / Time amoxicillin AdvReac NAUSEA Verified 01/25/18 10:19 - Medications Medications: Current Medications Atorvastatin Calcium (Lipitor) 40 mg PO DAILY [facility] Hydrochlorothiazide (Microzide) 12.5 mg PO DAILY [facility] Sodium Chloride (Sodium Chloride 0.9%) 1,000 mls @ 100 mls/hr IV .Q10H AKIKO Last Admin: 01/25/18 04:09 Dose: 100 mls/hr Lisinopril (Zestril) 10 mg PO DAILY AKIKO Physical Exam - Constitutional Appears: Non-toxic, Chronically Ill - Head Exam Head Exam: NORMAL INSPECTION - ENT Exam ENT Exam: Mucous Membranes Moist - Neck Exam Neck exam: Negative for: Meningismus - Respiratory Exam Respiratory Exam: Decreased Breath Sounds. absent: Rales - Cardiovascular Exam Cardiovascular Exam: +S1, +S2 - GI/Abdominal Exam GI & Abdominal Exam: Soft. absent: Tenderness - Extremities Exam Additional comments: both feet with dry dressings in place Results - Vital Signs Recent Vital Signs: Last Vital Signs Temp 97.8 F 01/24/18 21:21 Pulse 59 L 01/24/18 21:21 Resp 18 01/24/18 21:21 BP 132/79 01/24/18 21:21 Pulse Ox 99 01/24/18 21:21 - Labs Result Diagrams: 01/25/18 06:20 01/25/18 06:20 Labs: Laboratory Results - last 24 hr 01/24/18 20:21 Urine Color Yellow Urine Appearance Clear Urine pH 6.0 Ur Specific [place] 1.025 Urine Protein Negative Urine Glucose (UA) Negative Urine Ketones Negative Urine Blood Negative Urine Nitrate Negative Urine Bilirubin Negative Urine Urobilinogen 0.2 Ur Leukocyte Esterase Negative Assessment & Plan - Assessment and Plan (Free Text) Plan: Assessment S/P partial amputation of the left 3rd digit and right 5th digit with skin and skin structure infection, R/O osteomyelitis history of left 2nd toe partial amputation with skin and soft tissue infection with MRSA with probable osteomyelitis history of left foot skin and skin structure infection with osteomyelitis of the 5th metatarsal head S/P surgery hypertension severe peripheral vascular disease coronary artery disease chronic renal failure Plan started Teflaro - patient to be followed up as outpatient by Dr. Nunez and can be put on Levaquin until OR cultures and pathology are available - discussed with Dr. Nunez
--- NOTE | 2018-01-25 15:15 | PN ---
DATE: 01/25/2018 SUBJECTIVE: This is s a preop note for a 77-year-old male with multiple foot amputations in the past, now presenting with osteomyelitis of the fifth digit on the right and the third digit on the left. The patient is admitted for surgical amputation of these digits. The patient has a history of CAD. He is status post PCI with stent placement. The patient also has severe peripheral vascular disease in bilateral lower extremities, has a history of two bypasses on the right lower extremity. He recently underwent angioplasty and opening of the right bypass, which was occluded. He has severe pedal disease to the foot. His left lower extremity also has a history of having several angioplasties within the last two years to open stents, which continue to close. The patient's vital signs were noted. He is afebrile with a temperature of 97.8, pulse rate was 96. LABORATORY DATA: The patient's labs were reviewed. His white blood cell count upon admission is 10.1, today 8.4. He has been started on as per Infectious Disease. His H and H is grossly within normal at 14.2 and 41.5. The platelets are within normal at 214. The patient's granulocytes are 68.4 and 16.1, the ESR is at 30. Chemistry shows BUN and creatinine of 32 and 1.3, this has improved from yesterday where it was 41 and 1.6. C-reactive protein is at 4.9. Microbiology, the last culture was taken from the right foot on 01/23/2018 and it shows gram-positive cocci, it is preliminary and it was a heavy growth of the gram-positive. The patient previously had a C and S on 01/07/2018 and that was for coagulase-negative staph. The patient has ulceration to the fifth toe. The entire dorsal aspect of the fifth toe is denuded. There was no bone exposed, but toe is red and swollen and it is causing swelling into the foot. There was also a small ulceration submetatarsal , no probe to bone, no purulence in that area. His left foot has a cool digit on the third toe with an ulceration in the distal tip and the tip of the distal phalanx is exposed in that wound. That foot has no cellulitis or signs of infection. The patient had then undergone four-week course of Levaquin for an osteomyelitis two months ago on the second toe of the left foot that had gone on to heal. He was placed back on Levaquin two days ago in preparation for the surgery. ASSESSMENT: Severe peripheral vascular disease with lower extremity neuropathy bilateral and osteomyelitis of the fifth toe on the right, osteomyelitis to the distal toe on the left. Review of the MRI shows positive osteomyelitis of the fifth proximal phalanx and distal phalanx on the right foot and MRI was not done on the left; however, since the bone is clinically exposed, it is an osteomyelitis. PLAN OF TREATMENT: The patient will be having surgery today to remove the fifth toe as well as the distal aspect of the third toe, right foot and left foot respectively. The patient will continue on IV antibiotics as per Infectious Disease and he wants to go home today postop. I will Infectious Disease and see if we can send him home and follow closely the labs and adjust the antibiotics as needed. Rosie Nunez DPM
[2018-01-25 15:16] VITALS: BP 151/93; PULSE 74; RESP 20; TEMP 98
--- NOTE | 2018-01-28 08:21 | OP ---
PROCEDURE DATE: 01/25/2018 SURGEON: Rosie Nunez DPM ASSEMBLY DEPARTMENT SUPERVISOR: Kishore Sharp DPM ANESTHESIOLOGIST: Jesús Leon MD ANESTHESIA: MAC with local. PREOPERATIVE DIAGNOSIS: Infected left third toe and right fifth toe with underlying osteomyelitis. POSTOPERATIVE DIAGNOSIS: Infected left third toe and right fifth toe with underlying osteomyelitis. PROCEDURE: 1. Partial amputation of left third digit. 2. Partial right fifth ray amputation. INDICATIONS: The patient is a 77-year-old male with the above diagnosis. The patient has exhausted all conservative treatment at this time and now requires surgical intervention. The patient signed the consent after careful explanation of risks, benefits, complications, and alternatives of the surgical procedure. No guarantees were given nor implied. N.p.o. status was confirmed prior to taking the patient to the OR. PREPARATION: The patient was brought into the operating room and placed on the operating room table in a supine position. A time-out was performed for identification of the correct patient and procedure. After induction of monitored anesthetic care with IV sedation, the patient received a total of 9 mL of 1% lidocaine plain in a local block fashion to the base of the left third digit as well as at the level of the mid foot surrounding the right fifth ray. The bilateral lower extremities were then prepped and draped in a normal sterile manner and the procedure began. No tourniquet was used during this procedure. PROCEDURE #1: Partial amputation of left third digit. Attention was then turned to the left third digit, where it was noted that an ulceration was present on the distal most aspect of the digital tip. This ulceration was noted to probe directly to underlying bone and was also noted to be edematous with periwound erythema and moderate serous drainage. Using a fresh #15 blade, a circumferential incision was made down to the level of bone at the level of the distal interphalangeal joint. The joint was then located, and using the same #15 blade as well as a bone clamp on the distal most aspect of the digit, the distal phalanx and all surrounding soft tissue was disarticulated from the third digit. This specimen was then sent to Pathology for pathological examination. Soft tissue surrounding the distal most aspect of the middle phalanx was then dissected using the same #15 blade, and using bone cutter, the distal most aspect of middle phalanx was cut and excised from the surgical field and sent to Pathology as well. The amputation site was then flushed with copious amounts of normal sterile saline using a pulsed lavage. A wound culture was then taken. Next utilizing Adson-Brown pickups and Iris scissors, subcutaneous fatty tissue seen at the distal most aspect of the newly amputated digit was debrided. The amputation site was then closed using 3-0 Vicryl deep sutures as well as 3-0 nylon superficial sutures in an interrupted simple suture fashion. The left digit was then dressed with Adaptic, 4 x 4 gauze, Kerlix and tape. PROCEDURE #2: Partial right fifth ray amputation. Attention was then turned to the right fifth ray where it was noted that the entirety of the fifth digit was erythematous with a dorsally located ulceration that probed directly to bone with moderate amount of serous drainage and a fibrous base. Utilizing a new #15 blade as well as bone clamps, a racquet-type incision was made down directly to bone at the level of the metatarsophalangeal joint. All soft tissue was debrided off of the metatarsophalangeal joint bony articulation, and the entirety of the right fifth digit was amputated and excised from the field down to metatarsophalangeal joint. This specimen was sent to Pathology for pathological examination. Next, all soft tissues surrounding the head of the fifth metatarsal was debrided off the bone using the same #15 blade and a bone cutter was used to excise the distal most aspect of the fifth metatarsal head. This specimen was also sent to Pathology for pathological examination. Utilizing the pulsed lavage, the area was then flushed with copious amounts of normal sterile saline. A wound culture was then taken and sent to Microbiology for culturing, and the incision site was closed with 3-0 Vicryl suture deep as well as 3-0 nylon suture superficially in a simple interrupted type of suture. The surgical site was then dressed with Adaptic, 4 x 4 gauze, Kerlix and tape, and the procedure was concluded. POSTOPERATIVE CONDITION: The patient tolerated the anesthesia and procedure well, and was escorted to the recovery room with vital signs stable and neurovascular status intact to the bilateral lower extremities. The patient is to remain weightbearing as tolerated to his bilateral heels, using surgical shoes, and is to keep the dressings clean, dry and intact at all times. The patient is scheduled for discharge from the hospital today and will follow up with Dr. Nunez in the wound care center within 1 week. The patient is aware that he must arrange for an appointment. Kishore Sharp DPM Rosie Nunez DPM [id number]
== END 2018-01-25 17:13 | disposition home or self-care (01) | DRG 617 ==
LOC: ED 12:14 → ERH 14:19 → 5RNO 15:34
PROVIDERS: ADMIT Student in an Organized Health Care Education/Training Program; ATTEND Student in an Organized Health Care Education/Training Program
PROC: 0Y6M0ZF Detachment at Right Foot, Partial 5th Ray, Open Approach (ICD-10-PCS; principal; 2018-01-25 10:30)
PROC: 0Y6U0Z3 Detachment at Left 3rd Toe, Low, Open Approach (ICD-10-PCS; 2018-01-25 10:30)
DX: E11.69 Type 2 diabetes mellitus with other specified complication (principal); M86.172 Other acute osteomyelitis, left ankle and foot; M86.171 Other acute osteomyelitis, right ankle and foot; E11.621 Type 2 diabetes mellitus with foot ulcer; E11.51 Type 2 diabetes mellitus with diabetic peripheral angiopathy without gangrene; I25.10 Atherosclerotic heart disease of native coronary artery without angina pectoris; E11.22 Type 2 diabetes mellitus with diabetic chronic kidney disease; L97.519 Non-pressure chronic ulcer of other part of right foot with unspecified severity; L97.529 Non-pressure chronic ulcer of other part of left foot with unspecified severity; E11.40 Type 2 diabetes mellitus with diabetic neuropathy, unspecified; I12.9 Hypertensive chronic kidney disease with stage 1 through stage 4 chronic kidney disease, or unspecified chronic kidney disease; N18.9 Chronic kidney disease, unspecified; Z87.891 Personal history of nicotine dependence

== ENCOUNTER 2018-02-14 10:46 | Inpatient (IN) | payer MEDICARE ==
[2018-02-14] MEDS ORDERED: Sodium Chloride 0.9% 1,000 ML IV STA (11:25)
--- NOTE | 2018-02-14 11:32 | ED PDOC ---
Arrival/HPI - General Chief Complaint: Lower Extremity Problem/Injury Time Seen by Provider: 02/14/18 10:49 Historian: Patient - History of Present Illness Narrative History of Present Illness (Text): 02/14/18 11:27 77 year old male presents to the Emergency department complaining of an infection to right foot status post right 5th toe amputation 1 month ago. Patient states he was in a hyperbaric unit 3 days ago when he received a cast; there was no infection at that time. The next day, the patient experienced diaphoresis and increased pain to the right foot and noticed an infection. Patient denies any chest pain, shortness of breath, nausea, vomiting, diarrhea, urinary symptoms, back pain, neck pain, headache, dizziness, or any other complaints. Dr. Enrique Gonzalez Time/Duration: < week (3 days) Symptom Onset: Sudden Symptom Course: Unchanged Context: Home Past Medical History - Provider Review Nursing Documentation Reviewed: Yes - Infectious Disease Hx of Infectious Diseases: None - Tetanus Immunization Tetanus Immunization: Unknown - Cardiac Hx Cardiac Disorders: Yes Hx Hypertension: Yes Hx Peripheral Vascular Disease: Yes (PAD w/ Sx Hx) - Pulmonary Hx Respiratory Disorders: No - Neurological Hx Neurological Disorder: No - HEENT Hx HEENT Disorder: No - Renal Hx Renal Disorder: No - Endocrine/Metabolic Hx Endocrine Disorders: No - Hematological/Oncological Hx Blood Transfusions: No - Integumentary Hx Dermatological Disorder: No - Musculoskeletal/Rheumatological Hx Musculoskeletal Disorders: No - Gastrointestinal Hx Gastrointestinal Disorders: No - Genitourinary/Gynecological Hx Genitourinary Disorders: No - Psychiatric Hx Psychophysiologic Disorder: No Hx Substance Use: No - Surgical History Hx Amputation: Yes (Left foot 2 toes, Right foot 3 toes) Hx Cardiac Catheterization: Yes Hx Coronary Stent: Yes (x5) - Anesthesia Hx Anesthesia Reactions: Yes Hx Malignant Hyperthermia: No - Suicidal Assessment Feels Threatened In Home Enviroment: No Family/Social History - Physician Review Nursing Documentation Reviewed: Yes Family/Social History: Unknown Family HX Smoking Status: Former Smoker Hx Alcohol Use: No Hx Substance Use: No Hx Substance Use Treatment: No Allergies/Home Meds Allergies/Adverse Reactions: Allergies No Known Allergies Allergy (Verified 02/14/18 11:02) Home Medications: Home Meds Medication Instructions Recorded Confirmed Lisinopril/Hydrochlorothiazide 1 tab PO DAILY 01/19/14 02/14/18 [Lisinopril-Hctz 10-12.5 mg Tab] Clopidogrel [Plavix] 25 mg PO DAILY 02/06/17 02/14/18 Review of Systems - Physician Review All systems were reviewed & negative as marked: Yes - Review of Systems Respiratory: absent: SOB Cardiovascular: absent: Chest Pain Gastrointestinal: absent: Diarrhea, Nausea, Vomiting Genitourinary Male: absent: Dysuria Musculoskeletal: Other (right foot pain). absent: Back Pain, Neck Pain Neurological: absent: Headache, Dizziness Endocrine: Diaphoresis Physical Exam Vital Signs Reviewed: Yes Vital Signs Temp Pulse Resp BP Pulse Ox 02/14/18 10:56 97.7 F 81 18 112/68 97 02/14/18 10:47 98.1 F 67 18 119/75 95 Temperature: Afebrile Blood Pressure: Normal Pulse: Regular Respiratory Rate: Normal Appearance: Positive for: Well-Appearing, Non-Toxic, Comfortable Pain Distress: None Mental Status: Positive for: Alert and Oriented X 3 - Systems Exam Head: Present: Atraumatic, Normocephalic Pupils: Present: PERRL Extroacular Muscles: Present: EOMI Conjunctiva: Present: Normal Mouth: Present: Moist Mucous Membranes Neck: Present: Normal Range of Motion Respiratory/Chest: Present: Clear to Auscultation, Good Air Exchange. No: Respiratory Distress, Accessory Muscle Use Cardiovascular: Present: Regular Rate and Rhythm, Normal S1, S2. No: Murmurs Abdomen: No: Tenderness, Distention, Peritoneal Signs Back: Present: Normal Inspection Upper Extremity: Present: Normal Inspection. No: Cyanosis, Edema Lower Extremity: Present: Other (Patient's right foot with dressing. Dressing was not removed; patient described infection to the lateral aspect of right foot. ). No: Edema Neurological: Present: GCS=15, CN II-XII Intact, Speech Normal Skin: Present: Warm, Dry, Normal Color. No: Rashes Psychiatric: Present: Alert, Oriented x 3, Normal Insight, Normal Concentration Medical Decision Making ED Course and Treatment: 02/14/18 11:35 Impression: 77 year old male presents to the Emergency department complaining of infection to right foot status post right 5th toe amputation. Plan: -- Blood culture, urine culture -- Urinalysis -- VBG -- Labs -- Sodium Chloride IV fluids -- Reassess and disposition Prior Visits: Notes and results from previous visits were reviewed. Patient was last seen in the emergency department on 01/24/18, was diagnosed with Osteomyelitis, and was admitted to the hospital. Progress Notes: 02/14/18 11:58 Discussed case in detail with Dr. Nunez who states the patient was started on Levaquin yesterday. Patient CRP and sed rate came back high. Dr. Nunez would like MRI of right foot without contrast, check on yesterday's culture, and for the patient to be started on Vancomycin and Zosyn. Also wants to consult Dr. Hardy. 02/14/18 12:04 Culture revealed heavy growth of Gram-positive cocci. - Lab Interpretations Lab Results: 02/14/18 11:54 02/14/18 11:54 Lab Results 02/14/18 11:54: Sodium 140, Chloride 103, Potassium 4.5, Carbon Dioxide 23, Anion Gap 19, BUN 37 H, Creatinine 1.9 H, Est GFR ( Amer) 42, Est GFR ( Non-Af Amer) 34, Random Glucose 143 H, Calcium 9.1, Total Bilirubin 0.9, AST 22 , ALT 24, Alkaline Phosphatase 74, Total Protein 7.7, Albumin 4.1, Globulin 3.6 , Albumin/Globulin Ratio 1.2 02/14/18 11:54: pO2 31, VBG pH 7.35, VBG pCO2 46.0, VBG HCO3 25.4, VBG Total CO2 26.8, VBG O2 Sat (Calc) 65.5 H, VBG Base Excess -0.6 L, VBG Potassium 4.5, Sodium 137.0, Chloride 104.0, Glucose 147 H, Lactate 1.1, FiO2 21.0, Venous Blood Potassium 4.5 02/14/18 11:54: PT 13.3 H, INR 1.15 H, APTT 33.6 02/14/18 11:54: WBC 14.3 H, RBC 4.59, Hgb 14.3, Hct 41.2 L, MCV 89.8, MCH 31.2, MCHC 34.7, RDW 12.6, Plt Count 242, MPV 9.1, Gran % 80.2 H, Lymph % (Auto) 8.9 L , [place] % (Auto) 9.9 H, Eos % (Auto) 0.8 L, Baso % (Auto) 0.2, Gran # 11.44 H, Lymph # (Auto) 1.3, [place] # (Auto) 1.4 H, Eos # (Auto) 0.1, Baso # (Auto) 0.03 - RAD Interpretation Narrative RAD Interpretations (Text): 02/14/2018 13:22:36 MRI of the right foot without contrast FINDINGS: There has been amputation at the level of the head of the 5th metatarsal. There is a small amount of marrow edema at this site which could be postoperative or secondary to osteomyelitis. There is surrounding soft tissue swelling. There is a discrete fluid collection dorsal to the distal metatarsal measuring 15 by 9 mm in size. Previous amputations of the 2nd and 4th toes. IMPRESSION: Possible osteomyelitis distal 5th metatarsal Radiology Orders: 02/14/18 11:59 FOOT W/O CONTRAST RIGHT [MRI] Stat - Medication Orders Current Medication Orders: Discontinued Medications Sodium Chloride (Sodium Chloride 0.9%) 1,000 mls @ 999 mls/hr IV .Q1H1M STA Stop: 02/14/18 12:25 Last Admin: 02/14/18 11:52 Dose: 999 mls/hr eMAR Start Stop Document 02/14/18 11:52 GMD (Rec: 02/14/18 11:53 GMD [id number]) Intravenous Solution Start Date 02/14/18 Start Time 11:52 End Date 02/14/18 End time 12:53 Total Infusion Time 61 Vancomycin HCl (Vancomycin 1gm) 1 gm in 250 mls @ 167 mls/hr IVPB STAT STA PRN Reason: Protocol Stop: 02/14/18 13:26 Last Admin: 02/14/18 14:25 Dose: 167 mls/hr eMAR Start Stop Document 02/14/18 14:25 GMD (Rec: 02/14/18 14:26 GMD [id number]) Intravenous Solution Start Date 02/14/18 Start Time 14:26 End Date 02/14/18 End time 15:56 Total Infusion Time 90 Piperacillin Sod/Tazobactam Sod (Zosyn 3.375 In Ns 100ml) 100 mls @ 200 mls/hr IVPB STAT STA PRN Reason: Protocol Stop: 02/14/18 12:26 Last Admin: 02/14/18 13:13 Dose: 200 mls/hr eMAR Start Stop Document 02/14/18 13:13 GMD (Rec: 02/14/18 13:13 GMD [id number]) Intravenous Solution Start Date 02/14/18 Start Time 13:13 End Date 02/14/18 End time 13:43 Total Infusion Time 30 - Scribe Statement The provider has reviewed the documentation as recorded by the Scribe Gerard Page All medical record entries made by the Scribe were at my direction and personally dictated by me. I have reviewed the chart and agree that the record accurately reflects my personal performance of the history, physical exam, medical decision making, and the department course for this patient. I have also personally directed, reviewed, and agree with the discharge instructions and disposition. Disposition/Present on Arrival - Present on Arrival Any Indicators Present on Arrival: No History of DVT/PE: No History of Uncontrolled Diabetes: No Urinary Catheter: No History of Decub. Ulcer: No History Surgical Site Infection Following: None - Disposition Have Diagnosis and Disposition been Completed?: Yes Diagnosis: Cellulitis of foot, Peripheral vascular disease, Osteomyelitis Disposition: HOSPITALIZED Disposition Time: 14:29 Patient Plan: Admission Condition: FAIR Discharge Instructions (ExitCare): Cellulitis (ED) Referrals: Antolin Gonzalez MD [Primary Care Provider] - Follow up with primary Forms: Answer.To (American)
[2018-02-14] MEDS ORDERED: Piperacillin/Tazobact 3.375 gm 100 ML IVPB STA (11:57)
[2018-02-14] MEDS ORDERED: Vancomycin 1gm in NS 250ml 1 GM/250 ML BAG IVPB STA (11:57)
[2018-02-14 12:00] LABS: VENOUS BLOOD GAS BASE EXCESS -0.6 mmol/L (0.0-2.0); VENOUS BLOOD GAS PO2 31 mm/Hg (30-55); VENOUS BLOOD PH 7.35 (7.32-7.43)
[2018-02-14 12:03] LABS: BASO # 0.03 K/mm3 (0.0-2.0); BASO % 0.2 % (0.0-3.0); EOS # 0.1 (0.0-0.7); EOS % 0.8 % (1.5-5.0); GRAN # 11.44 (1.4-6.5); GRAN % 80.2 % (50.0-68.0); HEMOGLOBIN 14.3 g/dL (14.0-18.0); LYMPH # 1.3 (1.2-3.4); LYMPH % 8.9 % (22.0-35.0); MEAN CELL VOLUME 89.8 fl (80.0-105.0); MEAN CORPUSCULAR HEMOGLOBIN 31.2 pg (25.0-35.0); MEAN CORPUSCULAR HGB CONC 34.7 g/dl (31.0-37.0); MEAN PLATELET VOLUME 9.1 fl (7.0-11.0); MONO # 1.4 (0.1-0.6); MONO % 9.9 % (1.0-6.0); RBC 4.59 10^6/uL (3.5-6.1); RED CELL DISTRIBUTION WIDTH 12.6 % (11.5-14.5); WHITE BLOOD COUNT 14.3 10^3/ul (4.5-11.0)
[2018-02-14 12:11] LABS: CALCIUM 9.1 mg/dL (8.4-10.5)
[2018-02-14 12:12] LABS: ALB/GLOB RATIO 1.2 (1.1-1.8); ALBUMIN 4.1 g/dL (3.0-4.8)
[2018-02-14 12:54] LABS: INR 1.15 (0.93-1.08); PARTIAL THROMBOPLASTIN TIME 33.6 Seconds (25.1-36.5); PROTHROMBIN TIME 13.3 SECONDS (9.4-12.5)
--- NOTE | 2018-02-14 13:24 | MRI ---
PROCEDURE: MRI of the right foot without contrast HISTORY: ? Osteomyelitis ? COMPARISON: Plain films dated 01/25/2018 TECHNIQUE: MRI of the right foot was performed in multiple planes using multiple pulse sequences. FINDINGS: There has been amputation at the level of the head of the 5th metatarsal. There is a small amount of marrow edema at this site which could be postoperative or secondary to osteomyelitis. There is surrounding soft tissue swelling. There is a discrete fluid collection dorsal to the distal metatarsal measuring 15 by 9 mm in size. Previous amputations of the 2nd and 4th toes. IMPRESSION: Possible osteomyelitis distal 5th metatarsal
[2018-02-14] MEDS: Sodium Chloride 0.9% 1,000 ML IV SCH (15:17)
--- NOTE | 2018-02-14 17:49 | HP ---
HISTORY OF PRESENT ILLNESS: The patient is a 77 year old man with a past medical history of severe PVD s/p IR revascularization s/p right lower extremity vascular bypass surgery and chronic lower extremity ulcers with a history of osteomyelitis s/p multiple amputations who is closely followed by Dr. Nunez of Podiatry and undergoing hyperbaric oxygen therapy who was sent to the ED for continued management of a nonhealing right foot infection. Examination in the ED demonstrated erythema with fluctuance to the right foot and an MRI demonstrated a discrete fluid collection with findings consistent with osteomyelitis. The patient was subsequently admitted for continued podiatric care and IV antibiotics. PAST MEDICAL HISTORY: As per HPI, also HTN, CAD s/p PCI with stent placement, osteoarthritis and history of MSSA bacteremia. PAST SURGICAL HISTORY: As per HPI, also appendectomy. ALLERGIES: NKDA. MEDICATIONS: Aspirin 81 mg p.o. daily, Plavix 75 mg p.o. daily, Lipitor 40 mg p.o. daily and Zestoretic 10/12.5 mg p.o. daily. FAMILY HISTORY: Significant for hypertension, diabetes and CAD. SOCIAL HISTORY: The patient reports a former 24-irex-spvf smoking history but quit approximately 17 years ago. He reports social alcohol use and denies illicit drug abuse. REVIEW OF SYSTEMS: Negative for fevers, chills or rigors. Positive for pain to the right foot with erythema and difficulty ambulating. PHYSICAL EXAMINATION VITAL SIGNS: Temperature 97.7, pulse 80, blood pressure 112/68, respiratory rate 18, oxygen saturation 100% on room air. GENERAL: No apparent distress. HEENT: PERRL. EOMI. No scleral icterus. No conjunctival pallor. NECK: No JVD. No bruits. LUNGS: Clear to auscultation. CARDIOVASCULAR: Regular rate and rhythm. Normal S1 and S2. ABDOMEN: Normoactive bowel sounds. Soft, nontender, nondistended. EXTREMITIES: No edema. Right foot with erythema and palpable fluctuant mass with tenderness to palpation. NEUROLOGIC: Awake, alert, and oriented x 3. No focal motor deficits. LABORATORY DATA: WBC 14.3 with 80% neutrophil, hemoglobin 14, hematocrit 41 and platelets 242. Chemistry reviewed and largely unremarkable with the exception of BUN 37, creatinine of 1.9. IMAGING STUDIES: MRI of the right foot without contrast demonstrates a discrete fluid collection dorsal to the distal 5th metatarsal with possible osteomyelitis. ASSESSMENT: The patient is a 77 year old man with a past medical history of severe PVD s/p IR revascularization s/p RLE popliteal/anterior tibial bypass, hypertension and CAD s/p PCI with stent placement who was sent to the ED by his manager sourcing for inpatient management of osteomyelitis of the right foot. PLAN: 1. Osteomyelitis of the right 5th toe. Input from Dr. Nunez noted and appreciated. Continue with care as per Dr. Nunez and the podiatric team. Dr. Hardy of [place] has been consulted for antimicrobial recommendations. 2. Severe PVD s/p IR revascularization s/p RLE popliteal/anterior tibial bypass. Resume Aspirin 81 mg p.o. daily, Plavix 75 mg p.o. daily and Lipitor 40 mg p.o. daily. 3. CAD s/p PCI with ANAMIKA placement. Resume Lipitor 40 mg p.o. daily, Aspirin 81 mg p.o. daily and Plavix 75 mg p.o. daily. 4. Hypertension. Blood pressure controlled. Resume Lisinopril 10 mg p.o. daily and HCTZ 12.5 mg p.o. daily. 5. JAQUELIN. Labs demonstrated a slight elevation of renal function. We will start the patient on gentle IV fluid hydration consisting of normal saline at 75 mL per hour. 6. Prophylaxis. GI prophylaxis is not indicated as the patient is eating. DVT prophylaxis is not indicated as the patient is ambulatory. CODE STATUS: Full code. Amari Gonzalez MD MTDD
[2018-02-14] MEDS: Piperacillin/Tazobact 3.375 gm 100 ML IVPB SCH ×2 (18:08→23:23)
[2018-02-14 18:14] VITALS: BMI 26.4
[2018-02-14 18:55] LABS: URINE BILIRUBIN NEGATIVE (NEGATIVE); URINE BLOOD NEGATIVE (NEGATIVE); URINE GLUCOSE (UA) NEGATIVE (NEGATIVE); URINE LEUKOCYTE ESTERASE NEGATIVE Leu/uL (NEGATIVE); URINE PROTEIN 30 mg/dL (<30 mg/dL); URINE UROBILINOGEN 0.2 E.U./dL (<1 E.U./dL)
[2018-02-14 18:57] LABS: URINE APPEARANCE CLEAR (CLEAR); URINE COLOR YELLOW (YELLOW)
[2018-02-14 19:05] LABS: URINE RBC NEGATIVE /hpf (0-2)
[2018-02-14 19:06] LABS: URINE BACTERIA TRACE (NEG); URINE HYALINE CAST 0 - 2 /hpf; URINE WBC NEGATIVE /hpf (0-6)
[2018-02-15] MEDS: Sodium Chloride 0.9% 1,000 ML IV SCH (05:47)
[2018-02-15 07:41] LABS: BASO # 0.04 K/mm3 (0.0-2.0); BASO % 0.3 % (0.0-3.0); EOS # 0.3 (0.0-0.7); EOS % 2.2 % (1.5-5.0); GRAN # 9.18 (1.4-6.5); GRAN % 77.3 % (50.0-68.0); LYMPH % 8.7 % (22.0-35.0); MEAN CELL VOLUME 89.3 fl (80.0-105.0); MEAN CORPUSCULAR HEMOGLOBIN 30.8 pg (25.0-35.0); MEAN CORPUSCULAR HGB CONC 34.5 g/dl (31.0-37.0); MEAN PLATELET VOLUME 9.2 fl (7.0-11.0); MONO # 1.4 (0.1-0.6); MONO % 11.5 % (1.0-6.0); RBC 4.22 10^6/uL (3.5-6.1); RED CELL DISTRIBUTION WIDTH 12.6 % (11.5-14.5); WHITE BLOOD COUNT 11.9 10^3/ul (4.5-11.0)
[2018-02-15 07:52] LABS: ALB/GLOB RATIO 1.1 (1.1-1.8); ALBUMIN 3.6 g/dL (3.0-4.8); CALCIUM 8.8 mg/dL (8.4-10.5)
--- NOTE | 2018-02-15 12:07 | CP.PCM.CON ---
<[facility] - Last Filed: 02/18/18 09:34> History of Present Illness - History of Present Illness History of Present Illness: Podiatry Consult note: Dr. Alcantar 77 year old male with PMH of left foot cellulitis with methicillin-sensitive Staph aureus, hypertension, severe peripheral vascular disease, coronary artery disease, chronic renal failure and multiple lower extremity digit amputations seen at bedside for right foot infected wound and left second digit partial amputation site. Patient was seen yesterday 02/14/18 in wound center by Dr. Nunez where the right foot wound was seen with purulent drainage and surrounding cellulitis. Patient was advised to go to the ED to be admitted to hospital so that he could begin IV abx. Patient reports that he has been walking on his feet and doing some lifting even when asked not to do so. During examination patient was AAO x 3 and NAD. He denies any acute overnight events. Denies any recent N/V/F/C/CP/SOB/D. Denies any further pedal complaints Review of Systems - Constitutional Constitutional: As Per HPI Past Patient History - Infectious Disease Hx of Infectious Diseases: None - Tetanus Immunizations Tetanus Immunization: Unknown - Past Social History Smoking Status: Former Smoker - CARDIAC Hx Cardiac Disorders: Yes Hx Hypertension: Yes Hx Peripheral Vascular Disease: Yes (PAD w/ Sx Hx) - PULMONARY Hx Respiratory Disorders: No - NEUROLOGICAL Hx Neurological Disorder: No - HEENT Hx HEENT Problems: No - RENAL Hx Chronic Kidney Disease: No - ENDOCRINE/METABOLIC Hx Endocrine Disorders: No Hx Diabetes Mellitus Type 1: (pt denies) Hx Diabetes Mellitus Type 2: (pt denies) - HEMATOLOGICAL/ONCOLOGICAL Hx Blood Disorders: No - INTEGUMENTARY Hx Dermatological Problems: No - MUSCULOSKELETAL/RHEUMATOLOGICAL Hx Musculoskeletal Disorders: No Hx Falls: No - GASTROINTESTINAL Hx Gastrointestinal Disorders: No - GENITOURINARY/GYNECOLOGICAL Hx Genitourinary Disorders: No - PSYCHIATRIC Hx Psychophysiologic Disorder: No Hx Substance Use: No - SURGICAL HISTORY Hx Amputation: Yes (Left foot 2 toes, Right foot 3 toes) Hx Appendectomy: Yes Hx Cardiac Catheterization: Yes Hx Coronary Stent: Yes (x5) - ANESTHESIA Hx Anesthesia Reactions: Yes Hx Malignant Hyperthermia: No Meds Allergies/Adverse Reactions: Allergies Allergy/AdvReac Type Severity Reaction Status Date / Time No Known Allergies Allergy Verified 02/14/18 11:02 - Medications Medications: Current Medications Aspirin (Aspirin Chewable) 81 mg PO DAILY [facility] Last Admin: 02/15/18 09:36 Dose: 81 mg Atorvastatin Calcium (Lipitor) 40 mg PO DAILY [facility] Last Admin: 02/15/18 09:46 Dose: Not Given Clopidogrel Bisulfate (Plavix) 75 mg PO DAILY [facility] Last Admin: 02/15/18 09:35 Dose: 75 mg Hydrochlorothiazide (Microzide) 12.5 mg PO DAILY [facility] Last Admin: 02/15/18 09:35 Dose: 12.5 mg Sodium Chloride (Sodium Chloride 0.9%) 1,000 mls @ 75 mls/hr IV .[id number] [facility] Stop: 02/15/18 17:24 Last Admin: 02/15/18 05:47 Dose: 75 mls/hr Ceftaroline Fosamil 300 mg/ (Sodium Chloride) 50 mls @ 50 mls/hr IVPB Q12H [facility] PRN Reason: Protocol Stop: 02/22/18 09:16 Last Admin: 02/15/18 10:03 Dose: 50 mls/hr Lisinopril (Zestril) 10 mg PO DAILY [facility] Last Admin: 02/15/18 09:36 Dose: 10 mg Physical Exam - Constitutional Appears: Well, Non-toxic, No Acute Distress - Extremities Exam Additional comments: Dressing to bilateral appears clean/dry/intact with no strikethrough noted. DERM: Right: two small open wounds noted to dorso-lateral aspect of right foot each measuring 0.5cm x 0.5cm x 1cm. Slight tracking noted to distal wound. approx.8 cc of purulent discharge noted today. (Decreased discharge seen in the wound care center). Annie-wound erythema noted with margins approx 3cm. Another small opening to the plantar-lateral aspect of right foot measuring 0.5cm x 0.5cm x 1cm with proximal tracking. No Probe to bone noted Left: All sutures are intact to Left 3rd digit distally, slight maceration noted to the wound, No dehiscence noted. <1cc of purulent drainage was noted from the wound. Slight mal-odor noted. VASC: DP and PT pulses faintly palpable. TG RLE obscured with right leg dressing from bypass. No pedal edema noted. CFT wnl b/l. NEURO: Gross sensation diminished bilaterally. ORTHO: Previous amputation sites b/l. - Neurological Exam Neurological exam: Alert, Oriented x3 - Psychiatric Exam Psychiatric exam: Normal Affect, Normal Mood Results - Vital Signs Recent Vital Signs: Last Vital Signs Temp 97.6 F 02/15/18 07:47 Pulse 80 02/15/18 09:36 Resp 20 02/15/18 07:47 BP 125/85 02/15/18 09:36 Pulse Ox 98 02/15/18 07:47 - Labs Result Diagrams: 02/18/18 06:51 02/18/18 06:51 Labs: Laboratory Results - last 24 hr 02/14/18 02/15/18 02/15/18 18:40 07:00 07:00 WBC 11.9 H RBC 4.22 Hgb 13.0 L Hct 37.7 L MCV 89.3 MCH 30.8 MCHC 34.5 RDW 12.6 Plt Count 241 MPV 9.2 Gran % 77.3 H Lymph % (Auto) 8.7 L [place] % (Auto) 11.5 H Eos % (Auto) 2.2 Baso % (Auto) 0.3 Gran # 9.18 H Lymph # (Auto) 1.0 L [place] # (Auto) 1.4 H Eos # (Auto) 0.3 Baso # (Auto) 0.04 Sodium 140 Potassium 4.6 Chloride 106 Carbon Dioxide 23 Anion Gap 16 BUN 28 H Creatinine 1.4 Est GFR ( Amer) 59 Est GFR (Non-Af Amer) 49 Random Glucose 106 Calcium 8.8 Total Bilirubin 0.9 AST 24 ALT 21 Alkaline Phosphatase 135 H D Total Protein 7.1 Albumin 3.6 Globulin 3.4 Albumin/Globulin Ratio 1.1 Urine Color Yellow Urine Appearance Clear Urine pH 6.0 Ur Specific [place] >= 1.030 Urine Protein 30 H Urine Glucose (UA) Negative Urine Ketones Negative Urine Blood Negative Urine Nitrate Negative Urine Bilirubin Negative Urine Urobilinogen 0.2 Ur Leukocyte Esterase Negative Urine RBC Negative Urine WBC Negative Ur Epithelial Cells None Urine Bacteria Trace Hyaline Casts 0 - 2 Assessment & Plan - Assessment and Plan (Free Text) Assessment: 77 yo male patient presents 24 days s/p Right fifth ray and Left third digit amputation; purulent drainage from wounds Plan: Patient was seen, evaluated at bedside with attending Dr. Alcantar All questions and concerns addressed labs and vitals reviewed; afebrile, WBC 9.0 Wound culture - G+ cocci approx 8 cc of pus drained from right foot Right foot dressed with packing, adaptic, maxorb, DSD Left foot dressed with Betadine soacked adaptic and DSD Continue Abx her ID Podiatry will continue to follow in-house - Date & Time Date: 02/15/18 Time: 10:30 <Chauncey Alcantar - Last Filed: 02/19/18 09:49> Meds - Medications Medications: Current Medications Acetaminophen (Tylenol 325mg Tab) 650 mg PO Q6H PRN PRN Reason: Pain, moderate (4-7) Aspirin (Aspirin Chewable) 81 mg PO DAILY [facility] Last Admin: 02/18/18 09:57 Dose: 81 mg Atorvastatin Calcium (Lipitor) 40 mg PO DAILY [facility] Last Admin: 02/18/18 09:58 Dose: 40 mg Clopidogrel Bisulfate (Plavix) 75 mg PO DAILY [facility] Last Admin: 02/18/18 09:57 Dose: 75 mg Hydrochlorothiazide (Microzide) 12.5 mg PO DAILY [facility] Last Admin: 02/18/18 09:57 Dose: 12.5 mg Ceftaroline Fosamil 300 mg/ (Sodium Chloride) 50 mls @ 50 mls/hr IVPB Q12H [facility] PRN Reason: Protocol Stop: 02/22/18 09:16 Last Admin: 02/18/18 21:39 Dose: 50 mls/hr Lisinopril (Zestril) 10 mg PO DAILY [facility] Last Admin: 02/18/18 09:57 Dose: 10 mg Mupirocin (Bactroban Ointment) 0 gm NS BID [facility] Stop: 02/22/18 18:01 Last Admin: 02/18/18 17:27 Dose: 1 dose Results - Vital Signs Recent Vital Signs: Last Vital Signs Temp 97.6 F 02/19/18 06:00 Pulse 65 02/19/18 06:00 Resp 20 02/19/18 06:00 BP 143/92 H 02/19/18 06:00 Pulse Ox 100 02/19/18 06:00 - Labs Result Diagrams: 02/19/18 07:15 02/19/18 07:15 Labs: Laboratory Results - last 24 hr 02/19/18 02/19/18 07:15 07:15 WBC 9.5 RBC 4.62 Hgb 14.4 Hct 40.8 L MCV 88.3 MCH 31.2 MCHC 35.3 RDW 12.4 Plt Count 307 MPV 8.9 Gran % 72.7 H Lymph % (Auto) 9.0 L [place] % (Auto) 12.0 H Eos % (Auto) 5.9 H Baso % (Auto) 0.4 Gran # 6.87 H Lymph # (Auto) 0.9 L [place] # (Auto) 1.1 H Eos # (Auto) 0.6 Baso # (Auto) 0.04 Sodium 142 Potassium 4.3 Chloride 103 Carbon Dioxide 26 Anion Gap 17 BUN 33 H Creatinine 1.5 Est GFR ( Amer) 55 Est GFR (Non-Af Amer) 45 Random Glucose 106 Calcium 9.2 Total Bilirubin 0.5 AST 43 ALT 34 Alkaline Phosphatase 69 Total Protein 7.6 Albumin 3.9 Globulin 3.7 Albumin/Globulin Ratio 1.1 Attending/Attestation - Attestation I have personally seen and examined this patient.: Yes I have fully participated in the care of the patient.: Yes I have reviewed all pertinent clinical information: Yes
--- NOTE | 2018-02-15 15:18 | PN ---
DATE: 02/15/2018 SUBJECTIVE: The patient is a 77-year-old male in room 575, bed 2. He was admitted on the orders of the licensed veterinary technician. There have been no acute events overnight and the patient other than the pain in the right foot has no complaints. PHYSICAL EXAMINATION: VITAL SIGNS: Temperature 97.6, pulse rate of 69, blood pressure 129/71, respiratory rate of 20 with 98% saturation on room air. HEENT: PERRLA, EOMI. There is no icterus. NECK: Supple with a full range of motion. LUNGS: Clear to auscultation and percussion bilaterally. HEART: Regular rate and rhythm. ABDOMEN: Soft. There is no organomegaly or tenderness. Bowel sounds are normoactive. EXTREMITIES: The right foot is bandaged. There is no edema. NEUROLOGIC: There are no focal motor deficits. LABORATORY DATA: Show WBC of 11.9, which is down from 14.3 with 77% granulocytes. Chemistry is normal with the exception of BUN, which was 37 yesterday and creatinine of 1.4, which is normal. Awaiting Infectious Disease consultation. We will continue on current antibiotics. MRI of the right foot showed a possible osteomyelitis. DIAGNOSES: 1. Cellulitis of toe. 2. Cellulitis of foot. 3. Possible osteomyelitis. 4. Peripheral vascular disease. Antolin Gonzalez MD
--- NOTE | 2018-02-15 21:16 | CP.PCM.PCO ---
Physician Communication Note - Physician Communication Note Physician Communication Note: pt in MRI; reviewed chart; started [place], will see pt nathan.
[2018-02-16 06:48] LABS: BASO # 0.03 K/mm3 (0.0-2.0); BASO % 0.3 % (0.0-3.0); EOS # 0.3 (0.0-0.7); EOS % 2.6 % (1.5-5.0); GRAN # 8.29 (1.4-6.5); GRAN % 78.4 % (50.0-68.0); HEMOGLOBIN 12.9 g/dL (14.0-18.0); LYMPH # 0.8 (1.2-3.4); LYMPH % 7.7 % (22.0-35.0); MEAN CELL VOLUME 89.3 fl (80.0-105.0); MEAN CORPUSCULAR HEMOGLOBIN 30.8 pg (25.0-35.0); MEAN CORPUSCULAR HGB CONC 34.5 g/dl (31.0-37.0); MEAN PLATELET VOLUME 8.9 fl (7.0-11.0); MONO # 1.2 (0.1-0.6); RBC 4.19 10^6/uL (3.5-6.1); RED CELL DISTRIBUTION WIDTH 12.6 % (11.5-14.5); WHITE BLOOD COUNT 10.6 10^3/ul (4.5-11.0)
[2018-02-16 07:22] LABS: ALB/GLOB RATIO 1.1 (1.1-1.8); ALBUMIN 3.5 g/dL (3.0-4.8); CALCIUM 8.8 mg/dL (8.4-10.5)
--- NOTE | 2018-02-16 08:28 | PN ---
SUBJECTIVE: The patient was seen and examined at bedside on the general medical claudio. No acute events overnight. He remains afebrile and hemodynamically stable. OBJECTIVE: VITAL SIGNS: Temperature 98.4, pulse 86, blood pressure 122/73, respiratory rate 20, oxygen saturation 96% on room air. GENERAL: No apparent distress. HEENT: PERRL, EOMI. No scleral icterus. No conjunctival pallor. NECK: No JVD. LUNGS: Clear to auscultation. CARDIOVASCULAR: Regular rate and rhythm. Normal S1 and S2. ABDOMEN: Normoactive bowel sounds. Soft, nontender, nondistended. EXTREMITIES: No edema. Right foot with dressing in place. NEUROLOGIC: Awake, alert and oriented x 3. No focal motor deficits. LABORATORY DATA: WBC 10.6 with 79% neutrophils, hemoglobin 13, hematocrit 37, platelets 242. Chemistry reviewed and unremarkable. ASSESSMENT: The patient is a 77 year old man with a past medical history of severe PVD s/p IR revascularization s/p RLE popliteal/anterior tibial bypass, hypertension and CAD s/p PCI with stent placement who was sent to the ED by his band tacker for inpatient management of osteomyelitis of the right foot. PLAN: 1. Possible osteomyelitis of the right 5th toe. Input from Dr. Nunez appreciated. Continue with care as per Dr. Nunez and the Podiatry team. Input from Dr. Barrett appreciated and the patient remains on Ceftaroline 300 mg IV every 12 hours. 2. Severe PVD s/p IR revascularization s/p RLE popliteal/anterior tibial bypass. Continue Aspirin 81 mg p.o. daily, Plavix 75 mg p.o. daily and Lipitor 40 mg p.o. daily. 3. CAD s/p PCI with ANAMIKA placement. Continue Lipitor 40 mg p.o. daily, Aspirin 81 mg p.o. daily and Plavix 75 mg p.o. daily. 4. Hypertension. Blood pressure controlled. Continue Lisinopril 10 mg p.o. daily and HCTZ 12.5 mg p.o. daily. 5. JAQUELIN, resolved. The patient remains off IV fluids. Continue to encourage p.o. intake. 6. Prophylaxis. GI prophylaxis is not indicated as the patient is eating. DVT prophylaxis is not indicated as the patient is ambulatory. CODE STATUS: Full code. Amari Gonzalez MD Geoff # [id number] ROSS
--- NOTE | 2018-02-16 10:04 | PN ---
DATE: 02/16/2018 SUBJECTIVE: A 77-year-old diabetic male seen at bedside for continued evaluation and management of postoperative infection on his diabetic right foot. The patient had undergone partial right fifth ray resection, which initially was healing with no complications; however, the patient presented to the Wound Center on Sunday, admitted to excessive ambulation resulting in subsequent postoperative infection. The patient's MRI report is suspicious for osteomyelitis of the distal fifth metatarsal. However, this is more postoperative changes than OM The patient reports less pain with each passing day. The patient's vital signs reveal temperature of 98.4, pulse rate of 95, blood pressure of 122/73, respiratory rate of 20. DATA: Laboratory findings reveal white count of 10.6 down from 14.3 upon admission, hemoglobin of 12.9, hematocrit of 37.4, platelet count of 242. Most recent Microbiology report reveals MRSA from the right foot wound. MRI of the right foot revealed abscess formation at the distal right fifth metatarsal and possible osteomyelitis of the distal fifth metatarsal. However, clinically, this appears to be more postoperative changes than osteomyelitis. OBJECTIVE: Nonpalpable posterior tibial pulse and weakly palpable dorsalis pedis pulse noted bilaterally. The patient is unable to detect on 5.07 g monofilament wire testing bilaterally. There is noted to be an open draining diabetic ulceration on the dorsal aspect of the right foot overlying the surgical site of the partially resected fifth ray. There is noted to be serosanguineous purulence emanating from the wound, less drainage than yesterday. However, the area still remains edematous and erythematous. There is noted to be localized cellulitis with no signs of ascending cellulitis. The wound does not probe to tendon or bone. There is no malodor noted. There is noted to be a distal amputation of the left second digit. The sutures are coapted with no signs of dehiscence. No drainage. No acute bacterial infection noted. ASSESSMENT: Postoperative infection of the right foot with resultant abscess formation secondary to excessive ambulation by the patient. PLAN: The patient was examined. Right foot wound was manually palpated and approximately 1 to 2 mL of seropurulence emanated from the wound. The wound was flushed with copious amounts of the Betadine saline solution and then, flushed with 0.9% saline. Sterile half-inch Iodoform packing was placed into the ulceration on the dorsal aspect of the foot and the wound was covered with a dry sterile dressing. Left second digit was dressed with sterile Adaptic and a dry sterile dressing. The patient's wound has progressed in a positive direction over the last two days and clinically speaking, there appears to be no osteomyelitis at the fifth metatarsal, as this is more postoperative change on the MRI. We will continue with ceftralione IV as per Infectious Disease and the patient will be followed daily with dressing changes.Recommend TCU for continued IV antibiotics and PT. The patient was told that he will need to follow up twice weekly in the Wound Center when discharged. Chauncey Alcantar DPM MTDD
--- NOTE | 2018-02-16 12:12 | CP.PCM.CON ---
History of Present Illness - History of Present Illness History of Present Illness: 77 year old male with PMH of left foot cellulitis with methicillin-sensitive Staph aureus, hypertension, severe peripheral vascular disease, coronary artery disease, chronic renal failure came in to [facility] because of increased pain in the right foot associated with diaphoresis and weakness while doing hyperbaric therapy. He denied having fevers, no headache or dizziness, no nausea or vomiting, no chest pain, no cough or colds, no nausea or vomiting, no diarrhea, no dysuria, no abdominal pain. MRI of the foot done is showing cellulitis and abscess and drainage was done at bedside by Podiatry today. There was also question of marrow edema on the 5th digit of the right foot on MRI. The patient had amputations done last month on both feet of digits. Infectious Diseases consult is requested to further evaluate and manage. Review of Systems - Review of Systems All systems: reviewed and no additional remarkable complaints except (as per HPI ) Past Patient History - Infectious Disease Hx of Infectious Diseases: None - Tetanus Immunizations Tetanus Immunization: Unknown - Past Social History Smoking Status: Former Smoker - CARDIAC Hx Cardiac Disorders: Yes Hx Hypertension: Yes Hx Peripheral Vascular Disease: Yes (PAD w/ Sx Hx) - PULMONARY Hx Respiratory Disorders: No - NEUROLOGICAL Hx Neurological Disorder: No - HEENT Hx HEENT Problems: No - RENAL Hx Chronic Kidney Disease: No - ENDOCRINE/METABOLIC Hx Endocrine Disorders: No Hx Diabetes Mellitus Type 1: (pt denies) Hx Diabetes Mellitus Type 2: (pt denies) - HEMATOLOGICAL/ONCOLOGICAL Hx Blood Disorders: No - INTEGUMENTARY Hx Dermatological Problems: No - MUSCULOSKELETAL/RHEUMATOLOGICAL Hx Musculoskeletal Disorders: No Hx Falls: No - GASTROINTESTINAL Hx Gastrointestinal Disorders: No - GENITOURINARY/GYNECOLOGICAL Hx Genitourinary Disorders: No - PSYCHIATRIC Hx Psychophysiologic Disorder: No Hx Substance Use: No - SURGICAL HISTORY Hx Amputation: Yes (Left foot 2 toes, Right foot 3 toes) Hx Appendectomy: Yes Hx Cardiac Catheterization: Yes Hx Coronary Stent: Yes (x5) - ANESTHESIA Hx Anesthesia Reactions: Yes Hx Malignant Hyperthermia: No Meds Allergies/Adverse Reactions: Allergies Allergy/AdvReac Type Severity Reaction Status Date / Time No Known Allergies Allergy Verified 02/14/18 11:02 - Medications Medications: Current Medications Aspirin (Aspirin Chewable) 81 mg PO DAILY [facility] Atorvastatin Calcium (Lipitor) 40 mg PO DAILY [facility] Clopidogrel Bisulfate (Plavix) 75 mg PO DAILY [facility] Hydrochlorothiazide (Microzide) 12.5 mg PO DAILY [facility] Sodium Chloride (Sodium Chloride 0.9%) 1,000 mls @ 75 mls/hr IV .[id number] [facility] Stop: 02/15/18 17:24 Last Admin: 02/15/18 05:47 Dose: 75 mls/hr Lisinopril (Zestril) 10 mg PO DAILY [facility] Physical Exam - Constitutional Appears: Non-toxic, No Acute Distress - Head Exam Head Exam: NORMAL INSPECTION - ENT Exam ENT Exam: Mucous Membranes Moist - Neck Exam Neck exam: Negative for: Lymphadenopathy, Meningismus - Respiratory Exam Respiratory Exam: Decreased Breath Sounds. absent: Rales - Cardiovascular Exam Cardiovascular Exam: +S1, +S2 - GI/Abdominal Exam GI & Abdominal Exam: Soft. absent: Tenderness - Extremities Exam Additional comments: right foot with dressings in place Results - Vital Signs Recent Vital Signs: Last Vital Signs Temp 98.4 F 02/15/18 01:00 Pulse 63 02/14/18 22:11 Resp 20 02/14/18 22:11 BP 124/73 02/14/18 22:11 Pulse Ox 99 02/14/18 22:11 - Labs Result Diagrams: 02/16/18 06:30 02/16/18 06:30 Labs: Laboratory Results - last 24 hr 02/14/18 18:40 Urine Color Yellow Urine Appearance Clear Urine pH 6.0 Ur Specific Zebulon >= 1.030 Urine Protein 30 H Urine Glucose (UA) Negative Urine Ketones Negative Urine Blood Negative Urine Nitrate Negative Urine Bilirubin Negative Urine Urobilinogen 0.2 Ur Leukocyte Esterase Negative Urine RBC Negative Urine WBC Negative Ur Epithelial Cells None Urine Bacteria Trace Hyaline Casts 0 - 2 Assessment & Plan - Assessment and Plan (Free Text) Plan: Assessment right foot abscess and cellulitis S/P drainage bedside today in this patient with S/P partial amputation of the left 3rd digit and right 5th digit last month (December 2017) history of left 2nd toe partial amputation with skin and soft tissue infection with MRSA with probable osteomyelitis history of left foot skin and skin structure infection with osteomyelitis of the 5th metatarsal head S/P surgery hypertension severe peripheral vascular disease coronary artery disease chronic renal failure Plan started Teflaro - follow up cultures from the abscess discussed with Dr. Alcantar - MRI findings are probably more post-op changes than true osteomyelitis -can be be observed at the wound center
[2018-02-17 06:47] LABS: BASO # 0.03 K/mm3 (0.0-2.0); BASO % 0.4 % (0.0-3.0); EOS # 0.4 (0.0-0.7); EOS % 4.2 % (1.5-5.0); GRAN # 6.1 (1.4-6.5); GRAN % 71.1 % (50.0-68.0); HEMOGLOBIN 13.3 g/dL (14.0-18.0); LYMPH # 0.8 (1.2-3.4); LYMPH % 9.8 % (22.0-35.0); MEAN CELL VOLUME 88.9 fl (80.0-105.0); MEAN CORPUSCULAR HEMOGLOBIN 30.7 pg (25.0-35.0); MEAN CORPUSCULAR HGB CONC 34.5 g/dl (31.0-37.0); MEAN PLATELET VOLUME 8.9 fl (7.0-11.0); MONO # 1.2 (0.1-0.6); MONO % 14.5 % (1.0-6.0); RBC 4.33 10^6/uL (3.5-6.1); RED CELL DISTRIBUTION WIDTH 12.5 % (11.5-14.5); WHITE BLOOD COUNT 8.6 10^3/ul (4.5-11.0)
[2018-02-17 06:58] LABS: ALBUMIN 3.6 g/dL (3.0-4.8)
--- NOTE | 2018-02-17 09:44 | CP.PCM.PN ---
<GarthJanettDarian - Last Filed: 02/17/18 09:37> Subjective - Date & Time of Evaluation Date of Evaluation: 02/17/18 Time of Evaluation: 09:38 - Subjective Subjective: Podiatry progress note for Dr. Alcantar 77 yo male patient 23 days s/p Right fifth ray and Left third digit amputation was seen at bedside this AM. Patient is resting comfortably in bed with no report of acute distress. Dressing to bilateral lower extremities remain clean dry and intact. Patient admits to moderate pain to right foot more than left. Patient denies of any N/V/F/C or SOB today Objective - Vital Signs/Intake and Output Vital Signs (last 24 hours): Temp Pulse Resp BP Pulse Ox 98.9 F 72 20 136/78 95 02/17/18 06:00 02/17/18 06:00 02/17/18 06:00 02/17/18 06:00 02/17/18 06:00 Intake and Output: 02/17/18 02/17/18 06:59 18:59 Intake Total 440 Balance 440 - Medications Medications: Current Medications Acetaminophen (Tylenol 325mg Tab) 650 mg PO Q6H PRN PRN Reason: Pain, moderate (4-7) Aspirin (Aspirin Chewable) 81 mg PO DAILY [facility] Last Admin: 02/16/18 09:45 Dose: 81 mg Atorvastatin Calcium (Lipitor) 40 mg PO DAILY [facility] Last Admin: 02/16/18 09:52 Dose: Not Given Clopidogrel Bisulfate (Plavix) 75 mg PO DAILY [facility] Last Admin: 02/16/18 09:45 Dose: 75 mg Hydrochlorothiazide (Microzide) 12.5 mg PO DAILY [facility] Last Admin: 02/16/18 09:45 Dose: 12.5 mg Ceftaroline Fosamil 300 mg/ (Sodium Chloride) 50 mls @ 50 mls/hr IVPB Q12H [facility] PRN Reason: Protocol Stop: 02/22/18 09:16 Last Admin: 02/16/18 21:32 Dose: 50 mls/hr Lisinopril (Zestril) 10 mg PO DAILY [facility] Last Admin: 02/16/18 09:45 Dose: 10 mg - Labs Labs: 02/17/18 06:00 02/17/18 06:00 PT 13.3 SECONDS (9.4-12.5) H 02/14/18 11:54 INR 1.15 (0.93-1.08) H 02/14/18 11:54 APTT 33.6 Seconds (25.1-36.5) 02/14/18 11:54 - Constitutional Appears: Well, Non-toxic, No Acute Distress - Head Exam Head Exam: ATRAUMATIC - Extremities Exam Additional comments: Dressing to bilateral appears clean/dry/intact with no strikethrough noted. DERM: Right: two small open wounds noted to dorso-lateral aspect of right foot each measuring 0.5cm x 0.5cm x 1cm. Slight tracking noted to distal wound. <1cc of purulent discharge noted today. (Decreased from 3cc yesterday). EPeri-wound erythema noted with margins less than 2cm. Another small opening to the plantar-lateral aspect of right foot measuring 0.5cm x 0.5cm x 1cm with proximal tracking. No Probe to bone noted Left: All sutures are intact to Left 3rd digit distally, slight maceration noted to the wound, No dehiscence noted. <1cc of purulent drainage was noted from the wound. Slight mal-odor noted. VASC: DP and PT pulses faintly palpable. TG RLE obscured with right leg dressing from bypass. No pedal edema noted. CFT wnl b/l. NEURO: Gross sensation diminished bilaterally. ORTHO: Previous amputation sites b/l. - Neurological Exam Neurological Exam: Alert, Awake, Oriented x3 - Skin Skin Exam: Normal Color, Warm Assessment and Plan - Assessment and Plan (Free Text) Assessment: 77 yo male patient presents 23 days s/p Right fifth ray and Left third digit amputation; purulent drainage from wounds Plan: Patient was seen, evaluated at bedside this AM All questions and concerns addressed labs and vitals reviewed; afebrile, WBC 8.6 discussed in detail with attending Dr. Alcantar Wound culture was taken from right foot wounds Less than 1 cc of pus drained from right foot (~3cc yesterday) Right foot dressed with packing, adaptic, maxorb, DSD Left foot dressed with Betadine soacked adaptic and DSD Continue Abx her ID Podiatry will continue to follow in-house <Chauncey Alcantar - Last Filed: 02/18/18 08:38> Objective - Vital Signs/Intake and Output Vital Signs (last 24 hours): Temp Pulse Resp BP Pulse Ox 97.9 F 73 20 131/79 100 02/18/18 06:00 02/18/18 06:00 02/18/18 06:00 02/18/18 06:00 02/18/18 06:00 Intake and Output: 02/18/18 02/18/18 06:59 18:59 Intake Total 540 Output Total 2 Balance 538 - Medications Medications: Current Medications Acetaminophen (Tylenol 325mg Tab) 650 mg PO Q6H PRN PRN Reason: Pain, moderate (4-7) Aspirin (Aspirin Chewable) 81 mg PO DAILY [facility] Last Admin: 02/17/18 10:30 Dose: 81 mg Atorvastatin Calcium (Lipitor) 40 mg PO DAILY [facility] Last Admin: 02/17/18 10:30 Dose: 40 mg Clopidogrel Bisulfate (Plavix) 75 mg PO DAILY [facility] Last Admin: 02/17/18 10:30 Dose: 75 mg Hydrochlorothiazide (Microzide) 12.5 mg PO DAILY [facility] Last Admin: 02/17/18 10:30 Dose: 12.5 mg Ceftaroline Fosamil 300 mg/ (Sodium Chloride) 50 mls @ 50 mls/hr IVPB Q12H [facility] PRN Reason: Protocol Stop: 02/22/18 09:16 Last Admin: 02/17/18 21:08 Dose: 50 mls/hr Lisinopril (Zestril) 10 mg PO DAILY [facility] Last Admin: 02/17/18 10:30 Dose: 10 mg - Labs Labs: 02/18/18 06:51 02/18/18 06:51 PT 13.3 SECONDS (9.4-12.5) H 02/14/18 11:54 INR 1.15 (0.93-1.08) H 02/14/18 11:54 APTT 33.6 Seconds (25.1-36.5) 02/14/18 11:54 Attending/Attestation - Attestation I have personally seen and examined this patient.: Yes I have fully participated in the care of the patient.: Yes I have reviewed all pertinent clinical information, including history, physical exam and plan: Yes
--- NOTE | 2018-02-17 13:50 | PN ---
SUBJECTIVE: The patient was seen and examined at bedside on the general medical claudio. No acute events overnight. He is s/p bedside debridement of his cellulitis and abscess with the podiatric team. Overall he feels okay and offers no complaints. PHYSICAL EXAMINATION VITAL SIGNS: Temperature 98.9, pulse 72, blood pressure 136/78, respiratory rate 20, oxygen saturation 94% on room air. GENERAL: No apparent distress. HEENT: PERRL, EOMI. No scleral icterus. No conjunctival pallor. NECK: No JVD. LUNGS: Clear to auscultation. CARDIOVASCULAR: Regular rate and rhythm. Normal S1 and S2. ABDOMEN: Normoactive bowel sounds. Soft, nontender, nondistended. EXTREMITIES: No edema. Right foot with dressing in place. NEUROLOGIC: Awake, alert and oriented x 3. No focal motor deficits. LABORATORY DATA: CBC reviewed and unremarkable. CMP reviewed and unremarkable. Blood cultures with no growth to date. ASSESSMENT: The patient is a 77 year old man with a past medical history of severe PVD s/p IR revascularization s/p RLE popliteal/anterior tibial bypass, hypertension and CAD s/p PCI with stent placement who was sent to the ED by his corporate claims examiner for inpatient management of suspected osteomyelitis of the right foot. PLAN: 1. Possible osteomyelitis of the right fifth toe. Input from Dr. Alcantar and the podiatric team greatly appreciated. Continue with local wound care as per the podiatric team. Input from Dr. Barrett appreciated and the patient remains on Ceftaroline 300 mg IV every 12 hours. 2. Severe PVD s/p IR revascularization s/p RLE popliteal/anterior tibial bypass. Continue Aspirin 81 mg p.o. daily, Plavix 75 mg p.o. daily and Lipitor 40 mg p.o. daily. 3. CAD s/p PCI with ANAMIKA placement. Continue Lipitor 40 mg p.o. daily, Aspirin 81 mg p.o. daily and Plavix 75 mg p.o. daily. 4. Hypertension. Continue Lisinopril 10 mg p.o. daily and HCTZ 12.5 mg p.o. daily. 5. Acute kidney injury, resolved. The patient remains off IV fluids. Continue to encourage p.o. intake. 6. Prophylaxis. GI prophylaxis is not indicated as the patient is eating. DVT prophylaxis is not indicated as the patient is ambulatory. CODE STATUS: Full code. Amari Gonzalez MD MTDD
--- NOTE | 2018-02-17 16:29 | CP.PCM.PN ---
Subjective - Date & Time of Evaluation Date of Evaluation: 02/17/18 Time of Evaluation: 10:55 - Subjective Subjective: Right foot is feeling a little better, no fevers. No loose BM today. Objective - Vital Signs/Intake and Output Vital Signs (last 24 hours): Temp Pulse Resp BP Pulse Ox 98.9 F 72 20 136/78 95 02/17/18 06:00 02/17/18 06:00 02/17/18 06:00 02/17/18 06:00 02/17/18 06:00 Intake and Output: 02/17/18 02/17/18 06:59 18:59 Intake Total 440 Balance 440 - Medications Medications: Current Medications Acetaminophen (Tylenol 325mg Tab) 650 mg PO Q6H PRN PRN Reason: Pain, moderate (4-7) Aspirin (Aspirin Chewable) 81 mg PO DAILY [facility] Last Admin: 02/16/18 09:45 Dose: 81 mg Atorvastatin Calcium (Lipitor) 40 mg PO DAILY [facility] Last Admin: 02/16/18 09:52 Dose: Not Given Clopidogrel Bisulfate (Plavix) 75 mg PO DAILY [facility] Last Admin: 02/16/18 09:45 Dose: 75 mg Hydrochlorothiazide (Microzide) 12.5 mg PO DAILY [facility] Last Admin: 02/16/18 09:45 Dose: 12.5 mg Ceftaroline Fosamil 300 mg/ (Sodium Chloride) 50 mls @ 50 mls/hr IVPB Q12H [facility] PRN Reason: Protocol Stop: 02/22/18 09:16 Last Admin: 02/16/18 21:32 Dose: 50 mls/hr Lisinopril (Zestril) 10 mg PO DAILY [facility] Last Admin: 02/16/18 09:45 Dose: 10 mg - Labs Labs: 02/17/18 06:00 02/17/18 06:00 PT 13.3 SECONDS (9.4-12.5) H 02/14/18 11:54 INR 1.15 (0.93-1.08) H 02/14/18 11:54 APTT 33.6 Seconds (25.1-36.5) 02/14/18 11:54 - Constitutional Appears: Non-toxic - Head Exam Head Exam: NORMAL INSPECTION - Respiratory Exam Respiratory Exam: Decreased Breath Sounds - Cardiovascular Exam Cardiovascular Exam: +S1, +S2 - GI/Abdominal Exam GI & Abdominal Exam: Soft. absent: Tenderness - Extremities Exam Additional comments: right foot with dressings in place Assessment and Plan - Assessment and Plan (Free Text) Plan: Assessment right foot abscess and cellulitis S/P drainage bedside in this patient with S/P partial amputation of the left 3rd digit and right 5th digit last month (December 2017) - cultures taken from wound care center (02/13/2018) growing MRSA history of left 2nd toe partial amputation with skin and soft tissue infection with MRSA with probable osteomyelitis history of left foot skin and skin structure infection with osteomyelitis of the 5th metatarsal head S/P surgery hypertension severe peripheral vascular disease coronary artery disease chronic renal failure Plan continue Teflaro (Day 3) for at least 7-10 days - may be able to switch to PO antibiotics when ready for discharge discussed with Dr. Alcantar - MRI findings are probably more post-op changes than true osteomyelitis -can be be observed at the wound center
[2018-02-18 07:16] LABS: BASO # 0.04 K/mm3 (0.0-2.0); BASO % 0.4 % (0.0-3.0); EOS # 0.5 (0.0-0.7); EOS % 5.2 % (1.5-5.0); GRAN # 6.42 (1.4-6.5); GRAN % 71.1 % (50.0-68.0); HEMOGLOBIN 13.4 g/dL (14.0-18.0); LYMPH # 0.9 (1.2-3.4); LYMPH % 9.7 % (22.0-35.0); MEAN CELL VOLUME 89.1 fl (80.0-105.0); MEAN CORPUSCULAR HEMOGLOBIN 30.5 pg (25.0-35.0); MEAN CORPUSCULAR HGB CONC 34.2 g/dl (31.0-37.0); MEAN PLATELET VOLUME 9.1 fl (7.0-11.0); MONO # 1.2 (0.1-0.6); MONO % 13.6 % (1.0-6.0); RBC 4.4 10^6/uL (3.5-6.1); RED CELL DISTRIBUTION WIDTH 12.3 % (11.5-14.5)
[2018-02-18 07:25] LABS: ALBUMIN 3.6 g/dL (3.0-4.8)
--- NOTE | 2018-02-18 10:04 | PN ---
SUBJECTIVE: The patient was seen and examined at bedside on the general medical claudio. No acute events overnight. He remains afebrile, hemodynamically stable and is doing well s/p bedside debridement of his right foot ulcer. OBJECTIVE: VITAL SIGNS: Temperature 97.9, pulse 73, blood pressure 131/79, respiratory rate 20, oxygen saturation 100% on room air. GENERAL: No apparent distress. HEENT: PERRL, EOMI. No scleral icterus. No conjunctival pallor. NECK: No JVD. LUNGS: Clear to auscultation. CARDIOVASCULAR: Regular rate and rhythm. Normal S1 and S2. ABDOMEN: Normoactive bowel sounds. Soft, nontender, nondistended. EXTREMITIES: No edema. Right foot with dressing in place. NEUROLOGIC: Awake, alert, and oriented x 3. No focal motor deficits. LABORATORY DATA: CBC reviewed and unremarkable. CMP reviewed and unremarkable. Blood cultures with no growth to date. Wound cultures with no growth to date. 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 PLAN: 1. Cellulitis and abscess of the right foot. Continue with local wound care as per Dr. Alcantar and the podiatric team. Input from Dr. Barrett noted and greatly appreciated. As per the podiatry team the MRI findings likely represent postoperative changes versus true osteomyelitis. As per Dr. Barrett, the patient should complete 7-10 days of antibiotics. He is presently on Ceftaroline but this may be changed to oral antibiotics when ready for discharge home. 2. Severe PVD s/p IR revascularization s/p RLE popliteal/anterior tibial bypass. Continue Aspirin 81 mg p.o. daily, Plavix 75 mg p.o. daily and Lipitor 40 mg p.o. daily. 3. CAD s/p PCI with ANAMIKA placement. Continue Lipitor 40 mg p.o. daily, Aspirin 81 mg p.o. daily and Plavix 75 mg p.o. daily. 4. Hypertension. Continue Lisinopril 10 mg p.o. daily and HCTZ 12.5 mg p.o. daily. 5. Acute kidney injury, resolved. 6. Prophylaxis. GI prophylaxis is not indicated as the patient is eating. DVT prophylaxis is not indicated as the patient is ambulatory. CODE STATUS: Full code. Amari Gonzalez MD MTDCira
--- NOTE | 2018-02-18 10:40 | CP.PCM.PN ---
<BashirRodrigoronnie - Last Filed: 02/18/18 10:36> Subjective - Date & Time of Evaluation Date of Evaluation: 02/18/18 Time of Evaluation: 10:36 - Subjective Subjective: Podiatry progress note for Dr. Alcantar/Dr. Nunez 77 yo male patient 24 days s/p Right fifth ray and Left third digit amputation was seen at bedside this AM. Patient is resting comfortably in bed with no report of acute distress. Reports that he has little pain when someone touches it otherwise it does not bother him. Dressing to bilateral lower extremities remain clean dry and intact. Patient denies of any N/V/F/C or SOB today. No other pedal complains Objective - Vital Signs/Intake and Output Vital Signs (last 24 hours): Temp Pulse Resp BP Pulse Ox 97.9 F 73 20 131/79 100 02/18/18 06:00 02/18/18 09:57 02/18/18 06:00 02/18/18 09:57 02/18/18 06:00 Intake and Output: 02/18/18 02/18/18 06:59 18:59 Intake Total 540 Output Total 2 Balance 538 - Medications Medications: Current Medications Acetaminophen (Tylenol 325mg Tab) 650 mg PO Q6H PRN PRN Reason: Pain, moderate (4-7) Aspirin (Aspirin Chewable) 81 mg PO DAILY [facility] Last Admin: 02/18/18 09:57 Dose: 81 mg Atorvastatin Calcium (Lipitor) 40 mg PO DAILY [facility] Last Admin: 02/18/18 09:58 Dose: 40 mg Clopidogrel Bisulfate (Plavix) 75 mg PO DAILY [facility] Last Admin: 02/18/18 09:57 Dose: 75 mg Hydrochlorothiazide (Microzide) 12.5 mg PO DAILY [facility] Last Admin: 02/18/18 09:57 Dose: 12.5 mg Ceftaroline Fosamil 300 mg/ (Sodium Chloride) 50 mls @ 50 mls/hr IVPB Q12H [facility] PRN Reason: Protocol Stop: 02/22/18 09:16 Last Admin: 02/18/18 09:58 Dose: 50 mls/hr Lisinopril (Zestril) 10 mg PO DAILY [facility] Last Admin: 02/18/18 09:57 Dose: 10 mg Mupirocin (Bactroban Ointment) 0 gm NS BID [facility] Stop: 02/22/18 18:01 - Labs Labs: 02/18/18 06:51 02/18/18 06:51 PT 13.3 SECONDS (9.4-12.5) H 02/14/18 11:54 INR 1.15 (0.93-1.08) H 02/14/18 11:54 APTT 33.6 Seconds (25.1-36.5) 02/14/18 11:54 - Constitutional Appears: Well, Non-toxic, No Acute Distress - Extremities Exam Additional comments: Dressing to bilateral appears clean/dry/intact with no strikethrough noted. DERM: Right: two small open wounds noted to dorso-lateral aspect of right foot each measuring 0.5cm x 0.5cm x 1cm. Slight tracking noted to distal wound. 2cc of purulent discharge noted today. Annie-wound erythema noted with margins less than 2cm. Another small opening to the plantar-lateral aspect of right foot measuring 0.5cm x 0.5cm x 1cm with proximal tracking. No Probe to bone noted Left: All sutures are intact to Left 3rd digit distally, slight maceration noted to the wound, No dehiscence noted. <1cc of purulent drainage was noted from the wound. Slight mal-odor noted. VASC: DP and PT pulses faintly palpable. TG RLE obscured with right leg dressing from bypass. No pedal edema noted. CFT wnl b/l. NEURO: Gross sensation diminished bilaterally. ORTHO: Previous amputation sites b/l. - Neurological Exam Neurological Exam: Alert, Awake, Oriented x3 - Psychiatric Exam Psychiatric exam: Normal Affect, Normal Mood Assessment and Plan - Assessment and Plan (Free Text) Assessment: 77 yo male patient presents 24 days s/p Right fifth ray and Left third digit amputation; purulent drainage from wounds Plan: Patient was seen, evaluated at bedside with attending Dr. Alcantar All questions and concerns addressed labs and vitals reviewed; afebrile, WBC 9.0 Wound culture was taken from right foot wounds Approx 2cc of pus drained from right foot Right foot dressed with adaptic, maxorb, DSD Left foot dressed with Betadine soacked adaptic and DSD Continue Abx her ID Podiatry will continue to follow in-house <Chauncey Alcantar - Last Filed: 02/19/18 09:50> Objective - Vital Signs/Intake and Output Vital Signs (last 24 hours): Temp Pulse Resp BP Pulse Ox 97.6 F 65 20 143/92 H 100 02/19/18 06:00 02/19/18 06:00 02/19/18 06:00 02/19/18 06:00 02/19/18 06:00 Intake and Output: 02/19/18 02/19/18 06:59 18:59 Intake Total 720 Balance 720 - Medications Medications: Current Medications Acetaminophen (Tylenol 325mg Tab) 650 mg PO Q6H PRN PRN Reason: Pain, moderate (4-7) Aspirin (Aspirin Chewable) 81 mg PO DAILY [facility] Last Admin: 02/18/18 09:57 Dose: 81 mg Atorvastatin Calcium (Lipitor) 40 mg PO DAILY [facility] Last Admin: 02/18/18 09:58 Dose: 40 mg Clopidogrel Bisulfate (Plavix) 75 mg PO DAILY [facility] Last Admin: 02/18/18 09:57 Dose: 75 mg Hydrochlorothiazide (Microzide) 12.5 mg PO DAILY [facility] Last Admin: 02/18/18 09:57 Dose: 12.5 mg Ceftaroline Fosamil 300 mg/ (Sodium Chloride) 50 mls @ 50 mls/hr IVPB Q12H [facility] PRN Reason: Protocol Stop: 02/22/18 09:16 Last Admin: 02/18/18 21:39 Dose: 50 mls/hr Lisinopril (Zestril) 10 mg PO DAILY [facility] Last Admin: 02/18/18 09:57 Dose: 10 mg Mupirocin (Bactroban Ointment) 0 gm NS BID [facility] Stop: 02/22/18 18:01 Last Admin: 02/18/18 17:27 Dose: 1 dose - Labs Labs: 02/19/18 07:15 02/19/18 07:15 PT 13.3 SECONDS (9.4-12.5) H 02/14/18 11:54 INR 1.15 (0.93-1.08) H 02/14/18 11:54 APTT 33.6 Seconds (25.1-36.5) 02/14/18 11:54 Attending/Attestation - Attestation I have personally seen and examined this patient.: Yes I have fully participated in the care of the patient.: Yes I have reviewed all pertinent clinical information, including history, physical exam and plan: Yes
[2018-02-18] MEDS: Mupirocin 2% Ointment 15 GM TUBE NS SCH ×2 (11:11→17:27)
--- NOTE | 2018-02-18 17:42 | CP.PCM.PN ---
Subjective - Date & Time of Evaluation Date of Evaluation: 02/18/18 Time of Evaluation: 10:40 - Subjective Subjective: Still with pain in the right foot, as per Podiatry still with some drainage. No fevers. Objective - Vital Signs/Intake and Output Vital Signs (last 24 hours): Temp Pulse Resp BP Pulse Ox 97.9 F 73 20 131/79 100 02/18/18 06:00 02/18/18 06:00 02/18/18 06:00 02/18/18 06:00 02/18/18 06:00 Intake and Output: 02/18/18 02/18/18 06:59 18:59 Intake Total 540 Output Total 2 Balance 538 - Medications Medications: Current Medications Acetaminophen (Tylenol 325mg Tab) 650 mg PO Q6H PRN PRN Reason: Pain, moderate (4-7) Aspirin (Aspirin Chewable) 81 mg PO DAILY [facility] Last Admin: 02/17/18 10:30 Dose: 81 mg Atorvastatin Calcium (Lipitor) 40 mg PO DAILY [facility] Last Admin: 02/17/18 10:30 Dose: 40 mg Clopidogrel Bisulfate (Plavix) 75 mg PO DAILY [facility] Last Admin: 02/17/18 10:30 Dose: 75 mg Hydrochlorothiazide (Microzide) 12.5 mg PO DAILY [facility] Last Admin: 02/17/18 10:30 Dose: 12.5 mg Ceftaroline Fosamil 300 mg/ (Sodium Chloride) 50 mls @ 50 mls/hr IVPB Q12H [facility] PRN Reason: Protocol Stop: 02/22/18 09:16 Last Admin: 02/17/18 21:08 Dose: 50 mls/hr Lisinopril (Zestril) 10 mg PO DAILY [facility] Last Admin: 02/17/18 10:30 Dose: 10 mg - Labs Labs: 02/18/18 06:51 02/18/18 06:51 PT 13.3 SECONDS (9.4-12.5) H 02/14/18 11:54 INR 1.15 (0.93-1.08) H 02/14/18 11:54 APTT 33.6 Seconds (25.1-36.5) 02/14/18 11:54 - Constitutional Appears: Non-toxic, Chronically Ill - Head Exam Head Exam: NORMAL INSPECTION - Respiratory Exam Respiratory Exam: Decreased Breath Sounds - Cardiovascular Exam Cardiovascular Exam: +S1, +S2 - GI/Abdominal Exam GI & Abdominal Exam: Soft. absent: Tenderness - Extremities Exam Additional comments: right foot with dressings in place Assessment and Plan - Assessment and Plan (Free Text) Plan: Assessment right foot abscess and cellulitis S/P drainage bedside in this patient with S/P partial amputation of the left 3rd digit and right 5th digit last month (December 2017) - cultures taken from wound care center (02/13/2018) growing MRSA history of left 2nd toe partial amputation with skin and soft tissue infection with MRSA with probable osteomyelitis history of left foot skin and skin structure infection with osteomyelitis of the 5th metatarsal head S/P surgery hypertension severe peripheral vascular disease coronary artery disease chronic renal failure Plan continue Teflaro (Day 4) for at least 7-10 days - may be able to switch to PO antibiotics when ready for discharge but patient still with drainage discussed with Dr. Alcantar previously - MRI findings are probably more post-op changes than true osteomyelitis -can be be observed at the wound center
[2018-02-19 07:57] LABS: BASO # 0.04 K/mm3 (0.0-2.0); BASO % 0.4 % (0.0-3.0); EOS # 0.6 (0.0-0.7); EOS % 5.9 % (1.5-5.0); GRAN # 6.87 (1.4-6.5); GRAN % 72.7 % (50.0-68.0); HEMOGLOBIN 14.4 g/dL (14.0-18.0); LYMPH # 0.9 (1.2-3.4); MEAN CELL VOLUME 88.3 fl (80.0-105.0); MEAN CORPUSCULAR HEMOGLOBIN 31.2 pg (25.0-35.0); MEAN CORPUSCULAR HGB CONC 35.3 g/dl (31.0-37.0); MEAN PLATELET VOLUME 8.9 fl (7.0-11.0); MONO # 1.1 (0.1-0.6); RBC 4.62 10^6/uL (3.5-6.1); RED CELL DISTRIBUTION WIDTH 12.4 % (11.5-14.5); WHITE BLOOD COUNT 9.5 10^3/ul (4.5-11.0)
[2018-02-19 08:02] LABS: ALB/GLOB RATIO 1.1 (1.1-1.8); ALBUMIN 3.9 g/dL (3.0-4.8); CALCIUM 9.2 mg/dL (8.4-10.5)
--- NOTE | 2018-02-19 09:31 | PN ---
SUBJECTIVE: The patient was seen and examined on bedside on the general medical claudio. No acute events overnight. He remains afebrile, hemodynamically stable and is progressing nicely with regard to his right foot cellulitis and abscess. The patient reports continued discharge from the affected site when undergoing daily wound care with the Podiatry team. He otherwise denies fevers, chills, rigors or any further constitutional symptoms. OBJECTIVE: VITAL SIGNS: Temperature 99, pulse 83, blood pressure 125/81, respiratory rate 20, oxygen saturation 94% on room air. GENERAL: No apparent distress. HEENT: PERRL. EOMI. No scleral icterus. No conjunctival pallor. NECK: No JVD. LUNGS: Clear to auscultation. CARDIOVASCULAR: Regular rate and rhythm. Normal S1 and S2. ABDOMEN: Normoactive bowel sounds. Soft, nontender, nondistended. EXTREMITIES: No edema. Right foot with dressing in place. NEUROLOGIC: Awake, alert and oriented x 3. No focal motor deficits. LABORATORY DATA: Morning labs are pending. Blood culture with no growth to date. Wound culture with gram-positive cocci and speciation pending. ASSESSMENT: The patient is a 77 year old man with a past medical history of severe PVD s/p IR revascularization s/p RLE popliteal/anterior tibial bypass, HTN and CAD s/p PCI with stent placement who was admitted for management of right foot cellulitis and possible osteomyelitis. PLAN: 1. Cellulitis and abscess of the right foot. Continue with local wound care as per Dr. Alcantar and the podiatric team. As per the Podiatry team, the MRI findings likely represent postoperative changes versus true osteomyelitis. Input from Dr. Barrett appreciated and recommendations have been made for a 7-10 days course of antibiotics. The patient is presently on Ceftaroline however this may be changed to oral antibiotics when ready for discharge. 2. Severe PVD s/p IR revascularization s/p RLE popliteal/anterior tibial bypass. Continue Aspirin 81 mg p.o. daily, Plavix 75 mg p.o. daily and Lipitor 40 mg p.o. daily. 3. CAD s/p PCI with ANAMIKA placement. Continue with current medications. 4. Hypertension. Continue Lisinopril 10 mg p.o. daily and HCTZ 12.5 mg p.o. daily. 5. Acute kidney injury, resolved. 6. Prophylaxis: GI prophylaxis not indicated as the patient is eating. DVT prophylaxis not indicated as the patient is ambulatory. CODE STATUS: Full code. Amari Gonzalez MD [facility]
[2018-02-19] MEDS: Mupirocin 2% Ointment 15 GM TUBE NS SCH ×2 (10:47→18:11)
--- NOTE | 2018-02-19 12:54 | CP.PCM.PN ---
<Lashonda Camejo - Last Filed: 02/19/18 12:50> Subjective - Date & Time of Evaluation Date of Evaluation: 02/19/18 Time of Evaluation: 12:50 - Subjective Subjective: Podiatry progress note for Dr. Alcantar/Dr. Nunez 77 y/o male patient 24 days s/p Right fifth ray and Left third digit amputation was seen at bedside. Patient is resting comfortably in bed with no reports of acute distress. Patient complains of pain on palpation, otherwise it does not bother him. Dressing to bilateral lower extremities remain clean dry and intact. Patient denies of any N/V/F/C or SOB today. No other pedal complains Objective - Vital Signs/Intake and Output Vital Signs (last 24 hours): Temp Pulse Resp BP Pulse Ox 97.6 F 65 20 143/92 H 100 02/19/18 06:00 02/19/18 06:00 02/19/18 06:00 02/19/18 06:00 02/19/18 06:00 Intake and Output: 02/19/18 02/19/18 06:59 18:59 Intake Total 720 Balance 720 - Medications Medications: Current Medications Acetaminophen (Tylenol 325mg Tab) 650 mg PO Q6H PRN PRN Reason: Pain, moderate (4-7) Aspirin (Aspirin Chewable) 81 mg PO DAILY [facility] Last Admin: 02/19/18 10:48 Dose: 81 mg Atorvastatin Calcium (Lipitor) 40 mg PO DAILY [facility] Last Admin: 02/19/18 10:47 Dose: 40 mg Clopidogrel Bisulfate (Plavix) 75 mg PO DAILY [facility] Last Admin: 02/19/18 10:47 Dose: 75 mg Hydrochlorothiazide (Microzide) 12.5 mg PO DAILY [facility] Last Admin: 02/19/18 10:47 Dose: 12.5 mg Ceftaroline Fosamil 300 mg/ (Sodium Chloride) 50 mls @ 50 mls/hr IVPB Q12H [facility] PRN Reason: Protocol Stop: 02/22/18 09:16 Last Admin: 02/19/18 10:47 Dose: 50 mls/hr Lisinopril (Zestril) 10 mg PO DAILY [facility] Last Admin: 02/19/18 10:47 Dose: 10 mg Mupirocin (Bactroban Ointment) 0 gm NS BID [facility] Stop: 02/22/18 18:01 Last Admin: 02/19/18 10:47 Dose: 1 dose - Labs Labs: 02/19/18 07:15 02/19/18 07:15 PT 13.3 SECONDS (9.4-12.5) H 02/14/18 11:54 INR 1.15 (0.93-1.08) H 02/14/18 11:54 APTT 33.6 Seconds (25.1-36.5) 02/14/18 11:54 - Constitutional Appears: Well, Non-toxic, No Acute Distress - Head Exam Head Exam: ATRAUMATIC, NORMOCEPHALIC - Extremities Exam Additional comments: Dressing to bilateral appears clean/dry/intact with no strike-through noted. DERM: Right: two small open wounds noted to dorso-lateral aspect of right foot each measuring 0.5cm x 0.5cm x 1cm. Slight tracking noted to distal wound. serous discharge noted. Annie-wound erythema noted with margins less than 2cm. Another small opening to the plantar-lateral aspect of right foot measuring 0.5cm x 0.5cm x 1cm with proximal tracking. No Probe to bone noted Left: All sutures are partially intact to Left 3rd digit distally, mild purulent drainage was noted from the wound. Slight mal-odor noted. VASC: DP and PT pulses faintly palpable. TG RLE obscured with right leg dressing from bypass. No pedal edema noted. CFT wnl b/l. NEURO: Gross sensation diminished bilaterally. ORTHO: Previous amputation sites b/l. - Neurological Exam Neurological Exam: Alert, Awake, Oriented x3 - Psychiatric Exam Psychiatric exam: Normal Affect, Normal Mood Assessment and Plan - Assessment and Plan (Free Text) Assessment: 77 yo male patient presents 25 days s/p Right fifth ray and Left third digit amputation; purulent drainage from wounds Plan: Patient was seen, evaluated at bedside with attending Dr. Alcantar All questions and concerns addressed Chart, Labs and vitals reviewed; afebrile, WBC 9.5 Wound culture was taken from right foot wounds Right foot flushed with saline, and dressed with adaptic, maxorb, DSD Left digit flushed with saline, and dressed Betadine soaked adaptic and DSD Continue Abx her ID Podiatry will continue to follow in-house <Chauncey Alcantar - Last Filed: 02/20/18 09:02> Objective - Vital Signs/Intake and Output Vital Signs (last 24 hours): Temp Pulse Resp BP Pulse Ox 98.2 F 73 20 145/76 97 02/20/18 06:00 02/20/18 06:00 02/20/18 06:00 02/20/18 06:00 02/20/18 06:00 Intake and Output: 02/20/18 02/20/18 06:59 18:59 Intake Total 620 Output Total 6 Balance 614 - Medications Medications: Current Medications Acetaminophen (Tylenol 325mg Tab) 650 mg PO Q6H PRN PRN Reason: Pain, moderate (4-7) Aspirin (Aspirin Chewable) 81 mg PO DAILY [facility] Last Admin: 02/19/18 10:48 Dose: 81 mg Atorvastatin Calcium (Lipitor) 40 mg PO DAILY [facility] Last Admin: 02/19/18 10:47 Dose: 40 mg Cadexomer Iodine (Iodosorb) 10 gm TOP DAILY [facility] Clopidogrel Bisulfate (Plavix) 75 mg PO DAILY [facility] Last Admin: 02/19/18 10:47 Dose: 75 mg Hydrochlorothiazide (Microzide) 12.5 mg PO DAILY [facility] Last Admin: 02/19/18 10:47 Dose: 12.5 mg Ceftaroline Fosamil 300 mg/ (Sodium Chloride) 50 mls @ 50 mls/hr IVPB Q12H [facility] PRN Reason: Protocol Stop: 02/22/18 09:16 Last Admin: 02/19/18 21:33 Dose: 50 mls/hr Lisinopril (Zestril) 10 mg PO DAILY [facility] Last Admin: 02/19/18 10:47 Dose: 10 mg Mupirocin (Bactroban Ointment) 0 gm NS BID [facility] Stop: 02/22/18 18:01 Last Admin: 02/19/18 18:11 Dose: 1 dose - Labs Labs: 02/20/18 07:20 02/20/18 07:20 PT 13.3 SECONDS (9.4-12.5) H 02/14/18 11:54 INR 1.15 (0.93-1.08) H 02/14/18 11:54 APTT 33.6 Seconds (25.1-36.5) 02/14/18 11:54 Attending/Attestation - Attestation I have personally seen and examined this patient.: Yes I have fully participated in the care of the patient.: Yes I have reviewed all pertinent clinical information, including history, physical exam and plan: Yes
[2018-02-20 07:47] LABS: BASO # 0.03 K/mm3 (0.0-2.0); BASO % 0.3 % (0.0-3.0); EOS # 0.6 (0.0-0.7); EOS % 5.6 % (1.5-5.0); GRAN # 7.08 (1.4-6.5); GRAN % 70.9 % (50.0-68.0); LYMPH # 1.1 (1.2-3.4); LYMPH % 10.8 % (22.0-35.0); MEAN CELL VOLUME 88.4 fl (80.0-105.0); MEAN CORPUSCULAR HEMOGLOBIN 30.6 pg (25.0-35.0); MEAN CORPUSCULAR HGB CONC 34.6 g/dl (31.0-37.0); MONO # 1.2 (0.1-0.6); MONO % 12.4 % (1.0-6.0); RBC 4.58 10^6/uL (3.5-6.1); RED CELL DISTRIBUTION WIDTH 12.4 % (11.5-14.5)
--- NOTE | 2018-02-20 07:48 | PN ---
DATE: 02/19/2018 SUBJECTIVE: Patient was seen earlier this morning in room 570, bed 2. No fevers. No chills. He is doing better. PHYSICAL EXAMINATION: VITAL SIGNS: Temperature is 98, blood pressure is 140/80, respiratory rate of 16. HEENT: Unremarkable. NECK: Supple. LUNGS: Have decreased breath sounds. HEART: Normal S1 and S2. ABDOMEN: Soft. LABORATORY EXAMINATION: Reveals a white count of 9.5, hemoglobin of 14, platelets of 307. Chemistries reveal a BUN of 33, creatinine of 1.5. Urinalysis noted. Microbiology revealed right foot with MRSA. Review of orders reveals the patient is on Teflaro. ASSESSMENT AND PLAN: This is a 77 years old with right foot abscess with methicillin-resistant Staphylococcus aureus, status post amputation of left third toe and third digit with methicillin-resistant Staphylococcus aureus and patient with hypertension, peripheral vascular disease, coronary artery disease, renal disease, on Teflaro day #5, would complete 7 to 10 days. Darrick Hardy MD
[2018-02-20 08:07] LABS: ALBUMIN 3.8 g/dL (3.0-4.8); CALCIUM 9.2 mg/dL (8.4-10.5)
[2018-02-20 08:51] VITALS: RESP 20
--- NOTE | 2018-02-20 09:34 | PN ---
SUBJECTIVE: The patient was seen and examined at bedside on the general medical clauido. No acute events overnight. He remains afebrile, hemodynamically stable and continues to demonstrate clinical improvement. He is undergoing continued daily bedside debridement of his right foot cellulitis and abscess and the wound is progressing nicely. Otherwise, overall, he feels well and offers no complaints. OBJECTIVE: VITAL SIGNS: Temperature 98.2, pulse 80, blood pressure 126/80, respiratory rate 18, oxygen saturation 99% on room air. GENERAL: No apparent distress. HEENT: PERRL, EOMI. No scleral icterus. No conjunctival pallor. NECK: No JVD. LUNGS: Clear to auscultation. CARDIOVASCULAR: Regular rate and rhythm. Normal S1 and S2. ABDOMEN: Normoactive bowel sounds. Soft, nontender, nondistended. EXTREMITIES: No edema. Right foot with dressing in place. NEUROLOGIC: Awake, alert and oriented x 3. No focal motor deficits. LABORATORY DATA: Morning labs are pending. Blood cultures negative. Wound culture with MRSA and sensitivities noted. ASSESSMENT: The patient is a 77 year old man with a past medical history of severe PVD s/p IR revascularization s/p RLE popliteal/anterior tibial bypass, hypertension and CAD s/p PCI with stent placement who was admitted for management of right foot cellulitis and possible osteomyelitis. PLAN: 1. Cellulitis and abscess of the right foot. Continue with local wound care as per Dr. Alcantar. As per the Podiatry team, the MRI findings likely represent postoperative inflammation as opposed to osteomyelitis. Input from Dr. Barrett appreciated and recommendations have been made for a 7-10 day course of antibiotics. The patient remains on Ceftaroline. 2. Severe PVD s/p IR revascularization s/p RLE popliteal/anterior tibial bypass. Continue Aspirin 81 mg p.o. daily, Plavix 75 mg p.o. daily and Lipitor 40 mg p.o. daily. 3. CAD s/p PCI with ANAMIKA placement. Continue with current medications. 4. Hypertension. Continue Lisinopril 10 mg p.o. daily and HCTZ 12.5 mg p.o. daily. 5. Acute kidney injury, resolved. 6. Prophylaxis. GI prophylaxis not indicated as the patient is eating. DVT prophylaxis not indicated as the patient is ambulatory. CODE STATUS: Full code. Amari Gonzalez MD [facility] # [id number] [facility]
[2018-02-20] MEDS: Mupirocin 2% Ointment 15 GM TUBE NS SCH ×2 (09:44→17:36)
[2018-02-20] MEDS: CADEXOMER IODINE 0.9% GEL 10G TOP SCH (09:45)
--- NOTE | 2018-02-20 10:58 | PN ---
DATE: 02/20/2018 SUBJECTIVE: A 77-year-old diabetic male, seen at bedside for continued evaluation and management of abscess formation on his right foot secondary to wound dehiscence from his right fifth partial ray resection as well as for a dehiscing left third digit distal amputation. The patient is currently receiving IV antibiotics for his MRSA and will require total of 7-10 days before discharge, at which time he will be discharged with p.o. antibiotics. He is currently on day 5. He offers no complaints at this time and has been afebrile. However, the patient states it is very difficult for him to remain off of his feet as much as is required. The patient's vital signs revealed temperature of 98.2, pulse rate of 73, blood pressure of 145/76, respiratory rate of 20. Laboratory findings reveal a white count of 10, hemoglobin of 14, hematocrit of 40.5, platelet count of 316. Most recent microbiology report reveals MRSA growth on the right foot abscess. MRI findings suggest osteomyelitis at the right fifth resected metatarsal; however, clinically this represents more of a postoperative inflammatory response rather than true osteomyelitis. OBJECTIVE: Weakly palpable pedal pulses noted bilaterally. Absent pedal hair growth noted bilaterally. The patient is unable to detect 5.07 g monofilament wire testing bilaterally. Right foot presents with decreased edema and decreased erythema at the lateral aspect of his foot. There is still an open wound on the dorsal aspect of the fifth metatarsal shaft as well as plantarly at the resected fifth metatarsal head. There is noted to be clear serous drainage. There is no purulence. There is no malodor. The wounds does not probe to tendon or bone and size of each wound is approximately 0.3 x 0.3 x 0.2 cm. Left third digit shows a distal amputation that has dehiscence noted at the central aspect of the wound. There is noted to be clear serous drainage. The distal tip of the toe is edematous and erythematous, which is localized distally. There is no purulence. The wound does not probe to tendon or bone. No signs of ascending cellulitis. ASSESSMENT: Resolving abscess formation with cellulitis on the right foot secondary to excessive ambulation after his partial fifth ray resection, the wound dehiscence noted at the distal left third digit. PLAN: The patient's wounds were examined. Right foot ulcers were flushed with normal sterile saline and application of a sterile Adaptic, Maxorb and a dry sterile dressing was applied. The third digit was cleansed with normal sterile saline. Steri-Strips were placed along the incision site and application of Iodosorb cream and a dry sterile dressing was applied. The patient is currently on day 5 of IV antibiotics. Recommendation is 7-10 days as per Infectious Disease. The patient was told that when he is discharged, he must follow up at the Wound Center twice weekly. He was told once again that he must remain off of his feet or his wounds will worsen resulting in a more proximal amputation. We will continue with IV antibiotics as per Infectious Disease and the patient will be seen and followed daily. Chauncey Alcantar DPM
[2018-02-20] MEDS: Sodium Chloride 0.9% 1,000 ML IV SCH (12:52)
--- NOTE | 2018-02-20 20:26 | PN ---
DATE: 02/20/2018 SUBJECTIVE: The patient was seen earlier today in 570, bed 2. No fevers and chills. No nausea. PHYSICAL EXAMINATION: VITAL SIGNS: Temperature is 98, blood pressure is 120/70, respiratory rate 16. HEENT: Examination of HEENT is unremarkable. NECK: Supple. LUNGS: Have decreased breath sounds. HEART: Normal S1, S2. ABDOMEN: Soft. LABORATORY DATA: Laboratory examination reveals a white count of 10,000, hemoglobin of 14, platelets of 316. Chemistries are noted. Creatinine is 1.6. Microbiology is reviewed and with MRSA. Review of the orders reveals the patient to be on Teflaro ASSESSMENT AND PLAN: This is a 77-year-old male with right foot abscess with Methicillin-resistant Staphylococcus aureus, status post amputation of left third toe and third digit and Methicillin-resistant Staphylococcus aureus. The patient with hypertension, peripheral vascular disease, coronary artery disease, renal disease, on Teflaro, day #6, complete 7-10 days, maybe able to switch to p.o. antibiotics upon discharge, to p.o. doxycycline and p.o. Augmentin or may use p.o. Zyvox if able to obtain and this patient with severe peripheral vascular disease, status post Interventional Radiology revascularization. We will follow with you. Darrick Hardy MD
[2018-02-21] MEDS: Sodium Chloride 0.9% 1,000 ML IV SCH ×2 (05:53→21:26)
[2018-02-21 07:07] LABS: BASO # 0.04 K/mm3 (0.0-2.0); BASO % 0.4 % (0.0-3.0); EOS # 0.6 (0.0-0.7); EOS % 6.2 % (1.5-5.0); GRAN # 6.52 (1.4-6.5); GRAN % 70.2 % (50.0-68.0); HEMOGLOBIN 13.6 g/dL (14.0-18.0); LYMPH # 1.4 (1.2-3.4); LYMPH % 15.3 % (22.0-35.0); MEAN CELL VOLUME 89.4 fl (80.0-105.0); MEAN CORPUSCULAR HEMOGLOBIN 30.6 pg (25.0-35.0); MEAN CORPUSCULAR HGB CONC 34.3 g/dl (31.0-37.0); MEAN PLATELET VOLUME 8.8 fl (7.0-11.0); MONO # 0.7 (0.1-0.6); MONO % 7.9 % (1.0-6.0); RBC 4.44 10^6/uL (3.5-6.1); RED CELL DISTRIBUTION WIDTH 12.4 % (11.5-14.5); WHITE BLOOD COUNT 9.3 10^3/ul (4.5-11.0)
[2018-02-21 07:25] LABS: ALB/GLOB RATIO 0.9 (1.1-1.8); ALBUMIN 3.3 g/dL (3.0-4.8); CALCIUM 8.9 mg/dL (8.4-10.5)
--- NOTE | 2018-02-21 08:49 | PN ---
DATE: 02/21/2018 SUBJECTIVE: The patient is in bed, in no acute distress. He is asking about discharged. PHYSICAL EXAMINATION: VITAL SIGNS: Temperature is 98, blood pressure is 120/70, respiratory rate of 16. Examination of HEENT is unremarkable. NECK: Supple. LUNGS: Have decreased breath sounds. HEART: Normal S1, S2. ABDOMEN: Soft, nontender. LABORATORY DATA: Laboratory examination reveals a white count of 10,000, hemoglobin of 14. BUN of 38, creatinine of 1.6. Urinalysis is noted. Microbiology reveals the right foot with MRSA. Review of orders reveals the patient to have Teflaro. ASSESSMENT AND PLAN: A 77-year-old male with a right foot abscess with methicillin-resistant Staphylococcus aureus and status post amputation of the left third toe and a third digit methicillin-resistant Staphylococcus aureus with hypertension, peripheral vascular disease, coronary artery disease, renal disease, on Teflaro day #7, may be able to switch to p.o. doxycycline and p.o. Augmentin to complete another 3-5 days. Another option is just p.o. Zyvox if able to get p.o. Zyvox and if there are no contraindications. Darrick Hardy MD
[2018-02-21] MEDS: Mupirocin 2% Ointment 15 GM TUBE NS SCH ×2 (10:05→17:50)
[2018-02-21] MEDS: CADEXOMER IODINE 0.9% GEL 10G TOP SCH (10:05)
--- NOTE | 2018-02-21 10:16 | PN ---
SUBJECTIVE: The patient was seen and examined at the bedside on the general medical claudio. No acute events overnight. He remains afebrile, hemodynamically stable and continues to demonstrate clinical improvement. Daily wound care is being rendered by the Podiatry team and the patient was noted to have persistent purulent discharge albeit improving. He otherwise feels well and denies fevers , chills, rigors or pain at the right foot. OBJECTIVE: VITAL SIGNS: Temperature 98.3, pulse 90, blood pressure 122/78, respiratory rate 18, oxygen saturation 99% on room air. GENERAL: No apparent distress. HEENT: PERRL. EOMI. No scleral icterus. No conjunctival pallor. NECK: No JVD. LUNGS: Clear to auscultation. CARDIOVASCULAR: Regular rate and rhythm. Normal S1 and S2. ABDOMEN: Normoactive bowel sounds. Soft, nontender, and nondistended. EXTREMITIES: No edema. Right foot with dressing in place. NEUROLOGICAL: Awake, alert, and oriented x 3. No focal motor deficits. LABORATORY DATA: CBC reviewed and unremarkable. CMP reviewed and unremarkable. Blood cultures are negative. Wound culture with MRSA and sensitivity is noted. ASSESSMENT: The patient is a 77 year old man with a past medical history of severe PVD s/p IR revascularization s/p RLE popliteal/anterior tibial bypass, hypertension and CAD s/p PCI with stent placement who was admitted for management of right foot cellulitis and possible osteomyelitis. PLAN: 1. Cellulitis and abscess of the right foot. Continue with local wound care as per Dr. Alcantar. As per the Podiatry team, the MRI findings likely represent postoperative inflammation as opposed to osteomyelitis. Input from Dr. Hardy appreciated and recommendations have been made for a 7-10 day course of antibiotics. The patient remains on Ceftaroline however based on sensitivities, there are oral alternatives available. 2. Severe PVD s/p IR revascularization s/p RLE popliteal/anterior tibial bypass. Continue Aspirin 81 mg p.o. daily, Plavix 75 mg p.o. daily and Lipitor 40 mg p.o. daily. 3. CAD s/p PCI with ANAMIKA placement. Continue with current medications. 4. Hypertension. Continue Lisinopril 10 mg p.o. daily and HCTZ 12.5 mg p.o. daily. 5. Acute kidney injury, resolved. 6. Prophylaxis. GI prophylaxis not indicated as the patient is eating. DVT prophylaxis not indicated as the patient is ambulatory. 7. Disposition. The patient to be discharged home when cleared from Podiatry standpoint. CODE STATUS: Full code. Amari Gonzalez MD MTDD
--- NOTE | 2018-02-21 15:16 | PN ---
DATE: 02/21/2018 SUBJECTIVE: A 77-year-old diabetic male seen at bedside for continued evaluation and management of resolving abscess formation on his right foot with resolving cellulitis secondary to wound dehiscence from his right fifth partial ray resection. The patient is also showing signs of dehiscence at the third left digit distal amputation. He is currently receiving IV antibiotics for his MRSA and will require a total of 7-10 days before discharge, at which time he will be discharged with p.o. antibiotics and follow up at the wound center twice weekly. PHYSICAL EXAMINATION GENERAL: He reports no pain and has been afebrile. VITAL SIGNS: Revealed temperature of 98.6, pulse rate of 64, blood pressure of 139/79, respiratory rate of 20. EXTREMITIES: Weakly palpable pedal pulses noted bilaterally. The patient is able to detect 5.07 g monofilament wire testing bilaterally. Absent pedal hair growth noted bilaterally. His lower extremity skin presents thin, shining discolored bilaterally. Right foot presents with decreasing edema and erythema at the lateral aspect of his foot. There is now minimal serous drainage noted emanating from the dehisced areas on the dorsal aspect of the fifth metatarsal and plantar aspect of the resected fifth metatarsal head, each of these wounds measured approximately 0.2 x 0.2 x 0.2 cm. There is no purulence emanating from either of them. There is only clear serous drainage. There is no probing to tendon or bone. Left third digit presents with a distal amputation that is showing signs of dehiscence along the central aspect of the incision site. There is noted to be serous drainage, no purulence. The distal tip of the digit is edematous and erythematous, but is localized distally and does not extend proximally. LABORATORY DATA: Reveals white count of 9.3, hemoglobin of 13.6, hematocrit of 39.7, platelet count of 302. Most recent microbiology report reveals MRSA on the right foot wound. MRI that was taken was suspicious for osteomyelitis at the resected area of the right fifth metatarsal. However, clinically, this shows no longer any signs of osteomyelitis and this is more related to postoperative changes than true osteomyelitis. ASSESSMENT: Resolving abscess formation with cellulitis on the right foot secondary to excessive ambulation after his partial fifth ray resection, wound dehiscence noted at the distal left third digit amputation site. PLAN: The patient's wounds were examined. His right foot ulcers were flushed with normal sterile saline and application of sterile Adaptic. Maxorb and a dry sterile dressing was applied and reinforced with light Huseyin wrap. At this time, it was noted that the left third digit incision site was dehisced that showing signs of dehiscence. It was decided to reinforce the incision site with 3-0 nylon. Using sterile gloves and sterile instruments on a sterile field, the left second digit was probed and was cleansed with Betadine solution and approximately four simple sutures were placed along the incision site and the incision site was reinforced with Steri-Strips and Betadine solution. The entire area was covered with a dry sterile dressing and an Huseyin wrap was applied to the foot. Recommend the patient have the full 10 days of IV antibiotics as he is prone to excessive ambulation as witnessed by his dehiscence on his left third toe and this would limit the amount of ambulation he performs. Once again spoke with Justen at length on the need to stay in bed, to remain off of his feet and an effort to avoid reopening his incision sites and which would require further amputation. We will continue with IV antibiotics as per Infectious Disease and when he is discharged, he will be discharged on p.o. antibiotics and he will be seen in the wound center weekly. Once again, I recommended he gets a full 10-day IV antibiotic therapy. Chauncey Alcantar DPM ROSS
[2018-02-22 07:29] LABS: ALBUMIN 3.4 g/dL (3.0-4.8); CALCIUM 9.2 mg/dL (8.4-10.5)
[2018-02-22 08:00] VITALS: BP 147/78; PULSE 60; TEMP 97.7; O2SAT 94
[2018-02-22 08:10] LABS: BASO # 0.05 K/mm3 (0.0-2.0); BASO % 0.6 % (0.0-3.0); EOS # 0.6 (0.0-0.7); EOS % 6.8 % (1.5-5.0); GRAN # 5.63 (1.4-6.5); GRAN % 66.2 % (50.0-68.0); HEMOGLOBIN 13.5 g/dL (14.0-18.0); LYMPH # 1.5 (1.2-3.4); LYMPH % 18.1 % (22.0-35.0); MEAN CELL VOLUME 89.2 fl (80.0-105.0); MEAN CORPUSCULAR HGB CONC 34.7 g/dl (31.0-37.0); MONO # 0.7 (0.1-0.6); MONO % 8.3 % (1.0-6.0); RBC 4.36 10^6/uL (3.5-6.1); RED CELL DISTRIBUTION WIDTH 12.5 % (11.5-14.5); WHITE BLOOD COUNT 8.5 10^3/ul (4.5-11.0)
[2018-02-22] MEDS: Mupirocin 2% Ointment 15 GM TUBE NS SCH (11:12)
[2018-02-22] MEDS: CADEXOMER IODINE 0.9% GEL 10G TOP SCH (11:12)
--- NOTE | 2018-02-22 12:34 | CP.PCM.PN ---
<[email or web address] - Last Filed: 02/22/18 12:30> Subjective - Date & Time of Evaluation Date of Evaluation: 02/22/18 Time of Evaluation: 12:30 - Subjective Subjective: Podiatry progress note for Dr. Alcantar/Dr. Nunez 77 y/o male patient 27 days s/p Right fifth ray and Left third digit amputation was seen at bedside. Patient is AAOx3 and appears in NAD. Denies of having any acute overnight events. Patient complains of pain on palpation, otherwise it does not bother him. Dressing to bilateral lower extremities remain clean dry and intact. Patient denies of any N/V/F/C or SOB today. No other pedal complains Objective - Vital Signs/Intake and Output Vital Signs (last 24 hours): Temp Pulse Resp BP Pulse Ox 97.7 F 60 20 147/78 94 L 02/22/18 06:00 02/22/18 11:07 02/22/18 06:00 02/22/18 11:07 02/22/18 06:00 Intake and Output: 02/22/18 02/22/18 06:59 18:59 Intake Total 1020 Balance 1020 - Medications Medications: Current Medications Acetaminophen (Tylenol 325mg Tab) 650 mg PO Q6H PRN PRN Reason: Pain, moderate (4-7) Aspirin (Aspirin Chewable) 81 mg PO DAILY [facility] Last Admin: 02/22/18 11:07 Dose: 81 mg Atorvastatin Calcium (Lipitor) 40 mg PO DAILY [facility] Last Admin: 02/22/18 11:11 Dose: Not Given Cadexomer Iodine (Iodosorb) 10 gm TOP DAILY [facility] Last Admin: 02/22/18 11:12 Dose: Not Given Clopidogrel Bisulfate (Plavix) 75 mg PO DAILY [facility] Last Admin: 02/22/18 11:07 Dose: 75 mg Hydrochlorothiazide (Microzide) 12.5 mg PO DAILY [facility] Last Admin: 02/22/18 11:07 Dose: 12.5 mg Sodium Chloride (Sodium Chloride 0.9%) 1,000 mls @ 100 mls/hr IV .Q10H [facility] Last Admin: 02/21/18 21:26 Dose: 100 mls/hr Lisinopril (Zestril) 10 mg PO DAILY [facility] Last Admin: 02/22/18 11:07 Dose: 10 mg Mupirocin (Bactroban Ointment) 0 gm NS BID [facility] Stop: 02/22/18 18:01 Last Admin: 02/22/18 11:12 Dose: Not Given - Labs Labs: 02/22/18 06:00 02/22/18 06:00 PT 13.3 SECONDS (9.4-12.5) H 02/14/18 11:54 INR 1.15 (0.93-1.08) H 02/14/18 11:54 APTT 33.6 Seconds (25.1-36.5) 02/14/18 11:54 - Constitutional Appears: Well, Non-toxic, No Acute Distress - Extremities Exam Additional comments: Dressing to bilateral appears clean/dry/intact with no strike-through noted. DERM: Right: two small open wounds noted to dorso-lateral aspect of right foot each measuring 0.5cm x 0.5cm x 1cm. Slight tracking noted to distal wound. serous discharge noted at the beginning which turned into healthy bleeding on palpation. Annie-wound erythema noted with margins less than 2cm. Another small opening to the plantar-lateral aspect of right foot measuring 0.5cm x 0.5cm x 1cm with proximal tracking. No Probe to bone noted, no malodor Left: All sutures are partially intact to Left 3rd digit distally, no active drainage, no purulence, no malodor, no erythema. VASC: DP and PT pulses faintly palpable. TG RLE obscured with right leg dressing from bypass. No pedal edema noted. CFT wnl b/l. NEURO: Gross sensation diminished bilaterally. ORTHO: Previous amputation sites b/l. - Neurological Exam Neurological Exam: Alert, Awake, Oriented x3 - Psychiatric Exam Psychiatric exam: Normal Affect, Normal Mood Assessment and Plan - Assessment and Plan (Free Text) Assessment: 77 yo male patient presents 27 days s/p Right fifth ray and Left third digit amputation Plan: Patient was seen, evaluated at bedside with attending Dr. Alcantar All questions and concerns addressed Chart, Labs and vitals reviewed; afebrile, WBC 8.5 Foot cx - MRSA Right foot flushed with saline, and dressed with adaptic, maxorb, DSD Left digit flushed with saline, and dressed with iodosorb, DSD Continue Abx as per ID Podiatry will continue to follow in-house <Chauncey Alcantar - Last Filed: 02/22/18 13:40> Objective - Vital Signs/Intake and Output Vital Signs (last 24 hours): Temp Pulse Resp BP Pulse Ox 97.7 F 60 20 147/78 94 L 02/22/18 06:00 02/22/18 11:07 02/22/18 06:00 02/22/18 11:07 02/22/18 06:00 Intake and Output: 02/22/18 02/22/18 06:59 18:59 Intake Total 1020 Balance 1020 - Medications Medications: Current Medications Acetaminophen (Tylenol 325mg Tab) 650 mg PO Q6H PRN PRN Reason: Pain, moderate (4-7) Aspirin (Aspirin Chewable) 81 mg PO DAILY [facility] Last Admin: 02/22/18 11:07 Dose: 81 mg Atorvastatin Calcium (Lipitor) 40 mg PO DAILY [facility] Last Admin: 02/22/18 11:11 Dose: Not Given Cadexomer Iodine (Iodosorb) 10 gm TOP DAILY [facility] Last Admin: 02/22/18 11:12 Dose: Not Given Clopidogrel Bisulfate (Plavix) 75 mg PO DAILY [facility] Last Admin: 02/22/18 11:07 Dose: 75 mg Hydrochlorothiazide (Microzide) 12.5 mg PO DAILY [facility] Last Admin: 02/22/18 11:07 Dose: 12.5 mg Sodium Chloride (Sodium Chloride 0.9%) 1,000 mls @ 100 mls/hr IV .Q10H [facility] Last Admin: 02/21/18 21:26 Dose: 100 mls/hr Lisinopril (Zestril) 10 mg PO DAILY [facility] Last Admin: 02/22/18 11:07 Dose: 10 mg Mupirocin (Bactroban Ointment) 0 gm NS BID AKIKO Stop: 02/22/18 18:01 Last Admin: 02/22/18 11:12 Dose: Not Given - Labs Labs: 02/22/18 06:00 02/22/18 06:00 PT 13.3 SECONDS (9.4-12.5) H 02/14/18 11:54 INR 1.15 (0.93-1.08) H 02/14/18 11:54 APTT 33.6 Seconds (25.1-36.5) 02/14/18 11:54 Attending/Attestation - Attestation I have personally seen and examined this patient.: Yes I have fully participated in the care of the patient.: Yes I have reviewed all pertinent clinical information, including history, physical exam and plan: Yes
--- NOTE | 2018-02-22 14:38 | PN ---
DATE: 02/22/2018 SUBJECTIVE: The patient is in bed, was seen early this morning in room 570 bed 2. No new issue. He states last night regarding his IV access. OBJECTIVE: VITAL SIGNS: On exam, temperature is 98, blood pressure is 140/70, respiratory rate 18, heart rate of 82. HEENT: Examination is unremarkable. NECK: Supple. LUNGS: Have decreased breath sounds. HEART: Normal S1, S2. ABDOMEN: Soft. DATA: Laboratory examination reveals a white count of 8.5, hemoglobin of 13. Chemistries reveal a BUN of 30, creatinine of 1.4. Urinalysis is noted. Microbiology reveals the MRSA of the wound, sensitive to doxycycline and sensitive to Bactrim, sensitive to clindamycin, but resistant to erythromycin. ASSESSMENT AND PLAN: This is a 77-year-old male who was seen early this morning in room 570, bed 2, was admitted with right foot abscess with methicillin resistant Staphylococcal aureus, status post amputation of left third toe and third digit in a patient with hypertension, peripheral vascular disease, coronary artery disease and renal disease, may switch to p.o. doxycycline and p.o. Augmentin; may use Zyvox; was unable to get Zyvox and may use doxycycline and Augmentin and the patient to follow with Podiatry and PMD. Darrick Hardy MD
--- NOTE | 2018-02-22 22:21 | DS ---
HISTORY OF PRESENT ILLNESS: The patient is a 77-year-old white male who is in room 570, bed 2. There were no acute events overnight. I also spoke with Dr. Hardy of Infectious Diseases and he agrees that the patient may be discharged on oral antibiotics. PHYSICAL EXAMINATION: VITAL SIGNS: Temperature of 97.7, pulse rate of 60, blood pressure of 147/78, with an O2 saturation of 96% on room air. HEENT: Negative. NECK: Supple with a full range of motion. No adenopathy present. LUNGS: Clear bilaterally. HEART: With a regular rate and rhythm. ABDOMEN: Benign. EXTREMITIES: Both feet are bandaged. NEUROLOGIC: There are no focal motor deficits. LABORATORY DATA: Lab values today are WBC of 8.5, hemoglobin and hematocrit of 13.5 and 38.9. Chemistry is normal with the exception of a BUN of 30, creatinine of 1.4. Microbiology shows from 02/17/2018 methicillin-resistant Staph aureus. The patient is currently on intravenous antibiotics. The patient will be discharged on p.o. doxycycline 100 mg twice a day as well as Augmentin 875 mg twice a day for another 5 days. DISCHARGE DIAGNOSES: Cellulitis of toe and foot, osteomyelitis by history in the past, peripheral vascular disease, toe infection, and hypertension. We will follow up in the office in 1 week's duration. Antolin Gonzalez MD
== END 2018-02-22 13:49 | disposition home or self-care (01) | DRG 565 ==
LOC: ED 10:46 → ERH 14:30 → 5RSO 15:25
PROVIDERS: ADMIT Student in an Organized Health Care Education/Training Program; ATTEND Student in an Organized Health Care Education/Training Program
DX: T87.43 Infection of amputation stump, right lower extremity (principal); L02.611 Cutaneous abscess of right foot; L03.115 Cellulitis of right lower limb; N17.9 Acute kidney failure, unspecified; T81.30XA Disruption of wound, unspecified, initial encounter; E11.51 Type 2 diabetes mellitus with diabetic peripheral angiopathy without gangrene; I25.10 Atherosclerotic heart disease of native coronary artery without angina pectoris; L03.031 Cellulitis of right toe; I12.9 Hypertensive chronic kidney disease with stage 1 through stage 4 chronic kidney disease, or unspecified chronic kidney disease; N18.9 Chronic kidney disease, unspecified; L97.519 Non-pressure chronic ulcer of other part of right foot with unspecified severity; B95.62 Methicillin resistant Staphylococcus aureus infection as the cause of diseases classified elsewhere; E11.22 Type 2 diabetes mellitus with diabetic chronic kidney disease; Y83.5 Amputation of limb(s) as the cause of abnormal reaction of the patient, or of later complication, without mention of misadventure at the time of the procedure; Y92.009 Unspecified place in unspecified non-institutional (private) residence as the place of occurrence of the external cause; Z89.422 Acquired absence of other left toe(s); Z95.5 Presence of coronary angioplasty implant and graft; Z87.891 Personal history of nicotine dependence

== ENCOUNTER 2018-02-28 06:04 | Day surgery (SDC) | payer MEDICARE ==
[2018-02-28] MEDS ORDERED: Lidocaine 2 GM Vial 2 GM/50 ML VIAL IV ONE (07:07)
[2018-02-28] MEDS ORDERED: Propofol 10 mg/ml Inj (20 ML) ONE (07:45)
[2018-02-28] MEDS ORDERED: Midazolam 2 MG/2 ML VIAL ONE (07:46)
[2018-02-28] MEDS ORDERED: HYDROmorphone 0.5 mg/0.5 ml ISec IVP PRN (08:19)
--- NOTE | 2018-02-28 08:27 | PCM.SURG1 ---
Surgeon's Initial Post Op Note - Surgeon's Notes Surgeon: Dr. Nunez Speech Communication Professor: Dr. Mechelle Givens PGY-2 Type of Anesthesia: IV Sedation, Local Anesthesia Administered By: Dr. 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 I: 10cc 2% Lidocaine plain. M: 3-0 Vicryl, 4-0 Nylon Post-Operative Diagnosis: same Operation Performed: partial amputation of left foot 3rd digit Specimen/Specimens Removed: 3rd digit bone Estimated Blood Loss: EBL {In ML}: 2 Blood Products Given: N/A Drains Used: No Drains Post-Op Condition: Good Date of Surgery/Procedure: 02/28/18 Time of Surgery/Procedure: 08:26
[2018-02-28] MEDS ORDERED: Lactated Ringer's 1,000 ML IV SCH (08:30)
[2018-02-28 09:33] VITALS: TEMP 96.3
[2018-02-28 10:19] VITALS: BP 144/79; PULSE 58; RESP 20; O2SAT 97
--- NOTE | 2018-02-28 10:51 | OP ---
PROCEDURE DATE: 02/28/2018 SURGEON: Rosie Nunez DPM. TRAFFIC CONTROL FLAGGER: Mechelle Givens DPM. ANESTHESIOLOGIST: Dr. Kolb. ANESTHESIA: IV sedation plus local. PREOPERATIVE DIAGNOSIS: Left foot nonhealing diabetic ulcer of third digit. POSTOPERATIVE DIAGNOSIS: Left foot nonhealing diabetic ulcer of third digit. NAME OF PROCEDURE: Partial amputation of left foot third digit. INDICATIONS: The patient is a 77-year-old male with the above diagnosis. The patient has exhausted all conservative treatment at this time and now requires surgical intervention. The patient signed a consent after careful explanation of risks, benefits, complications and alternatives for surgical procedure. No guarantees were given nor implied. N.p.o. status was confirmed prior to taking the patient to the operating room. PREPARATION: The patient was brought into the operating room and placed on the operating room table in a supine position. Time-out was performed for identification of the correct patient and procedure. The patient received a total of 10 mL of 2% lidocaine plain in a digital block fashion to the left foot third digit. The left foot was then prepped and draped in normal sterile manner and the procedure began. No tourniquet was used during the procedure. DESCRIPTION OF PROCEDURE: Attention was then drawn to the dorsal aspect of the left foot third digit where an open nonhealing diabetic ulceration measuring approximately 1.4 cm x 1 cm x 0.5 cm was noted with exposed bone in the wound bed. At this time, a fishmouth circumferential incision was made extending from the dorsal aspect of the third digit middle phalanx distally and plantarly around the third digit circumferentially using a sterile #15 blade. The incision was extended to the subcutaneous layers down to the level of bone. At this time, a sterile 15 blade and sterile forceps were utilized to disarticulate the third digit middle phalanx from the proximal phalanx, using a phalangeal clamp to stabilize the toe. A sterile forceps was then utilized to free all soft tissue off the distal aspect of the third digit proximal phalanx. A double action bone cutter was then utilized to excise the cartilage and the distal half of the proximal phalanx of the third digit and this was sent off the field to pathology. The wound bed was then flushed with sterile saline and a deep wound culture was performed and sent for microbiology. Once again, we copiously irrigated the wound with sterile saline. We then reapproximated the deep with 3-0 Vicryl sutures and reapproximated the skin with 4-9 nylon sutures. The surgical site was dressed with Adaptic nonadherent dressing, 4 x 4 gauze and a Kerlix bandage. POSTOPERATIVE CONDITION: The patient tolerated the anesthesia and procedure well and was escorted to the recovery room with neurovascular status intact to the left foot and vital signs stable. The patient is to be discharge from same day surgery when discharge criteria is met. The patient is advised to keep dressing clean, dry, and intact and follow up with Dr. Nunez within 1 week within the [facility]. Mechelle Givens DPM
== END 2018-02-28 10:40 | disposition home or self-care (01) ==
LOC: SDS 06:04
PROVIDERS: ATTEND Podiatrist
DX: E11.621 Type 2 diabetes mellitus with foot ulcer (principal); L97.529 Non-pressure chronic ulcer of other part of left foot with unspecified severity
CPT/HCPCS: 28124; 87070; 88305; J1170; J2001; J2250; J2405; J2704; J3010; J7120

== ENCOUNTER 2018-05-10 12:08 | Emergency (ER) | payer MEDICARE ==
[2018-05-10 12:08] VITALS: BMI 26.4
[2018-05-10 12:19] VITALS: RESP 16
[2018-05-10] MEDS ORDERED: Morphine 4 mg/ml ISec IVP STA ×2 (12:21→14:02)
[2018-05-10 12:44] LABS: BASO # 0.05 K/mm3 (0.0-2.0); BASO % 0.5 % (0.0-3.0); EOS # 0.5 (0.0-0.7); EOS % 5.4 % (1.5-5.0); GRAN # 5.78 (1.4-6.5); GRAN % 60.1 % (50.0-68.0); HEMOGLOBIN 11.9 g/dL (14.0-18.0); LYMPH # 2.5 (1.2-3.4); LYMPH % 25.4 % (22.0-35.0); MEAN CELL VOLUME 92.9 fl (80.0-105.0); MEAN CORPUSCULAR HEMOGLOBIN 31.2 pg (25.0-35.0); MEAN CORPUSCULAR HGB CONC 33.5 g/dl (31.0-37.0); MONO # 0.8 (0.1-0.6); MONO % 8.6 % (1.0-6.0); RBC 3.82 10^6/uL (3.5-6.1); RED CELL DISTRIBUTION WIDTH 14.7 % (11.5-14.5); WHITE BLOOD COUNT 9.6 10^3/ul (4.5-11.0)
[2018-05-10 12:51] LABS: ALB/GLOB RATIO 1.2 (1.1-1.8); ALBUMIN 4.2 g/dL (3.0-4.8); ALT/SGPT 21 U/L (7-56); AST/SGOT 32 U/L (17-59); BLOOD UREA NITROGEN 29 mg/dL (7-21); GFR NON-AFRICAN AMERICAN 59
[2018-05-10 12:53] LABS: INR 0.96; PARTIAL THROMBOPLASTIN TIME 28.3 Seconds (25.1-36.5)
--- NOTE | 2018-05-10 13:44 | RAD ---
PROCEDURE: Left Hand Radiographs. HISTORY: trauma COMPARISON: None. FINDINGS: BONES: Normal. No fracture. JOINTS: There is widening of the space between the scaphoid and lunate suggesting ligament tear. There is also joint space narrowing in the radiocarpal joint. SOFT TISSUES: Normal. OTHER FINDINGS: None. IMPRESSION: There is widening of the space between the scaphoid and lunate suggesting ligament tear. There is also joint space narrowing in the radiocarpal joint.
--- NOTE | 2018-05-10 13:46 | RAD ---
PROCEDURE: Right Hand Radiographs. HISTORY: trauma COMPARISON: None. FINDINGS: BONES: Normal. No fracture. JOINTS: Degenerative changes are seen in the PIP joints. The most severe degenerative changes are seen in the 2nd MCP joint. There is no acute fracture SOFT TISSUES: Normal. OTHER FINDINGS: None. IMPRESSION: No acute fracture
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
[2018-05-10] MEDS ORDERED: Bupivacaine 0.25% Inj(30mL) IJ STA (15:07)
[2018-05-10] MEDS ORDERED: Lidocaine 1% Inj (20ml) IJ STA (15:07)
[2018-05-10] MEDS ORDERED: Lidocaine 1% 5ml Abboject IJ STA (15:19)
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
[2018-05-10] MEDS ORDERED: TDAP Vaccine 0.5 mL Syr IM ONE (17:19)
[2018-05-10 17:28] VITALS: BP 145/77; PULSE 72; O2SAT 96
--- NOTE | 2018-05-10 17:32 | CARD ---
APPROVED REPORT Date of service: 05/10/2018 EKG Measurement Heart [id number] <Conclusion> Marked sinus bradycardia Abnormal ECG
--- NOTE | 2018-05-10 18:09 | PCM.PROC ---
Procedures Attestation:: I certify that I have explained the specified Operation(s) or Procedure(s), risks, benefits and reasonable alternatives to the Patient and/or other person responsible. The opportunity was given to ask questions and all questions answered - Laceration irrigated extensively Site: hand (palmar thumb base) Side (if applicable): right Size (cm): 7 Description: linear, clean Depth: involves muscle layer Anesthesia used: bupivicaine, lidocaine 1% Anesthesia technique: local infiltration, nerve block Amount (mLs): 12 Pre-repair: wound explored, irrigated extensively, deep structures intact, wound margins revised Skin layer closed with: other (nylon) Size: 4-0 Number of sutures: 3 Technique: simple, interrupted Subcutaneous layer closed with: chromic gut Size: 3-0 Number of sutures: 3 Technique: simple, interrupted clean Site: hand (volar thumb tip) Side (if applicable): right Size (cm): 3 Description: linear Depth: simple, single layer Anesthesia used: bupivicaine, lidocaine 1% Anesthesia technique: local infiltration, nerve block Amount (mLs): 8 Pre-repair: wound explored, irrigated extensively, deep structures intact Skin layer closed with: other (nylon) Size: 4-0 Number of sutures: 4 Technique: simple, interrupted other Site: hand Side (if applicable): left Size (cm): 4 Description: flap Depth: simple, single layer Anesthesia used: bupivicaine, lidocaine 1% Anesthesia technique: local infiltration, nerve block Amount (mLs): 8 Pre-repair: wound explored, irrigated extensively, deep structures intact Skin layer closed with: other (nylon) Size: 4-0 Number of sutures: 4 Technique: simple, interrupted deep structures intact Site: hand (webspace between thumb and forefinger) Side (if applicable): left Size (cm): 1 Description: irregular Depth: simple, single layer Anesthesia used: bupivicaine, lidocaine 1% Amount (mLs): 5 Skin layer closed with: other (nylon) Size: 4-0 Number of sutures: 2 Technique: simple, interrupted bupivicaine Site: hand Side (if applicable): left (dorsal PIP index finger) Size (cm): 2 Description: irregular Depth: simple, single layer Anesthesia used: bupivicaine, lidocaine 1% Anesthesia technique: local infiltration, nerve block Amount (mLs): 5 Pre-repair: wound explored, irrigated extensively, deep structures intact Skin layer closed with: other (nylon) Size: 4-0 Number of sutures: 2
[2018-05-10 18:11] VITALS: TEMP 98
== END 2018-05-10 18:09 | disposition home or self-care (01) ==
LOC: ED 12:08
DX: S61.411A Laceration without foreign body of right hand, initial encounter (principal); S61.412A Laceration without foreign body of left hand, initial encounter; W37.8XXA Explosion and rupture of other pressurized tire, pipe or hose, initial encounter; Y92.89 Other specified places as the place of occurrence of the external cause; Z23 Encounter for immunization
CPT/HCPCS: 12005; 73130; 80053; 85025; 85610; 85730; 90471; 90715; 93005; 96374; 99284; J2270